=== PATIENT | male | born 1945 | race Caucasian/White ===

== ENCOUNTER 2019-08-04 17:32 | Inpatient (IN) | payer MEDICARE ==
[~2019-08-04] VITALS: Ht 177.8 cm; Wt 74.6 kg
[2019-08-04] MEDS ORDERED: IV NORMAL SALINE 1000ML BAG 1,000 ML IV ONE ×2 (18:30→20:30)
[2019-08-04] MEDS ORDERED: MORPHINE SULFATE 4 MG/ML VIAL. IV ONE (18:30)
[2019-08-04] MEDS ORDERED: ONDANSETRON PF 4 MG/2 ML VIAL. IV ONE (18:30)
--- NOTE | 2019-08-04 18:49 | PHYS DOC ---
Past Medical History Past Medical History: Hypertension Past Surgical History: Other Additional Past Surgical Histo: CARPEL TUNNEL, dave in LLE Alcohol Use: None Drug Use: None Adult General Chief Complaint Chief Complaint: WEAKNESS/GENERALIZED HPI HPI Patient is a 73 year old male who presents to the ER via EMS with complaints of generalized weakness x2 weeks. Today he fell and landed on his right side. He complains of R thigh pain, pt denies R hip pain, loss of consciousness, head or neck pain. He reports that he has been intermittently dizzy during position changes and ambulation for several weeks and that is why he fell today. Pt denies any chest pain, palpitations, shortness of breath, nausea, vomiting, diarrhea, or abdominal pain. He currently rates his pain a 10/10 on the pain sca le and denies any alleviating factors. Review of Systems Review of Systems Constitutional: Denies fever or chills [] Eyes: Denies change in visual acuity, redness, or eye pain [] HENT: Denies nasal congestion or sore throat [] Respiratory: Denies cough or shortness of breath [] Cardiovascular: No additional information not addressed in HPI [] GI: Denies abdominal pain, nausea, vomiting, bloody stools or diarrhea [] : Denies dysuria or hematuria [] Musculoskeletal: Denies back pain or joint pain [] Integument: see HPI Neurologic: Denies headache, focal weakness or sensory changes; see HPI [] Endocrine: Denies polyuria or polydipsia [] Complete systems were reviewed and found to be within normal limits, except as documented in this note. Current Medications Current Medications Current Medications Medications (Trade) Dose Ordered Sig/Eliza Start Time Stop Time Status Last Admin Dose Admin Fentanyl Citrate (Fentanyl 2ml Vial) 50 mcg 1X ONCE 08/04/19 20:30 08/04/19 20:31 DC 08/04/19 20:39 50 MCG Morphine Sulfate (Morphine Sulfate) 4 mg 1X ONCE 08/04/19 18:30 08/04/19 18:31 DC 08/04/19 19:25 4 MG Ondansetron HCl (Zofran) 4 mg 1X ONCE 08/04/19 18:30 08/04/19 18:31 DC 08/04/19 19:25 4 MG Sodium Chloride 1,000 ml @ 1,000 mls/hr 1X ONCE 08/04/19 20:30 08/04/19 21:29 DC 08/04/19 20:49 1,000 MLS/HR Allergies Allergies Allergies Coded Allergies Type Severity Reaction Last Updated Verified No Known Drug Allergies 08/04/19 No Physical Exam Physical Exam Constitutional: Well developed, well nourished, no acute distress, non-toxic appearance. [] HENT: Normocephalic, atraumatic, bilateral external ears normal, nose normal. [] Eyes: PERRLA, conjunctiva normal, no discharge. [] Neck: Normal range of motion, no stridor. [] Cardiovascular:Heart rate regular rhythm, no murmur [] Lungs & Thorax: Bilateral breath sounds clear to auscultation, regular rate, speaking full sentences [] Abdomen: soft, no tenderness, no masses, no pulsatile masses. [] Skin: Warm, dry, no erythema, no rash; LLE bluish discoloration with scabbed wound noted lateral [] Back: No tenderness, no CVA tenderness. [] Extremities: No tenderness, no clubbing, ROM intact, no edema; LLE pulses not palpable, R pedal and posterior tibial pulses 2+; R mid thigh TTP, no crepitus, no deformity Neurologic: Alert and oriented X 3, no focal deficits noted. [] Psychologic: Affect normal, judgement normal, mood normal. [] Current Patient Data Vital Signs Vital Signs Date Time Temp Pulse Resp B/P (MAP) Pulse Ox O2 Delivery O2 Flow Rate FiO2 08/04/19 20:30 87 18 98 08/04/19 17:59 98.1 105/52 (69) Room Air 98.1 Lab Values Laboratory Tests Test 08/04/19 19:04 White Blood Count 6.9 x10^3/uL (4.0-11.0) Red Blood Count 3.21 x10^6/uL (4.30-5.70) L Hemoglobin 11.3 g/dL (13.0-17.5) L Hematocrit 33.7 % (39.0-53.0) L Mean Corpuscular Volume 105 fL (79-100) H Mean Corpuscular Hemoglobin 35 pg (25-35) Mean Corpuscular Hemoglobin Concent 34 g/dL (31-37) Red Cell Distribution Width 14.6 % (11.5-14.5) H Platelet Count 416 x10^3/uL (140-400) H Neutrophils (%) (Auto) 66 % (31-73) Lymphocytes (%) (Auto) 24 % (24-48) Monocytes (%) (Auto) 9 % (0-9) Eosinophils (%) (Auto) 1 % (0-3) Basophils (%) (Auto) 1 % (0-3) Neutrophils # (Auto) 4.6 x10^3/uL (1.8-7.7) Lymphocytes # (Auto) 1.7 x10^3/uL (1.0-4.8) Monocytes # (Auto) 0.6 x10^3/uL (0.0-1.1) Eosinophils # (Auto) 0.0 x10^3/uL (0.0-0.7) Basophils # (Auto) 0.1 x10^3/uL (0.0-0.2) Prothrombin Time 13.3 SEC (11.7-14.0) Prothrombin Time INR 1.0 (0.8-1.1) Activated Partial Thromboplast Time 33 SEC (24-38) Sodium Level 129 mmol/L (136-145) L Potassium Level 3.8 mmol/L (3.5-5.1) Chloride Level 91 mmol/L (98-107) L Carbon Dioxide Level 18 mmol/L (21-32) L Anion Gap 20 (6-14) H Blood Urea Nitrogen 74 mg/dL (8-26) H Creatinine 2.2 mg/dL (0.7-1.3) H Estimated GFR (Cockcroft-Gault) 29.7 BUN/Creatinine Ratio 34 (6-20) H Glucose Level 94 mg/dL (70-99) Lactic Acid Level 2.3 mmol/L (0.4-2.0) H Calcium Level 8.0 mg/dL (8.5-10.1) L Magnesium Level 2.4 mg/dL (1.8-2.4) Total Bilirubin 0.5 mg/dL (0.2-1.0) Aspartate Amino Transferase (AST) 46 U/L (15-37) H Alanine Aminotransferase (ALT) 23 U/L (16-63) Alkaline Phosphatase 122 U/L (46-116) H Troponin I Quantitative 0.017 ng/mL (0.000-0.055) Total Protein 6.0 g/dL (6.4-8.2) L Albumin 2.1 g/dL (3.4-5.0) L Albumin/Globulin Ratio 0.5 (1.0-1.7) L Laboratory Tests 08/04/19 19:04 Laboratory Tests 08/04/19 19:04 EKG EKG 1752- SR with PACs rate 87, no STEMI read by Dr. Benitez [] Radiology/Procedures Radiology/Procedures PROCEDURE: CT HEAD WO CONTRAST EXAM: CT HEAD WITHOUT CONTRAST. HISTORY: Syncope, weakness. TECHNIQUE: Computed tomography of the head was performed without intravenous contrast. One or more of the following individualized dose reduction techniques were utilized for this examination: 1. Automated exposure control. 2. Adjustment of the mA and/or kV according to patient size. 3. Use of iterative reconstruction technique. COMPARISON: None. FINDINGS: There is no intracranial hemorrhage. Hypoattenuation within the periventricular white matter indicates mild chronic microangiopathic change. Prominence of the lateral ventricles and hemispheric sulci indicates moderate atrophy. The visualized paranasal sinuses appear clear. There are changes of bilateral cataract surgery. The temporal bones are unremarkable. The calvarium reveals no suspicious lesions. IMPRESSION: 1. No acute intracranial findings. 2. Moderate atrophy and mild chronic microangiopathic white matter change. PROCEDURE: ARTERIAL STUDY LOWER EXT RIGHT EXAM: Right lower extremity arterial Doppler. HISTORY: Decreased pulses. Right lower extremity pain. COMPARISON: None. FINDINGS: Grayscale and Doppler analysis of the right lower cavity arterial system was performed. There are triphasic waveforms from the common femoral artery through the popliteal artery. There are biphasic waveforms within the trifurcation vessels. The dorsalis pedis artery is patent with biphasic flow. IMPRESSION: 1. Findings consistent with mildly flow-limiting stenosis within the distal popliteal artery or proximal trifurcation vessels. PROCEDURE: RIGHT FEMUR XRAY EXAM: 1. HIP RIGHT 2V WITH PELVIS, 2. RIGHT FEMUR 2 VIEWS. HISTORY: Fall with right hip and femoral pain. COMPARISON: None. FINDINGS: No fractures are appreciated within the pelvis. There is mildly decreased femoral head/neck offset superolaterally bilaterally. The joint spaces of both hips are maintained. The there is no fracture within the right femur. There is mild medial compartmental osteoarthritis at the right knee. IMPRESSION: 1. No fracture. 2. Correlate for mild femoroacetabular impingement bilaterally. 3. Mild medial compartmental osteoarthritis of the right knee. [] Course & Med Decision Making Course & Med Decision Making Pertinent Labs and Imaging studies reviewed. (See chart for details) dx: FREEDOM, generalized weakness, R thigh pain 2049- Notified Dr. Olsen of patient and need for admit. Patient's vital signs stable. Patient remains afebrile, appears nontoxic, respirations even and unlabored. Patient will be admitted to the med/tele floor. Patient's case and plan of care also discussed with Dr. Link [] Dragon Disclaimer Dragon Disclaimer This electronic medical record was generated, in whole or in part, using a voice recognition dictation system. Departure Departure Impression: Primary Impression: FREEDOM (acute kidney injury) Additional Impressions: Generalized weakness Right thigh pain Disposition: ADMITTED INPATIENT Admitting Physician: ALVINA (Pretty) Condition: STABLE Referrals: SILVINA STEPHEN MD (PCP) Problem Qualifiers MORRIS RADFORD INKER AND OPAQUER Aug 04, 2019 18:49
[2019-08-04 19:08] LABS: BASO # 0.1 x10^3/uL (0.0-0.2); BASO % 1 % (0-3); EOS % 1 % (0-3); HEMATOCRIT 33.7 % (39.0-53.0); HEMOGLOBIN 11.3 g/dL (13.0-17.5); LYMPH # 1.7 x10^3/uL (1.0-4.8); LYMPH % 24 % (24-48); MEAN CORPUSCULAR HEMOGLOBIN 35 pg (25-35); MEAN CORPUSCULAR HGB CONC 34 g/dL (31-37); MEAN CORPUSCULAR VOLUME 105 fL (79-100); MONO # 0.6 x10^3/uL (0.0-1.1); MONO % 9 % (0-9); NEUT # 4.6 x10^3/uL (1.8-7.7); NEUT % 66 % (31-73); PLATELET COUNT 416 x10^3/uL (140-400); RED BLOOD COUNT 3.21 x10^6/uL (4.30-5.70); RED CELL DISTRIBUTION WIDTH 14.6 % (11.5-14.5); WHITE BLOOD COUNT 6.9 x10^3/uL (4.0-11.0)
[2019-08-04 19:17] LABS: PROTHROMBIN TIME PATIENT 13.3 SEC (11.7-14.0)
[2019-08-04 19:30] LABS: CREATININE 2.2 mg/dL (0.7-1.3); GFR 29.7; POTASSIUM 3.8 mmol/L (3.5-5.1)
[2019-08-04 19:34] LABS: ALBUMIN 2.1 g/dL (3.4-5.0); ALBUMIN/GLOBULIN RATIO 0.5 (1.0-1.7); MAGNESIUM 2.4 mg/dL (1.8-2.4); TOTAL BILIRUBIN 0.5 mg/dL (0.2-1.0)
--- NOTE | 2019-08-04 20:00 | RAD ---
EXAM: CT HEAD WITHOUT CONTRAST. HISTORY: Syncope, weakness. TECHNIQUE: Computed tomography of the head was performed without intravenous contrast. One or more of the following individualized dose reduction techniques were utilized for this examination: 1. Automated exposure control. 2. Adjustment of the mA and/or kV according to patient size. 3. Use of iterative reconstruction technique. COMPARISON: None. FINDINGS: There is no intracranial hemorrhage. Hypoattenuation within the periventricular white matter indicates mild chronic microangiopathic change. Prominence of the lateral ventricles and hemispheric sulci indicates moderate atrophy. The visualized paranasal sinuses appear clear. There are changes of bilateral cataract surgery. The temporal bones are unremarkable. The calvarium reveals no suspicious lesions. IMPRESSION: 1. No acute intracranial findings. 2. Moderate atrophy and mild chronic microangiopathic white matter change. Electronically signed by: Stefanie Hernandez MD (08/04/2019 7:57 PM) [facility]
--- NOTE | 2019-08-04 20:09 | RAD ---
EXAM: Right lower extremity arterial Doppler. HISTORY: Decreased pulses. Right lower extremity pain. COMPARISON: None. FINDINGS: Grayscale and Doppler analysis of the right lower cavity arterial system was performed. There are triphasic waveforms from the common femoral artery through the popliteal artery. There are biphasic waveforms within the trifurcation vessels. The dorsalis pedis artery is patent with biphasic flow. IMPRESSION: 1. Findings consistent with mildly flow-limiting stenosis within the distal popliteal artery or proximal trifurcation vessels. Electronically signed by: Stefanie Hernandez MD (08/04/2019 8:06 PM) [facility]
[2019-08-04] MEDS ORDERED: fentaNYL PF VIAL 100 MCG/2 ML VIAL IV ONE (20:30)
--- NOTE | 2019-08-04 20:41 | RAD ---
EXAM: 1. HIP RIGHT 2V WITH PELVIS, 2. RIGHT FEMUR 2 VIEWS. HISTORY: Fall with right hip and femoral pain. COMPARISON: None. FINDINGS: No fractures are appreciated within the pelvis. There is mildly decreased femoral head/neck offset superolaterally bilaterally. The joint spaces of both hips are maintained. The there is no fracture within the right femur. There is mild medial compartmental osteoarthritis at the right knee. IMPRESSION: 1. No fracture. 2. Correlate for mild femoroacetabular impingement bilaterally. 3. Mild medial compartmental osteoarthritis of the right knee. Electronically signed by: Stefanie Hernandez MD (08/04/2019 8:38 PM) [facility]
--- NOTE | 2019-08-04 20:41 | RAD ---
EXAM: 1. HIP RIGHT 2V WITH PELVIS, 2. RIGHT FEMUR 2 VIEWS. HISTORY: Fall with right hip and femoral pain. COMPARISON: None. FINDINGS: No fractures are appreciated within the pelvis. There is mildly decreased femoral head/neck offset superolaterally bilaterally. The joint spaces of both hips are maintained. The there is no fracture within the right femur. There is mild medial compartmental osteoarthritis at the right knee. IMPRESSION: 1. No fracture. 2. Correlate for mild femoroacetabular impingement bilaterally. 3. Mild medial compartmental osteoarthritis of the right knee. Electronically signed by: Stefanie Hernandez MD (08/04/2019 8:38 PM) [facility]
[2019-08-04] MEDS ORDERED: ONDANSETRON PF 4 MG/2 ML VIAL. IV PRN (21:00)
[2019-08-04] MEDS: fentaNYL PF VIAL 100 MCG/2 ML VIAL IV PRN ×2 (21:15→22:09)
[2019-08-04 21:41] LABS: BILIRUBIN,URINE SMALL (NEG); CLARITY,URINE CLEAR; COLOR,URINE YELLOW; NITRITE,URINE NEGATIVE (NEG); PROTEIN,URINE NEGATIVE (NEG-TRACE); UROBILINOGEN,URINE 0.2 mg/dL (0.2 mg/dL)
[2019-08-04] MEDS: IV NORMAL SALINE 1000ML BAG 1,000 ML IV SCH (21:46)
[2019-08-04 21:48] LABS: HYALINE CASTS, URINE MANY /HPF
[2019-08-04 21:51] LABS: BACTERIA,URINE 0 /HPF (0-FEW); RBC,URINE 0 /HPF (0-2); SQUAMOUS EPITHELIAL CELL,UR OCC /LPF
[2019-08-04 23:43] VITALS: BP 112/46
[2019-08-05] VITALS (8 sets, daily range): BP systolic 98–154; BP diastolic 47–85
--- NOTE | 2019-08-05 01:00 | NUR ---
ADMIT NOTE The patient, KIRSTEN FUNK, 73 y/o, M admitted by ELLIS JETT MD, was given written information regarding hospital policies, unit procedures and contact persons. Report rcvd. from Honey, RN and pt arrived to unit via gurney. Patient afebrile, A&O, and VSS. Patient's belongings verified and left in room with patient at admission, patient reports, "security has my valuables". Patient orientated to unit, admission assessment complete, admit packet reviewed and plan of care discussed. Medications and allergies verified with patient at this time. Patient remains in bed, with no s/o pain and call light within reach, will continue to monitor.
[2019-08-05] MEDS ORDERED: FLU VAX QS 2019-20 (36MOS+)/PF 0.5 ML SYRINGE. VAX IM ONE (08:00)
--- NOTE | 2019-08-05 08:00 | EKG ---
[facility] [address] [place] [address] Test Date: 2019-08-04 Test Time: 17:52:46 Pat Name: KIRSTEN FUNK Department: Room: Gender: M Technical Training Specialist: : [id number] Requested By: MORRIS RADFORD Order Number: [id number] Reading MD: Measurements Intervals [place] Rate: 87 P: 90 WA: 152 QRS: 20 QRSD: 76 T: 42 QT: 358 QTc: 431 Interpretive Statements SINUS RHYTHM ATRIAL PREMATURE COMPLEX(ES), TRIGEMINY ABNORMAL ECG RI6.01 No previous ECG available for comparison
[2019-08-05] MEDS ORDERED: HYDR-2759 PO (08:04)
[2019-08-05] MEDS ORDERED: HYDR-2869 PO (08:04)
[2019-08-05] MEDS ORDERED: AMLO5TAB10 PO (08:04)
[2019-08-05] MEDS ORDERED: LISI1TAB19 PO (08:04)
[2019-08-05] MEDS: IV NORMAL SALINE 1000ML BAG 1,000 ML IV SCH ×2 (09:05→18:42)
--- NOTE | 2019-08-05 12:46 | PDOC2 ---
ZACHARY STARK BOLTING MACHINE OPERATOR 08/05/19 1246: CARDIAC CONSULT DATE OF CONSULT Date of Consult DATE: 08/05/19 TIME: 12:13 REASON FOR CONSULT Reason for Consult: Syncope REFERRING PHYSICIAN Referring Physician: Zac SOURCE Source: Chart review, Patient HISTORY OF PRESENT ILLNESS HISTORY OF PRESENT ILLNESS This is a pleasant 73 yo male admitted for complains of dizziness and fall. Reports that yesterday he got up in the morning and upon getting up he got lightheaded then almost passing out and fell. No lost of consciousness. No chest pain, palpitations, SOA. Denies any previous n/v/d. Reports that he only drinks about 1 L daily and has been taking losartan and HCTZ for BP. Denies NSAID use as he was told in the past not to take this. Denies any past CAD, arrhythmias, CVA, VTE or any recent falls, injury or MVA. Denies any leg pains and no open wounds. Denies any exertional CP, SHARMA nor claudication symptoms but his activity is limited as well. PAST MEDICAL HISTORY Cardiovascular: HTN Pulmonary: No pertinent hx CENTRAL NERVOUS SYSTEM: Carpal Tunnel Syndrome GI: No pertinent hx Heme/Onc: No pertinent hx Hepatobiliary: No pertinent hx Psych: No pertinent hx Musculoskeletal: Osteoarthritis, Other (traumatic LLE injury with 9 total surgeries with dave placement) Rheumatologic: No pertinent hx Infectious disease: No pertinent hx ENT: No pertinent hx (wears dentures) Renal/: No pertinent hx Endocrine: No pertinent hx Dermatology: No pertinent hx PAST SURGICAL HISTORY Past Surgical History: Cataract Removal, Other (LLE repair) FAMILY HISTORY Family History noncontributory to CV SOCIAL HISTORY Smoke: Quit ALCOHOL: none Drugs: None Lives: Alone CURRENT MEDICATIONS CURRENT MEDICATIONS Current Medications Medications (Trade) Dose Ordered Sig/Eliza Route PRN Reason Start Time Stop Time Status Last Admin Dose Admin Sodium Chloride 1,000 ml @ 1,000 mls/hr 1X ONCE IV 08/04/19 18:30 08/04/19 19:29 DC 08/04/19 19:25 Morphine Sulfate (Morphine Sulfate) 4 mg 1X ONCE IV 08/04/19 18:30 08/04/19 18:31 DC 08/04/19 19:25 Ondansetron HCl (Zofran) 4 mg 1X ONCE IV 08/04/19 18:30 08/04/19 18:31 DC 08/04/19 19:25 Fentanyl Citrate (Fentanyl 2ml Vial) 50 mcg 1X ONCE IV 08/04/19 20:30 08/04/19 20:31 DC 08/04/19 20:39 Sodium Chloride 1,000 ml @ 1,000 mls/hr 1X ONCE IV 08/04/19 20:30 08/04/19 21:29 DC 08/04/19 20:49 Fentanyl Citrate (Fentanyl 2ml Vial) 50 mcg PRN Q1HR PRN IV PAIN 08/04/19 21:00 08/05/19 20:59 08/04/19 22:09 Sodium Chloride 1,000 ml @ 100 mls/hr Q10H IV 08/04/19 20:58 08/05/19 20:57 08/05/19 09:05 Influenza Virus Vaccine Quadrival (Afluria Quad 2019-20 (3yr Up) Syringe) 0.5 ml ONCE ONCE VAX IM 08/05/19 08:00 08/05/19 08:07 DC 08/05/19 09:12 ALLERGIES ALLERGIES: Coded Allergies: No Known Drug Allergies (Unverified , 08/04/19) ROS Review of System 14 point ROS evaluated with pertinent positives noted per HPI PHYSICAL EXAM General: Alert, Oriented X3, Cooperative, No acute distress HEENT: Atraumatic, Mucous membr. moist/pink Lungs: Clear to auscultation, Normal air movement Heart: Regular rate (SR), Normal S1, Normal S2, No murmurs Abdomen: Soft, No tenderness Extremities: No cyanosis, No edema Skin: No breakdown, No significant lesion, Other (atrophic LE skin) Neuro: Normal speech, Sensation intact Psych/Mental Status: Mental status NL, Mood NL MUSCULOSKELETAL: Osteoarthritic changes both hands VITALS/I&O VITALS/I&O: Vital Signs Date Time Temp Pulse Resp B/P (MAP) Pulse Ox O2 Delivery O2 Flow Rate FiO2 08/05/19 11:46 97.4 106 18 117/58 (77) 95 Room Air 97.4 I & O 08/04/19 08/04/19 08/05/19 15:00 23:00 07:00 Intake Total 2050 ml 0 ml Output Total 300 ml Balance 1750 ml 0 ml LABS Lab: Laboratory Tests Test 08/04/19 19:04 08/04/19 21:30 08/04/19 22:40 White Blood Count 6.9 x10^3/uL (4.0-11.0) Red Blood Count 3.21 x10^6/uL (4.30-5.70) L Hemoglobin 11.3 g/dL (13.0-17.5) L Hematocrit 33.7 % (39.0-53.0) L Mean Corpuscular Volume 105 fL (79-100) H Mean Corpuscular Hemoglobin 35 pg (25-35) Mean Corpuscular Hemoglobin Concent 34 g/dL (31-37) Red Cell Distribution Width 14.6 % (11.5-14.5) H Platelet Count 416 x10^3/uL (140-400) H Neutrophils (%) (Auto) 66 % (31-73) Lymphocytes (%) (Auto) 24 % (24-48) Monocytes (%) (Auto) 9 % (0-9) Eosinophils (%) (Auto) 1 % (0-3) Basophils (%) (Auto) 1 % (0-3) Neutrophils # (Auto) 4.6 x10^3/uL (1.8-7.7) Lymphocytes # (Auto) 1.7 x10^3/uL (1.0-4.8) Monocytes # (Auto) 0.6 x10^3/uL (0.0-1.1) Eosinophils # (Auto) 0.0 x10^3/uL (0.0-0.7) Basophils # (Auto) 0.1 x10^3/uL (0.0-0.2) Prothrombin Time 13.3 SEC (11.7-14.0) Prothrombin Time INR 1.0 (0.8-1.1) Activated Partial Thromboplast Time 33 SEC (24-38) Sodium Level 129 mmol/L (136-145) L Potassium Level 3.8 mmol/L (3.5-5.1) Chloride Level 91 mmol/L (98-107) L Carbon Dioxide Level 18 mmol/L (21-32) L Anion Gap 20 (6-14) H Blood Urea Nitrogen 74 mg/dL (8-26) H Creatinine 2.2 mg/dL (0.7-1.3) H Estimated GFR (Cockcroft-Gault) 29.7 BUN/Creatinine Ratio 34 (6-20) H Glucose Level 94 mg/dL (70-99) Lactic Acid Level 2.3 mmol/L (0.4-2.0) H 1.3 mmol/L (0.4-2.0) Calcium Level 8.0 mg/dL (8.5-10.1) L Magnesium Level 2.4 mg/dL (1.8-2.4) Total Bilirubin 0.5 mg/dL (0.2-1.0) Aspartate Amino Transferase (AST) 46 U/L (15-37) H Alanine Aminotransferase (ALT) 23 U/L (16-63) Alkaline Phosphatase 122 U/L (46-116) H Troponin I Quantitative 0.017 ng/mL (0.000-0.055) Total Protein 6.0 g/dL (6.4-8.2) L Albumin 2.1 g/dL (3.4-5.0) L Albumin/Globulin Ratio 0.5 (1.0-1.7) L Urine Collection Type U cath Urine Color Yellow Urine Clarity Clear Urine pH 5.0 Urine Specific [place] 1.020 Urine Protein Negative mg/dL (NEG-TRACE) Urine Glucose (UA) Negative mg/dL (NEG) Urine Ketones (Stick) 15 mg/dL (NEG) Urine Blood Negative (NEG) Urine Nitrite Negative (NEG) Urine Bilirubin Small (NEG) Urine Urobilinogen Dipstick 0.2 mg/dL (0.2 mg/dL) Urine Leukocyte Esterase Negative (NEG) Urine RBC 0 /HPF (0-2) Urine WBC 1-4 /HPF (0-4) Urine Squamous Epithelial Cells Occ /LPF Urine Transitional Epithelial Cells Mod /LPF Urine Bacteria 0 /HPF (0-FEW) Urine Hyaline Casts Many /HPF Urine Mucus Mod /LPF Laboratory Tests 08/04/19 19:04 Laboratory Tests 08/04/19 19:04 ASSESSMENT/PLAN ASSESSMENT/PLAN 1. Presyncope with nontraumatic fall: possibly orthostasis with underlying uremia. No arrhythmias so far and this is positional; 2. Debility: mainly WC bound 3. Macrocytosis: denies ETOH use. per PCP 4. Severe FREEDOM with hyponatremia: nephrology following 5. Suspect Dementia 6. Suspect COPD 7. LE PAD: no claudications, no open wounds Recommendations 1. Check orthostatic readings. 2. EKG reviewed NSR with PACs. ASA, will check lipids and start on statin 3. Discussed hydration adequacy. Stop ARB/HCTZ. Could restart norvasc pending BP trend. 4. Monitor rhythm VIKTOR CRUZ MD 08/06/19 2204: CARDIAC CONSULT ASSESSMENT/PLAN ASSESSMENT/PLAN Patient seen and examined 08/05/19. Agree with BINDERY CHIEF's assessment and plan. Patient with near syncope and fall Tele did not show any arrhythmias Check orthostatics PAD stable Thank you for your consultation ZACHARY STARK APRN Aug 05, 2019 12:46 VIKTOR CRUZ MD Aug 06, 2019 22:04
--- NOTE | 2019-08-05 13:46 | HP ---
ADMIT DATE: 08/05/2019 CHIEF COMPLAINT: Weakness. HISTORY OF PRESENT ILLNESS: The patient is a pleasant 73-year-old male who presents to the ER with weakness. He came in by ambulance. This has been worsening over the past 2 weeks. He actually fell and states he had syncope as well. He actually did lose consciousness. He had some associated right thigh pain rated at 7/10 and right hip pain as well. He has been having intermittent dizziness with positional changes for several weeks. While in the ER, we noticed that he has acute renal failure with a creatinine of 2.2. He also is azotemic with a BUN of 74. He is also hyponatremic with a sodium of 129. He is malnourished with an albumin of 2.1. He is anemic with a hemoglobin of 11.3. I discussed the case with ER physician. We are going to admit the patient and consult Nephrology and Cardiology and Neurology. PAST MEDICAL HISTORY: 1. Hypertension. 2. Carpal tunnel surgery. 3. He has got a dave in the left lower extremity. ALLERGIES: None. FAMILY HISTORY: Diabetes. SOCIAL HISTORY: He does not drink, smoke or take drugs. He is retired. MEDICATIONS: Reviewed, please refer to the MRAD. REVIEW OF SYSTEMS: GENERAL: No history of weight change, weakness or fevers. SKIN: No bruising, hair changes or rashes. EYES: No blurred, double or loss of vision. NOSE AND THROAT: No history of nosebleeds, hoarseness or sore throat. HEART: No history of palpitations, chest pain or shortness of breath on exertion. LUNGS: Denies cough, hemoptysis, wheezing or shortness of breath. GASTROINTESTINAL: Denies changes in appetite, nausea, vomiting, diarrhea or constipation. GENITOURINARY: No history of frequency, urgency, hesitancy or nocturia. NEUROLOGIC: Denies history of numbness, tingling, tremor. Complains of weakness and syncope. PSYCHIATRIC: No history of panic, anxiety or depression. ENDOCRINE: No history of heat or cold intolerance, polyuria or polydipsia. EXTREMITIES: Denies muscle weakness, joint pain, pain on walking or stiffness. PHYSICAL EXAMINATION: VITALS: Within normal limits and are stable. GENERAL: No apparent distress. Alert and oriented. He is weak. HEENT: Head is normocephalic, atraumatic, pupils were equally round and reactive to light and accommodation. NECK: Supple, no JVD, no thyromegaly was noted. LUNGS: Clear to auscultation in all lung glover without rhonchi or wheezing. HEART: RRR, S1, S2 present. Peripheral pulses intact, no obvious murmurs were noted. ABDOMEN: Soft, nontender. Positive bowel sounds no organomegaly, normal bowel sounds. EXTREMITIES: Without any cyanosis, clubbing, or edema. Pedal pulses intact, Homans sign is negative. NEUROLOGIC: Normal speech, normal tone. A & O x3, moves all extremities, no obvious focal deficits. He is weak. PSYCHIATRIC: Normal affect, normal mood. Stable. SKIN: No ulcerations or rashes, good skin turgor, no jaundice. He is pale. VASCULAR: Good capillary refill, neurovascular bundle appears to be intact. LABORATORY DATA: Hemoglobin is 11.3. Sodium 129, potassium 3.8, chloride 91, bicarbonate 18, BUN 74, creatinine 2.2, glucose 94, albumin 2.1. ASSESSMENT AND PLAN: Syncope and multiple electrolyte disturbances with hyponatremia, azotemia, acute renal failure, anemia. The patient has been admitted. We will consult Nephrology, Cardiology and Neurology. IV fluids. Replace his electrolytes. PT, OT. Frequent labs. DVT prophylaxis. Cardiac monitoring. PROGNOSIS: Guarded. SANDI PURI DO DR: JULIA/rashi JOB#: [id number] / [id number]
--- NOTE | 2019-08-05 14:23 | PDOC2 ---
NEUROLOGY CONSULT Date of Admission Date of Admission DATE: 08/05/19 TIME: 14:17 Reason for Consult Reason for Consult: Syncope Referring Physician Referring Physician: Dr. Frank Source Source: Chart review, Patient History of Present Illness History of Present Illness The patient is a 73-year-old right-handed male who fell yesterday. He says that he gets lightheaded when he gets up quickly and has been having neck problem for up to several years. He has gotten weaker in the last 2 weeks. He denies any vertigo, diplopia, dysphagia, dysarthria, focal numbness or weakness, history of stroke or seizure. He may have had some head injuries in the past. He denies headache. He does have some right-sided body pain after the fall yesterday. He does not believe he loss consciousness or if he did, it was for a short amount of time. Past Medical History Cardiovascular: HTN Musculoskeletal: Osteoarthritis Past Surgical History Past Surgical History: Cataract Removal, Other (carpal tunnel, dave in leg) Family History Family History: CAD Social History Social History Single, no alcohol or tobacco quit smoking a few weeks ago Current Medications Current Medications Current Medications Sodium Chloride 1,000 ml @ 1,000 mls/hr 1X ONCE IV Last administered on 08/04/19at 19:25; Start 08/04/19 at 18:30; Stop 08/04/19 at 19:29; Status DC Morphine Sulfate (Morphine Sulfate) 4 mg 1X ONCE IV Last administered on 08/04/19at 19:25; Start 08/04/19 at 18:30; Stop 08/04/19 at 18:31; Status DC Ondansetron HCl (Zofran) 4 mg 1X ONCE IV Last administered on 08/04/19at 19:25; Start 08/04/19 at 18:30; Stop 08/04/19 at 18:31; Status DC Fentanyl Citrate (Fentanyl 2ml Vial) 50 mcg 1X ONCE IV Last administered on 08/04/19at 20:39; Start 08/04/19 at 20:30; Stop 08/04/19 at 20:31; Status DC Sodium Chloride 1,000 ml @ 1,000 mls/hr 1X ONCE IV Last administered on 08/04/19at 20:49; Start 08/04/19 at 20:30; Stop 08/04/19 at 21:29; Status DC Ondansetron HCl (Zofran) 4 mg PRN Q8HRS PRN IV NAUSEA/VOMITING; Start 08/04/19 at 21:00; Stop 08/05/19 at 20:59 Fentanyl Citrate (Fentanyl 2ml Vial) 50 mcg PRN Q1HR PRN IV PAIN Last administered on 08/04/19at 22:09; Start 08/04/19 at 21:00; Stop 08/05/19 at 20:59 Sodium Chloride 1,000 ml @ 100 mls/hr Q10H IV Last administered on 08/05/19at 09:05; Start 08/04/19 at 20:58; Stop 08/05/19 at 20:57 Influenza Virus Vaccine Quadrival (Afluria Quad 2019-20 (3yr Up) Syringe) 0.5 ml ONCE ONCE VAX IM Last administered on 08/05/19at 09:12; Start 08/05/19 at 08:00; Stop 08/05/19 at 08:07; Status DC Active Scripts Active Reported Hydralazine Hcl 50 Mg Tablet 1.5 Tab PO TID Lisinopril-Hctz 20-12.5 Mg Tab (Lisinopril/Hydrochlorothiazide) 1 Each Tablet 1 Tab PO DAILY Amlodipine Besylate 5 Mg Tablet 1 Tab PO BID Hydrocodone-Acetamin 5-325 mg (Hydrocodone/Acetaminophen) 1 Each Tablet 1 Tab PO PRN BID PRN Allergies Allergies: Coded Allergies: No Known Drug Allergies (Unverified , 08/04/19) ROS Review of System Negative for fever, chills, weight loss, shortness of breath, chest pain, indigestion, hematochezia, melena, and dysuria. Full 14-point review of systems is negative. Physical Exam Physical Examination General: Well-developed, well-nourished white male in no acute distress HEENT: Normocephalic andatraumatic. Temporal arteriespulsatile and nontender. Neck: Supple without bruit, no meningismus Musculoskeletal: Stability:see neurologic. Gait exam:see neurologic. Tone:see neurologic.Strength:see neurologic. Neurological: Mental Status:intact, orientation, memory, attention span/concentration, language, fund of knowledge normal. Cranial Nerves:Pupils equal and reactive to light, extraocular movements areintact, visual glover are full to confrontation. There is no nystagmus. Facial sensation is normal. There is no facial asymmetry. Vestibulo-ocular reflex is intact. Palate elevates and tongue protrudes in midline. All other cranial related problems are negative except as mentioned before.Reflexes:1+ and symmetric with flexor plantar responses. Motor:5/5 strength with normal tone and bulk. Coordination:Finger-nose finger and jwxa-ls-[id number] testing are normal. Rapid alternating movements and fine finger movements are intact. Gait:Complains of lightheadedness upon standing, no nystagmus elicited. Sensory:Normal pinprick, vibration, light touch, proprioception. Vitals VITALS Vital Signs Date Time Temp Pulse Resp B/P (MAP) Pulse Ox O2 Delivery O2 Flow Rate FiO2 08/05/19 13:32 118 106/62 (77) 08/05/19 11:46 97.4 18 95 Room Air 97.4 Labs Labs Laboratory Tests Test 08/04/19 19:04 08/04/19 21:30 08/04/19 22:40 White Blood Count 6.9 x10^3/uL (4.0-11.0) Red Blood Count 3.21 x10^6/uL (4.30-5.70) Hemoglobin 11.3 g/dL (13.0-17.5) Hematocrit 33.7 % (39.0-53.0) Mean Corpuscular Volume 105 fL (79-100) Mean Corpuscular Hemoglobin 35 pg (25-35) Mean Corpuscular Hemoglobin Concent 34 g/dL (31-37) Red Cell Distribution Width 14.6 % (11.5-14.5) Platelet Count 416 x10^3/uL (140-400) Neutrophils (%) (Auto) 66 % (31-73) Lymphocytes (%) (Auto) 24 % (24-48) Monocytes (%) (Auto) 9 % (0-9) Eosinophils (%) (Auto) 1 % (0-3) Basophils (%) (Auto) 1 % (0-3) Neutrophils # (Auto) 4.6 x10^3/uL (1.8-7.7) Lymphocytes # (Auto) 1.7 x10^3/uL (1.0-4.8) Monocytes # (Auto) 0.6 x10^3/uL (0.0-1.1) Eosinophils # (Auto) 0.0 x10^3/uL (0.0-0.7) Basophils # (Auto) 0.1 x10^3/uL (0.0-0.2) Prothrombin Time 13.3 SEC (11.7-14.0) Prothromb Time International Ratio 1.0 (0.8-1.1) Activated Partial Thromboplast Time 33 SEC (24-38) Sodium Level 129 mmol/L (136-145) Potassium Level 3.8 mmol/L (3.5-5.1) Chloride Level 91 mmol/L (98-107) Carbon Dioxide Level 18 mmol/L (21-32) Anion Gap 20 (6-14) Blood Urea Nitrogen 74 mg/dL (8-26) Creatinine 2.2 mg/dL (0.7-1.3) Estimated GFR (Cockcroft-Gault) 29.7 BUN/Creatinine Ratio 34 (6-20) Glucose Level 94 mg/dL (70-99) Lactic Acid Level 2.3 mmol/L (0.4-2.0) 1.3 mmol/L (0.4-2.0) Calcium Level 8.0 mg/dL (8.5-10.1) Magnesium Level 2.4 mg/dL (1.8-2.4) Total Bilirubin 0.5 mg/dL (0.2-1.0) Aspartate Amino Transf (AST/SGOT) 46 U/L (15-37) Alanine Aminotransferase (ALT/SGPT) 23 U/L (16-63) Alkaline Phosphatase 122 U/L (46-116) Troponin I Quantitative 0.017 ng/mL (0.000-0.055) Total Protein 6.0 g/dL (6.4-8.2) Albumin 2.1 g/dL (3.4-5.0) Albumin/Globulin Ratio 0.5 (1.0-1.7) Urine Collection Type U cath Urine Color Yellow Urine Clarity Clear Urine pH 5.0 Urine Specific [place] 1.020 Urine Protein Negative mg/dL (NEG-TRACE) Urine Glucose (UA) Negative mg/dL (NEG) Urine Ketones (Stick) 15 mg/dL (NEG) Urine Blood Negative (NEG) Urine Nitrite Negative (NEG) Urine Bilirubin Small (NEG) Urine Urobilinogen Dipstick 0.2 mg/dL (0.2 mg/dL) Urine Leukocyte Esterase Negative (NEG) Urine RBC 0 /HPF (0-2) Urine WBC 1-4 /HPF (0-4) Urine Squamous Epithelial Cells Occ /LPF Urine Transitional Epithelial Cells Mod /LPF Urine Bacteria 0 /HPF (0-FEW) Urine Hyaline Casts Many /HPF Urine Mucus Mod /LPF Laboratory Tests Test 08/04/19 19:04 08/04/19 21:30 08/04/19 22:40 White Blood Count 6.9 x10^3/uL (4.0-11.0) Red Blood Count 3.21 x10^6/uL (4.30-5.70) Hemoglobin 11.3 g/dL (13.0-17.5) Hematocrit 33.7 % (39.0-53.0) Mean Corpuscular Volume 105 fL (79-100) Mean Corpuscular Hemoglobin 35 pg (25-35) Mean Corpuscular Hemoglobin Concent 34 g/dL (31-37) Red Cell Distribution Width 14.6 % (11.5-14.5) Platelet Count 416 x10^3/uL (140-400) Neutrophils (%) (Auto) 66 % (31-73) Lymphocytes (%) (Auto) 24 % (24-48) Monocytes (%) (Auto) 9 % (0-9) Eosinophils (%) (Auto) 1 % (0-3) Basophils (%) (Auto) 1 % (0-3) Neutrophils # (Auto) 4.6 x10^3/uL (1.8-7.7) Lymphocytes # (Auto) 1.7 x10^3/uL (1.0-4.8) Monocytes # (Auto) 0.6 x10^3/uL (0.0-1.1) Eosinophils # (Auto) 0.0 x10^3/uL (0.0-0.7) Basophils # (Auto) 0.1 x10^3/uL (0.0-0.2) Prothrombin Time 13.3 SEC (11.7-14.0) Prothromb Time International Ratio 1.0 (0.8-1.1) Activated Partial Thromboplast Time 33 SEC (24-38) Sodium Level 129 mmol/L (136-145) Potassium Level 3.8 mmol/L (3.5-5.1) Chloride Level 91 mmol/L (98-107) Carbon Dioxide Level 18 mmol/L (21-32) Anion Gap 20 (6-14) Blood Urea Nitrogen 74 mg/dL (8-26) Creatinine 2.2 mg/dL (0.7-1.3) Estimated GFR (Cockcroft-Gault) 29.7 BUN/Creatinine Ratio 34 (6-20) Glucose Level 94 mg/dL (70-99) Lactic Acid Level 2.3 mmol/L (0.4-2.0) 1.3 mmol/L (0.4-2.0) Calcium Level 8.0 mg/dL (8.5-10.1) Magnesium Level 2.4 mg/dL (1.8-2.4) Total Bilirubin 0.5 mg/dL (0.2-1.0) Aspartate Amino Transf (AST/SGOT) 46 U/L (15-37) Alanine Aminotransferase (ALT/SGPT) 23 U/L (16-63) Alkaline Phosphatase 122 U/L (46-116) Troponin I Quantitative 0.017 ng/mL (0.000-0.055) Total Protein 6.0 g/dL (6.4-8.2) Albumin 2.1 g/dL (3.4-5.0) Albumin/Globulin Ratio 0.5 (1.0-1.7) Urine Collection Type U cath Urine Color Yellow Urine Clarity Clear Urine pH 5.0 Urine Specific [place] 1.020 Urine Protein Negative mg/dL (NEG-TRACE) Urine Glucose (UA) Negative mg/dL (NEG) Urine Ketones (Stick) 15 mg/dL (NEG) Urine Blood Negative (NEG) Urine Nitrite Negative (NEG) Urine Bilirubin Small (NEG) Urine Urobilinogen Dipstick 0.2 mg/dL (0.2 mg/dL) Urine Leukocyte Esterase Negative (NEG) Urine RBC 0 /HPF (0-2) Urine WBC 1-4 /HPF (0-4) Urine Squamous Epithelial Cells Occ /LPF Urine Transitional Epithelial Cells Mod /LPF Urine Bacteria 0 /HPF (0-FEW) Urine Hyaline Casts Many /HPF Urine Mucus Mod /LPF Images Images CT HEAD WITHOUT CONTRAST. There is no intracranial hemorrhage. Hypoattenuation within the periventricular white matter indicates mild chronic microangiopathic change. Prominence of the lateral ventricles and hemispheric sulci indicates moderate atrophy. The visualized paranasal sinuses appear clear. There are changes of bilateral cataract surgery. The temporal bones are unremarkable. The calvarium reveals no suspicious lesions. IMPRESSION: 1. No acute intracranial findings. 2. Moderate atrophy and mild chronic microangiopathic white matter change. Assessment/Plan Assessment/Plan Impression: Orthostatic lightheadedness, however, he is not orthostatic on blood pressure checks. On other hand, I find no evidence of vestibular or cerebellar dysfunction. There is no evidence of neuropathy, radiculopathy, or myelopathy. There is no sign of any acute central nervous system disease. Multiple medical problems including hyponatremia, acute renal insufficiency, anemia. Recommendations: Back off on hypertension control Rehabilitation modalities I will consider additional studies including brain MRI, vestibular testing, and additional laboratory studies depending on how he does. Thank you for letting me help with the patient's care. JACKLYN SINCLAIR MD Aug 05, 2019 14:23
--- NOTE | 2019-08-05 15:10 | NUR ---
SW following pt for dc planning. Chart reviewed and discussed with RN. Pt lives at home alone. Cardiology and neurology following. PT/OT ordered. Wound Care consulted. SW will continue to follow pt.
[2019-08-05] MEDS: fentaNYL PF VIAL 100 MCG/2 ML VIAL IV PRN ×2 (15:47→17:06)
--- NOTE | 2019-08-05 16:08 | NUR ---
Wound care Wound care consult for scab to LLE. Pt has scab that is dry and flaky to LLE that he states has been there for 16 years. Pt states it is from the dave and screws he has in his leg. Scab does not bother him or cause him pain, cleansed with Betadine and left [employer]. No other wounds noted. WC will continue to follow for possible changes.
--- NOTE | 2019-08-05 18:00 | NUR ---
The patient complained of urgency in urination, assisted in the bathroom, voided spontaneously but with sensation of incomplete emptying. The patient had hernandez inserted last night at the ER but the patient requested catheter to be taken out. Per Dr. Frank's order, hernandez F16 was inserted via aseptic technique at 1600. Drained about 400ml of yellow, clear urine. The patient complained of pain in the penile site, pain med given. Upon inspection, catheter site is clean, dry, no swelling or redness, no wounds noted. Patient educated about indication of indwelling catheter and complications. Nurse to continue to monitor.
--- NOTE | 2019-08-05 19:19 | NUR ---
Conner catheter removed at 1900 per patient request.
[2019-08-06 03:35] VITALS: BP 121/64
[2019-08-06 05:42] LABS: BASO % 0 % (0-3); EOS % 1 % (0-3); HEMATOCRIT 27.4 % (39.0-53.0); HEMOGLOBIN 9.2 g/dL (13.0-17.5); LYMPH % 22 % (24-48); MEAN CORPUSCULAR HEMOGLOBIN 35 pg (25-35); MEAN CORPUSCULAR HGB CONC 34 g/dL (31-37); MEAN CORPUSCULAR VOLUME 105 fL (79-100); MONO # 0.4 x10^3/uL (0.0-1.1); MONO % 9 % (0-9); NEUT # 2.9 x10^3/uL (1.8-7.7); NEUT % 67 % (31-73); PLATELET COUNT 276 x10^3/uL (140-400); RED BLOOD COUNT 2.61 x10^6/uL (4.30-5.70); RED CELL DISTRIBUTION WIDTH 14.5 % (11.5-14.5); WHITE BLOOD COUNT 4.4 x10^3/uL (4.0-11.0)
[2019-08-06 06:14] LABS: ALBUMIN 1.6 g/dL (3.4-5.0); ALBUMIN/GLOBULIN RATIO 0.4 (1.0-1.7); CALCIUM 7.4 mg/dL (8.5-10.1); CREATININE 1.1 mg/dL (0.7-1.3); POTASSIUM 3.7 mmol/L (3.5-5.1); TOTAL BILIRUBIN 0.4 mg/dL (0.2-1.0); TOTAL PROTEIN 5.4 g/dL (6.4-8.2)
[2019-08-06 07:00] VITALS: BP 116/54
--- NOTE | 2019-08-06 10:14 | PDOC2 ---
CONSULT Date of Consult Date of Consult DATE: 08/06/19 TIME: 10:13 Reason for Consult Reason for Consult: FREEDOM History of Present Illness Reason for Visit: This is a pleasant 73 yo C male admitted for complains of dizziness and fall. Reports that yesterday he got up in the morning and upon getting up he got lightheaded then almost passing out and fell. No lost of consciousness. No chest pain, palpitations, SOA. Denies any previous n/v/d. Reports that he only drinks about 1 L daily and has been taking losartan and HCTZ for BP. Denies NSAID use as he was told in the past not to take this. Denies any past CAD, arrhythmias, CVA, VTE or any recent falls, injury or MVA. Denies any leg pains and no open wounds. Denies any exertional CP, SHARMA nor claudication symptoms but his activity is limited as well. Denies Hx of CKD, No NSAID's. Had hernandez removed , states c/o mild burning Past Medical History Cardiovascular: HTN Pulmonary: No pertinent hx CENTRAL NERVOUS SYSTEM: Carpal Tunnel Syndrome GI: No pertinent hx Heme/Onc: No pertinent hx Hepatobiliary: No pertinent hx Psych: No pertinent hx Musculoskeletal: Osteoarthritis Rheumatologic: No pertinent hx Infectious disease: No pertinent hx ENT: No pertinent hx (wears dentures) Renal/: No pertinent hx Endocrine: No pertinent hx Dermatology: No pertinent hx Past Surgical History Past Surgical History: Cataract Removal, Other (carpal tunnel, dave in leg) Social History Quit ALCOHOL: none Drugs: None Lives: Alone Current Problem List Problem List Problems Medical Problems: (1) Right thigh pain Status: Acute Current Medications Current Medications Current Medications Sodium Chloride 1,000 ml @ 1,000 mls/hr 1X ONCE IV Last administered on 08/04/19at 19:25; Start 08/04/19 at 18:30; Stop 08/04/19 at 19:29; Status DC Morphine Sulfate (Morphine Sulfate) 4 mg 1X ONCE IV Last administered on 08/04/19at 19:25; Start 08/04/19 at 18:30; Stop 08/04/19 at 18:31; Status DC Ondansetron HCl (Zofran) 4 mg 1X ONCE IV Last administered on 08/04/19at 19:25; Start 08/04/19 at 18:30; Stop 08/04/19 at 18:31; Status DC Fentanyl Citrate (Fentanyl 2ml Vial) 50 mcg 1X ONCE IV Last administered on 08/04/19at 20:39; Start 08/04/19 at 20:30; Stop 08/04/19 at 20:31; Status DC Sodium Chloride 1,000 ml @ 1,000 mls/hr 1X ONCE IV Last administered on 08/04/19at 20:49; Start 08/04/19 at 20:30; Stop 08/04/19 at 21:29; Status DC Ondansetron HCl (Zofran) 4 mg PRN Q8HRS PRN IV NAUSEA/VOMITING; Start 08/04/19 at 21:00; Stop 08/05/19 at 20:59; Status DC Fentanyl Citrate (Fentanyl 2ml Vial) 50 mcg PRN Q1HR PRN IV PAIN Last administered on 08/05/19at 17:06; Start 08/04/19 at 21:00; Stop 08/05/19 at 20:59; Status DC Sodium Chloride 1,000 ml @ 100 mls/hr Q10H IV Last administered on 08/05/19at 18:42; Start 08/04/19 at 20:58; Stop 08/05/19 at 20:57; Status DC Influenza Virus Vaccine Quadrival (Afluria Quad 2019-20 (3yr Up) Syringe) 0.5 ml ONCE ONCE VAX IM Last administered on 08/05/19at 09:12; Start 08/05/19 at 08:00; Stop 08/05/19 at 08:07; Status DC Active Scripts Active Reported Hydralazine Hcl 50 Mg Tablet 1.5 Tab PO TID Lisinopril-Hctz 20-12.5 Mg Tab (Lisinopril/Hydrochlorothiazide) 1 Each Tablet 1 Tab PO DAILY Amlodipine Besylate 5 Mg Tablet 1 Tab PO BID Hydrocodone-Acetamin 5-325 mg (Hydrocodone/Acetaminophen) 1 Each Tablet 1 Tab PO PRN BID PRN Allergies Allergies: Coded Allergies: No Known Drug Allergies (Unverified , 08/04/19) ROS Review of System Per HPI Physical Exam Physical Exam General: Alert, Oriented X3, Cooperative, No acute distress HEENT: Atraumatic, Mucous membr. moist/pink Lungs: Clear to auscultation, Normal air movement Heart: Regular rate (SR), Normal S1, Normal S2, No murmurs Abdomen: Soft, No tenderness Extremities: No cyanosis, No edema Skin: No breakdown, No significant lesion, Other (atrophic LE skin) Neuro: Normal speech, Sensation intact Psych/Mental Status: Mental status NL, Mood NL MUSCULOSKELETAL: Osteoarthritic changes both hands Vital Signs Vital Signs Date Time Temp Pulse Resp B/P (MAP) Pulse Ox O2 Delivery O2 Flow Rate FiO2 08/06/19 07:00 97.9 99 18 116/54 (74) 99 Room Air 97.9 Assessment & Plan FREEDOM - vasomotor, Resolved Renal function improving, baseline unknown Supportive care, Monitor Hyponatremia- Improved with IVF Presyncope with nontraumatic fall Labs Labs Laboratory Tests Test 08/04/19 19:04 08/04/19 21:30 08/04/19 22:40 08/06/19 04:40 White Blood Count 6.9 x10^3/uL (4.0-11.0) 4.4 x10^3/uL (4.0-11.0) Red Blood Count 3.21 x10^6/uL (4.30-5.70) 2.61 x10^6/uL (4.30-5.70) Hemoglobin 11.3 g/dL (13.0-17.5) 9.2 g/dL (13.0-17.5) Hematocrit 33.7 % (39.0-53.0) 27.4 % (39.0-53.0) Mean Corpuscular Volume 105 fL (79-100) 105 fL (79-100) Mean Corpuscular Hemoglobin 35 pg (25-35) 35 pg (25-35) Mean Corpuscular Hemoglobin Concent 34 g/dL (31-37) 34 g/dL (31-37) Red Cell Distribution Width 14.6 % (11.5-14.5) 14.5 % (11.5-14.5) Platelet Count 416 x10^3/uL (140-400) 276 x10^3/uL (140-400) Neutrophils (%) (Auto) 66 % (31-73) 67 % (31-73) Lymphocytes (%) (Auto) 24 % (24-48) 22 % (24-48) Monocytes (%) (Auto) 9 % (0-9) 9 % (0-9) Eosinophils (%) (Auto) 1 % (0-3) 1 % (0-3) Basophils (%) (Auto) 1 % (0-3) 0 % (0-3) Neutrophils # (Auto) 4.6 x10^3/uL (1.8-7.7) 2.9 x10^3/uL (1.8-7.7) Lymphocytes # (Auto) 1.7 x10^3/uL (1.0-4.8) 1.0 x10^3/uL (1.0-4.8) Monocytes # (Auto) 0.6 x10^3/uL (0.0-1.1) 0.4 x10^3/uL (0.0-1.1) Eosinophils # (Auto) 0.0 x10^3/uL (0.0-0.7) 0.0 x10^3/uL (0.0-0.7) Basophils # (Auto) 0.1 x10^3/uL (0.0-0.2) 0.0 x10^3/uL (0.0-0.2) Prothrombin Time 13.3 SEC (11.7-14.0) Prothromb Time International Ratio 1.0 (0.8-1.1) Activated Partial Thromboplast Time 33 SEC (24-38) Sodium Level 129 mmol/L (136-145) 134 mmol/L (136-145) Potassium Level 3.8 mmol/L (3.5-5.1) 3.7 mmol/L (3.5-5.1) Chloride Level 91 mmol/L (98-107) 101 mmol/L (98-107) Carbon Dioxide Level 18 mmol/L (21-32) 23 mmol/L (21-32) Anion Gap 20 (6-14) 10 (6-14) Blood Urea Nitrogen 74 mg/dL (8-26) 39 mg/dL (8-26) Creatinine 2.2 mg/dL (0.7-1.3) 1.1 mg/dL (0.7-1.3) Estimated GFR (Cockcroft-Gault) 29.7 66.0 BUN/Creatinine Ratio 34 (6-20) 35 (6-20) Glucose Level 94 mg/dL (70-99) 119 mg/dL (70-99) Lactic Acid Level 2.3 mmol/L (0.4-2.0) 1.3 mmol/L (0.4-2.0) Calcium Level 8.0 mg/dL (8.5-10.1) 7.4 mg/dL (8.5-10.1) Magnesium Level 2.4 mg/dL (1.8-2.4) Total Bilirubin 0.5 mg/dL (0.2-1.0) 0.4 mg/dL (0.2-1.0) Aspartate Amino Transf (AST/SGOT) 46 U/L (15-37) 37 U/L (15-37) Alanine Aminotransferase (ALT/SGPT) 23 U/L (16-63) 20 U/L (16-63) Alkaline Phosphatase 122 U/L (46-116) 97 U/L (46-116) Troponin I Quantitative 0.017 ng/mL (0.000-0.055) Total Protein 6.0 g/dL (6.4-8.2) 5.4 g/dL (6.4-8.2) Albumin 2.1 g/dL (3.4-5.0) 1.6 g/dL (3.4-5.0) Albumin/Globulin Ratio 0.5 (1.0-1.7) 0.4 (1.0-1.7) Urine Collection Type U cath Urine Color Yellow Urine Clarity Clear Urine pH 5.0 Urine Specific [place] 1.020 Urine Protein Negative mg/dL (NEG-TRACE) Urine Glucose (UA) Negative mg/dL (NEG) Urine Ketones (Stick) 15 mg/dL (NEG) Urine Blood Negative (NEG) Urine Nitrite Negative (NEG) Urine Bilirubin Small (NEG) Urine Urobilinogen Dipstick 0.2 mg/dL (0.2 mg/dL) Urine Leukocyte Esterase Negative (NEG) Urine RBC 0 /HPF (0-2) Urine WBC 1-4 /HPF (0-4) Urine Squamous Epithelial Cells Occ /LPF Urine Transitional Epithelial Cells Mod /LPF Urine Bacteria 0 /HPF (0-FEW) Urine Hyaline Casts Many /HPF Urine Mucus Mod /LPF Laboratory Tests Test 08/06/19 04:40 White Blood Count 4.4 x10^3/uL (4.0-11.0) Red Blood Count 2.61 x10^6/uL (4.30-5.70) Hemoglobin 9.2 g/dL (13.0-17.5) Hematocrit 27.4 % (39.0-53.0) Mean Corpuscular Volume 105 fL (79-100) Mean Corpuscular Hemoglobin 35 pg (25-35) Mean Corpuscular Hemoglobin Concent 34 g/dL (31-37) Red Cell Distribution Width 14.5 % (11.5-14.5) Platelet Count 276 x10^3/uL (140-400) Neutrophils (%) (Auto) 67 % (31-73) Lymphocytes (%) (Auto) 22 % (24-48) Monocytes (%) (Auto) 9 % (0-9) Eosinophils (%) (Auto) 1 % (0-3) Basophils (%) (Auto) 0 % (0-3) Neutrophils # (Auto) 2.9 x10^3/uL (1.8-7.7) Lymphocytes # (Auto) 1.0 x10^3/uL (1.0-4.8) Monocytes # (Auto) 0.4 x10^3/uL (0.0-1.1) Eosinophils # (Auto) 0.0 x10^3/uL (0.0-0.7) Basophils # (Auto) 0.0 x10^3/uL (0.0-0.2) Sodium Level 134 mmol/L (136-145) Potassium Level 3.7 mmol/L (3.5-5.1) Chloride Level 101 mmol/L (98-107) Carbon Dioxide Level 23 mmol/L (21-32) Anion Gap 10 (6-14) Blood Urea Nitrogen 39 mg/dL (8-26) Creatinine 1.1 mg/dL (0.7-1.3) Estimated GFR (Cockcroft-Gault) 66.0 BUN/Creatinine Ratio 35 (6-20) Glucose Level 119 mg/dL (70-99) Calcium Level 7.4 mg/dL (8.5-10.1) Total Bilirubin 0.4 mg/dL (0.2-1.0) Aspartate Amino Transf (AST/SGOT) 37 U/L (15-37) Alanine Aminotransferase (ALT/SGPT) 20 U/L (16-63) Alkaline Phosphatase 97 U/L (46-116) Total Protein 5.4 g/dL (6.4-8.2) Albumin 1.6 g/dL (3.4-5.0) Albumin/Globulin Ratio 0.4 (1.0-1.7) Review All relevant outside records, renal labs, imaging studies, telemetry/EKG's were reviewed. KRZYSZTOF PAZ MD Aug 06, 2019 10:14
--- NOTE | 2019-08-06 10:48 | NUR ---
SW following pt. SW spoke with pt regarding SNU, options, insurance coverage and medicare star ratings. Pt chose [facility]. Pt states he lives in a two story house alone that has 5 bed rooms. Pt does not have children and he pays someone to take care of the mowing and gardening as he is not able to do so at this time. Pt states he has had episodes of syncope multiple times at home but has never passed out until now. Pt tells me he keeps up with his PCP appointment and has one appointment coming up soon. Pt aware he will need some rehabilitation prior to returning home and agreeable with [facility] evaluation. Plan 1. SW phoned and faxed referral to [facility]. Pt acceptance pending. 2. SW left Out side DNR form for Physician to sign on pt's chart. 3. Discussed with RN. Will continue to follow.
[2019-08-06 11:00] VITALS: BP 127/75
--- NOTE | 2019-08-06 11:30 | PDOC ---
ZACHARY STARK GRAIN WEIGHER 08/06/19 1130: CARDIO Progress Notes Date and Time Date of Service 08/06/2019 Time of Evaluation 1110 Subjective Subjective: No Chest Pain, No shortness of breath, No Palpitations Vitals Vitals Vital Signs Date Time Temp Pulse Resp B/P (MAP) Pulse Ox O2 Delivery O2 Flow Rate FiO2 08/06/19 07:00 97.9 99 18 116/54 (74) 99 Room Air 97.9 Weight Weight [ ] Input and Output Intake and Output Intake and Output 08/06/19 06:59 Intake Total 1360 ml Output Total 800 ml Balance 560 ml Intake Oral 760 ml IV Total 600 ml Output Urine Total 800 ml # Voids 3 Laboratory Labs Laboratory Tests Test 08/06/19 04:40 White Blood Count 4.4 x10^3/uL (4.0-11.0) Red Blood Count 2.61 x10^6/uL (4.30-5.70) Hemoglobin 9.2 g/dL (13.0-17.5) Hematocrit 27.4 % (39.0-53.0) Mean Corpuscular Volume 105 fL (79-100) Mean Corpuscular Hemoglobin 35 pg (25-35) Mean Corpuscular Hemoglobin Concent 34 g/dL (31-37) Red Cell Distribution Width 14.5 % (11.5-14.5) Platelet Count 276 x10^3/uL (140-400) Neutrophils (%) (Auto) 67 % (31-73) Lymphocytes (%) (Auto) 22 % (24-48) Monocytes (%) (Auto) 9 % (0-9) Eosinophils (%) (Auto) 1 % (0-3) Basophils (%) (Auto) 0 % (0-3) Neutrophils # (Auto) 2.9 x10^3/uL (1.8-7.7) Lymphocytes # (Auto) 1.0 x10^3/uL (1.0-4.8) Monocytes # (Auto) 0.4 x10^3/uL (0.0-1.1) Eosinophils # (Auto) 0.0 x10^3/uL (0.0-0.7) Basophils # (Auto) 0.0 x10^3/uL (0.0-0.2) Sodium Level 134 mmol/L (136-145) Potassium Level 3.7 mmol/L (3.5-5.1) Chloride Level 101 mmol/L (98-107) Carbon Dioxide Level 23 mmol/L (21-32) Anion Gap 10 (6-14) Blood Urea Nitrogen 39 mg/dL (8-26) Creatinine 1.1 mg/dL (0.7-1.3) Estimated GFR (Cockcroft-Gault) 66.0 BUN/Creatinine Ratio 35 (6-20) Glucose Level 119 mg/dL (70-99) Calcium Level 7.4 mg/dL (8.5-10.1) Total Bilirubin 0.4 mg/dL (0.2-1.0) Aspartate Amino Transf (AST/SGOT) 37 U/L (15-37) Alanine Aminotransferase (ALT/SGPT) 20 U/L (16-63) Alkaline Phosphatase 97 U/L (46-116) Total Protein 5.4 g/dL (6.4-8.2) Albumin 1.6 g/dL (3.4-5.0) Albumin/Globulin Ratio 0.4 (1.0-1.7) Physical Exam HEENT: Neck Supple W Full Motion Chest: Symmetric LUNGS: Clear to Auscultation Heart: S1S2, RRR (SR no ectopies) Abdomen: Soft N/T Extremities: No Edema, No Calf Tenderness Neurology: alert, oriented, follow commands Assessment Assessment 1. Presyncope: suspect vasovagal predisposed by uremia and dehydration. No arrhythmias so far and no orthostasis 2. Debility: mainly WC bound 3. Macrocytosis: denies ETOH use. per PCP 4. Severe FREEDOM with hyponatremia: poor hydration. nephrology following. Much better after IVF 5. Suspect Dementia 6. Suspect COPD 7. LE PAD: no claudications, no open wounds Recommendations 1. ASA, will check lipids and start on statin 2. Discussed hydration adequacy. Stop ARB/HCTZ. Could restart norvasc pending BP trend. 3. Follow up in office in 4 weeks 4. OK to DC to [facility] VIKTOR CRUZ MD 08/06/19 6975: CARDIO Progress Notes Assessment Assessment Patient seen and examined. 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 Near syncope prob from dehydration Tele did not show any arrhythmias PAD stable OK for transfer to [facility] Aug 06, 2019 11:30 VIKTOR CRUZ MD Aug 06, 2019 22:06
--- NOTE | 2019-08-06 11:42 | PDOC ---
[facility] PROGRESS NOTE Chief Complaint Chief Complaint Syncope and multiple electrolyte disturbances with hyponatremia azotemia, acute renal failure anemia History of Present Illness History of Present Illness 08/06/2019 Pt has not acute complaints today. Reports he needs blood pressure medications because stress at home keeps him hypertensive. When asked about possible discharge pt stated he was not ready for D/C at this time and would prefer to go to rehab. Vitals/I&O Vitals/I&O: Vital Signs Date Time Temp Pulse Resp B/P (MAP) Pulse Ox O2 Delivery O2 Flow Rate FiO2 08/06/19 07:00 97.9 99 18 116/54 (74) 99 Room Air 97.9 I & O 08/05/19 08/05/19 08/06/19 15:00 23:00 07:00 Intake Total 100 ml 200 ml 1060 ml Output Total 600 ml 200 ml Balance 100 ml -400 ml 860 ml Physical Exam General: Alert, Oriented X3, Cooperative, No acute distress Heart: Regular rate (SR), Normal S1, Normal S2, No murmurs Lungs: Clear Abdomen: Soft, No tenderness Extremities: No cyanosis, No edema Skin: No breakdown, No significant lesion, Other (atrophic LE skin) Labs Labs: Laboratory Tests Test 08/06/19 04:40 White Blood Count 4.4 x10^3/uL (4.0-11.0) Red Blood Count 2.61 x10^6/uL (4.30-5.70) Hemoglobin 9.2 g/dL (13.0-17.5) Hematocrit 27.4 % (39.0-53.0) Mean Corpuscular Volume 105 fL (79-100) Mean Corpuscular Hemoglobin 35 pg (25-35) Mean Corpuscular Hemoglobin Concent 34 g/dL (31-37) Red Cell Distribution Width 14.5 % (11.5-14.5) Platelet Count 276 x10^3/uL (140-400) Neutrophils (%) (Auto) 67 % (31-73) Lymphocytes (%) (Auto) 22 % (24-48) Monocytes (%) (Auto) 9 % (0-9) Eosinophils (%) (Auto) 1 % (0-3) Basophils (%) (Auto) 0 % (0-3) Neutrophils # (Auto) 2.9 x10^3/uL (1.8-7.7) Lymphocytes # (Auto) 1.0 x10^3/uL (1.0-4.8) Monocytes # (Auto) 0.4 x10^3/uL (0.0-1.1) Eosinophils # (Auto) 0.0 x10^3/uL (0.0-0.7) Basophils # (Auto) 0.0 x10^3/uL (0.0-0.2) Sodium Level 134 mmol/L (136-145) Potassium Level 3.7 mmol/L (3.5-5.1) Chloride Level 101 mmol/L (98-107) Carbon Dioxide Level 23 mmol/L (21-32) Anion Gap 10 (6-14) Blood Urea Nitrogen 39 mg/dL (8-26) Creatinine 1.1 mg/dL (0.7-1.3) Estimated GFR (Cockcroft-Gault) 66.0 BUN/Creatinine Ratio 35 (6-20) Glucose Level 119 mg/dL (70-99) Calcium Level 7.4 mg/dL (8.5-10.1) Total Bilirubin 0.4 mg/dL (0.2-1.0) Aspartate Amino Transf (AST/SGOT) 37 U/L (15-37) Alanine Aminotransferase (ALT/SGPT) 20 U/L (16-63) Alkaline Phosphatase 97 U/L (46-116) Total Protein 5.4 g/dL (6.4-8.2) Albumin 1.6 g/dL (3.4-5.0) Albumin/Globulin Ratio 0.4 (1.0-1.7) Review of Systems Review of Systems: Denies CP Denies SOB Denies N/V/D Assessment and Plan Assessmemt and Plan Problems Medical Problems: (1) Right thigh pain Status: Acute Syncope and multiple electrolyte disturbances with hyponatremia azotemia, acute renal failure anemia Plan: 1) Appreciate neuro, nephrology, and cardiology input. 2) Trend BP and reinitiate HTN management as directed by cardiology 3) Daily labs to monitor electrolytes and replace as directed by nephrology. 4) SNU evaluation 5) PT/OT 6) DVT prophylaxis Comment Review of Relevant I have reviewed the following items helen (where applicable) has been applied. SANDI PURI III DO Aug 06, 2019 11:42
[2019-08-06 12:04] LABS: CHOLESTEROL/HDL RATIO 2.9
--- NOTE | 2019-08-06 12:13 | PDOC ---
PROGRESS NOTES Assessment Problems Medical Problems: (1) Right thigh pain Status: Acute Orthostatic lightheadedness, however, he is not orthostatic on blood pressure checks. On other hand, I find no evidence of vestibular or cerebellar dysfunction. There is no evidence of neuropathy, radiculopathy, or myelopathy. There is no sign of any acute central nervous system disease. Note, though, that he usually just gets around in a wheelchair Multiple medical problems including hyponatremia, acute renal insufficiency, anemia. Plan Back off on hypertension control Rehabilitation modalities He is better, hold on additional studies including brain MRI, vestibular test ing, and additional laboratory studies SNU Subjective feels better Objective Vital Signs Date Time Temp Pulse Resp B/P (MAP) Pulse Ox O2 Delivery O2 Flow Rate FiO2 08/06/19 11:00 98.0 91 20 127/75 (92) 99 98.0 08/06/19 07:00 Room Air Intake and Output 08/06/19 07:00 Intake Total 1360 ml Output Total 800 ml Balance 560 ml Intake Oral 760 ml IV Total 600 ml Output Urine Total 800 ml # Voids 3 PHYSICAL EXAM Alert. Oriented to time, place and person. PERRL. EOMI. CN: no focal findings. Muscle tone: normal. Muscle strength: 5/5 DTR: 1+ Plantar reflex: flexor Gait: able to stand some Sensory exam: no abnormal findings. Review of Relevant I have reviewed the following items helen (where applicable) has been applied. Labs Laboratory Tests Test 08/04/19 19:04 08/04/19 21:30 08/04/19 22:40 08/06/19 04:40 White Blood Count 6.9 x10^3/uL (4.0-11.0) 4.4 x10^3/uL (4.0-11.0) Red Blood Count 3.21 x10^6/uL (4.30-5.70) 2.61 x10^6/uL (4.30-5.70) Hemoglobin 11.3 g/dL (13.0-17.5) 9.2 g/dL (13.0-17.5) Hematocrit 33.7 % (39.0-53.0) 27.4 % (39.0-53.0) Mean Corpuscular Volume 105 fL (79-100) 105 fL (79-100) Mean Corpuscular Hemoglobin 35 pg (25-35) 35 pg (25-35) Mean Corpuscular Hemoglobin Concent 34 g/dL (31-37) 34 g/dL (31-37) Red Cell Distribution Width 14.6 % (11.5-14.5) 14.5 % (11.5-14.5) Platelet Count 416 x10^3/uL (140-400) 276 x10^3/uL (140-400) Neutrophils (%) (Auto) 66 % (31-73) 67 % (31-73) Lymphocytes (%) (Auto) 24 % (24-48) 22 % (24-48) Monocytes (%) (Auto) 9 % (0-9) 9 % (0-9) Eosinophils (%) (Auto) 1 % (0-3) 1 % (0-3) Basophils (%) (Auto) 1 % (0-3) 0 % (0-3) Neutrophils # (Auto) 4.6 x10^3/uL (1.8-7.7) 2.9 x10^3/uL (1.8-7.7) Lymphocytes # (Auto) 1.7 x10^3/uL (1.0-4.8) 1.0 x10^3/uL (1.0-4.8) Monocytes # (Auto) 0.6 x10^3/uL (0.0-1.1) 0.4 x10^3/uL (0.0-1.1) Eosinophils # (Auto) 0.0 x10^3/uL (0.0-0.7) 0.0 x10^3/uL (0.0-0.7) Basophils # (Auto) 0.1 x10^3/uL (0.0-0.2) 0.0 x10^3/uL (0.0-0.2) Prothrombin Time 13.3 SEC (11.7-14.0) Prothromb Time International Ratio 1.0 (0.8-1.1) Activated Partial Thromboplast Time 33 SEC (24-38) Sodium Level 129 mmol/L (136-145) 134 mmol/L (136-145) Potassium Level 3.8 mmol/L (3.5-5.1) 3.7 mmol/L (3.5-5.1) Chloride Level 91 mmol/L (98-107) 101 mmol/L (98-107) Carbon Dioxide Level 18 mmol/L (21-32) 23 mmol/L (21-32) Anion Gap 20 (6-14) 10 (6-14) Blood Urea Nitrogen 74 mg/dL (8-26) 39 mg/dL (8-26) Creatinine 2.2 mg/dL (0.7-1.3) 1.1 mg/dL (0.7-1.3) Estimated GFR (Cockcroft-Gault) 29.7 66.0 BUN/Creatinine Ratio 34 (6-20) 35 (6-20) Glucose Level 94 mg/dL (70-99) 119 mg/dL (70-99) Lactic Acid Level 2.3 mmol/L (0.4-2.0) 1.3 mmol/L (0.4-2.0) Calcium Level 8.0 mg/dL (8.5-10.1) 7.4 mg/dL (8.5-10.1) Magnesium Level 2.4 mg/dL (1.8-2.4) Total Bilirubin 0.5 mg/dL (0.2-1.0) 0.4 mg/dL (0.2-1.0) Aspartate Amino Transf (AST/SGOT) 46 U/L (15-37) 37 U/L (15-37) Alanine Aminotransferase (ALT/SGPT) 23 U/L (16-63) 20 U/L (16-63) Alkaline Phosphatase 122 U/L (46-116) 97 U/L (46-116) Troponin I Quantitative 0.017 ng/mL (0.000-0.055) Total Protein 6.0 g/dL (6.4-8.2) 5.4 g/dL (6.4-8.2) Albumin 2.1 g/dL (3.4-5.0) 1.6 g/dL (3.4-5.0) Albumin/Globulin Ratio 0.5 (1.0-1.7) 0.4 (1.0-1.7) Urine Collection Type U cath Urine Color Yellow Urine Clarity Clear Urine pH 5.0 Urine Specific Henry 1.020 Urine Protein Negative mg/dL (NEG-TRACE) Urine Glucose (UA) Negative mg/dL (NEG) Urine Ketones (Stick) 15 mg/dL (NEG) Urine Blood Negative (NEG) Urine Nitrite Negative (NEG) Urine Bilirubin Small (NEG) Urine Urobilinogen Dipstick 0.2 mg/dL (0.2 mg/dL) Urine Leukocyte Esterase Negative (NEG) Urine RBC 0 /HPF (0-2) Urine WBC 1-4 /HPF (0-4) Urine Squamous Epithelial Cells Occ /LPF Urine Transitional Epithelial Cells Mod /LPF Urine Bacteria 0 /HPF (0-FEW) Urine Hyaline Casts Many /HPF Urine Mucus Mod /LPF Triglycerides Level 65 mg/dL (0-150) Cholesterol Level 93 mg/dL (0-200) LDL Cholesterol, Calculated 48 mg/dL (0-100) VLDL Cholesterol, Calculated 13 mg/dL (0-40) Non-HDL Cholesterol Calculated 61 mg/dL (0-129) HDL Cholesterol 32 mg/dL (40-60) Cholesterol/HDL Ratio 2.9 Laboratory Tests Test 08/06/19 04:40 White Blood Count 4.4 x10^3/uL (4.0-11.0) Red Blood Count 2.61 x10^6/uL (4.30-5.70) Hemoglobin 9.2 g/dL (13.0-17.5) Hematocrit 27.4 % (39.0-53.0) Mean Corpuscular Volume 105 fL (79-100) Mean Corpuscular Hemoglobin 35 pg (25-35) Mean Corpuscular Hemoglobin Concent 34 g/dL (31-37) Red Cell Distribution Width 14.5 % (11.5-14.5) Platelet Count 276 x10^3/uL (140-400) Neutrophils (%) (Auto) 67 % (31-73) Lymphocytes (%) (Auto) 22 % (24-48) Monocytes (%) (Auto) 9 % (0-9) Eosinophils (%) (Auto) 1 % (0-3) Basophils (%) (Auto) 0 % (0-3) Neutrophils # (Auto) 2.9 x10^3/uL (1.8-7.7) Lymphocytes # (Auto) 1.0 x10^3/uL (1.0-4.8) Monocytes # (Auto) 0.4 x10^3/uL (0.0-1.1) Eosinophils # (Auto) 0.0 x10^3/uL (0.0-0.7) Basophils # (Auto) 0.0 x10^3/uL (0.0-0.2) Sodium Level 134 mmol/L (136-145) Potassium Level 3.7 mmol/L (3.5-5.1) Chloride Level 101 mmol/L (98-107) Carbon Dioxide Level 23 mmol/L (21-32) Anion Gap 10 (6-14) Blood Urea Nitrogen 39 mg/dL (8-26) Creatinine 1.1 mg/dL (0.7-1.3) Estimated GFR (Cockcroft-Gault) 66.0 BUN/Creatinine Ratio 35 (6-20) Glucose Level 119 mg/dL (70-99) Calcium Level 7.4 mg/dL (8.5-10.1) Total Bilirubin 0.4 mg/dL (0.2-1.0) Aspartate Amino Transf (AST/SGOT) 37 U/L (15-37) Alanine Aminotransferase (ALT/SGPT) 20 U/L (16-63) Alkaline Phosphatase 97 U/L (46-116) Total Protein 5.4 g/dL (6.4-8.2) Albumin 1.6 g/dL (3.4-5.0) Albumin/Globulin Ratio 0.4 (1.0-1.7) Triglycerides Level 65 mg/dL (0-150) Cholesterol Level 93 mg/dL (0-200) LDL Cholesterol, Calculated 48 mg/dL (0-100) VLDL Cholesterol, Calculated 13 mg/dL (0-40) Non-HDL Cholesterol Calculated 61 mg/dL (0-129) HDL Cholesterol 32 mg/dL (40-60) Cholesterol/HDL Ratio 2.9 Medications Current Medications Sodium Chloride 1,000 ml @ 1,000 mls/hr 1X ONCE IV Last administered on 08/04/19at 19:25; Start 08/04/19 at 18:30; Stop 08/04/19 at 19:29; Status DC Morphine Sulfate (Morphine Sulfate) 4 mg 1X ONCE IV Last administered on 08/04/19at 19:25; Start 08/04/19 at 18:30; Stop 08/04/19 at 18:31; Status DC Ondansetron HCl (Zofran) 4 mg 1X ONCE IV Last administered on 08/04/19at 19:25; Start 08/04/19 at 18:30; Stop 08/04/19 at 18:31; Status DC Fentanyl Citrate (Fentanyl 2ml Vial) 50 mcg 1X ONCE IV Last administered on 08/04/19at 20:39; Start 08/04/19 at 20:30; Stop 08/04/19 at 20:31; Status DC Sodium Chloride 1,000 ml @ 1,000 mls/hr 1X ONCE IV Last administered on 08/04/19at 20:49; Start 08/04/19 at 20:30; Stop 08/04/19 at 21:29; Status DC Ondansetron HCl (Zofran) 4 mg PRN Q8HRS PRN IV NAUSEA/VOMITING; Start 08/04/19 at 21:00; Stop 08/05/19 at 20:59; Status DC Fentanyl Citrate (Fentanyl 2ml Vial) 50 mcg PRN Q1HR PRN IV PAIN Last administered on 08/05/19at 17:06; Start 08/04/19 at 21:00; Stop 08/05/19 at 20:59; Status DC Sodium Chloride 1,000 ml @ 100 mls/hr Q10H IV Last administered on 08/05/19at 18:42; Start 08/04/19 at 20:58; Stop 08/05/19 at 20:57; Status DC Influenza Virus Vaccine Quadrival (Afluria Quad 2019-20 (3yr Up) Syringe) 0.5 ml ONCE ONCE VAX IM Last administered on 08/05/19at 09:12; Start 08/05/19 at 08:00; Stop 08/05/19 at 08:07; Status DC Aspirin (Ecotrin) 81 mg DAILYWBKFT PO ; Start 08/06/19 at 12:00 Active Scripts Active Reported Hydralazine Hcl 50 Mg Tablet 1.5 Tab PO TID Lisinopril-Hctz 20-12.5 Mg Tab (Lisinopril/Hydrochlorothiazide) 1 Each Tablet 1 Tab PO DAILY Amlodipine Besylate 5 Mg Tablet 1 Tab PO BID Hydrocodone-Acetamin 5-325 mg (Hydrocodone/Acetaminophen) 1 Each Tablet 1 Tab PO PRN BID PRN Vitals/I & O Vital Sign - Last 24 Hours 08/05/19 08/05/19 08/05/19 10/31/19 13:31 13:31 13:32 15:00 Temp 97.4 97.4 Pulse 96 87 118 98 Resp 20 B/P (MAP) 106/55 (72) 107/49 (68) 106/62 (77) 154/85 (108) Pulse Ox 99 O2 Delivery Room Air 08/05/19 08/05/19 08/05/19 08/05/19 15:47 16:17 17:06 17:40 Resp Pulse Ox 95 95 95 95 O2 Delivery Room Air Room Air Room Air Room Air 08/05/19 08/05/19 08/06/19 08/06/19 19:57 23:53 03:35 07:00 Temp 98.0 98.1 97.8 97.9 98.0 98.1 97.8 97.9 Pulse 81 82 89 99 Resp 20 20 20 18 B/P (MAP) 115/70 (85) 98/52 (67) 121/64 (83) 116/54 (74) Pulse Ox 99 98 98 99 O2 Delivery Room Air Room Air Room Air Room Air 08/06/19 11:00 Temp 98.0 98.0 Pulse 91 Resp 20 B/P (MAP) 127/75 (92) Pulse Ox 99 Intake and Output 08/05/19 08/05/19 08/06/19 15:00 23:00 07:00 Intake Total 100 ml 200 ml 1060 ml Output Total 600 ml 200 ml Balance 100 ml -400 ml 860 ml JACKLYN SINCLAIR MD Aug 06, 2019 12:13
--- NOTE | 2019-08-06 14:19 | NUR ---
Pt has been accepted at and they will have bed available upon dc. RN notified and pt is on weekend dc list.
[2019-08-06 15:00] VITALS: BP 132/74
[2019-08-06] MEDS ORDERED: MAGNESIUM CITRATE 296 ML SOLUTION. PO ONE (15:45)
[2019-08-06] MEDS: ASPIRIN ENTERIC COATED 81 MG TABLET.DR. PO SCH (16:19)
[2019-08-06 19:52] VITALS: BP 89/47
[2019-08-06 23:15] VITALS: BP 140/82
[2019-08-07 03:05] VITALS: BP 121/69
[2019-08-07 04:59] LABS: BASO % 1 % (0-3); EOS % 1 % (0-3); HEMATOCRIT 25.9 % (39.0-53.0); HEMOGLOBIN 8.8 g/dL (13.0-17.5); LYMPH % 31 % (24-48); MEAN CORPUSCULAR HEMOGLOBIN 36 pg (25-35); MEAN CORPUSCULAR HGB CONC 34 g/dL (31-37); MEAN CORPUSCULAR VOLUME 104 fL (79-100); MONO # 0.4 x10^3/uL (0.0-1.1); MONO % 12 % (0-9); NEUT # 1.9 x10^3/uL (1.8-7.7); NEUT % 56 % (31-73); PLATELET COUNT 252 x10^3/uL (140-400); RED BLOOD COUNT 2.49 x10^6/uL (4.30-5.70); RED CELL DISTRIBUTION WIDTH 14.5 % (11.5-14.5); WHITE BLOOD COUNT 3.3 x10^3/uL (4.0-11.0)
[2019-08-07 05:50] LABS: ALBUMIN 1.6 g/dL (3.4-5.0); ALBUMIN/GLOBULIN RATIO 0.4 (1.0-1.7); CALCIUM 7.8 mg/dL (8.5-10.1); CREATININE 1.1 mg/dL (0.7-1.3); POTASSIUM 3.7 mmol/L (3.5-5.1); TOTAL BILIRUBIN 0.3 mg/dL (0.2-1.0); TOTAL PROTEIN 5.3 g/dL (6.4-8.2)
[2019-08-07 07:10] VITALS: BP 139/70
[2019-08-07] MEDS ORDERED: HYDROcodone/APAP 5/325MG 1 TAB TABLET PO PRN (08:15)
[2019-08-07] MEDS: ASPIRIN ENTERIC COATED 81 MG TABLET.DR. PO SCH (08:39)
[2019-08-07 10:55] VITALS: BP 109/71
[2019-08-07] MEDS ORDERED: HYDR-2759 PO (11:23)
[2019-08-07] MEDS ORDERED: ASPI-612 PO (11:23)
[2019-08-07] MEDS ORDERED: MIDO2.5T PO (11:23)
--- NOTE | 2019-08-07 11:25 | SNU/HH DC ---
DISCHARGE ORDERS DISCHARGE INFORMATION: DISCHARGE DATE: Aug 07, 2019 FINAL DIAGNOSIS Problems Medical Problems: (1) Right thigh pain Status: Acute CODE STATUS: Code Status: DNR/DNI FPC: SNF STAY <30 DAYS: Yes POST DISCHARGE ORDERS: ACTIVITY ORDERS: Activity as tolerated WEIGHT BEARING STATUS: No restrictions, As tolerated, Partial weight bearing DIET AFTER DISCHARGE: Regular OTHER ORDERS: take extra time to transition, has drops in BP FOLLOW-UP: PHYSICIAN FOLLOW-UP: primary care 2 weeks ADDITIONAL FOLLOW-UP: [facility] will follow at [facility] Additional Instructions: check orthostatic blood pressure 3x/week TREATMENT/EQUIPMENT ORDERS: Physical Therapy For: Evalulation/Treatment Occupational Therapy For: Evaluation/Treatment DISCHARGE MEDICATIONS: Home Meds Active Scripts Multivitamin (MULTI-VITAMIN DAILY) 1 Each Tablet, 1 TAB PO DAILY for anemia for 30 Days, #30 TAB 0 Refills Prov:BECKA MENDES MD 08/07/19 Cholecalciferol (Vitamin D3) (VITAMIN D) 2,000 Unit Capsule, 1 CAP PO DAILY for vitamin def. , #30 CAP 3 Refills Prov:BECKA MENDES MD 08/07/19 Vitamin B Complex (B COMPLEX) 1 Each Tablet, 1 TAB PO DAILY for macrocytic anemia for 30 Days, #30 TAB 0 Refills Prov:BECKA MENDES MD 08/07/19 Midodrine Hcl (MIDODRINE HCL) 2.5 Mg Tablet, 2.5 MG PO DAILY for hypotension, #30 TAB Prov:BECKA MENDES MD 08/07/19 Aspirin (ASPIRIN EC) 81 Mg Tablet.dr, 81 MG PO DAILYWBKFT for cardiac, #100 TAB.SR Prov:BECKA MENDES MD 08/07/19 Hydrocodone/Acetaminophen (Hydrocodone-Acetamin 5-325 mg) 1 Each Tablet, 1 TAB PO PRN BID PRN for PAIN, #20 TAB Prov:BECKA MENDES MD 08/07/19 Discontinued Reported Medications Hydralazine Hcl (HYDRALAZINE HCL) 50 Mg Tablet, 1.5 TAB PO TID for htn 08/05/19 Lisinopril/Hydrochlorothiazide (LISINOPRIL-HCTZ 20-12.5 MG TAB) 1 Each Tablet, 1 TAB PO DAILY for htn 08/05/19 Amlodipine Besylate (AMLODIPINE BESYLATE) 5 Mg Tablet, 1 TAB PO BID for htn 08/05/19 BECKA MENDES MD Aug 07, 2019 11:25
[2019-08-07] MEDS ORDERED: VITA1TAB19 PO (11:29)
[2019-08-07] MEDS ORDERED: MULT-246 PO (11:29)
[2019-08-07] MEDS ORDERED: CHOL2000 PO (11:29)
--- NOTE | 2019-08-07 11:29 | PDOC3 ---
Discharge Summary Visit Information Date of Admission: Aug 04, 2019 Date of Discharge: Aug 07, 2019 Final Diagnosis Syncope and multiple electrolyte disturbances with hyponatremia and uremic acidosis azotemia, acute renal failure, with vasomotor nephropathy severe malnutrition, POA, weakness and debility anemia, macrocytic, assume vitamin def. has role Hx of hypertension, overmedicated, now hypotensive DNR Problems Medical Problems: (1) Right thigh pain Status: Acute Brief Hospital Course Allergies Allergies Coded Allergies Type Severity Reaction Last Updated Verified No Known Drug Allergies 08/04/19 No Vital Signs Vital Signs Date Time Temp Pulse Resp B/P (MAP) Pulse Ox O2 Delivery O2 Flow Rate FiO2 08/07/19 10:55 98.4 81 18 109/71 (84) 98 Room Air 98.4 Lab Results Laboratory Tests Test 08/06/19 04:40 08/07/19 03:45 White Blood Count 4.4 x10^3/uL (4.0-11.0) 3.3 x10^3/uL (4.0-11.0) Red Blood Count 2.61 x10^6/uL (4.30-5.70) 2.49 x10^6/uL (4.30-5.70) Hemoglobin 9.2 g/dL (13.0-17.5) 8.8 g/dL (13.0-17.5) Hematocrit 27.4 % (39.0-53.0) 25.9 % (39.0-53.0) Mean Corpuscular Volume 105 fL (79-100) 104 fL (79-100) Mean Corpuscular Hemoglobin 35 pg (25-35) 36 pg (25-35) Mean Corpuscular Hemoglobin Concent 34 g/dL (31-37) 34 g/dL (31-37) Red Cell Distribution Width 14.5 % (11.5-14.5) 14.5 % (11.5-14.5) Platelet Count 276 x10^3/uL (140-400) 252 x10^3/uL (140-400) Neutrophils (%) (Auto) 67 % (31-73) 56 % (31-73) Lymphocytes (%) (Auto) 22 % (24-48) 31 % (24-48) Monocytes (%) (Auto) 9 % (0-9) 12 % (0-9) Eosinophils (%) (Auto) 1 % (0-3) 1 % (0-3) Basophils (%) (Auto) 0 % (0-3) 1 % (0-3) Neutrophils # (Auto) 2.9 x10^3/uL (1.8-7.7) 1.9 x10^3/uL (1.8-7.7) Lymphocytes # (Auto) 1.0 x10^3/uL (1.0-4.8) 1.0 x10^3/uL (1.0-4.8) Monocytes # (Auto) 0.4 x10^3/uL (0.0-1.1) 0.4 x10^3/uL (0.0-1.1) Eosinophils # (Auto) 0.0 x10^3/uL (0.0-0.7) 0.0 x10^3/uL (0.0-0.7) Basophils # (Auto) 0.0 x10^3/uL (0.0-0.2) 0.0 x10^3/uL (0.0-0.2) Sodium Level 134 mmol/L (136-145) 134 mmol/L (136-145) Potassium Level 3.7 mmol/L (3.5-5.1) 3.7 mmol/L (3.5-5.1) Chloride Level 101 mmol/L (98-107) 102 mmol/L (98-107) Carbon Dioxide Level 23 mmol/L (21-32) 24 mmol/L (21-32) Anion Gap 10 (6-14) 8 (6-14) Blood Urea Nitrogen 39 mg/dL (8-26) 29 mg/dL (8-26) Creatinine 1.1 mg/dL (0.7-1.3) 1.1 mg/dL (0.7-1.3) Estimated GFR (Cockcroft-Gault) 66.0 66.0 BUN/Creatinine Ratio 35 (6-20) 26 (6-20) Glucose Level 119 mg/dL (70-99) 129 mg/dL (70-99) Calcium Level 7.4 mg/dL (8.5-10.1) 7.8 mg/dL (8.5-10.1) Total Bilirubin 0.4 mg/dL (0.2-1.0) 0.3 mg/dL (0.2-1.0) Aspartate Amino Transf (AST/SGOT) 37 U/L (15-37) 58 U/L (15-37) Alanine Aminotransferase (ALT/SGPT) 20 U/L (16-63) 30 U/L (16-63) Alkaline Phosphatase 97 U/L (46-116) 96 U/L (46-116) Total Protein 5.4 g/dL (6.4-8.2) 5.3 g/dL (6.4-8.2) Albumin 1.6 g/dL (3.4-5.0) 1.6 g/dL (3.4-5.0) Albumin/Globulin Ratio 0.4 (1.0-1.7) 0.4 (1.0-1.7) Triglycerides Level 65 mg/dL (0-150) Cholesterol Level 93 mg/dL (0-200) LDL Cholesterol, Calculated 48 mg/dL (0-100) VLDL Cholesterol, Calculated 13 mg/dL (0-40) Non-HDL Cholesterol Calculated 61 mg/dL (0-129) HDL Cholesterol 32 mg/dL (40-60) Cholesterol/HDL Ratio 2.9 Laboratory Tests Test 08/07/19 03:45 White Blood Count 3.3 x10^3/uL (4.0-11.0) Red Blood Count 2.49 x10^6/uL (4.30-5.70) Hemoglobin 8.8 g/dL (13.0-17.5) Hematocrit 25.9 % (39.0-53.0) Mean Corpuscular Volume 104 fL (79-100) Mean Corpuscular Hemoglobin 36 pg (25-35) Mean Corpuscular Hemoglobin Concent 34 g/dL (31-37) Red Cell Distribution Width 14.5 % (11.5-14.5) Platelet Count 252 x10^3/uL (140-400) Neutrophils (%) (Auto) 56 % (31-73) Lymphocytes (%) (Auto) 31 % (24-48) Monocytes (%) (Auto) 12 % (0-9) Eosinophils (%) (Auto) 1 % (0-3) Basophils (%) (Auto) 1 % (0-3) Neutrophils # (Auto) 1.9 x10^3/uL (1.8-7.7) Lymphocytes # (Auto) 1.0 x10^3/uL (1.0-4.8) Monocytes # (Auto) 0.4 x10^3/uL (0.0-1.1) Eosinophils # (Auto) 0.0 x10^3/uL (0.0-0.7) Basophils # (Auto) 0.0 x10^3/uL (0.0-0.2) Sodium Level 134 mmol/L (136-145) Potassium Level 3.7 mmol/L (3.5-5.1) Chloride Level 102 mmol/L (98-107) Carbon Dioxide Level 24 mmol/L (21-32) Anion Gap 8 (6-14) Blood Urea Nitrogen 29 mg/dL (8-26) Creatinine 1.1 mg/dL (0.7-1.3) Estimated GFR (Cockcroft-Gault) 66.0 BUN/Creatinine Ratio 26 (6-20) Glucose Level 129 mg/dL (70-99) Calcium Level 7.8 mg/dL (8.5-10.1) Total Bilirubin 0.3 mg/dL (0.2-1.0) Aspartate Amino Transf (AST/SGOT) 58 U/L (15-37) Alanine Aminotransferase (ALT/SGPT) 30 U/L (16-63) Alkaline Phosphatase 96 U/L (46-116) Total Protein 5.3 g/dL (6.4-8.2) Albumin 1.6 g/dL (3.4-5.0) Albumin/Globulin Ratio 0.4 (1.0-1.7) Brief Hospital Course Mr. Davila is a 73 old admit with weakness, dizzy, debility and falls, was on 4 BP meds athome, marked hypotension here. BP meds stopped, and still BP low, and presyncopal with standing. will start midodrine, cont to check BP at [facility] Discharge Information Condition at Discharge: Improved Follow Up: Weeks Disposition/Orders: D/C to Another Facility (skilled) Scheduled Aspirin (Aspirin Ec) 81 Mg Tablet., 81 MG PO [id number] for cardiac, #100 Prescribed by: BECKA MENDES on 08/07/19 1123 Cholecalciferol (Vitamin D3) (Vitamin D) 2,000 Unit Capsule, 1 CAP PO DAILY for vitamin def. , #30 Ref 3 Prescribed by: BECKA MENDES on 08/07/19 1129 Midodrine Hcl (Midodrine Hcl) 2.5 Mg Tablet, 2.5 MG PO DAILY for hypotension, #30 Prescribed by: BECKA MENDES on 08/07/19 1123 Multivitamin (Multi-Vitamin Daily) 1 Each Tablet, 1 TAB PO DAILY for anemia for 30 Days, #30 Ref 0 Prescribed by: BECKA MENDES on 08/07/19 1129 Vitamin B Complex (B Complex) 1 Each Tablet, 1 TAB PO DAILY for macrocytic anemia for 30 Days, #30 Ref 0 Prescribed by: BECKA MENDES on 08/07/19 1129 Scheduled PRN Hydrocodone/Acetaminophen (Hydrocodone-Acetamin 5-325 mg) 1 Each Tablet, 1 TAB PO PRN BID PRN for PAIN, #20 Prescribed by: BECKA MENDES on 08/07/19 1123 Discontinued Medications Amlodipine Besylate (Amlodipine Besylate) 5 Mg Tablet, 1 TAB PO BID for htn, (Reported) Entered as Reported by: TALITA SHETH on 08/05/19803 Last Action: New Order on 08/05/19803 by TALITA SHETH Hydralazine Hcl (Hydralazine Hcl) 50 Mg Tablet, 1.5 TAB PO TID for htn, (Reported) Entered as Reported by: TALITA SHETH on 08/05/19803 Last Action: New Order on 08/05/19803 by TALITA SHETH Lisinopril/Hydrochlorothiazide (Lisinopril-Hctz 20-12.5 Mg Tab) 1 Each Tablet, 1 TAB PO DAILY for htn, (Reported) Entered as Reported by: TALITA SHETH on 08/05/19803 Last Action: New Order on 08/05/19803 by TALITA SHETH Patient Instructions Patient Instructions > 30 min face to face, coordination of care, he was very worried about logistics of transfer. BECKA MENDES MD Aug 07, 2019 11:29
[2019-08-07 15:19] VITALS: BP 100/65
--- NOTE | 2019-08-07 19:05 | NUR ---
Discharge Note: KIRSTEN FUNK [address] Discharge instructions and discharge home medications reviewed with Tanvir PALENCIA of [facility] at 1700 and a copy given to transport personnel. All questions have been answered and understanding verbalized. The following instructions and handouts were given: The patient is a fall risk and positive for orthostatic hypotension. Wound care on left leg wound. Held antihypertensive meds due to hypotension. FF up with PCP as needed. Appointment with Dr. Perez on Oct 07 10am. Discontinued lines and drains: peripheral IV intact, patient tolerated removal, no complications noted. Patient discharged to [facility] via wheelchair accompanied by transport personnel at 1650.
== END 2019-08-07 16:50 | DRG 682 ==
LOC: ER 17:32 → 6 SOUTH 20:51
PROVIDERS: ADMIT Family Medicine; ATTEND Family Medicine
DX: N17.0 Acute kidney failure with tubular necrosis (principal); E43 Unspecified severe protein-calorie malnutrition; E87.1 Hypo-osmolality and hyponatremia; E87.2 Acidosis; D53.9 Nutritional anemia, unspecified; D75.89 Other specified diseases of blood and blood-forming organs; E86.0 Dehydration; I10 Essential (primary) hypertension; M17.11 Unilateral primary osteoarthritis, right knee; Z66 Do not resuscitate; Z82.49 Family history of ischemic heart disease and other diseases of the circulatory system; Z99.3 Dependence on wheelchair; Z83.3 Family history of diabetes mellitus; M19.90 Unspecified osteoarthritis, unspecified site; Z68.23 Body mass index [BMI] 23.0-23.9, adult; Z79.899 Other long term (current) drug therapy; W18.39XA Other fall on same level, initial encounter; Y93.89 Activity, other specified; Y92.89 Other specified places as the place of occurrence of the external cause; Y99.8 Other external cause status; G90.8 Other disorders of autonomic nervous system
CPT/HCPCS: 36415; 70450; 73502; 73552; 80053; 80061; 81001; 83605; 83735; 84484; 85025; 85610; 85730; 90471; 90686; 93005; 93923; 96374; J2270; J2405; J3010; J7030; 97110; 97116; 99285-25; G0378

== ENCOUNTER 2019-09-21 15:28 | Inpatient (IN) | payer MEDICARE ==
[~2019-09-21] VITALS: Ht 177.8 cm; Wt 85.7 kg
[~2019-09-21 15:28] MED LIST: AMLO5TAB10 PO; ASPI-612 PO; CHOL2000 PO; HYDR-2759 PO; HYDR-2869 PO; LISI1TAB19 PO; MIDO2.5T PO; MULT-246 PO; VITA1TAB19 PO
[2019-09-21] MEDS ORDERED: IV NORMAL SALINE 1000ML BAG 1,000 ML IV SCH (15:43)
[2019-09-21] MEDS ORDERED: PANTOPRAZOLE IV PUSH 40 MG VIAL. IVP ONE (15:45)
[2019-09-21 16:02] LABS: FECAL OB PT POSITIVE (NEG)
[2019-09-21 16:31] LABS: PROTHROMBIN TIME PATIENT 15.6 SEC (11.7-14.0)
[2019-09-21 16:33] LABS: CALCIUM 7.8 mg/dL (8.5-10.1); GFR 73.7; POTASSIUM 5.2 mmol/L (3.5-5.1)
[2019-09-21 16:34] LABS: BASO % 1 % (0-3); EOS % 0 % (0-3); HEMATOCRIT 21.6 % (39.0-53.0); LYMPH # 1.8 x10^3/uL (1.0-4.8); LYMPH % 26 % (24-48); MEAN CORPUSCULAR HEMOGLOBIN 34 pg (25-35); MEAN CORPUSCULAR HGB CONC 32 g/dL (31-37); MEAN CORPUSCULAR VOLUME 106 fL (79-100); MONO # 0.5 x10^3/uL (0.0-1.1); MONO % 7 % (0-9); NEUT # 4.6 x10^3/uL (1.8-7.7); NEUT % 66 % (31-73); PLATELET COUNT 537 x10^3/uL (140-400); RED BLOOD COUNT 2.04 x10^6/uL (4.30-5.70); WHITE BLOOD COUNT 6.9 x10^3/uL (4.0-11.0)
[2019-09-21 16:37] LABS: HEMOGLOBIN 6.9 g/dL (13.0-17.5)
--- NOTE | 2019-09-21 16:43 | RAD ---
Exam: CT abdomen and pelvis without contrast INDICATION: Rectal bleeding TECHNIQUE: Sequential axial images through the abdomen and pelvis obtained without IV contrast. Sagittal and coronal reformatted images were reconstructed from the axial data and reviewed. Comparisons: None FINDINGS: Heart size is normal. Small pericardial effusion is noted. There are is small bilateral pleural effusions. Visualized lung bases are clear. Liver has a shrunken appearance. Gallbladder, spleen, pancreas and adrenals are unremarkable. No perinephric inflammation or hydronephrosis. No renal or ureteral calculi are identified. Bladder is partially distended and not well evaluated. Prostate is not enlarged. Mild wall thickening of the ascending colon. Large and small bowel are unremarkable. There is a moderate to large amount of free intra-abdominal fluid. No free intra-abdominal air. No obstruction. Abdominal aorta has a normal course and caliber. No enlarged intra-abdominal lymph nodes are identified. No suspicious osseous lesions or acute fractures. IMPRESSION: 1. Mild wall thickening involving the ascending colon, may be secondary to systemic state versus focal colitis. 2. Shrunken morphology of the liver, may relate to cirrhosis. 3. Moderate amount of intra-abdominal ascites and moderate bilateral pleural effusions. Exposure: One or more of the following in the visualized dose reduction techniques were utilized for this examination: 1. Automated exposure control 2. Adjustment of the MA and/or KV according to patient size 3. Use of iterative of reconstructive technique Electronically signed by: Denise Murray MD (09/21/2019 4:40 PM) [facility]
[2019-09-21 16:45] LABS: ALBUMIN 1.5 g/dL (3.4-5.0); ALBUMIN/GLOBULIN RATIO 0.4 (1.0-1.7); TOTAL BILIRUBIN 0.4 mg/dL (0.2-1.0); TOTAL PROTEIN 5.4 g/dL (6.4-8.2)
--- NOTE | 2019-09-21 17:06 | PHYS DOC ---
Past Medical History Past Medical History: Hypertension Past Surgical History: Other Additional Past Surgical Histo: CARPEL TUNNEL, dave in [place] Additional Information: quit smoking 8 months ago Alcohol Use: None Drug Use: None Adult General Chief Complaint Chief Complaint: WEAKNESS/GENERALIZED HPI HPI Patient is a 73 year old male patient with history of hypertension resident of assisted who presents by EMS with complaint of weakness and diarrhea. Patient complaining of one episode of melena per day for the last 4 days without dizziness and generalized weakness without abdominal pain, nausea and vomiting, fever and chills, urinary symptom. Patient states he had history of bleeding long time ago and denies taking anticoagulation medication. Review of Systems Review of Systems Constitutional: Denies fever or chills [] Eyes: Denies change in visual acuity, redness, or eye pain [] HENT: Denies nasal congestion or sore throat [] Respiratory: Denies cough or shortness of breath [] Cardiovascular: No additional information not addressed in HPI [] GI: Denies abdominal pain, nausea, vomiting, reports bloody stools and diarrhea [] : Denies dysuria or hematuria [] Musculoskeletal: Denies back pain or joint pain [] Integument: Denies rash or skin lesions [] Neurologic: Denies headache, focal weakness or sensory changes [] Endocrine: Denies polyuria or polydipsia [] All other systems were reviewed and found to be within normal limits, except as documented in this note. Current Medications Current Medications Current Medications Medications (Trade) Dose Ordered Sig/Eliza Start Time Stop Time Status Last Admin Dose Admin Pantoprazole Sodium (PROTONIX VIAL for IV PUSH) 40 mg 1X ONCE 09/21/19 15:45 09/21/19 15:50 DC 09/21/19 16:29 40 MG Pantoprazole Sodium 80 mg/ Sodium Chloride 100 ml @ 10 mls/hr Q10H 09/21/19 17:15 Sodium Chloride 1,000 ml @ 125 mls/hr Q8H 09/21/19 17:14 09/22/19 17:13 Allergies Allergies Allergies Coded Allergies Type Severity Reaction Last Updated Verified No Known Drug Allergies 08/04/19 No Physical Exam Physical Exam Constitutional: Well developed, well nourished, mild distress, non-toxic appearance, pallor. [] HENT: Normocephalic, atraumatic, oropharynx dry. Eyes: PERRLA, EOMI, conjunctiva normal, no discharge. [] Neck: Normal range of motion, no tenderness, supple, no stridor. [] Cardiovascular:Heart rate regular rhythm, no murmur [] Lungs & Thorax: Bilateral breath sounds clear to auscultation [] Abdomen: Bowel sounds hyperactive, mildly distended abdomen with fluid and gas, soft, no tenderness, no masses, no pulsatile masses. Patient had large amount of black stool in his diaper. Skin: Warm, dry, no erythema, no rash. [] Back: No tenderness, no CVA tenderness. [] Extremities: No tenderness, no cyanosis, no clubbing, ROM intact, no edema. [] Neurologic: Alert and oriented X 3, normal motor function, normal sensory function, no focal deficits noted. [] Psychologic: Affect normal, judgement normal, mood normal. [] Current Patient Data Vital Signs Vital Signs Date Time Temp Pulse Resp B/P (MAP) Pulse Ox O2 Delivery O2 Flow Rate FiO2 09/21/19 15:30 98.3 106 24 142/99 (113) 98 Room Air 98.3 Lab Values Laboratory Tests Test 09/21/19 15:40 09/21/19 16:05 Stool Occult Blood Positive (NEG) White Blood Count 6.9 x10^3/uL (4.0-11.0) Red Blood Count 2.04 x10^6/uL (4.30-5.70) L Hemoglobin 6.9 g/dL (13.0-17.5) *L Hematocrit 21.6 % (39.0-53.0) L Mean Corpuscular Volume 106 fL (79-100) H Mean Corpuscular Hemoglobin 34 pg (25-35) Mean Corpuscular Hemoglobin Concent 32 g/dL (31-37) Red Cell Distribution Width 20.0 % (11.5-14.5) H Platelet Count 537 x10^3/uL (140-400) H Neutrophils (%) (Auto) 66 % (31-73) Lymphocytes (%) (Auto) 26 % (24-48) Monocytes (%) (Auto) 7 % (0-9) Eosinophils (%) (Auto) 0 % (0-3) Basophils (%) (Auto) 1 % (0-3) Neutrophils # (Auto) 4.6 x10^3/uL (1.8-7.7) Lymphocytes # (Auto) 1.8 x10^3/uL (1.0-4.8) Monocytes # (Auto) 0.5 x10^3/uL (0.0-1.1) Eosinophils # (Auto) 0.0 x10^3/uL (0.0-0.7) Basophils # (Auto) 0.0 x10^3/uL (0.0-0.2) Prothrombin Time 15.6 SEC (11.7-14.0) H Prothrombin Time INR 1.3 (0.8-1.1) H Activated Partial Thromboplast Time 27 SEC (24-38) Sodium Level 142 mmol/L (136-145) Potassium Level 5.2 mmol/L (3.5-5.1) H Chloride Level 109 mmol/L (98-107) H Carbon Dioxide Level 24 mmol/L (21-32) Anion Gap 9 (6-14) Blood Urea Nitrogen 29 mg/dL (8-26) H Creatinine 1.0 mg/dL (0.7-1.3) Estimated GFR (Cockcroft-Gault) 73.7 BUN/Creatinine Ratio 29 (6-20) H Glucose Level 98 mg/dL (70-99) Lactic Acid Level 2.1 mmol/L (0.4-2.0) H Calcium Level 7.8 mg/dL (8.5-10.1) L Total Bilirubin 0.4 mg/dL (0.2-1.0) Aspartate Amino Transferase (AST) 24 U/L (15-37) Alanine Aminotransferase (ALT) 9 U/L (16-63) L Alkaline Phosphatase 102 U/L (46-116) Creatine Kinase 108 U/L (39-308) Troponin I Quantitative 0.058 ng/mL (0.000-0.055) Total Protein 5.4 g/dL (6.4-8.2) L Albumin 1.5 g/dL (3.4-5.0) L Albumin/Globulin Ratio 0.4 (1.0-1.7) L Lipase 23 U/L (73-393) L Laboratory Tests 09/21/19 16:05 Laboratory Tests 09/21/19 16:05 EKG EKG EKG interpreted by me. EKG at 1634 showed sinus tachycardia at rate of 102, PACs, low voltage QRS, no acute ST and T-wave elevation.[] Radiology/Procedures Radiology/Procedures [][facility] [address] [place] [address] IMAGING REPORT Signed PATIENT: KIRSTEN FUNK ACCOUNT: [id number] : 1945 LOCATION: ER AGE: 73 SEX: M EXAM STATUS: PRE ER ORD. PHYSICIAN: LEILA TORRES MD REASON: rectal bleeding PROCEDURE: CT ABDOMEN PELVIS WO CONTRAST Exam: CT abdomen and pelvis without contrast INDICATION: Rectal bleeding TECHNIQUE: Sequential axial images through the abdomen and pelvis obtained without IV contrast. Sagittal and coronal reformatted images were reconstructed from the axial data and reviewed. Comparisons: None FINDINGS: Heart size is normal. Small pericardial effusion is noted. There are is small bilateral pleural effusions. Visualized lung bases are clear. Liver has a shrunken appearance. Gallbladder, spleen, pancreas and adrenals are unremarkable. No perinephric inflammation or hydronephrosis. No renal or ureteral calculi are identified. Bladder is partially distended and not well evaluated. Prostate is not enlarged. Mild wall thickening of the ascending colon. Large and small bowel are unremarkable. There is a moderate to large amount of free intra-abdominal fluid. No free intra-abdominal air. No obstruction. Abdominal aorta has a normal course and caliber. No enlarged intra-abdominal lymph nodes are identified. No suspicious osseous lesions or acute fractures. IMPRESSION: 1. Mild wall thickening involving the ascending colon, may be secondary to systemic state versus focal colitis. 2. Shrunken morphology of the liver, may relate to cirrhosis. 3. Moderate amount of intra-abdominal ascites and moderate bilateral pleural effusions. Exposure: One or more of the following in the visualized dose reduction techniques were utilized for this examination: 1. Automated exposure control 2. Adjustment of the MA and/or KV according to patient size 3. Use of iterative of reconstructive technique Electronically signed by: Denise Martin MD (09/21/2019 4:40 PM) [facility] [place] [facility] DICTATED and SIGNED BY: DENISE MARTIN MD DATE: 09/21/19 1640 Course & Med Decision Making Course & Med Decision Making Pertinent Labs and Imaging studies reviewed. (See chart for details) Evaluation of patient in ER showed 73-year-old male patient brought in from assisted because of diarrhea and weakness. Patient had melena and hemoglobin of 6.9 with history of chronic anemia. Blood transfusion was requested. CT abdomen and pelvis did not show acute finding in the abdomen. Patient had lactic acid of 2.1 without source of infection and no antibiotic was started. C. Diff is pending.Patient requiring admission for further evaluation and treatment. Discussed with Dr. Olsen who is in agreement with admission. Discussed findings and plan with patient and family, who acknowledge understanding and agreement. Dragon Disclaimer Dragon Disclaimer This electronic medical record was generated, in whole or in part, using a voice recognition dictation system. Departure Departure Impression: Primary Impression: GI bleeding Additional Impressions: Anemia Hyperkalemia Elevated troponin Renal insufficiency Elevated lactic acid level Disposition: ADMITTED INPATIENT (at 1708) Admitting Physician: ALVINA (Dr. Olsen accepted admission at 1707) Condition: GUARDED Referrals: SILVINA STEPHEN MD (PCP) Critical Care Time Critical care time was 60 minutes exclusive of procedures. Problem Qualifiers Primary Impression: GI bleeding GI bleed type/associated pathology: unspecified gastrointestinal hemorrhage type Qualified Codes: K92.2 - Gastrointestinal hemorrhage, unspecified Additional Impressions: Anemia Anemia type: unspecified type Qualified Codes: D64.9 - Anemia, unspecified LEILA TORRES MD Sep 21, 2019 17:06
[2019-09-21] MEDS: IV NORMAL SALINE 1000ML BAG 1,000 ML IV SCH ×2 (17:14→18:53)
[2019-09-21] MEDS ORDERED: PANTOPRAZOLE SODIUM IV DRIP 80 MG in IV NORMAL SALINE 100ML 100 ML IV SCH (17:15)
--- NOTE | 2019-09-21 18:37 | PDOC1 ---
History and Physical Date of Admission Date of Admission DATE: 09/21/19 TIME: 18:36 Identification/Chief Complaint Chief Complaint SEEN IN ER WITH DARK STOOL NOTED AT [facility] TODAY 73 year old male patient with history of hypertension resident of senior living who presents by EMS with complaint of weakness and diarrhea. Patient complaining of one episode of melena per day for the last 4 days without dizziness and generalized weakness without abdominal pain, nausea and vomiting, fever and chills, urinary symptom states he had history of bleeding long time ago and denies taking anticoagulation medication. HGB NOW 6.9 /// REPORTS SOBRIETY X 20 YRS Past Medical History Past Medical History Past Medical History Past Medical History: Hypertension Past Surgical History: Other Additional Past Surgical Histo: CARPEL TUNNEL, dave in [place] Additional Information: quit smoking 8 months ago Alcohol Use: remote hx alcohol abuse, none x 20 yrs Drug Use: None Cardiovascular: HTN Pulmonary: No pertinent hx CENTRAL NERVOUS SYSTEM: Carpal Tunnel Syndrome GI: No pertinent hx Heme/Onc: No pertinent hx Hepatobiliary: No pertinent hx, Cirrhosis Psych: No pertinent hx Musculoskeletal: Osteoarthritis Rheumatologic: No pertinent hx Infectious disease: No pertinent hx Renal/: No pertinent hx Endocrine: No pertinent hx Past Surgical History Past Surgical History: Cataract Removal, Other Family History Family History: Hypertension Social History Smoke: Quit ALCOHOL: other (QUIT, REMOTE HX ABUSE) Drugs: None Current Problem List Problem List Problems Medical Problems: (1) Anemia Status: Acute (2) Elevated lactic acid level Status: Acute (3) Elevated troponin Status: Acute (4) GI bleeding Status: Acute (5) Hyperkalemia Status: Acute (6) Renal insufficiency Status: Acute Current Medications Current Medications Current Medications Sodium Chloride 1,000 ml @ 1,000 mls/hr Q1H IV Last administered on 09/21/19at 16:28; Start 09/21/19 at 15:43; Stop 09/21/19 at 16:42; Status DC Pantoprazole Sodium (PROTONIX VIAL for IV PUSH) 40 mg 1X ONCE IVP Last administered on 09/21/19at 16:29; Start 09/21/19 at 15:45; Stop 09/21/19 at 15:50; Status DC Sodium Chloride 1,000 ml @ 125 mls/hr Q8H IV ; Start 09/21/19 at 17:14; Stop 09/22/19 at 17:13 Pantoprazole Sodium 80 mg/ Sodium Chloride 100 ml @ 10 mls/hr Q10H IV Last administered on 09/21/19at 17:42; Start 09/21/19 at 17:15 Active Scripts Active Multi-Vitamin Daily (Multivitamin) 1 Each Tablet 1 Tab PO DAILY 30 Days Vitamin D (Cholecalciferol (Vitamin D3)) 2,000 Unit Capsule 1 Cap PO DAILY B Complex (Vitamin B Complex) 1 Each Tablet 1 Tab PO DAILY 30 Days Midodrine Hcl 2.5 Mg Tablet 2.5 Mg PO DAILY Aspirin Ec (Aspirin) 81 Mg Tablet.dr 81 Mg PO DAILYWBKFT Hydrocodone-Acetamin 5-325 mg (Hydrocodone/Acetaminophen) 1 Each Tablet 1 Tab PO PRN BID PRN Allergies Allergies: Coded Allergies: No Known Drug Allergies (Unverified , 08/04/19) ROS Review of System Review of Systems Review of Systems Constitutional: Denies fever or chills [] Eyes: Denies change in visual acuity, redness, or eye pain [] HENT: Denies nasal congestion or sore throat [] Respiratory: Denies cough or shortness of breath [] Cardiovascular: No additional information not addressed in HPI [] GI: Denies abdominal pain, nausea, vomiting,// reports bloody stools and diarrhea [] : Denies dysuria or hematuria [] Musculoskeletal: Denies back pain or joint pain [] Integument: Denies rash or skin lesions [] Neurologic: Denies headache, focal weakness or sensory changes [] Endocrine: Denies polyuria or polydipsia [] 14 PT systems were reviewed and found to be within normal limits, except as documented General: YES: Fatigue PSYCHOLOGICAL ROS: YES: Anxiety HEENT: No: Heacaches, Visual Changes, Hearing change, Nasal congestion, Nasal discharge, Oral lesions, Sinus pain, Sore Throat, Epistaxis, Sneezing, Snoring, Tinnitus, Vertigo, Vocal changes, Other Hematological and Lymphatic: YES: Bleeding Problems ENDOCRINE: YES: Malaise/lethargy; No: Breast Changes, Galactorrhea, Hair Pattern Changes, Hot Flashes, Mood Swings, Palpitations, Polydipsia/polyuria, Skin Changes, Temperature Intolerance, Unexpected Weight Changes, Other Gastrointestinal: Yes Nausea, Yes Melena Genitourinary: No Dysuria, No Frequency, No Incontinence, No Hematuria, No Retention, No Discharge, No Urgency, No Pain, No Flank Pain, No Other, No , No , No , No , No , No , No Musculoskeletal: Yes Joint Stiffness, Yes Muscular Weakness Neurological: Yes Gait Disturbance Skin: Yes Dry Skin, Yes Skin Lesion Changes Physical Exam Physical Exam Physical Exam Physical Exam Constitutional: Well developed, well nourished, mild distress, non-toxic appearance, pallor. [] HENT: Normocephalic, atraumatic, oropharynx dry. Eyes: PERRLA, EOMI, conjunctiva normal, no discharge. [] Neck: Normal range of motion, no tenderness, supple, no stridor. [] Cardiovascular:Heart rate regular rhythm, no murmur [] Lungs & Thorax: Bilateral breath sounds clear to auscultation [] Abdomen: Bowel sounds hyperactive, mildly distended abdomen with fluid and gas, soft, no tenderness, no masses, no pulsatile masses. Patient had large amount of black stool in his diaper. Skin: Warm, dry, no erythema, no rash. [] Back: No tenderness, no CVA tenderness. [] Extremities: No tenderness, no cyanosis, no clubbing, ROM intact, no edema. [] Neurologic: Alert and oriented X 3, normal motor function, normal sensory function, no focal deficits noted. [] Psychologic: Affect normal, judgment normal, mood normal. [] General: Alert, Oriented X3, Cooperative, mild distress HEENT: Atraumatic, EOMI Lungs: Clear to auscultation Heart: RRR Breasts: Not examined Abdomen: Soft Rectal Exam: not examined, deferred PELVIC: Examination not indicated Extremities: No cyanosis Neuro: Normal speech, Cranial nerves 3-12 NL Psych/Mental Status: Mental status NL, Mood NL Vitals Vitals Vital Signs Date Time Temp Pulse Resp B/P (MAP) Pulse Ox O2 Delivery O2 Flow Rate FiO2 09/21/19 15:30 98.3 106 24 142/99 (113) 98 Room Air 98.3 Labs Labs Laboratory Tests Test 09/21/19 15:40 09/21/19 16:05 09/21/19 17:28 Stool Occult Blood Positive (NEG) White Blood Count 6.9 x10^3/uL (4.0-11.0) Red Blood Count 2.04 x10^6/uL (4.30-5.70) Hemoglobin 6.9 g/dL (13.0-17.5) Hematocrit 21.6 % (39.0-53.0) Mean Corpuscular Volume 106 fL (79-100) Mean Corpuscular Hemoglobin 34 pg (25-35) Mean Corpuscular Hemoglobin Concent 32 g/dL (31-37) Red Cell Distribution Width 20.0 % (11.5-14.5) Platelet Count 537 x10^3/uL (140-400) Neutrophils (%) (Auto) 66 % (31-73) Lymphocytes (%) (Auto) 26 % (24-48) Monocytes (%) (Auto) 7 % (0-9) Eosinophils (%) (Auto) 0 % (0-3) Basophils (%) (Auto) 1 % (0-3) Neutrophils # (Auto) 4.6 x10^3/uL (1.8-7.7) Lymphocytes # (Auto) 1.8 x10^3/uL (1.0-4.8) Monocytes # (Auto) 0.5 x10^3/uL (0.0-1.1) Eosinophils # (Auto) 0.0 x10^3/uL (0.0-0.7) Basophils # (Auto) 0.0 x10^3/uL (0.0-0.2) Prothrombin Time 15.6 SEC (11.7-14.0) Prothromb Time International Ratio 1.3 (0.8-1.1) Activated Partial Thromboplast Time 27 SEC (24-38) Sodium Level 142 mmol/L (136-145) Potassium Level 5.2 mmol/L (3.5-5.1) Chloride Level 109 mmol/L (98-107) Carbon Dioxide Level 24 mmol/L (21-32) Anion Gap 9 (6-14) Blood Urea Nitrogen 29 mg/dL (8-26) Creatinine 1.0 mg/dL (0.7-1.3) Estimated GFR (Cockcroft-Gault) 73.7 BUN/Creatinine Ratio 29 (6-20) Glucose Level 98 mg/dL (70-99) Lactic Acid Level 2.1 mmol/L (0.4-2.0) Calcium Level 7.8 mg/dL (8.5-10.1) Total Bilirubin 0.4 mg/dL (0.2-1.0) Aspartate Amino Transf (AST/SGOT) 24 U/L (15-37) Alanine Aminotransferase (ALT/SGPT) 9 U/L (16-63) Alkaline Phosphatase 102 U/L (46-116) Creatine Kinase 108 U/L (39-308) Troponin I Quantitative 0.058 ng/mL (0.000-0.055) 0.048 ng/mL (0.000-0.055) BR-Avk-O-Type Natriuretic Peptide 4995 pg/mL (0-124) Total Protein 5.4 g/dL (6.4-8.2) Albumin 1.5 g/dL (3.4-5.0) Albumin/Globulin Ratio 0.4 (1.0-1.7) Lipase 23 U/L (73-393) Laboratory Tests Test 09/21/19 15:40 09/21/19 16:05 09/21/19 17:28 Stool Occult Blood Positive (NEG) White Blood Count 6.9 x10^3/uL (4.0-11.0) Red Blood Count 2.04 x10^6/uL (4.30-5.70) Hemoglobin 6.9 g/dL (13.0-17.5) Hematocrit 21.6 % (39.0-53.0) Mean Corpuscular Volume 106 fL (79-100) Mean Corpuscular Hemoglobin 34 pg (25-35) Mean Corpuscular Hemoglobin Concent 32 g/dL (31-37) Red Cell Distribution Width 20.0 % (11.5-14.5) Platelet Count 537 x10^3/uL (140-400) Neutrophils (%) (Auto) 66 % (31-73) Lymphocytes (%) (Auto) 26 % (24-48) Monocytes (%) (Auto) 7 % (0-9) Eosinophils (%) (Auto) 0 % (0-3) Basophils (%) (Auto) 1 % (0-3) Neutrophils # (Auto) 4.6 x10^3/uL (1.8-7.7) Lymphocytes # (Auto) 1.8 x10^3/uL (1.0-4.8) Monocytes # (Auto) 0.5 x10^3/uL (0.0-1.1) Eosinophils # (Auto) 0.0 x10^3/uL (0.0-0.7) Basophils # (Auto) 0.0 x10^3/uL (0.0-0.2) Prothrombin Time 15.6 SEC (11.7-14.0) Prothromb Time International Ratio 1.3 (0.8-1.1) Activated Partial Thromboplast Time 27 SEC (24-38) Sodium Level 142 mmol/L (136-145) Potassium Level 5.2 mmol/L (3.5-5.1) Chloride Level 109 mmol/L (98-107) Carbon Dioxide Level 24 mmol/L (21-32) Anion Gap 9 (6-14) Blood Urea Nitrogen 29 mg/dL (8-26) Creatinine 1.0 mg/dL (0.7-1.3) Estimated GFR (Cockcroft-Gault) 73.7 BUN/Creatinine Ratio 29 (6-20) Glucose Level 98 mg/dL (70-99) Lactic Acid Level 2.1 mmol/L (0.4-2.0) Calcium Level 7.8 mg/dL (8.5-10.1) Total Bilirubin 0.4 mg/dL (0.2-1.0) Aspartate Amino Transf (AST/SGOT) 24 U/L (15-37) Alanine Aminotransferase (ALT/SGPT) 9 U/L (16-63) Alkaline Phosphatase 102 U/L (46-116) Creatine Kinase 108 U/L (39-308) Troponin I Quantitative 0.058 ng/mL (0.000-0.055) 0.048 ng/mL (0.000-0.055) NC-Whc-Z-Type Natriuretic Peptide 4995 pg/mL (0-124) Total Protein 5.4 g/dL (6.4-8.2) Albumin 1.5 g/dL (3.4-5.0) Albumin/Globulin Ratio 0.4 (1.0-1.7) Lipase 23 U/L (73-393) Images Images Exam: CT abdomen and pelvis without contrast INDICATION: Rectal bleeding TECHNIQUE: Sequential axial images through the abdomen and pelvis obtained without IV contrast. Sagittal and coronal reformatted images were reconstructed from the axial data and reviewed. Comparisons: None FINDINGS: Heart size is normal. Small pericardial effusion is noted. There are is small bilateral pleural effusions. Visualized lung bases are clear. Liver has a shrunken appearance. Gallbladder, spleen, pancreas and adrenals are unremarkable. No perinephric inflammation or hydronephrosis. No renal or ureteral calculi are identified. Bladder is partially distended and not well evaluated. Prostate is not enlarged. Mild wall thickening of the ascending colon. Large and small bowel are unremarkable. There is a moderate to large amount of free intra-abdominal fluid. No free intra-abdominal air. No obstruction. Abdominal aorta has a normal course and caliber. No enlarged intra-abdominal lymph nodes are identified. No suspicious osseous lesions or acute fractures. IMPRESSION: 1. Mild wall thickening involving the ascending colon, may be secondary to systemic state versus focal colitis. 2. Shrunken morphology of the liver, may relate to cirrhosis. 3. Moderate amount of intra-abdominal ascites and moderate bilateral pleural effusions. Exposure: One or more of the following in the visualized dose reduction techniques were utilized for this examination: 1. Automated exposure control 2. Adjustment of the MA and/or KV according to patient size 3. Use of iterative of reconstructive technique Electronically signed by: Denise Murray MD (09/21/2019 4:40 PM) [facility] VTE Prophylaxis Ordered VTE Prophylaxis Devices: No VTE Pharmacological Prophylaxi: Contraindicated Assessment/Plan Assessment/Plan IMPRESSION: 1. Mild wall thickening involving the ascending colon, may be secondary to systemic state versus focal colitis. 2. Shrunken morphology of the liver, ALCOHOL [employer]OCI[employer] cirrhosis. ON CT 09/21 3. Moderate amount of intra-abdominal ascites and moderate bilateral pleural effusions. 4. severe protein -malnutrition, POA, 5. weakness and debility 6. anemia, macrocytic, acute blood loss anemia sec TO ACUTE GI BLEEDING 7. assume vitamin def. has role 8. Hx of hypertension, 9. DNR 10. ELEVATED TROPONIN I 11. LACTIC ACIDOSIS 12. REMOTE ETOH ABUSE PLAN ADMIT ICU BED TRANSFUSE GI CONSULT PROTONIX DRIP SERIAL H/H NPO CARDIOLOGY CONSULT SERIAL TROPONIN I BLOOD CULT PROCALCITONIN EMPERIC IV ZOSYN ID CONSULT 34 MIN CC TIME ELLIS JETT MD Sep 21, 2019 18:37
[2019-09-21] MEDS ORDERED: ONDANSETRON PF 4 MG/2 ML VIAL. IV PRN ×2 (19:00→19:15)
[2019-09-21] MEDS ORDERED: 0.9 % SODIUM CHLORIDE 10 ML DISP.SYRIN. IV PRN ×2 (19:00→19:15)
[2019-09-21] MEDS ORDERED: PROCHLORPERAZINE 10 MG/2 ML VIAL. IV PRN (19:00)
[2019-09-21] MEDS ORDERED: LORazepam 0.5 MG TABLET PO PRN (19:15)
[2019-09-21] MEDS ORDERED: DOCUSATE SODIUM 100 MG CAPSULE. PO PRN (19:15)
[2019-09-21] MEDS ORDERED: ACETAMINOPHEN 325 MG TABLET. PO PRN (19:15)
[2019-09-21] MEDS ORDERED: ALBUTEROL SULFATE 2.5 MG/3 ML NEBU. NEB PRN (19:15)
[2019-09-21 19:45] VITALS: BP 156/70
[2019-09-21 20:26] LABS: RED BLOOD COUNT 1.88 x10^6/uL (4.30-5.70); RED CELL DISTRIBUTION WIDTH 19.7 % (11.5-14.5); WHITE BLOOD COUNT 7.9 x10^3/uL (4.0-11.0)
[2019-09-21 20:30] LABS: HEMATOCRIT 19.7 % (39.0-53.0); HEMOGLOBIN 6.3 g/dL (13.0-17.5)
[2019-09-21 20:58] VITALS: BP_SYST 130; BP_SYST 160; BP_DIAS 69; BP_DIAS 78
[2019-09-21] MEDS ORDERED: FAMOTIDINE 20 MG/2 ML VIAL IVP SCH (21:00)
[2019-09-21] MEDS: DOCUSATE SODIUM 100 MG CAPSULE. PO SCH (21:00)
[2019-09-21] MEDS ORDERED: FAMOTIDINE 20 MG TABLET. PO SCH (21:00)
[2019-09-21 21:58] VITALS: BP 130/78
[2019-09-21 23:00] VITALS: BP 140/76
[2019-09-21 23:59] VITALS: BP 140/76
[2019-09-22] VITALS (10 sets, daily range): BP systolic 125–157; BP diastolic 60–78
[2019-09-22] MEDS ORDERED: PIPERACILLIN/TAZOBACTAM 3.375 GM in IV NORMAL SALINE 50ML 50 ML IV SCH ×2
[2019-09-22] MEDS: PANTOPRAZOLE SODIUM IV DRIP 80 MG in IV NORMAL SALINE 100ML 100 ML IV SCH ×3 (02:30→16:59)
[2019-09-22] MEDS: PIPERACILLIN/TAZOBACTAM 3.375 GM in IV NORMAL SALINE 50ML 50 ML IV SCH ×6 (02:51→23:21)
[2019-09-22] MEDS: IV NORMAL SALINE 1000ML BAG 1,000 ML IV SCH ×4 (02:52→22:01)
--- NOTE | 2019-09-22 04:21 | EKG ---
[facility] [address] [place] [address] Test Date: 2019-09-21 Test Time: 16:34:35 Pat Name: KIRSTEN FUNK Department: Room: Gender: M Rehabilitation Medicine Physician: : [id number] Requested By: LEILA TORRES Order Number: [id number] Reading MD: Measurements Intervals [place] Rate: 102 P: 0 WV: 112 QRS: 46 QRSD: 62 T: 58 QT: 332 QTc: 436 Interpretive Statements SINUS TACHYCARDIA ATRIAL PREMATURE COMPLEX(ES) LOW LIMB LEAD VOLTAGE NON SPECIFIC T ABNORMALITY BORDERLINE ECG No previous ECG available for comparison
[2019-09-22 05:46] LABS: BASO # 0.1 x10^3/uL (0.0-0.2); BASO % 1 % (0-3); EOS # 0.1 x10^3/uL (0.0-0.7); EOS % 2 % (0-3); HEMATOCRIT 27.7 % (39.0-53.0); LYMPH # 2.8 x10^3/uL (1.0-4.8); LYMPH % 34 % (24-48); MEAN CORPUSCULAR HEMOGLOBIN 31 pg (25-35); MEAN CORPUSCULAR HGB CONC 33 g/dL (31-37); MEAN CORPUSCULAR VOLUME 94 fL (79-100); MONO # 0.7 x10^3/uL (0.0-1.1); MONO % 8 % (0-9); NEUT # 4.5 x10^3/uL (1.8-7.7); NEUT % 55 % (31-73); PLATELET COUNT 412 x10^3/uL (140-400); RED BLOOD COUNT 2.94 x10^6/uL (4.30-5.70); RED CELL DISTRIBUTION WIDTH 25.1 % (11.5-14.5); WHITE BLOOD COUNT 8.2 x10^3/uL (4.0-11.0)
[2019-09-22 05:53] LABS: PROTHROMBIN TIME PATIENT 15.2 SEC (11.7-14.0)
[2019-09-22 06:12] LABS: ALBUMIN 1.5 g/dL (3.4-5.0); ALBUMIN/GLOBULIN RATIO 0.4 (1.0-1.7); CALCIUM 7.6 mg/dL (8.5-10.1); GFR 73.7; POTASSIUM 4.3 mmol/L (3.5-5.1); TOTAL BILIRUBIN 0.5 mg/dL (0.2-1.0); TOTAL PROTEIN 5.3 g/dL (6.4-8.2)
--- NOTE | 2019-09-22 08:07 | RAD ---
CHEST AP ONLY Clinical indications: Lactic acidosis COMPARISON: None available. Findings: No acute lung infiltrate or pleural effusion or pulmonary edema or lung mass or pneumothorax is seen. The heart size, pulmonary vasculature, mediastinum and both amanda are unremarkable. Impression: No acute radiographic abnormality is seen. Electronically signed by: Vahe Franco MD (09/22/2019 8:05 AM) [facility]
[2019-09-22] MEDS: ELECTROLYTE (ICU) PROTOCOL. MC SCH (09:00)
[2019-09-22] MEDS: DOCUSATE SODIUM 100 MG CAPSULE. PO SCH ×2 (09:00→22:00)
--- NOTE | 2019-09-22 09:18 | PDOC2 ---
GI CONSULT Reason For Consult: melena, Hgb 6.9 HPI: HPI: 73 y/o male from [facility]. Has been feeling "just exhausted" lately. Feels short of breath. Says bed is 10 feet from the bathroom and he has to stop and rest in a chair on the way. Has had a lot of right shoulder and neck pain recently - takes baby aspirin, then added some regular strength aspirin, and also "takes a little bit of everything" - names ibuprofen, Advil, Aleve, hyd rocodone. Pain has improved, but for the last 3 days or so he has noted dark brown diarrhea - doesn't think it was ever really black. This morning, had a soft stool - "not diarrhea" - doesn't know color. Labs notable for Hgb 6.9, now 9 after 2 units pRBCs. For comparison, Hgb averaged in 8-9 range in 08/2019. MCV is 106, INR 1.3, BUN 29 (then 35) w/ normal Cr. Hemoccult is positive. On CT: mild wall thickening in ascending colon, questionable cirrhosis, and moderate ascites and pleural effusions. On and off heartburn, takes Tums. No dysphagia, n/v, change in appetite, weight loss, abd pain, constipation, or hematochezia. Thinks had an EGD long ago @ [facility]. Also reports more than one colonoscopy @ [facility] - recalls no significant findings but thinks he's about due for screening. No GB, liver, pancreas, or PUD history. Used to be a heavy drinker, went to rehab, now sober x 20 years. PMH: PMH: HTN (currently off meds), OA, COPD, PAD, ?dementia, [place] cataract removal, left leg surgery, bilateral CTR FH: Family History: CAD Social History: Smoke: Quit ALCOHOL: other (sober 20 years) Drugs: None ROS: GEN: +fatigue HEENT: Denies blurred vision, sore throat CV: Denies chest pain RESP: +SOA GI: Per HPI : Denies hematuria, dysuria ENDO: Denies weight changes NEURO: Denies confusion, dizziness MSK: +right shoulder/neck pain SKIN: Denies jaundice, pruritus Vitals: Vitals: Vital Signs Date Time Temp Pulse Resp B/P (MAP) Pulse Ox O2 Delivery O2 Flow Rate FiO2 09/22/19 07:00 98.2 96 20 156/66 (96) 100 Room Air 98.2 Labs: Labs: Laboratory Tests Test 09/21/19 15:40 09/21/19 16:05 09/21/19 17:28 09/21/19 20:15 Stool Occult Blood Positive (NEG) White Blood Count 6.9 x10^3/uL (4.0-11.0) 7.9 x10^3/uL (4.0-11.0) Red Blood Count 2.04 x10^6/uL (4.30-5.70) 1.88 x10^6/uL (4.30-5.70) Hemoglobin 6.9 g/dL (13.0-17.5) 6.3 g/dL (13.0-17.5) Hematocrit 21.6 % (39.0-53.0) 19.7 % (39.0-53.0) Mean Corpuscular Volume 106 fL (79-100) 105 fL (79-100) Mean Corpuscular Hemoglobin 34 pg (25-35) 34 pg (25-35) Mean Corpuscular Hemoglobin Concent 32 g/dL (31-37) 32 g/dL (31-37) Red Cell Distribution Width 20.0 % (11.5-14.5) 19.7 % (11.5-14.5) Platelet Count 537 x10^3/uL (140-400) 460 x10^3/uL (140-400) Neutrophils (%) (Auto) 66 % (31-73) Lymphocytes (%) (Auto) 26 % (24-48) Monocytes (%) (Auto) 7 % (0-9) Eosinophils (%) (Auto) 0 % (0-3) Basophils (%) (Auto) 1 % (0-3) Neutrophils # (Auto) 4.6 x10^3/uL (1.8-7.7) Lymphocytes # (Auto) 1.8 x10^3/uL (1.0-4.8) Monocytes # (Auto) 0.5 x10^3/uL (0.0-1.1) Eosinophils # (Auto) 0.0 x10^3/uL (0.0-0.7) Basophils # (Auto) 0.0 x10^3/uL (0.0-0.2) Prothrombin Time 15.6 SEC (11.7-14.0) Prothromb Time International Ratio 1.3 (0.8-1.1) Activated Partial Thromboplast Time 27 SEC (24-38) Sodium Level 142 mmol/L (136-145) Potassium Level 5.2 mmol/L (3.5-5.1) Chloride Level 109 mmol/L (98-107) Carbon Dioxide Level 24 mmol/L (21-32) Anion Gap 9 (6-14) Blood Urea Nitrogen 29 mg/dL (8-26) Creatinine 1.0 mg/dL (0.7-1.3) Estimated GFR (Cockcroft-Gault) 73.7 BUN/Creatinine Ratio 29 (6-20) Glucose Level 98 mg/dL (70-99) Lactic Acid Level 2.1 mmol/L (0.4-2.0) 1.4 mmol/L (0.4-2.0) Calcium Level 7.8 mg/dL (8.5-10.1) Total Bilirubin 0.4 mg/dL (0.2-1.0) Aspartate Amino Transf (AST/SGOT) 24 U/L (15-37) Alanine Aminotransferase (ALT/SGPT) 9 U/L (16-63) Alkaline Phosphatase 102 U/L (46-116) Creatine Kinase 108 U/L (39-308) Troponin I Quantitative 0.058 ng/mL (0.000-0.055) 0.048 ng/mL (0.000-0.055) CK-Pyk-O-Type Natriuretic Peptide 4995 pg/mL (0-124) Total Protein 5.4 g/dL (6.4-8.2) Albumin 1.5 g/dL (3.4-5.0) Albumin/Globulin Ratio 0.4 (1.0-1.7) Lipase 23 U/L (73-393) Ammonia < 10 mcmol/L (11-34) Test 09/22/19 00:15 09/22/19 04:10 Troponin I Quantitative 0.043 ng/mL (0.000-0.055) White Blood Count 8.2 x10^3/uL (4.0-11.0) Red Blood Count 2.94 x10^6/uL (4.30-5.70) Hemoglobin 9.0 g/dL (13.0-17.5) Hematocrit 27.7 % (39.0-53.0) Mean Corpuscular Volume 94 fL (79-100) Mean Corpuscular Hemoglobin 31 pg (25-35) Mean Corpuscular Hemoglobin Concent 33 g/dL (31-37) Red Cell Distribution Width 25.1 % (11.5-14.5) Platelet Count 412 x10^3/uL (140-400) Neutrophils (%) (Auto) 55 % (31-73) Lymphocytes (%) (Auto) 34 % (24-48) Monocytes (%) (Auto) 8 % (0-9) Eosinophils (%) (Auto) 2 % (0-3) Basophils (%) (Auto) 1 % (0-3) Neutrophils # (Auto) 4.5 x10^3/uL (1.8-7.7) Lymphocytes # (Auto) 2.8 x10^3/uL (1.0-4.8) Monocytes # (Auto) 0.7 x10^3/uL (0.0-1.1) Eosinophils # (Auto) 0.1 x10^3/uL (0.0-0.7) Basophils # (Auto) 0.1 x10^3/uL (0.0-0.2) Prothrombin Time 15.2 SEC (11.7-14.0) Prothromb Time International Ratio 1.2 (0.8-1.1) Activated Partial Thromboplast Time 33 SEC (24-38) Sodium Level 143 mmol/L (136-145) Potassium Level 4.3 mmol/L (3.5-5.1) Chloride Level 110 mmol/L (98-107) Carbon Dioxide Level 22 mmol/L (21-32) Anion Gap 11 (6-14) Blood Urea Nitrogen 35 mg/dL (8-26) Creatinine 1.0 mg/dL (0.7-1.3) Estimated GFR (Cockcroft-Gault) 73.7 BUN/Creatinine Ratio 35 (6-20) Glucose Level 75 mg/dL (70-99) Calcium Level 7.6 mg/dL (8.5-10.1) Total Bilirubin 0.5 mg/dL (0.2-1.0) Aspartate Amino Transf (AST/SGOT) 24 U/L (15-37) Alanine Aminotransferase (ALT/SGPT) 9 U/L (16-63) Alkaline Phosphatase 97 U/L (46-116) Total Protein 5.3 g/dL (6.4-8.2) Albumin 1.5 g/dL (3.4-5.0) Albumin/Globulin Ratio 0.4 (1.0-1.7) Allergies: Coded Allergies: No Known Drug Allergies (Unverified , 08/04/19) Medications: Current Medications Medications (Trade) Dose Ordered Sig/Eliza Route PRN Reason Start Time Stop Time Status Last Admin Dose Admin Sodium Chloride 1,000 ml @ 1,000 mls/hr Q1H IV 09/21/19 15:43 09/21/19 16:42 DC 09/21/19 16:28 Pantoprazole Sodium (PROTONIX VIAL for IV PUSH) 40 mg 1X ONCE IVP 09/21/19 15:45 09/21/19 15:50 DC 09/21/19 16:29 Sodium Chloride 1,000 ml @ 125 mls/hr Q8H IV 09/21/19 17:14 09/22/19 17:13 09/22/19 02:52 Pantoprazole Sodium 80 mg/ Sodium Chloride 100 ml @ 10 mls/hr Q10H IV 09/21/19 17:15 09/21/19 19:00 DC 09/21/19 17:42 Pantoprazole Sodium 80 mg/ Sodium Chloride 100 ml @ 10 mls/hr Q10H IV 09/21/19 19:00 09/22/19 08:19 Piperacillin Sod/ Tazobactam Sod 3.375 gm/Sodium Chloride 50 ml @ 100 mls/hr Q6HRS IV 09/21/19 19:30 09/22/19 06:48 Imaging: Imaging: CXR Impression: No acute radiographic abnormality is seen. PE: GEN: NAD HEENT: Atraumatic, PERRL LUNGS: CTAB anteriorly HEART: borderline tachycardic ABD: some distention, soft, non-tender, NABS EXTREMITY: No edema SKIN: dry NEURO/PSYCH: A & O 3 A/P: A/P: Fatigue, dyspnea Macrocytic anemia, +Hemoccult Mildly elevated troponin (resolved), elevated BNP, lactic acidosis (resolved), elevated BUN Abnormal CT - mild wall thickening in ascending colon, questionable cirrhosis, moderate ascites and pleural effusions CRC screen - more than one colonoscopy in the past, thinks due for screening H/o alcohol abuse -- ?EGD - he'd be agreeable but wants ice chips now - will review w/ Dr. Carrillo. Agree w/ PPI - IV for now. Hgb improved w/ transfusions - monitor. Consider abd US re: ?cirrhosis w/ ascites on CT. Will review previous 'scopes w/ our office. VEI PERERA Sep 22, 2019 09:18
[2019-09-22 09:20] LABS: PLT ESTIMATE ADEQUATE (ADEQUATE)
[2019-09-22 09:21] LABS: ANISOCYTOSIS PRESENT; MICROCYTOSIS PRESENT
--- NOTE | 2019-09-22 09:54 | PDOC2 ---
JOVANNA KANG HISTORIOGRAPHER 09/22/19 0954: CARDIAC CONSULT DATE OF CONSULT Date of Consult DATE: 09/22/19 TIME: 09:39 REASON FOR CONSULT Reason for Consult: Elevated troponin REFERRING PHYSICIAN Referring Physician: Dr. Olsen SOURCE Source: Chart review, Patient HISTORY OF PRESENT ILLNESS HISTORY OF PRESENT ILLNESS This is a 73 yo male who presented from nursing facility secondary to fatigue and weakness for the last week. Has had some SOA and dizziness with exertion., Noted with significant anemia upon arrival. Troponin checked and noted to be mildly elevated, which prompted this consult. No chest pain, palpitation, or nausea/vomiting. H/o alcoholism, but quit over 20 years ago. Has been taking both Aleve and Ibuprofen regularly over the last 2 and a half weeks due to right shoulder pain. PAST MEDICAL HISTORY Past Medical History Cardiovascular: HTN Pulmonary: No pertinent hx CENTRAL NERVOUS SYSTEM: Carpal Tunnel Syndrome GI: No pertinent hx Heme/Onc: No pertinent hx Hepatobiliary: No pertinent hx Psych: No pertinent hx Musculoskeletal: Osteoarthritis, Other (traumatic LLE injury with 9 total surgeries with dave placement) Rheumatologic: No pertinent hx Infectious disease: No pertinent hx ENT: No pertinent hx (wears dentures) Renal/: No pertinent hx Endocrine: No pertinent hx Dermatology: No pertinent hx PAST SURGICAL HISTORY Past Surgical History Cataract Removal, Other (LLE repair) FAMILY HISTORY Family History noncontributory to CV SOCIAL HISTORY Social History Smoke: Quit ALCOHOL: none Drugs: None Lives: Alone CURRENT MEDICATIONS CURRENT MEDICATIONS Current Medications Medications (Trade) Dose Ordered Sig/Eliza Route PRN Reason Start Time Stop Time Status Last Admin Dose Admin Sodium Chloride 1,000 ml @ 1,000 mls/hr Q1H IV 09/21/19 15:43 09/21/19 16:42 DC 09/21/19 16:28 Pantoprazole Sodium (PROTONIX VIAL for IV PUSH) 40 mg 1X ONCE IVP 09/21/19 15:45 09/21/19 15:50 DC 09/21/19 16:29 Sodium Chloride 1,000 ml @ 125 mls/hr Q8H IV 09/21/19 17:14 09/22/19 17:13 09/22/19 02:52 Pantoprazole Sodium 80 mg/ Sodium Chloride 100 ml @ 10 mls/hr Q10H IV 09/21/19 17:15 09/21/19 19:00 DC 09/21/19 17:42 Pantoprazole Sodium 80 mg/ Sodium Chloride 100 ml @ 10 mls/hr Q10H IV 09/21/19 19:00 09/22/19 08:19 Piperacillin Sod/ Tazobactam Sod 3.375 gm/Sodium Chloride 50 ml @ 100 mls/hr Q6HRS IV 09/21/19 19:30 09/22/19 06:48 ALLERGIES ALLERGIES: Coded Allergies: No Known Drug Allergies (Unverified , 08/04/19) ROS Review of System 14 point ROS conducted with pertinent positives noted above in hPI PHYSICAL EXAM PHYSICAL EXAM General: Alert, Oriented X3, Cooperative, No acute distress HEENT: Atraumatic, Mucous membr. moist/pink Lungs: Clear to auscultation, Normal air movement Heart: Regular rate (SR), Normal S1, Normal S2, No murmurs Abdomen: Soft, No tenderness Extremities: No cyanosis, No edema Skin: No breakdown, No significant lesion, Other (atrophic LLE skin) Neuro: Normal speech, Sensation intact Psych/Mental Status: Mental status NL, Mood NL MUSCULOSKELETAL: Osteoarthritic changes both hands VITALS/I&O VITALS/I&O: Vital Signs Date Time Temp Pulse Resp B/P (MAP) Pulse Ox O2 Delivery O2 Flow Rate FiO2 09/22/19 08:10 Room Air 09/22/19 07:00 98.2 96 20 156/66 (96) 100 98.2 I & O 09/21/19 09/21/19 09/22/19 15:00 23:00 07:00 Intake Total 350 ml 350 ml Balance 350 ml 350 ml LABS Lab: Laboratory Tests Test 09/21/19 15:40 09/21/19 16:05 09/21/19 17:28 09/21/19 20:15 Stool Occult Blood Positive (NEG) White Blood Count 6.9 x10^3/uL (4.0-11.0) 7.9 x10^3/uL (4.0-11.0) Red Blood Count 2.04 x10^6/uL (4.30-5.70) L 1.88 x10^6/uL (4.30-5.70) L Hemoglobin 6.9 g/dL (13.0-17.5) *L 6.3 g/dL (13.0-17.5) *L Hematocrit 21.6 % (39.0-53.0) L 19.7 % (39.0-53.0) *L Mean Corpuscular Volume 106 fL (79-100) H 105 fL (79-100) H Mean Corpuscular Hemoglobin 34 pg (25-35) 34 pg (25-35) Mean Corpuscular Hemoglobin Concent 32 g/dL (31-37) 32 g/dL (31-37) Red Cell Distribution Width 20.0 % (11.5-14.5) H 19.7 % (11.5-14.5) H Platelet Count 537 x10^3/uL (140-400) H 460 x10^3/uL (140-400) H Neutrophils (%) (Auto) 66 % (31-73) Lymphocytes (%) (Auto) 26 % (24-48) Monocytes (%) (Auto) 7 % (0-9) Eosinophils (%) (Auto) 0 % (0-3) Basophils (%) (Auto) 1 % (0-3) Neutrophils # (Auto) 4.6 x10^3/uL (1.8-7.7) Lymphocytes # (Auto) 1.8 x10^3/uL (1.0-4.8) Monocytes # (Auto) 0.5 x10^3/uL (0.0-1.1) Eosinophils # (Auto) 0.0 x10^3/uL (0.0-0.7) Basophils # (Auto) 0.0 x10^3/uL (0.0-0.2) Prothrombin Time 15.6 SEC (11.7-14.0) H Prothrombin Time INR 1.3 (0.8-1.1) H Activated Partial Thromboplast Time 27 SEC (24-38) Sodium Level 142 mmol/L (136-145) Potassium Level 5.2 mmol/L (3.5-5.1) H Chloride Level 109 mmol/L (98-107) H Carbon Dioxide Level 24 mmol/L (21-32) Anion Gap 9 (6-14) Blood Urea Nitrogen 29 mg/dL (8-26) H Creatinine 1.0 mg/dL (0.7-1.3) Estimated GFR (Cockcroft-Gault) 73.7 BUN/Creatinine Ratio 29 (6-20) H Glucose Level 98 mg/dL (70-99) Lactic Acid Level 2.1 mmol/L (0.4-2.0) H 1.4 mmol/L (0.4-2.0) Calcium Level 7.8 mg/dL (8.5-10.1) L Total Bilirubin 0.4 mg/dL (0.2-1.0) Aspartate Amino Transferase (AST) 24 U/L (15-37) Alanine Aminotransferase (ALT) 9 U/L (16-63) L Alkaline Phosphatase 102 U/L (46-116) Creatine Kinase 108 U/L (39-308) Troponin I Quantitative 0.058 ng/mL (0.000-0.055) 0.048 ng/mL (0.000-0.055) XQ-Pac-C-Type Natriuretic Peptide 4995 pg/mL (0-124) H Total Protein 5.4 g/dL (6.4-8.2) L Albumin 1.5 g/dL (3.4-5.0) L Albumin/Globulin Ratio 0.4 (1.0-1.7) L Lipase 23 U/L (73-393) L Ammonia < 10 mcmol/L (11-34) L Test 09/22/19 00:15 09/22/19 04:10 Troponin I Quantitative 0.043 ng/mL (0.000-0.055) White Blood Count 8.2 x10^3/uL (4.0-11.0) Red Blood Count 2.94 x10^6/uL (4.30-5.70) L Hemoglobin 9.0 g/dL (13.0-17.5) #L Hematocrit 27.7 % (39.0-53.0) L Mean Corpuscular Volume 94 fL (79-100) # Mean Corpuscular Hemoglobin 31 pg (25-35) Mean Corpuscular Hemoglobin Concent 33 g/dL (31-37) Red Cell Distribution Width 25.1 % (11.5-14.5) H Platelet Count 412 x10^3/uL (140-400) H Neutrophils (%) (Auto) 55 % (31-73) Lymphocytes (%) (Auto) 34 % (24-48) Monocytes (%) (Auto) 8 % (0-9) Eosinophils (%) (Auto) 2 % (0-3) Basophils (%) (Auto) 1 % (0-3) Neutrophils # (Auto) 4.5 x10^3/uL (1.8-7.7) Lymphocytes # (Auto) 2.8 x10^3/uL (1.0-4.8) Monocytes # (Auto) 0.7 x10^3/uL (0.0-1.1) Eosinophils # (Auto) 0.1 x10^3/uL (0.0-0.7) Basophils # (Auto) 0.1 x10^3/uL (0.0-0.2) Platelet Estimate Adequate (ADEQUATE) Anisocytosis Present Microcytosis Present Macrocytosis Present Prothrombin Time 15.2 SEC (11.7-14.0) H Prothrombin Time INR 1.2 (0.8-1.1) H Activated Partial Thromboplast Time 33 SEC (24-38) Sodium Level 143 mmol/L (136-145) Potassium Level 4.3 mmol/L (3.5-5.1) Chloride Level 110 mmol/L (98-107) H Carbon Dioxide Level 22 mmol/L (21-32) Anion Gap 11 (6-14) Blood Urea Nitrogen 35 mg/dL (8-26) H Creatinine 1.0 mg/dL (0.7-1.3) Estimated GFR (Cockcroft-Gault) 73.7 BUN/Creatinine Ratio 35 (6-20) H Glucose Level 75 mg/dL (70-99) Calcium Level 7.6 mg/dL (8.5-10.1) L Total Bilirubin 0.5 mg/dL (0.2-1.0) Aspartate Amino Transferase (AST) 24 U/L (15-37) Alanine Aminotransferase (ALT) 9 U/L (16-63) L Alkaline Phosphatase 97 U/L (46-116) Total Protein 5.3 g/dL (6.4-8.2) L Albumin 1.5 g/dL (3.4-5.0) L Albumin/Globulin Ratio 0.4 (1.0-1.7) L Laboratory Tests 09/21/19 16:05 09/21/19 20:15 09/22/19 04:10 Laboratory Tests 09/21/19 16:05 09/22/19 04:10 ASSESSMENT/PLAN ASSESSMENT/PLAN 1. Weakness, diarrhea 2. Anemia, ? GI bleed. + Hemoccult. S/p 2 units PRBCs. Has been routinely taking Aleve and Ibuprofen over the last 2.5 wks. 3. Mild troponin elevation; peak 0.058. Type II, demand ischemia in the setting of significant anemia 4. Abnormal CT; ascites, ? cirrhosis. Remote h/o alcoholism- quite over 20 years ago. 5. Hyperkalemia 6. LE PAD: no claudications, no open wounds. clinically stable Recommendations PPI Transfuse as warranted Baseline echo to assess LV systolic function No ASA with anemia, possible GI bleed Supportive care Further workup as per GI. Could consider outpatient ischemic evaluation VIKTOR CRUZ MD 09/22/19 1627: CARDIAC CONSULT ASSESSMENT/PLAN ASSESSMENT/PLAN Patient seen and examined. Agree with MEDICAL RADIATION THERAPIST's assessment and plan. Slight troponin elevation probably demand ischemia 2-D echo showed normal LV function without any wall motion abnormalities We will consider ischemic evaluation as an outpatient Continue current workup for possible GI bleed per gastroenterology team Thank you for your consultation JOVANNA KANG APRN Sep 22, 2019 09:54 VIKTOR CRUZ MD Sep 22, 2019 16:27
[2019-09-22 10:34] LABS: CHOLESTEROL/HDL RATIO 3.8
--- NOTE | 2019-09-22 10:50 | PDOC2 ---
CONSULT Date of Consult Date of Consult DATE: 09/22/19 TIME: 10:38 Reason for Consult Reason for Consult: FREEDOM per Dr. Olsen Identification/Chief Complaint Chief Complaint Diarrhea History of Present Illness Reason for Visit: Patient is a 73 year old CM patient with history of hypertension resident of alf who presents by EMS with complaint of weakness and diarrhea. Patient complaining of one episode of melena per day for the last 4 days without dizziness and generalized weakness without abdominal pain, nausea and vomiting, fever and chills, urinary symptom. Patient states he had history of bleeding lo ng time ago and denies taking anticoagulation medication. Has been feeling "just exhausted" lately. Feels short of breath. Has had a lot of right shoulder and neck pain recently - takes regular strength aspirin, ibuprofen (in the after noon) , ALEVE (every day for past 3 weeks) hydrocodone prn. Pain has improved, but for the last 3 days or so he has noted dark brown diarrhea Hgb 6.9, at presentation s/p 2 units pRBCs Currently denies any complaints CT: mild wall thickening in ascending colon, questionable cirrhosis, and moderate ascites and pleural effusions. Past Medical History Cardiovascular: HTN Pulmonary: No pertinent hx CENTRAL NERVOUS SYSTEM: Carpal Tunnel Syndrome GI: No pertinent hx Heme/Onc: No pertinent hx Hepatobiliary: No pertinent hx, Cirrhosis Psych: No pertinent hx Musculoskeletal: Osteoarthritis Rheumatologic: No pertinent hx Infectious disease: No pertinent hx Renal/: No pertinent hx Endocrine: No pertinent hx Past Surgical History Past Surgical History: Cataract Removal, Other Family History Family History: Hypertension Social History Social History Smoke: Quit ALCOHOL: none Drugs: None Lives: Alone Quit ALCOHOL: other (sober 20 years) Drugs: None Lives: Alone Current Problem List Problem List Problems Medical Problems: (1) Anemia Status: Acute (2) Elevated lactic acid level Status: Acute (3) Elevated troponin Status: Acute (4) GI bleeding Status: Acute (5) Hyperkalemia Status: Acute (6) Renal insufficiency Status: Acute Current Medications Current Medications Current Medications Sodium Chloride 1,000 ml @ 1,000 mls/hr Q1H IV Last administered on 09/21/19at 16:28; Start 09/21/19 at 15:43; Stop 09/21/19 at 16:42; Status DC Pantoprazole Sodium (PROTONIX VIAL for IV PUSH) 40 mg 1X ONCE IVP Last administered on 09/21/19at 16:29; Start 09/21/19 at 15:45; Stop 09/21/19 at 15:50; Status DC Sodium Chloride 1,000 ml @ 125 mls/hr Q8H IV Last administered on 09/22/19at 02:52; Start 09/21/19 at 17:14; Stop 09/22/19 at 17:13 Pantoprazole Sodium 80 mg/ Sodium Chloride 100 ml @ 10 mls/hr Q10H IV Last administered on 09/21/19at 17:42; Start 09/21/19 at 17:15; Stop 09/21/19 at 19:00; Status DC Acetaminophen (Tylenol) 650 mg PRN Q6HRS PRN PO Headaches, Temp > 101.5'; Start 09/21/19 at 19:00 Lorazepam (Ativan Inj) 0.5 mg PRN Q6HRS PRN IV ANXIETY / AGITATION; Start 09/21/19 at 19:00 Ondansetron HCl (Zofran) 4 mg PRN Q6HRS PRN IV NAUSEA/VOMITING; Start 09/21/19 at 19:00; Status Cancel Prochlorperazine Edisylate (Compazine) 5 mg PRN Q6HRS PRN IV NAUSEA/VOMITING; Start 09/21/19 at 19:00 Famotidine (Pepcid) 20 mg BID PO ; Start 09/21/19 at 21:00; Stop 09/21/19 at 18:59; Status DC Famotidine (Pepcid Vial) 20 mg BID IVP ; Start 09/21/19 at 21:00; Status Cancel Info (Icu Electrolyte Protocol) 1 ea DAILY MC Last administered on 09/22/19at 09:00; Start 09/22/19 at 09:00 Sodium Chloride (Normal Saline Flush) 3 ml QSHIFT PRN IV AFTER MEDS AND BLOOD DRAWS; Start 09/21/19 at 19:00 Sodium Chloride 1,000 ml @ 75 mls/hr [id number] IV ; Start 09/21/19 at 18:53 Hydromorphone HCl (Dilaudid) 0.2 mg PRN Q1HR PRN IV PAIN; Start 09/21/19 at 19:00 Docusate Sodium (Colace) 100 mg BID PO ; Start 09/21/19 at 21:00 Pantoprazole Sodium 80 mg/ Sodium Chloride 100 ml @ 10 mls/hr Q10H IV Last administered on 09/22/19at 08:19; Start 09/21/19 at 19:00 Piperacillin Sod/ Tazobactam Sod 3.375 gm/Sodium Chloride 50 ml @ 100 mls/hr Q6HRS IV Last administered on 09/22/19at 06:48; Start 09/21/19 at 19:30 Sodium Chloride (Normal Saline Flush) 3 ml QSHIFT PRN IV AFTER MEDS AND BLOOD DRAWS; Start 09/21/19 at 19:15; Status UNV Ondansetron HCl (Zofran) 4 mg PRN Q4HRS PRN IV NAUSEA/VOMITING; Start 09/21/19 at 19:15 Acetaminophen (Tylenol) 650 mg PRN Q4HRS PRN PO TEMP OVER 100.4F OR MILD PAIN; Start 09/21/19 at 19:15; Status UNV Docusate Sodium (Colace) 100 mg PRN BID PRN PO CONSTIPATION; Start 09/21/19 at 19:15 Albuterol Sulfate (Ventolin Neb Soln) 2.5 mg PRN Q4HRS PRN NEB SHORTNESS OF BREATH; Start 09/21/19 at 19:15 Lorazepam (Ativan) 0.5 mg PRN Q4HRS PRN PO ANXIETY / AGITATION; Start 09/21/19 at 19:15 Piperacillin Sod/ Tazobactam Sod 3.375 gm/Sodium Chloride 50 ml @ 100 mls/hr Q6HRS IV ; Start 09/22/19 at 00:00; Status UNV Active Scripts Active Multi-Vitamin Daily (Multivitamin) 1 Each Tablet 1 Tab PO DAILY 30 Days Vitamin D (Cholecalciferol (Vitamin D3)) 2,000 Unit Capsule 1 Cap PO DAILY B Complex (Vitamin B Complex) 1 Each Tablet 1 Tab PO DAILY 30 Days Midodrine Hcl 2.5 Mg Tablet 2.5 Mg PO DAILY Aspirin Ec (Aspirin) 81 Mg Tablet.dr 81 Mg PO [id number] Hydrocodone-Acetamin 5-325 mg (Hydrocodone/Acetaminophen) 1 Each Tablet 1 Tab PO PRN BID PRN Allergies Allergies: Coded Allergies: No Known Drug Allergies (Unverified , 08/04/19) ROS Review of System Per HPI Physical Exam Physical Exam GEN: NAD HEENT: Atraumatic, PERRL NECK siupple LUNGS: CTAB anteriorly HEART: S1S2 ABD: some distention, soft, non-tender, EXTREMITY: No edema SKIN: no rash NEURO/PSYCH: A & O 3 No hernandez Vital Signs Vital Signs Date Time Temp Pulse Resp B/P (MAP) Pulse Ox O2 Delivery O2 Flow Rate FiO2 09/22/19 08:10 Room Air 09/22/19 07:00 98.2 96 20 156/66 (96) 100 98.2 Assessment & Plan ? FREEDOM - per admitting provider Labs available in [facility] Cr of 1.0 with Cr Cl in 70's No other labs available ,If concerns check UA Supportive care, I/O, daily, Hydration, Labs per primary Fatigue, dyspnea- anemia at presentation Defer to primary Anemia- s/p PRBC +Hemoccult- GI following more than one colonoscopy in the past H/o alcohol abuse-? Cirrhosis per CT Labs Labs Laboratory Tests Test 09/21/19 15:40 09/21/19 16:05 09/21/19 17:28 09/21/19 20:15 Stool Occult Blood Positive (NEG) White Blood Count 6.9 x10^3/uL (4.0-11.0) 7.9 x10^3/uL (4.0-11.0) Red Blood Count 2.04 x10^6/uL (4.30-5.70) 1.88 x10^6/uL (4.30-5.70) Hemoglobin 6.9 g/dL (13.0-17.5) 6.3 g/dL (13.0-17.5) Hematocrit 21.6 % (39.0-53.0) 19.7 % (39.0-53.0) Mean Corpuscular Volume 106 fL (79-100) 105 fL (79-100) Mean Corpuscular Hemoglobin 34 pg (25-35) 34 pg (25-35) Mean Corpuscular Hemoglobin Concent 32 g/dL (31-37) 32 g/dL (31-37) Red Cell Distribution Width 20.0 % (11.5-14.5) 19.7 % (11.5-14.5) Platelet Count 537 x10^3/uL (140-400) 460 x10^3/uL (140-400) Neutrophils (%) (Auto) 66 % (31-73) Lymphocytes (%) (Auto) 26 % (24-48) Monocytes (%) (Auto) 7 % (0-9) Eosinophils (%) (Auto) 0 % (0-3) Basophils (%) (Auto) 1 % (0-3) Neutrophils # (Auto) 4.6 x10^3/uL (1.8-7.7) Lymphocytes # (Auto) 1.8 x10^3/uL (1.0-4.8) Monocytes # (Auto) 0.5 x10^3/uL (0.0-1.1) Eosinophils # (Auto) 0.0 x10^3/uL (0.0-0.7) Basophils # (Auto) 0.0 x10^3/uL (0.0-0.2) Prothrombin Time 15.6 SEC (11.7-14.0) Prothromb Time International Ratio 1.3 (0.8-1.1) Activated Partial Thromboplast Time 27 SEC (24-38) Sodium Level 142 mmol/L (136-145) Potassium Level 5.2 mmol/L (3.5-5.1) Chloride Level 109 mmol/L (98-107) Carbon Dioxide Level 24 mmol/L (21-32) Anion Gap 9 (6-14) Blood Urea Nitrogen 29 mg/dL (8-26) Creatinine 1.0 mg/dL (0.7-1.3) Estimated GFR (Cockcroft-Gault) 73.7 BUN/Creatinine Ratio 29 (6-20) Glucose Level 98 mg/dL (70-99) Lactic Acid Level 2.1 mmol/L (0.4-2.0) 1.4 mmol/L (0.4-2.0) Calcium Level 7.8 mg/dL (8.5-10.1) Total Bilirubin 0.4 mg/dL (0.2-1.0) Aspartate Amino Transf (AST/SGOT) 24 U/L (15-37) Alanine Aminotransferase (ALT/SGPT) 9 U/L (16-63) Alkaline Phosphatase 102 U/L (46-116) Creatine Kinase 108 U/L (39-308) Troponin I Quantitative 0.058 ng/mL (0.000-0.055) 0.048 ng/mL (0.000-0.055) DU-Lro-M-Type Natriuretic Peptide 4995 pg/mL (0-124) Total Protein 5.4 g/dL (6.4-8.2) Albumin 1.5 g/dL (3.4-5.0) Albumin/Globulin Ratio 0.4 (1.0-1.7) Lipase 23 U/L (73-393) Ammonia < 10 mcmol/L (11-34) Test 09/22/19 00:15 09/22/19 04:10 Troponin I Quantitative 0.043 ng/mL (0.000-0.055) White Blood Count 8.2 x10^3/uL (4.0-11.0) Red Blood Count 2.94 x10^6/uL (4.30-5.70) Hemoglobin 9.0 g/dL (13.0-17.5) Hematocrit 27.7 % (39.0-53.0) Mean Corpuscular Volume 94 fL (79-100) Mean Corpuscular Hemoglobin 31 pg (25-35) Mean Corpuscular Hemoglobin Concent 33 g/dL (31-37) Red Cell Distribution Width 25.1 % (11.5-14.5) Platelet Count 412 x10^3/uL (140-400) Neutrophils (%) (Auto) 55 % (31-73) Lymphocytes (%) (Auto) 34 % (24-48) Monocytes (%) (Auto) 8 % (0-9) Eosinophils (%) (Auto) 2 % (0-3) Basophils (%) (Auto) 1 % (0-3) Neutrophils # (Auto) 4.5 x10^3/uL (1.8-7.7) Lymphocytes # (Auto) 2.8 x10^3/uL (1.0-4.8) Monocytes # (Auto) 0.7 x10^3/uL (0.0-1.1) Eosinophils # (Auto) 0.1 x10^3/uL (0.0-0.7) Basophils # (Auto) 0.1 x10^3/uL (0.0-0.2) Platelet Estimate Adequate (ADEQUATE) Anisocytosis Present Microcytosis Present Macrocytosis Present Prothrombin Time 15.2 SEC (11.7-14.0) Prothromb Time International Ratio 1.2 (0.8-1.1) Activated Partial Thromboplast Time 33 SEC (24-38) Sodium Level 143 mmol/L (136-145) Potassium Level 4.3 mmol/L (3.5-5.1) Chloride Level 110 mmol/L (98-107) Carbon Dioxide Level 22 mmol/L (21-32) Anion Gap 11 (6-14) Blood Urea Nitrogen 35 mg/dL (8-26) Creatinine 1.0 mg/dL (0.7-1.3) Estimated GFR (Cockcroft-Gault) 73.7 BUN/Creatinine Ratio 35 (6-20) Glucose Level 75 mg/dL (70-99) Calcium Level 7.6 mg/dL (8.5-10.1) Total Bilirubin 0.5 mg/dL (0.2-1.0) Aspartate Amino Transf (AST/SGOT) 24 U/L (15-37) Alanine Aminotransferase (ALT/SGPT) 9 U/L (16-63) Alkaline Phosphatase 97 U/L (46-116) Total Protein 5.3 g/dL (6.4-8.2) Albumin 1.5 g/dL (3.4-5.0) Albumin/Globulin Ratio 0.4 (1.0-1.7) Triglycerides Level 113 mg/dL (0-150) Cholesterol Level 76 mg/dL (0-200) LDL Cholesterol, Calculated 33 mg/dL (0-100) VLDL Cholesterol, Calculated 23 mg/dL (0-40) Non-HDL Cholesterol Calculated 56 mg/dL (0-129) HDL Cholesterol 20 mg/dL (40-60) Cholesterol/HDL Ratio 3.8 Laboratory Tests Test 09/21/19 15:40 09/21/19 16:05 09/21/19 17:28 09/21/19 20:15 Stool Occult Blood Positive (NEG) White Blood Count 6.9 x10^3/uL (4.0-11.0) 7.9 x10^3/uL (4.0-11.0) Red Blood Count 2.04 x10^6/uL (4.30-5.70) 1.88 x10^6/uL (4.30-5.70) Hemoglobin 6.9 g/dL (13.0-17.5) 6.3 g/dL (13.0-17.5) Hematocrit 21.6 % (39.0-53.0) 19.7 % (39.0-53.0) Mean Corpuscular Volume 106 fL (79-100) 105 fL (79-100) Mean Corpuscular Hemoglobin 34 pg (25-35) 34 pg (25-35) Mean Corpuscular Hemoglobin Concent 32 g/dL (31-37) 32 g/dL (31-37) Red Cell Distribution Width 20.0 % (11.5-14.5) 19.7 % (11.5-14.5) Platelet Count 537 x10^3/uL (140-400) 460 x10^3/uL (140-400) Neutrophils (%) (Auto) 66 % (31-73) Lymphocytes (%) (Auto) 26 % (24-48) Monocytes (%) (Auto) 7 % (0-9) Eosinophils (%) (Auto) 0 % (0-3) Basophils (%) (Auto) 1 % (0-3) Neutrophils # (Auto) 4.6 x10^3/uL (1.8-7.7) Lymphocytes # (Auto) 1.8 x10^3/uL (1.0-4.8) Monocytes # (Auto) 0.5 x10^3/uL (0.0-1.1) Eosinophils # (Auto) 0.0 x10^3/uL (0.0-0.7) Basophils # (Auto) 0.0 x10^3/uL (0.0-0.2) Prothrombin Time 15.6 SEC (11.7-14.0) Prothromb Time International Ratio 1.3 (0.8-1.1) Activated Partial Thromboplast Time 27 SEC (24-38) Sodium Level 142 mmol/L (136-145) Potassium Level 5.2 mmol/L (3.5-5.1) Chloride Level 109 mmol/L (98-107) Carbon Dioxide Level 24 mmol/L (21-32) Anion Gap 9 (6-14) Blood Urea Nitrogen 29 mg/dL (8-26) Creatinine 1.0 mg/dL (0.7-1.3) Estimated GFR (Cockcroft-Gault) 73.7 BUN/Creatinine Ratio 29 (6-20) Glucose Level 98 mg/dL (70-99) Lactic Acid Level 2.1 mmol/L (0.4-2.0) 1.4 mmol/L (0.4-2.0) Calcium Level 7.8 mg/dL (8.5-10.1) Total Bilirubin 0.4 mg/dL (0.2-1.0) Aspartate Amino Transf (AST/SGOT) 24 U/L (15-37) Alanine Aminotransferase (ALT/SGPT) 9 U/L (16-63) Alkaline Phosphatase 102 U/L (46-116) Creatine Kinase 108 U/L (39-308) Troponin I Quantitative 0.058 ng/mL (0.000-0.055) 0.048 ng/mL (0.000-0.055) PD-Lqm-E-Type Natriuretic Peptide 4995 pg/mL (0-124) Total Protein 5.4 g/dL (6.4-8.2) Albumin 1.5 g/dL (3.4-5.0) Albumin/Globulin Ratio 0.4 (1.0-1.7) Lipase 23 U/L (73-393) Ammonia < 10 mcmol/L (11-34) Test 09/22/19 00:15 09/22/19 04:10 Troponin I Quantitative 0.043 ng/mL (0.000-0.055) White Blood Count 8.2 x10^3/uL (4.0-11.0) Red Blood Count 2.94 x10^6/uL (4.30-5.70) Hemoglobin 9.0 g/dL (13.0-17.5) Hematocrit 27.7 % (39.0-53.0) Mean Corpuscular Volume 94 fL (79-100) Mean Corpuscular Hemoglobin 31 pg (25-35) Mean Corpuscular Hemoglobin Concent 33 g/dL (31-37) Red Cell Distribution Width 25.1 % (11.5-14.5) Platelet Count 412 x10^3/uL (140-400) Neutrophils (%) (Auto) 55 % (31-73) Lymphocytes (%) (Auto) 34 % (24-48) Monocytes (%) (Auto) 8 % (0-9) Eosinophils (%) (Auto) 2 % (0-3) Basophils (%) (Auto) 1 % (0-3) Neutrophils # (Auto) 4.5 x10^3/uL (1.8-7.7) Lymphocytes # (Auto) 2.8 x10^3/uL (1.0-4.8) Monocytes # (Auto) 0.7 x10^3/uL (0.0-1.1) Eosinophils # (Auto) 0.1 x10^3/uL (0.0-0.7) Basophils # (Auto) 0.1 x10^3/uL (0.0-0.2) Platelet Estimate Adequate (ADEQUATE) Anisocytosis Present Microcytosis Present Macrocytosis Present Prothrombin Time 15.2 SEC (11.7-14.0) Prothromb Time International Ratio 1.2 (0.8-1.1) Activated Partial Thromboplast Time 33 SEC (24-38) Sodium Level 143 mmol/L (136-145) Potassium Level 4.3 mmol/L (3.5-5.1) Chloride Level 110 mmol/L (98-107) Carbon Dioxide Level 22 mmol/L (21-32) Anion Gap 11 (6-14) Blood Urea Nitrogen 35 mg/dL (8-26) Creatinine 1.0 mg/dL (0.7-1.3) Estimated GFR (Cockcroft-Gault) 73.7 BUN/Creatinine Ratio 35 (6-20) Glucose Level 75 mg/dL (70-99) Calcium Level 7.6 mg/dL (8.5-10.1) Total Bilirubin 0.5 mg/dL (0.2-1.0) Aspartate Amino Transf (AST/SGOT) 24 U/L (15-37) Alanine Aminotransferase (ALT/SGPT) 9 U/L (16-63) Alkaline Phosphatase 97 U/L (46-116) Total Protein 5.3 g/dL (6.4-8.2) Albumin 1.5 g/dL (3.4-5.0) Albumin/Globulin Ratio 0.4 (1.0-1.7) Triglycerides Level 113 mg/dL (0-150) Cholesterol Level 76 mg/dL (0-200) LDL Cholesterol, Calculated 33 mg/dL (0-100) VLDL Cholesterol, Calculated 23 mg/dL (0-40) Non-HDL Cholesterol Calculated 56 mg/dL (0-129) HDL Cholesterol 20 mg/dL (40-60) Cholesterol/HDL Ratio 3.8 Review All relevant outside records, renal labs, imaging studies, telemetry/EKG's were reviewed. [email or web address] PAZ MD Sep 22, 2019 10:50
--- NOTE | 2019-09-22 12:37 | PDOC ---
PROGRESS NOTES Chief Complaint Chief Complaint Fatigue, dyspnea Macrocytic anemia, +Hemoccult Mildly elevated troponin (resolved), elevated BNP, lactic acidosis (resolved), elevated BUN Abnormal CT Recent c scope hemorrhoidal polyps, sessile Acute precip drop hgb History of Present Illness History of Present Illness HGb 6 Got transfusion and rpt HH still pending SOme melena he claims today VS ok DNR RN asks about diet GI has just rounded PLAn: Diet per GI Await rpt HH' monitor melena PPi IV vs PO depending on diet IVF depending on diet Dw RN suzanne\ keep on tele for now Vitals Vitals Vital Signs Date Time Temp Pulse Resp B/P (MAP) Pulse Ox O2 Delivery O2 Flow Rate FiO2 09/22/19 11:17 98.0 98 20 125/74 (91) 98 Room Air 98.0 Physical Exam General: Alert, Oriented X3, Cooperative, No acute distress, mild distress Heart: Regular rate, Normal S1, Normal S2, No murmurs Lungs: Clear Abdomen: Normal bowel sounds, Soft, No tenderness Extremities: No clubbing, No cyanosis, No edema Skin: No rashes, No breakdown, No significant lesion Labs LABS Laboratory Tests Test 09/21/19 15:40 09/21/19 16:05 09/21/19 17:28 09/21/19 20:15 Stool Occult Blood Positive (NEG) White Blood Count 6.9 x10^3/uL (4.0-11.0) 7.9 x10^3/uL (4.0-11.0) Red Blood Count 2.04 x10^6/uL (4.30-5.70) 1.88 x10^6/uL (4.30-5.70) Hemoglobin 6.9 g/dL (13.0-17.5) 6.3 g/dL (13.0-17.5) Hematocrit 21.6 % (39.0-53.0) 19.7 % (39.0-53.0) Mean Corpuscular Volume 106 fL (79-100) 105 fL (79-100) Mean Corpuscular Hemoglobin 34 pg (25-35) 34 pg (25-35) Mean Corpuscular Hemoglobin Concent 32 g/dL (31-37) 32 g/dL (31-37) Red Cell Distribution Width 20.0 % (11.5-14.5) 19.7 % (11.5-14.5) Platelet Count 537 x10^3/uL (140-400) 460 x10^3/uL (140-400) Neutrophils (%) (Auto) 66 % (31-73) Lymphocytes (%) (Auto) 26 % (24-48) Monocytes (%) (Auto) 7 % (0-9) Eosinophils (%) (Auto) 0 % (0-3) Basophils (%) (Auto) 1 % (0-3) Neutrophils # (Auto) 4.6 x10^3/uL (1.8-7.7) Lymphocytes # (Auto) 1.8 x10^3/uL (1.0-4.8) Monocytes # (Auto) 0.5 x10^3/uL (0.0-1.1) Eosinophils # (Auto) 0.0 x10^3/uL (0.0-0.7) Basophils # (Auto) 0.0 x10^3/uL (0.0-0.2) Prothrombin Time 15.6 SEC (11.7-14.0) Prothromb Time International Ratio 1.3 (0.8-1.1) Activated Partial Thromboplast Time 27 SEC (24-38) Sodium Level 142 mmol/L (136-145) Potassium Level 5.2 mmol/L (3.5-5.1) Chloride Level 109 mmol/L (98-107) Carbon Dioxide Level 24 mmol/L (21-32) Anion Gap 9 (6-14) Blood Urea Nitrogen 29 mg/dL (8-26) Creatinine 1.0 mg/dL (0.7-1.3) Estimated GFR (Cockcroft-Gault) 73.7 BUN/Creatinine Ratio 29 (6-20) Glucose Level 98 mg/dL (70-99) Lactic Acid Level 2.1 mmol/L (0.4-2.0) 1.4 mmol/L (0.4-2.0) Calcium Level 7.8 mg/dL (8.5-10.1) Total Bilirubin 0.4 mg/dL (0.2-1.0) Aspartate Amino Transf (AST/SGOT) 24 U/L (15-37) Alanine Aminotransferase (ALT/SGPT) 9 U/L (16-63) Alkaline Phosphatase 102 U/L (46-116) Creatine Kinase 108 U/L (39-308) Troponin I Quantitative 0.058 ng/mL (0.000-0.055) 0.048 ng/mL (0.000-0.055) TQ-Xms-T-Type Natriuretic Peptide 4995 pg/mL (0-124) Total Protein 5.4 g/dL (6.4-8.2) Albumin 1.5 g/dL (3.4-5.0) Albumin/Globulin Ratio 0.4 (1.0-1.7) Lipase 23 U/L (73-393) Ammonia < 10 mcmol/L (11-34) Test 09/22/19 00:15 09/22/19 04:10 Troponin I Quantitative 0.043 ng/mL (0.000-0.055) White Blood Count 8.2 x10^3/uL (4.0-11.0) Red Blood Count 2.94 x10^6/uL (4.30-5.70) Hemoglobin 9.0 g/dL (13.0-17.5) Hematocrit 27.7 % (39.0-53.0) Mean Corpuscular Volume 94 fL (79-100) Mean Corpuscular Hemoglobin 31 pg (25-35) Mean Corpuscular Hemoglobin Concent 33 g/dL (31-37) Red Cell Distribution Width 25.1 % (11.5-14.5) Platelet Count 412 x10^3/uL (140-400) Neutrophils (%) (Auto) 55 % (31-73) Lymphocytes (%) (Auto) 34 % (24-48) Monocytes (%) (Auto) 8 % (0-9) Eosinophils (%) (Auto) 2 % (0-3) Basophils (%) (Auto) 1 % (0-3) Neutrophils # (Auto) 4.5 x10^3/uL (1.8-7.7) Lymphocytes # (Auto) 2.8 x10^3/uL (1.0-4.8) Monocytes # (Auto) 0.7 x10^3/uL (0.0-1.1) Eosinophils # (Auto) 0.1 x10^3/uL (0.0-0.7) Basophils # (Auto) 0.1 x10^3/uL (0.0-0.2) Platelet Estimate Adequate (ADEQUATE) Anisocytosis Present Microcytosis Present Macrocytosis Present Prothrombin Time 15.2 SEC (11.7-14.0) Prothromb Time International Ratio 1.2 (0.8-1.1) Activated Partial Thromboplast Time 33 SEC (24-38) Sodium Level 143 mmol/L (136-145) Potassium Level 4.3 mmol/L (3.5-5.1) Chloride Level 110 mmol/L (98-107) Carbon Dioxide Level 22 mmol/L (21-32) Anion Gap 11 (6-14) Blood Urea Nitrogen 35 mg/dL (8-26) Creatinine 1.0 mg/dL (0.7-1.3) Estimated GFR (Cockcroft-Gault) 73.7 BUN/Creatinine Ratio 35 (6-20) Glucose Level 75 mg/dL (70-99) Calcium Level 7.6 mg/dL (8.5-10.1) Total Bilirubin 0.5 mg/dL (0.2-1.0) Aspartate Amino Transf (AST/SGOT) 24 U/L (15-37) Alanine Aminotransferase (ALT/SGPT) 9 U/L (16-63) Alkaline Phosphatase 97 U/L (46-116) Total Protein 5.3 g/dL (6.4-8.2) Albumin 1.5 g/dL (3.4-5.0) Albumin/Globulin Ratio 0.4 (1.0-1.7) Triglycerides Level 113 mg/dL (0-150) Cholesterol Level 76 mg/dL (0-200) LDL Cholesterol, Calculated 33 mg/dL (0-100) VLDL Cholesterol, Calculated 23 mg/dL (0-40) Non-HDL Cholesterol Calculated 56 mg/dL (0-129) HDL Cholesterol 20 mg/dL (40-60) Cholesterol/HDL Ratio 3.8 Thyroid Stimulating Hormone (TSH) 5.618 uIU/mL (0.358-3.74) Review of Systems Review of Systems melena, all else is neg Assessment and Plan Assessmemt and Plan Problems Medical Problems: (1) Anemia Status: Acute (2) Elevated lactic acid level Status: Acute (3) Elevated troponin Status: Acute (4) GI bleeding Status: Acute (5) Hyperkalemia Status: Acute (6) Renal insufficiency Status: Acute Comment Review of Relevant I have reviewed the following items helen (where applicable) has been applied. Labs Laboratory Tests Test 09/21/19 15:40 09/21/19 16:05 09/21/19 17:28 09/21/19 20:15 Stool Occult Blood Positive (NEG) White Blood Count 6.9 x10^3/uL (4.0-11.0) 7.9 x10^3/uL (4.0-11.0) Red Blood Count 2.04 x10^6/uL (4.30-5.70) 1.88 x10^6/uL (4.30-5.70) Hemoglobin 6.9 g/dL (13.0-17.5) 6.3 g/dL (13.0-17.5) Hematocrit 21.6 % (39.0-53.0) 19.7 % (39.0-53.0) Mean Corpuscular Volume 106 fL (79-100) 105 fL (79-100) Mean Corpuscular Hemoglobin 34 pg (25-35) 34 pg (25-35) Mean Corpuscular Hemoglobin Concent 32 g/dL (31-37) 32 g/dL (31-37) Red Cell Distribution Width 20.0 % (11.5-14.5) 19.7 % (11.5-14.5) Platelet Count 537 x10^3/uL (140-400) 460 x10^3/uL (140-400) Neutrophils (%) (Auto) 66 % (31-73) Lymphocytes (%) (Auto) 26 % (24-48) Monocytes (%) (Auto) 7 % (0-9) Eosinophils (%) (Auto) 0 % (0-3) Basophils (%) (Auto) 1 % (0-3) Neutrophils # (Auto) 4.6 x10^3/uL (1.8-7.7) Lymphocytes # (Auto) 1.8 x10^3/uL (1.0-4.8) Monocytes # (Auto) 0.5 x10^3/uL (0.0-1.1) Eosinophils # (Auto) 0.0 x10^3/uL (0.0-0.7) Basophils # (Auto) 0.0 x10^3/uL (0.0-0.2) Prothrombin Time 15.6 SEC (11.7-14.0) Prothromb Time International Ratio 1.3 (0.8-1.1) Activated Partial Thromboplast Time 27 SEC (24-38) Sodium Level 142 mmol/L (136-145) Potassium Level 5.2 mmol/L (3.5-5.1) Chloride Level 109 mmol/L (98-107) Carbon Dioxide Level 24 mmol/L (21-32) Anion Gap 9 (6-14) Blood Urea Nitrogen 29 mg/dL (8-26) Creatinine 1.0 mg/dL (0.7-1.3) Estimated GFR (Cockcroft-Gault) 73.7 BUN/Creatinine Ratio 29 (6-20) Glucose Level 98 mg/dL (70-99) Lactic Acid Level 2.1 mmol/L (0.4-2.0) 1.4 mmol/L (0.4-2.0) Calcium Level 7.8 mg/dL (8.5-10.1) Total Bilirubin 0.4 mg/dL (0.2-1.0) Aspartate Amino Transf (AST/SGOT) 24 U/L (15-37) Alanine Aminotransferase (ALT/SGPT) 9 U/L (16-63) Alkaline Phosphatase 102 U/L (46-116) Creatine Kinase 108 U/L (39-308) Troponin I Quantitative 0.058 ng/mL (0.000-0.055) 0.048 ng/mL (0.000-0.055) DW-Cvg-B-Type Natriuretic Peptide 4995 pg/mL (0-124) Total Protein 5.4 g/dL (6.4-8.2) Albumin 1.5 g/dL (3.4-5.0) Albumin/Globulin Ratio 0.4 (1.0-1.7) Lipase 23 U/L (73-393) Ammonia < 10 mcmol/L (11-34) Test 09/22/19 00:15 09/22/19 04:10 Troponin I Quantitative 0.043 ng/mL (0.000-0.055) White Blood Count 8.2 x10^3/uL (4.0-11.0) Red Blood Count 2.94 x10^6/uL (4.30-5.70) Hemoglobin 9.0 g/dL (13.0-17.5) Hematocrit 27.7 % (39.0-53.0) Mean Corpuscular Volume 94 fL (79-100) Mean Corpuscular Hemoglobin 31 pg (25-35) Mean Corpuscular Hemoglobin Concent 33 g/dL (31-37) Red Cell Distribution Width 25.1 % (11.5-14.5) Platelet Count 412 x10^3/uL (140-400) Neutrophils (%) (Auto) 55 % (31-73) Lymphocytes (%) (Auto) 34 % (24-48) Monocytes (%) (Auto) 8 % (0-9) Eosinophils (%) (Auto) 2 % (0-3) Basophils (%) (Auto) 1 % (0-3) Neutrophils # (Auto) 4.5 x10^3/uL (1.8-7.7) Lymphocytes # (Auto) 2.8 x10^3/uL (1.0-4.8) Monocytes # (Auto) 0.7 x10^3/uL (0.0-1.1) Eosinophils # (Auto) 0.1 x10^3/uL (0.0-0.7) Basophils # (Auto) 0.1 x10^3/uL (0.0-0.2) Platelet Estimate Adequate (ADEQUATE) Anisocytosis Present Microcytosis Present Macrocytosis Present Prothrombin Time 15.2 SEC (11.7-14.0) Prothromb Time International Ratio 1.2 (0.8-1.1) Activated Partial Thromboplast Time 33 SEC (24-38) Sodium Level 143 mmol/L (136-145) Potassium Level 4.3 mmol/L (3.5-5.1) Chloride Level 110 mmol/L (98-107) Carbon Dioxide Level 22 mmol/L (21-32) Anion Gap 11 (6-14) Blood Urea Nitrogen 35 mg/dL (8-26) Creatinine 1.0 mg/dL (0.7-1.3) Estimated GFR (Cockcroft-Gault) 73.7 BUN/Creatinine Ratio 35 (6-20) Glucose Level 75 mg/dL (70-99) Calcium Level 7.6 mg/dL (8.5-10.1) Total Bilirubin 0.5 mg/dL (0.2-1.0) Aspartate Amino Transf (AST/SGOT) 24 U/L (15-37) Alanine Aminotransferase (ALT/SGPT) 9 U/L (16-63) Alkaline Phosphatase 97 U/L (46-116) Total Protein 5.3 g/dL (6.4-8.2) Albumin 1.5 g/dL (3.4-5.0) Albumin/Globulin Ratio 0.4 (1.0-1.7) Triglycerides Level 113 mg/dL (0-150) Cholesterol Level 76 mg/dL (0-200) LDL Cholesterol, Calculated 33 mg/dL (0-100) VLDL Cholesterol, Calculated 23 mg/dL (0-40) Non-HDL Cholesterol Calculated 56 mg/dL (0-129) HDL Cholesterol 20 mg/dL (40-60) Cholesterol/HDL Ratio 3.8 Thyroid Stimulating Hormone (TSH) 5.618 uIU/mL (0.358-3.74) Laboratory Tests Test 09/21/19 15:40 09/21/19 16:05 09/21/19 17:28 09/21/19 20:15 Stool Occult Blood Positive (NEG) White Blood Count 6.9 x10^3/uL (4.0-11.0) 7.9 x10^3/uL (4.0-11.0) Red Blood Count 2.04 x10^6/uL (4.30-5.70) 1.88 x10^6/uL (4.30-5.70) Hemoglobin 6.9 g/dL (13.0-17.5) 6.3 g/dL (13.0-17.5) Hematocrit 21.6 % (39.0-53.0) 19.7 % (39.0-53.0) Mean Corpuscular Volume 106 fL (79-100) 105 fL (79-100) Mean Corpuscular Hemoglobin 34 pg (25-35) 34 pg (25-35) Mean Corpuscular Hemoglobin Concent 32 g/dL (31-37) 32 g/dL (31-37) Red Cell Distribution Width 20.0 % (11.5-14.5) 19.7 % (11.5-14.5) Platelet Count 537 x10^3/uL (140-400) 460 x10^3/uL (140-400) Neutrophils (%) (Auto) 66 % (31-73) Lymphocytes (%) (Auto) 26 % (24-48) Monocytes (%) (Auto) 7 % (0-9) Eosinophils (%) (Auto) 0 % (0-3) Basophils (%) (Auto) 1 % (0-3) Neutrophils # (Auto) 4.6 x10^3/uL (1.8-7.7) Lymphocytes # (Auto) 1.8 x10^3/uL (1.0-4.8) Monocytes # (Auto) 0.5 x10^3/uL (0.0-1.1) Eosinophils # (Auto) 0.0 x10^3/uL (0.0-0.7) Basophils # (Auto) 0.0 x10^3/uL (0.0-0.2) Prothrombin Time 15.6 SEC (11.7-14.0) Prothromb Time International Ratio 1.3 (0.8-1.1) Activated Partial Thromboplast Time 27 SEC (24-38) Sodium Level 142 mmol/L (136-145) Potassium Level 5.2 mmol/L (3.5-5.1) Chloride Level 109 mmol/L (98-107) Carbon Dioxide Level 24 mmol/L (21-32) Anion Gap 9 (6-14) Blood Urea Nitrogen 29 mg/dL (8-26) Creatinine 1.0 mg/dL (0.7-1.3) Estimated GFR (Cockcroft-Gault) 73.7 BUN/Creatinine Ratio 29 (6-20) Glucose Level 98 mg/dL (70-99) Lactic Acid Level 2.1 mmol/L (0.4-2.0) 1.4 mmol/L (0.4-2.0) Calcium Level 7.8 mg/dL (8.5-10.1) Total Bilirubin 0.4 mg/dL (0.2-1.0) Aspartate Amino Transf (AST/SGOT) 24 U/L (15-37) Alanine Aminotransferase (ALT/SGPT) 9 U/L (16-63) Alkaline Phosphatase 102 U/L (46-116) Creatine Kinase 108 U/L (39-308) Troponin I Quantitative 0.058 ng/mL (0.000-0.055) 0.048 ng/mL (0.000-0.055) EH-Znk-F-Type Natriuretic Peptide 4995 pg/mL (0-124) Total Protein 5.4 g/dL (6.4-8.2) Albumin 1.5 g/dL (3.4-5.0) Albumin/Globulin Ratio 0.4 (1.0-1.7) Lipase 23 U/L (73-393) Ammonia < 10 mcmol/L (11-34) Test 09/22/19 00:15 09/22/19 04:10 Troponin I Quantitative 0.043 ng/mL (0.000-0.055) White Blood Count 8.2 x10^3/uL (4.0-11.0) Red Blood Count 2.94 x10^6/uL (4.30-5.70) Hemoglobin 9.0 g/dL (13.0-17.5) Hematocrit 27.7 % (39.0-53.0) Mean Corpuscular Volume 94 fL (79-100) Mean Corpuscular Hemoglobin 31 pg (25-35) Mean Corpuscular Hemoglobin Concent 33 g/dL (31-37) Red Cell Distribution Width 25.1 % (11.5-14.5) Platelet Count 412 x10^3/uL (140-400) Neutrophils (%) (Auto) 55 % (31-73) Lymphocytes (%) (Auto) 34 % (24-48) Monocytes (%) (Auto) 8 % (0-9) Eosinophils (%) (Auto) 2 % (0-3) Basophils (%) (Auto) 1 % (0-3) Neutrophils # (Auto) 4.5 x10^3/uL (1.8-7.7) Lymphocytes # (Auto) 2.8 x10^3/uL (1.0-4.8) Monocytes # (Auto) 0.7 x10^3/uL (0.0-1.1) Eosinophils # (Auto) 0.1 x10^3/uL (0.0-0.7) Basophils # (Auto) 0.1 x10^3/uL (0.0-0.2) Platelet Estimate Adequate (ADEQUATE) Anisocytosis Present Microcytosis Present Macrocytosis Present Prothrombin Time 15.2 SEC (11.7-14.0) Prothromb Time International Ratio 1.2 (0.8-1.1) Activated Partial Thromboplast Time 33 SEC (24-38) Sodium Level 143 mmol/L (136-145) Potassium Level 4.3 mmol/L (3.5-5.1) Chloride Level 110 mmol/L (98-107) Carbon Dioxide Level 22 mmol/L (21-32) Anion Gap 11 (6-14) Blood Urea Nitrogen 35 mg/dL (8-26) Creatinine 1.0 mg/dL (0.7-1.3) Estimated GFR (Cockcroft-Gault) 73.7 BUN/Creatinine Ratio 35 (6-20) Glucose Level 75 mg/dL (70-99) Calcium Level 7.6 mg/dL (8.5-10.1) Total Bilirubin 0.5 mg/dL (0.2-1.0) Aspartate Amino Transf (AST/SGOT) 24 U/L (15-37) Alanine Aminotransferase (ALT/SGPT) 9 U/L (16-63) Alkaline Phosphatase 97 U/L (46-116) Total Protein 5.3 g/dL (6.4-8.2) Albumin 1.5 g/dL (3.4-5.0) Albumin/Globulin Ratio 0.4 (1.0-1.7) Triglycerides Level 113 mg/dL (0-150) Cholesterol Level 76 mg/dL (0-200) LDL Cholesterol, Calculated 33 mg/dL (0-100) VLDL Cholesterol, Calculated 23 mg/dL (0-40) Non-HDL Cholesterol Calculated 56 mg/dL (0-129) HDL Cholesterol 20 mg/dL (40-60) Cholesterol/HDL Ratio 3.8 Thyroid Stimulating Hormone (TSH) 5.618 uIU/mL (0.358-3.74) Medications Current Medications Sodium Chloride 1,000 ml @ 1,000 mls/hr Q1H IV Last administered on 09/21/19at 16:28; Start 09/21/19 at 15:43; Stop 09/21/19 at 16:42; Status DC Pantoprazole Sodium (PROTONIX VIAL for IV PUSH) 40 mg 1X ONCE IVP Last administered on 09/21/19at 16:29; Start 09/21/19 at 15:45; Stop 09/21/19 at 15:50; Status DC Sodium Chloride 1,000 ml @ 125 mls/hr Q8H IV Last administered on 09/22/19at 02:52; Start 09/21/19 at 17:14; Stop 09/22/19 at 17:13 Pantoprazole Sodium 80 mg/ Sodium Chloride 100 ml @ 10 mls/hr Q10H IV Last administered on 09/21/19at 17:42; Start 09/21/19 at 17:15; Stop 09/21/19 at 19:00; Status DC Acetaminophen (Tylenol) 650 mg PRN Q6HRS PRN PO Headaches, Temp > 101.5'; Start 09/21/19 at 19:00 Lorazepam (Ativan Inj) 0.5 mg PRN Q6HRS PRN IV ANXIETY / AGITATION; Start 09/21/19 at 19:00 Ondansetron HCl (Zofran) 4 mg PRN Q6HRS PRN IV NAUSEA/VOMITING; Start 09/21/19 at 19:00; Status Cancel Prochlorperazine Edisylate (Compazine) 5 mg PRN Q6HRS PRN IV NAUSEA/VOMITING; Start 09/21/19 at 19:00 Famotidine (Pepcid) 20 mg BID PO ; Start 09/21/19 at 21:00; Stop 09/21/19 at 18:59; Status DC Famotidine (Pepcid Vial) 20 mg BID IVP ; Start 09/21/19 at 21:00; Status Cancel Info (Icu Electrolyte Protocol) 1 ea DAILY MC Last administered on 09/22/19at 09:00; Start 09/22/19 at 09:00 Sodium Chloride (Normal Saline Flush) 3 ml QSHIFT PRN IV AFTER MEDS AND BLOOD DRAWS; Start 09/21/19 at 19:00 Sodium Chloride 1,000 ml @ 75 mls/hr [id number] IV ; Start 09/21/19 at 18:53 Hydromorphone HCl (Dilaudid) 0.2 mg PRN Q1HR PRN IV PAIN; Start 09/21/19 at 19:00 Docusate Sodium (Colace) 100 mg BID PO ; Start 09/21/19 at 21:00 Pantoprazole Sodium 80 mg/ Sodium Chloride 100 ml @ 10 mls/hr Q10H IV Last administered on 09/22/19at 08:19; Start 09/21/19 at 19:00 Piperacillin Sod/ Tazobactam Sod 3.375 gm/Sodium Chloride 50 ml @ 100 mls/hr Q6HRS IV Last administered on 09/22/19at 11:52; Start 09/21/19 at 19:30 Sodium Chloride (Normal Saline Flush) 3 ml QSHIFT PRN IV AFTER MEDS AND BLOOD DRAWS; Start 09/21/19 at 19:15; Status UNV Ondansetron HCl (Zofran) 4 mg PRN Q4HRS PRN IV NAUSEA/VOMITING; Start 09/21/19 at 19:15 Acetaminophen (Tylenol) 650 mg PRN Q4HRS PRN PO TEMP OVER 100.4F OR MILD PAIN; Start 09/21/19 at 19:15; Status UNV Docusate Sodium (Colace) 100 mg PRN BID PRN PO CONSTIPATION; Start 09/21/19 at 19:15 Albuterol Sulfate (Ventolin Neb Soln) 2.5 mg PRN Q4HRS PRN NEB SHORTNESS OF BREATH; Start 09/21/19 at 19:15 Lorazepam (Ativan) 0.5 mg PRN Q4HRS PRN PO ANXIETY / AGITATION; Start 09/21/19 at 19:15 Piperacillin Sod/ Tazobactam Sod 3.375 gm/Sodium Chloride 50 ml @ 100 mls/hr Q6HRS IV ; Start 09/22/19 at 00:00; Status UNV Active Scripts Active Multi-Vitamin Daily (Multivitamin) 1 Each Tablet 1 Tab PO DAILY 30 Days Vitamin D (Cholecalciferol (Vitamin D3)) 2,000 Unit Capsule 1 Cap PO DAILY B Complex (Vitamin B Complex) 1 Each Tablet 1 Tab PO DAILY 30 Days Midodrine Hcl 2.5 Mg Tablet 2.5 Mg PO DAILY Aspirin Ec (Aspirin) 81 Mg Tablet.dr 81 Mg PO DAILYWBKFT Hydrocodone-Acetamin 5-325 mg (Hydrocodone/Acetaminophen) 1 Each Tablet 1 Tab PO PRN BID PRN Vitals/I & O Vital Sign - Last 24 Hours 09/21/19 09/21/19 09/21/19 09/21/19 15:30 16:32 17:02 18:00 Temp 98.3 98.3 Pulse 106 106 102 100 Resp 24 20 20 B/P (MAP) 142/99 (113) Pulse Ox 98 99 97 99 O2 Delivery Room Air 09/21/19 09/21/19 09/21/19 09/21/19 19:02 19:45 20:00 20:58 Temp 98.0 98.5 98.0 98.5 Pulse 104 102 104 Resp 20 20 B/P (MAP) 156/70 (98) 160/69 Pulse Ox 98 98 O2 Delivery Room Air Room Air 09/21/19 09/21/19 09/21/19 09/21/19 20:58 21:37 21:58 23:00 Temp 98.0 98.0 98.6 98.0 98.0 98.6 Pulse 94 94 100 Resp 20 20 20 B/P (MAP) 130/78 130/78 140/76 Pulse Ox 98 O2 Delivery Room Air 09/21/19 09/21/19 09/22/19 09/22/19 23:00 23:59 00:25 01:35 Temp 98.5 98.6 98.6 98.6 98.5 98.6 98.6 98.6 Pulse 99 99 100 98 Resp 20 20 20 20 B/P (MAP) 140/76 (97) 140/76 141/60 142/68 Pulse Ox 100 O2 Delivery Room Air 09/22/19 09/22/19 09/22/19 09/22/19 02:45 03:36 07:00 08:10 Temp 98.3 98.3 98.2 98.3 98.3 98.2 Pulse 99 99 96 Resp 20 20 20 B/P (MAP) 157/69 157/69 (98) 156/66 (96) Pulse Ox 98 100 O2 Delivery Room Air Room Air Room Air 09/22/19 11:17 Temp 98.0 98.0 Pulse 98 Resp 20 B/P (MAP) 125/74 (91) Pulse Ox 98 O2 Delivery Room Air Intake and Output 09/21/19 09/21/19 09/22/19 15:00 23:00 07:00 Intake Total 350 ml 350 ml Balance 350 ml 350 ml MADHU MARTÍNEZ MD Sep 22, 2019 12:36
--- NOTE | 2019-09-22 13:11 | CARD ---
MR#: [id number] Date of Study: 09/22/2019 Ordering Physician: JOVANNA KANG, Referring Physician: JOVANNA KANG, Tech: Malgorzata Meraz APPROVED REPORT EXAM: Two-dimensional and M-mode echocardiogram with Doppler and color Doppler. Other Information Quality : AverageHR: 92bpm INDICATION Elevated Troponin 2D DIMENSIONS RVDd2.9 (2.9-3.5cm)Left Atrium(2D)3.6 (1.6-4.0cm) IVSd0.9 (0.7-1.1cm)Aortic Root(2D)2.9 (2.0-3.7cm) LVDd4.7 (3.9-5.9cm)LVOT Diameter2.3 (1.8-2.4cm) PWd1.2 (0.7-1.1cm)LVDs3.2 (2.5-4.0cm) FS (%) 32.1 %SV61.1 ml LVEF(%)60.3 (>50%) Aortic Valve AoV Peak Lance.140.9cm/sAoV VTI27.8cm AO Peak GR.7.9mmHgLVOT Peak Lance.110.7cm/s LVOT VTI 25.77cmAO Mean GR.4mmHg MERVIN (VMAX)2.69yo8BQN (VTI)3.85cm2 Mitral Valve MV E Nckvkwqn99.2cm/sMV DECEL [id number] MV A Iibegmtf55.9cm/sMV E Mean Gr.1mmHg MV TUE18lxV/A Ratio0.9 MVA (PHT)3.19cm2 TDI E/Lateral E'6.3E/Medial E'9.1 Tricuspid Valve TR P. Qouecpdg713hv/sRAP MMVGAUSE7wrLp TR Peak Gr.27syOjZHLW97kvHy Pulmonary Vein S1 Adqfbpub74.9cm/sD2 Frrqxryq63.1cm/s PVa [id number] LEFT VENTRICLE The left ventricle is normal size. There is borderline to mild concentric left ventricular hypertroph y. The left ventricular systolic function is normal. The Ejection Fraction is 55%. There is normal LV segmental wall motion. Transmitral Doppler flow pattern is Grade I-abnormal relaxation pattern. RIGHT VENTRICLE The right ventricle is normal size. There is normal right ventricular wall thickness. The right ventr icular systolic function is normal. ATRIA The left atrium is mildly dilated. The right atrium size is normal. The interatrial septum is intact with no evidence for an atrial septal defect or patent foramen ovale as noted on 2-D or Doppler imagi ng. AORTIC VALVE The aortic valve is thickened but opens well. Doppler and Color Flow revealed trace aortic regurgitat ion. There is no significant aortic valvular stenosis. MITRAL VALVE The mitral valve is thickened but opens well. There is no evidence of mitral valve prolapse. There is no mitral valve stenosis. Doppler and Color-flow revealed trace to mild mitral regurgitation. TRICUSPID VALVE The tricuspid valve is normal in structure and function. Doppler and Color Flow revealed trace tricus pid regurgitation with an estimated PAP of 39 mmHg. There is no tricuspid valve stenosis. PULMONIC VALVE The pulmonic valve is not well visualized. Doppler and Color Flow revealed trace pulmonic valvular re gurgitation. GREAT VESSELS The aortic root is normal in size. The IVC was not visualized. PERICARDIAL EFFUSION There is a trace circumferential pericardial effusion. Critical Notification Critical Value: No <Conclusion> The left ventricular systolic function is normal. The Ejection Fraction is 55%. There is normal LV segmental wall motion. Transmitral Doppler flow pattern is Grade I-abnormal relaxation pattern. Trace to mild mitral regurgitation. Trace tricuspid regurgitation with an estimated PAP of 39 mmHg. There is a trace circumferential pericardial effusion. Signed by : Braulio Perez, Electronically Approved : 09/22/2019 13:10:51
--- NOTE | 2019-09-22 15:49 | NUR ---
SS following for discharge planning. Pt is from [facility], . SS contacted [facility] and verified that pt is an Independent Living resident from there facility. PT/OT ordered. SS will await PT/OT evaluations and recommendations and will proceed accordingly with discharge planning.
[2019-09-22 18:57] LABS: BF CLARITY HAZY; BF COLOR STRAW; BF SOURCE ASCITES
[2019-09-22 18:58] LABS: BF MON % 31 %; BF PMN % 46 %; BF RBC COUNT 3132 /cmm (Not Established); BF WBC COUNT 552 /cmm (Not Established)
[2019-09-22 18:59] LABS: BF OTHER % 23 %
[2019-09-22] MEDS: LACTOBACILLUS RHAMNOSUS GG 1 CAPSULE. PO SCH (21:00)
[2019-09-23 03:00] VITALS: BP 154/81
[2019-09-23] MEDS: PANTOPRAZOLE SODIUM IV DRIP 80 MG in IV NORMAL SALINE 100ML 100 ML IV SCH (05:11)
[2019-09-23] MEDS: PIPERACILLIN/TAZOBACTAM 3.375 GM in IV NORMAL SALINE 50ML 50 ML IV SCH ×3 (05:12→18:08)
[2019-09-23] MEDS ORDERED: IV RINGERS,LACTATED 1000ML 1,000 ML IV SCH (07:00)
[2019-09-23] MEDS ORDERED: IV RINGERS,LACTATED 1000ML 1,000 ML IV ONE (07:30)
[2019-09-23 07:54] VITALS: BP 139/66
[2019-09-23] MEDS: LACTOBACILLUS RHAMNOSUS GG 1 CAPSULE. PO SCH ×3 (09:00→21:00)
[2019-09-23] MEDS: ELECTROLYTE (ICU) PROTOCOL. MC SCH (09:00)
[2019-09-23] MEDS: DOCUSATE SODIUM 100 MG CAPSULE. PO SCH ×2 (09:00→21:00)
[2019-09-23 09:13] LABS: CALCIUM 7.2 mg/dL (8.5-10.1); CREATININE 0.9 mg/dL (0.7-1.3); GFR 83.2; POTASSIUM 3.8 mmol/L (3.5-5.1)
[2019-09-23 09:18] LABS: HEMATOCRIT 25.1 % (39.0-53.0); HEMOGLOBIN 8.3 g/dL (13.0-17.5); RED BLOOD COUNT 2.67 x10^6/uL (4.30-5.70); RED CELL DISTRIBUTION WIDTH 25.1 % (11.5-14.5); WHITE BLOOD COUNT 6.2 x10^3/uL (4.0-11.0)
--- NOTE | 2019-09-23 09:33 | RAD ---
Ultrasound-guided paracentesis 09/23/2019 7:28 AM Procedure: The risks and benefits of the procedure were discussed the patient. Informed consent was obtained. A timeout procedure was performed. Sonographic evaluation of the abdomen was performed demonstrating minimal ascites . The right lower quadrant was prepped and draped using maximum sterile barrier technique. 1% lidocaine without epinephrine was administered for local anesthesia. Real-time ultrasonographic guidance was used in passing a 5 [place] Yueh catheter into the fluid collection. Only a few cc of serous ascites was removed., Aspirated material sent for culture.. The catheter was removed and pressure held to achieve hemostasis. A sterile dressing was applied. Impression: Only a small amount of ascites is identified by ultrasound. Only a few cc of fluid could be safely aspirated. Samples were sent for culture.
--- NOTE | 2019-09-23 10:25 | PDOC ---
SUBJECTIVE ROS stable OBJECTIVE Vital Signs Vital Signs Date Time Temp Pulse Resp B/P (MAP) Pulse Ox O2 Delivery O2 Flow Rate FiO2 09/23/19 07:54 97.9 92 18 139/66 (90) 96 Room Air 97.9 I & 0 Intake and Output 09/23/19 06:59 Intake Total 280 ml Output Total 5 ml Balance 275 ml Intake Oral 230 ml IV Total 50 ml Output Drainage Total 5 ml # Voids 1 # Bowel Movements 1 PHYSICAL EXAM Physical Exam GEN: NAD HEENT: Atraumatic, PERRL NECK siupple LUNGS: CTAB anteriorly HEART: S1S2 ABD: some distention, soft, non-tender, EXTREMITY: No edema SKIN: no rash NEURO/PSYCH: A & O 3 No hernandez DIAGNOSIS/ASSESSMENT Assessment & Plan FREEDOM - pre-renal , Labs available in [facility] Cr of 1.0 with Cr Cl in 70's No other labs available ,stable renal function Supportive care, avoid nephrotoxins, monitor Fatigue, dyspnea- anemia at presentation Defer to primary Anemia- s/p PRBC +Hemoccult- GI following more than one colonoscopy in the past H/o alcohol abuse-? Cirrhosis per CT Will sign off COMMENT/RELEVANT DATA Meds Current Medications Medications (Trade) Dose Ordered Sig/Eliza Start Time Stop Time Status Last Admin Dose Admin Acetaminophen (Tylenol) 650 mg PRN Q4HRS PRN 09/21/19 19:15 UNV Albuterol Sulfate (Ventolin Neb Soln) 2.5 mg PRN Q4HRS PRN 09/21/19 19:15 Docusate Sodium (Colace) 100 mg PRN BID PRN 09/21/19 19:15 Famotidine (Pepcid Vial) 20 mg BID 09/21/19 21:00 Cancel Famotidine (Pepcid) 20 mg BID 09/21/19 21:00 09/21/19 18:59 DC Hydromorphone HCl (Dilaudid) 0.2 mg PRN Q1HR PRN 09/21/19 19:00 Info (Icu Electrolyte Protocol) 1 ea DAILY 09/22/19 09:00 09/22/19 09:00 1 EA Lactobacillus Rhamnosus (Culturelle) 1 cap BID 09/22/19 21:00 Lorazepam (Ativan Inj) 0.5 mg PRN Q6HRS PRN 09/21/19 19:00 Lorazepam (Ativan) 0.5 mg PRN Q4HRS PRN 09/21/19 19:15 Ondansetron HCl (Zofran) 4 mg PRN Q4HRS PRN 09/21/19 19:15 Pantoprazole Sodium (PROTONIX VIAL for IV PUSH) 40 mg 1X ONCE 09/21/19 15:45 09/21/19 15:50 DC 09/21/19 16:29 40 MG Pantoprazole Sodium 80 mg/ Sodium Chloride 100 ml @ 10 mls/hr Q10H 09/21/19 19:00 09/23/19 05:11 10 MLS/HR Piperacillin Sod/ Tazobactam Sod 3.375 gm/Sodium Chloride 50 ml @ 100 mls/hr Q6HRS 09/22/19 00:00 UNV Prochlorperazine Edisylate (Compazine) 5 mg PRN Q6HRS PRN 09/21/19 19:00 Ringer's Solution 1,000 ml @ 75 mls/hr 1X ONCE 09/23/19 07:30 09/23/19 20:49 Sodium Chloride (Normal Saline Flush) 3 ml QSHIFT PRN 09/21/19 19:15 UNV Lab Laboratory Tests Test 09/22/19 13:40 09/23/19 08:48 Body Fluid Source Ascites Body Fluid Color Straw Body Fluid Clarity Hazy Body Fluid Nucleated Cells 552 /cmm (Not Established) Body Fluid Mononuclear WBCs (%) 31 % Body Fluid Polymorphonuclear Cells 46 % Body Fluid Total RBCs Counted 3132 /cmm (Not Established) Body Fluid Other Cells (%) 23 % White Blood Count 6.2 x10^3/uL (4.0-11.0) Red Blood Count 2.67 x10^6/uL (4.30-5.70) Hemoglobin 8.3 g/dL (13.0-17.5) Hematocrit 25.1 % (39.0-53.0) Mean Corpuscular Volume 94 fL (79-100) Mean Corpuscular Hemoglobin 31 pg (25-35) Mean Corpuscular Hemoglobin Concent 33 g/dL (31-37) Red Cell Distribution Width 25.1 % (11.5-14.5) Platelet Count 324 x10^3/uL (140-400) Sodium Level 143 mmol/L (136-145) Potassium Level 3.8 mmol/L (3.5-5.1) Chloride Level 112 mmol/L (98-107) Carbon Dioxide Level 23 mmol/L (21-32) Anion Gap 8 (6-14) Blood Urea Nitrogen 25 mg/dL (8-26) Creatinine 0.9 mg/dL (0.7-1.3) Estimated GFR (Cockcroft-Gault) 83.2 Glucose Level 109 mg/dL (70-99) Calcium Level 7.2 mg/dL (8.5-10.1) Results All relevant outside records, renal labs, imaging studies, telemetry/EKG's were reviewed. KRZYSZTOF PAZ MD Sep 23, 2019 10:24
--- NOTE | 2019-09-23 10:37 | PDOC ---
PROGRESS NOTES Chief Complaint Chief Complaint IMPRESSION Fatigue, dyspnea Macrocytic anemia, +Hemoccult Mildly elevated troponin (resolved), elevated BNP, lactic acidosis (resolved), elevated BUN Abnormal CT Recent c scope hemorrhoidal polyps, sessile Acute precip drop hgb SEVERE PROTEIN-CALORIC MALNUTRITION Only a small amount of ascites is identified by ultrasound. Only a few cc of fluid could be safely aspirated. Samples were sent for culture. Improved Hg S/p transfusions. EGD 09/23 38 MIN PT EXAM, CHART REVIEW, > 50% OF TIME SPENT WITH EXAM, CHART REVIEW, PT CARE COORDINATION History of Present Illness History of Present Illness HGb 8.3 Got transfusion and rpt HH still pending SOme melena NOTED VS ok DNR PLAn: monitor melena PPi IV vs PO depending on diet IVF depending on diet Brandon RN suzanne\ keep on tele Vitals Vitals Vital Signs Date Time Temp Pulse Resp B/P (MAP) Pulse Ox O2 Delivery O2 Flow Rate FiO2 09/23/19 07:54 97.9 92 18 139/66 (90) 96 Room Air 97.9 Physical Exam General: Alert, Oriented X3, Cooperative, No acute distress, mild distress Heart: Regular rate, Normal S1, Normal S2, No murmurs Lungs: Clear Abdomen: Normal bowel sounds, Soft, No tenderness Extremities: No clubbing, No cyanosis, No edema Skin: No rashes, No breakdown, No significant lesion Labs LABS INDICATION: Rectal bleeding TECHNIQUE: Sequential axial images through the abdomen and pelvis obtained without IV contrast. Sagittal and coronal reformatted images were reconstructed from the axial data and reviewed. Comparisons: None FINDINGS: Heart size is normal. Small pericardial effusion is noted. There are is small bilateral pleural effusions. Visualized lung bases are clear. Liver has a shrunken appearance. Gallbladder, spleen, pancreas and adrenals are unremarkable. No perinephric inflammation or hydronephrosis. No renal or ureteral calculi are identified. Bladder is partially distended and not well evaluated. Prostate is not enlarged. Mild wall thickening of the ascending colon. Large and small bowel are unremarkable. There is a moderate to large amount of free intra-abdominal fluid. No free intra-abdominal air. No obstruction. Abdominal aorta has a normal course and caliber. No enlarged intra-abdominal lymph nodes are identified. No suspicious osseous lesions or acute fractures. IMPRESSION: 1. Mild wall thickening involving the ascending colon, may be secondary to systemic state versus focal colitis. 2. Shrunken morphology of the liver, may relate to cirrhosis. 3. Moderate amount of intra-abdominal ascites and moderate bilateral pleural effusions. Exposure: One or more of the following in the visualized dose reduction techniques were utilized for this examination: 1. Automated exposure control 2. Adjustment of the MA and/or KV according to patient size 3. Use of iterative of reconstructive technique Electronically signed by: Denise Martin MD (09/21/2019 4:40 PM) [facility] DICTATED and SIGNED BY: DENISE MARTIN MD DATE: 09/21/19 1640 PATIENT: KIRSTEN FUNK ACCOUNT: [id number] : 1945 LOCATION: [address] [place] [address] AGE: 73 SEX: M EXAM STATUS: ADM IN ORD. PHYSICIAN: EVI PERERA REASON: ascites PROCEDURE: [id number] PARACENTESIS W/IMAGING Ultrasound-guided paracentesis 09/23/2019 7:28 AM Procedure: The risks and benefits of the procedure were discussed the patient. Informed consent was obtained. A timeout procedure was performed. Sonographic evaluation of the abdomen was performed demonstrating minimal ascites . The right lower quadrant was prepped and draped using maximum sterile barrier technique. 1% lidocaine without epinephrine was administered for local anesthesia. Real-time ultrasonographic guidance was used in passing a 5 Camb[place] Yueh catheter into the fluid collection. Only a few cc of serous ascites was removed., Aspirated material sent for culture.. The catheter was removed and pressure held to achieve hemostasis. A sterile dressing was applied. Impression: Only a small amount of ascites is identified by ultrasound. Only a few cc of fluid could be safely aspirated. Samples were sent for culture. DICTATED and SIGNED BY: LUIS FELIX MD DATE: 09/23/19 0929 Laboratory Tests Test 09/22/19 13:40 09/23/19 08:48 Body Fluid Source Ascites Body Fluid Color Straw Body Fluid Clarity Hazy Body Fluid Nucleated Cells 552 /cmm (Not Established) Body Fluid Mononuclear WBCs (%) 31 % Body Fluid Polymorphonuclear Cells 46 % Body Fluid Total RBCs Counted 3132 /cmm (Not Established) Body Fluid Other Cells (%) 23 % White Blood Count 6.2 x10^3/uL (4.0-11.0) Red Blood Count 2.67 x10^6/uL (4.30-5.70) Hemoglobin 8.3 g/dL (13.0-17.5) Hematocrit 25.1 % (39.0-53.0) Mean Corpuscular Volume 94 fL (79-100) Mean Corpuscular Hemoglobin 31 pg (25-35) Mean Corpuscular Hemoglobin Concent 33 g/dL (31-37) Red Cell Distribution Width 25.1 % (11.5-14.5) Platelet Count 324 x10^3/uL (140-400) Sodium Level 143 mmol/L (136-145) Potassium Level 3.8 mmol/L (3.5-5.1) Chloride Level 112 mmol/L (98-107) Carbon Dioxide Level 23 mmol/L (21-32) Anion Gap 8 (6-14) Blood Urea Nitrogen 25 mg/dL (8-26) Creatinine 0.9 mg/dL (0.7-1.3) Estimated GFR (Cockcroft-Gault) 83.2 Glucose Level 109 mg/dL (70-99) Calcium Level 7.2 mg/dL (8.5-10.1) Assessment and Plan Assessmemt and Plan Problems Medical Problems: (1) Anemia Status: Acute (2) Elevated lactic acid level Status: Acute (3) Elevated troponin Status: Acute (4) GI bleeding Status: Acute (5) Hyperkalemia Status: Acute (6) Renal insufficiency Status: Acute Comment Review of Relevant I have reviewed the following items helen (where applicable) has been applied. Labs Laboratory Tests Test 09/21/19 15:40 09/21/19 16:05 09/21/19 17:28 09/21/19 20:15 Stool Occult Blood Positive (NEG) White Blood Count 6.9 x10^3/uL (4.0-11.0) 7.9 x10^3/uL (4.0-11.0) Red Blood Count 2.04 x10^6/uL (4.30-5.70) 1.88 x10^6/uL (4.30-5.70) Hemoglobin 6.9 g/dL (13.0-17.5) 6.3 g/dL (13.0-17.5) Hematocrit 21.6 % (39.0-53.0) 19.7 % (39.0-53.0) Mean Corpuscular Volume 106 fL (79-100) 105 fL (79-100) Mean Corpuscular Hemoglobin 34 pg (25-35) 34 pg (25-35) Mean Corpuscular Hemoglobin Concent 32 g/dL (31-37) 32 g/dL (31-37) Red Cell Distribution Width 20.0 % (11.5-14.5) 19.7 % (11.5-14.5) Platelet Count 537 x10^3/uL (140-400) 460 x10^3/uL (140-400) Neutrophils (%) (Auto) 66 % (31-73) Lymphocytes (%) (Auto) 26 % (24-48) Monocytes (%) (Auto) 7 % (0-9) Eosinophils (%) (Auto) 0 % (0-3) Basophils (%) (Auto) 1 % (0-3) Neutrophils # (Auto) 4.6 x10^3/uL (1.8-7.7) Lymphocytes # (Auto) 1.8 x10^3/uL (1.0-4.8) Monocytes # (Auto) 0.5 x10^3/uL (0.0-1.1) Eosinophils # (Auto) 0.0 x10^3/uL (0.0-0.7) Basophils # (Auto) 0.0 x10^3/uL (0.0-0.2) Prothrombin Time 15.6 SEC (11.7-14.0) Prothromb Time International Ratio 1.3 (0.8-1.1) Activated Partial Thromboplast Time 27 SEC (24-38) Sodium Level 142 mmol/L (136-145) Potassium Level 5.2 mmol/L (3.5-5.1) Chloride Level 109 mmol/L (98-107) Carbon Dioxide Level 24 mmol/L (21-32) Anion Gap 9 (6-14) Blood Urea Nitrogen 29 mg/dL (8-26) Creatinine 1.0 mg/dL (0.7-1.3) Estimated GFR (Cockcroft-Gault) 73.7 BUN/Creatinine Ratio 29 (6-20) Glucose Level 98 mg/dL (70-99) Lactic Acid Level 2.1 mmol/L (0.4-2.0) 1.4 mmol/L (0.4-2.0) Calcium Level 7.8 mg/dL (8.5-10.1) Total Bilirubin 0.4 mg/dL (0.2-1.0) Aspartate Amino Transf (AST/SGOT) 24 U/L (15-37) Alanine Aminotransferase (ALT/SGPT) 9 U/L (16-63) Alkaline Phosphatase 102 U/L (46-116) Creatine Kinase 108 U/L (39-308) Troponin I Quantitative 0.058 ng/mL (0.000-0.055) 0.048 ng/mL (0.000-0.055) PU-Tvv-[id number]-Type Natriuretic Peptide 4995 pg/mL (0-124) Total Protein 5.4 g/dL (6.4-8.2) Albumin 1.5 g/dL (3.4-5.0) Albumin/Globulin Ratio 0.4 (1.0-1.7) Lipase 23 U/L (73-393) Ammonia < 10 mcmol/L (11-34) Test 09/22/19 00:15 09/22/19 04:10 09/22/19 13:40 09/23/19 08:48 Troponin I Quantitative 0.043 ng/mL (0.000-0.055) White Blood Count 8.2 x10^3/uL (4.0-11.0) 6.2 x10^3/uL (4.0-11.0) Red Blood Count 2.94 x10^6/uL (4.30-5.70) 2.67 x10^6/uL (4.30-5.70) Hemoglobin 9.0 g/dL (13.0-17.5) 8.3 g/dL (13.0-17.5) Hematocrit 27.7 % (39.0-53.0) 25.1 % (39.0-53.0) Mean Corpuscular Volume 94 fL (79-100) 94 fL (79-100) Mean Corpuscular Hemoglobin 31 pg (25-35) 31 pg (25-35) Mean Corpuscular Hemoglobin Concent 33 g/dL (31-37) 33 g/dL (31-37) Red Cell Distribution Width 25.1 % (11.5-14.5) 25.1 % (11.5-14.5) Platelet Count 412 x10^3/uL (140-400) 324 x10^3/uL (140-400) Neutrophils (%) (Auto) 55 % (31-73) Lymphocytes (%) (Auto) 34 % (24-48) Monocytes (%) (Auto) 8 % (0-9) Eosinophils (%) (Auto) 2 % (0-3) Basophils (%) (Auto) 1 % (0-3) Neutrophils # (Auto) 4.5 x10^3/uL (1.8-7.7) Lymphocytes # (Auto) 2.8 x10^3/uL (1.0-4.8) Monocytes # (Auto) 0.7 x10^3/uL (0.0-1.1) Eosinophils # (Auto) 0.1 x10^3/uL (0.0-0.7) Basophils # (Auto) 0.1 x10^3/uL (0.0-0.2) Platelet Estimate Adequate (ADEQUATE) Anisocytosis Present Microcytosis Present Macrocytosis Present Prothrombin Time 15.2 SEC (11.7-14.0) Prothromb Time International Ratio 1.2 (0.8-1.1) Activated Partial Thromboplast Time 33 SEC (24-38) Sodium Level 143 mmol/L (136-145) 143 mmol/L (136-145) Potassium Level 4.3 mmol/L (3.5-5.1) 3.8 mmol/L (3.5-5.1) Chloride Level 110 mmol/L (98-107) 112 mmol/L (98-107) Carbon Dioxide Level 22 mmol/L (21-32) 23 mmol/L (21-32) Anion Gap 11 (6-14) 8 (6-14) Blood Urea Nitrogen 35 mg/dL (8-26) 25 mg/dL (8-26) Creatinine 1.0 mg/dL (0.7-1.3) 0.9 mg/dL (0.7-1.3) Estimated GFR (Cockcroft-Gault) 73.7 83.2 BUN/Creatinine Ratio 35 (6-20) Glucose Level 75 mg/dL (70-99) 109 mg/dL (70-99) Calcium Level 7.6 mg/dL (8.5-10.1) 7.2 mg/dL (8.5-10.1) Total Bilirubin 0.5 mg/dL (0.2-1.0) Aspartate Amino Transf (AST/SGOT) 24 U/L (15-37) Alanine Aminotransferase (ALT/SGPT) 9 U/L (16-63) Alkaline Phosphatase 97 U/L (46-116) Total Protein 5.3 g/dL (6.4-8.2) Albumin 1.5 g/dL (3.4-5.0) Albumin/Globulin Ratio 0.4 (1.0-1.7) Triglycerides Level 113 mg/dL (0-150) Cholesterol Level 76 mg/dL (0-200) LDL Cholesterol, Calculated 33 mg/dL (0-100) VLDL Cholesterol, Calculated 23 mg/dL (0-40) Non-HDL Cholesterol Calculated 56 mg/dL (0-129) HDL Cholesterol 20 mg/dL (40-60) Cholesterol/HDL Ratio 3.8 Thyroid Stimulating Hormone (TSH) 5.618 uIU/mL (0.358-3.74) Body Fluid Source Ascites Body Fluid Color Straw Body Fluid Clarity Hazy Body Fluid Nucleated Cells 552 /cmm (Not Established) Body Fluid Mononuclear WBCs (%) 31 % Body Fluid Polymorphonuclear Cells 46 % Body Fluid Total RBCs Counted 3132 /cmm (Not Established) Body Fluid Other Cells (%) 23 % Laboratory Tests Test 09/22/19 13:40 09/23/19 08:48 Body Fluid Source Ascites Body Fluid Color Straw Body Fluid Clarity Hazy Body Fluid Nucleated Cells 552 /cmm (Not Established) Body Fluid Mononuclear WBCs (%) 31 % Body Fluid Polymorphonuclear Cells 46 % Body Fluid Total RBCs Counted 3132 /cmm (Not Established) Body Fluid Other Cells (%) 23 % White Blood Count 6.2 x10^3/uL (4.0-11.0) Red Blood Count 2.67 x10^6/uL (4.30-5.70) Hemoglobin 8.3 g/dL (13.0-17.5) Hematocrit 25.1 % (39.0-53.0) Mean Corpuscular Volume 94 fL (79-100) Mean Corpuscular Hemoglobin 31 pg (25-35) Mean Corpuscular Hemoglobin Concent 33 g/dL (31-37) Red Cell Distribution Width 25.1 % (11.5-14.5) Platelet Count 324 x10^3/uL (140-400) Sodium Level 143 mmol/L (136-145) Potassium Level 3.8 mmol/L (3.5-5.1) Chloride Level 112 mmol/L (98-107) Carbon Dioxide Level 23 mmol/L (21-32) Anion Gap 8 (6-14) Blood Urea Nitrogen 25 mg/dL (8-26) Creatinine 0.9 mg/dL (0.7-1.3) Estimated GFR (Cockcroft-Gault) 83.2 Glucose Level 109 mg/dL (70-99) Calcium Level 7.2 mg/dL (8.5-10.1) Microbiology 09/21/19 Blood Culture - Preliminary, Resulted NO GROWTH AFTER 1 DAY Medications Current Medications Sodium Chloride 1,000 ml @ 1,000 mls/hr Q1H IV Last administered on 09/21/19at 16:28; Start 09/21/19 at 15:43; Stop 09/21/19 at 16:42; Status DC Pantoprazole Sodium (PROTONIX VIAL for IV PUSH) 40 mg 1X ONCE IVP Last administered on 09/21/19at 16:29; Start 09/21/19 at 15:45; Stop 09/21/19 at 15:50; Status DC Sodium Chloride 1,000 ml @ 125 mls/hr Q8H IV Last administered on 09/22/19at 02:52; Start 09/21/19 at 17:14; Stop 09/22/19 at 17:13; Status DC Pantoprazole Sodium 80 mg/ Sodium Chloride 100 ml @ 10 mls/hr Q10H IV Last administered on 09/21/19at 17:42; Start 09/21/19 at 17:15; Stop 09/21/19 at 19:00; Status DC Acetaminophen (Tylenol) 650 mg PRN Q6HRS PRN PO Headaches, Temp > 101.5'; Start 09/21/19 at 19:00 Lorazepam (Ativan Inj) 0.5 mg PRN Q6HRS PRN IV ANXIETY / AGITATION; Start 09/21/19 at 19:00 Ondansetron HCl (Zofran) 4 mg PRN Q6HRS PRN IV NAUSEA/VOMITING; Start 09/21/19 at 19:00; Status Cancel Prochlorperazine Edisylate (Compazine) 5 mg PRN Q6HRS PRN IV NAUSEA/VOMITING; Start 09/21/19 at 19:00 Famotidine (Pepcid) 20 mg BID PO ; Start 09/21/19 at 21:00; Stop 09/21/19 at 18:59; Status DC Famotidine (Pepcid Vial) 20 mg BID IVP ; Start 09/21/19 at 21:00; Status Canc el Info (Icu Electrolyte Protocol) 1 ea DAILY MC Last administered on 09/22/19at 09:00; Start 09/22/19 at 09:00 Sodium Chloride (Normal Saline Flush) 3 ml QSHIFT PRN IV AFTER MEDS AND BLOOD DRAWS; Start 09/21/19 at 19:00 Sodium Chloride 1,000 ml @ 75 mls/hr [id number] IV Last administered on 09/22/19at 22:01; Start 09/21/19 at 18:53 Hydromorphone HCl (Dilaudid) 0.2 mg PRN Q1HR PRN IV PAIN; Start 09/21/19 at 19:00 Docusate Sodium (Colace) 100 mg BID PO ; Start 09/21/19 at 21:00 Pantoprazole Sodium 80 mg/ Sodium Chloride 100 ml @ 10 mls/hr Q10H IV Last administered on 09/23/19at 05:11; Start 09/21/19 at 19:00 Piperacillin Sod/ Tazobactam Sod 3.375 gm/Sodium Chloride 50 ml @ 100 mls/hr Q6HRS IV Last administered on 09/23/19at 05:12; Start 09/21/19 at 19:30 Sodium Chloride (Normal Saline Flush) 3 ml QSHIFT PRN IV AFTER MEDS AND BLOOD DRAWS; Start 09/21/19 at 19:15; Status UNV Ondansetron HCl (Zofran) 4 mg PRN Q4HRS PRN IV NAUSEA/VOMITING; Start 09/21/19 at 19:15 Acetaminophen (Tylenol) 650 mg PRN Q4HRS PRN PO TEMP OVER 100.4F OR MILD PAIN; Start 09/21/19 at 19:15; Status UNV Docusate Sodium (Colace) 100 mg PRN BID PRN PO CONSTIPATION; Start 09/21/19 at 19:15 Albuterol Sulfate (Ventolin Neb Soln) 2.5 mg PRN Q4HRS PRN NEB SHORTNESS OF BREATH; Start 09/21/19 at 19:15 Lorazepam (Ativan) 0.5 mg PRN Q4HRS PRN PO ANXIETY / AGITATION; Start 09/21/19 at 19:15 Piperacillin Sod/ Tazobactam Sod 3.375 gm/Sodium Chloride 50 ml @ 100 mls/hr Q6HRS IV ; Start 09/22/19 at 00:00; Status UNV Ringer's Solution 1,000 ml @ 50 mls/hr Q20H IV ; Start 09/23/19 at 07:00; Stop 09/23/19 at 18:59 Lactobacillus Rhamnosus (Culturelle) 1 cap BID PO ; Start 09/22/19 at 21:00 Ringer's Solution 1,000 ml @ 75 mls/hr 1X ONCE IV ; Start 09/23/19 at 07:30; Stop 09/23/19 at 20:49 Active Scripts Active Multi-Vitamin Daily (Multivitamin) 1 Each Tablet 1 Tab PO DAILY 30 Days Vitamin D (Cholecalciferol (Vitamin D3)) 2,000 Unit Capsule 1 Cap PO DAILY B Complex (Vitamin B Complex) 1 Each Tablet 1 Tab PO DAILY 30 Days Midodrine Hcl 2.5 Mg Tablet 2.5 Mg PO DAILY Aspirin Ec (Aspirin) 81 Mg Tablet.dr 81 Mg PO DAILYWBKFT Hydrocodone-Acetamin 5-325 mg (Hydrocodone/Acetaminophen) 1 Each Tablet 1 Tab PO PRN BID PRN Vitals/I & O Vital Sign - Last 24 Hours 09/22/19 09/22/19 09/22/19 09/22/19 11:17 13:37 15:25 19:00 Temp 98.0 97.5 98.2 98.0 97.5 98.2 Pulse 98 95 98 103 Resp 20 20 18 B/P (MAP) 125/74 (91) 150/64 (92) 128/70 (89) 155/78 (103) Pulse Ox 98 93 100 98 O2 Delivery Room Air Room Air Room Air 09/22/19 09/22/19 09/23/19/19/19 20:11 23:00 03:00 07:54 Temp 98.3 97.8 97.9 98.3 97.8 97.9 Pulse 99 103 92 Resp 20 18 B/P (MAP) 154/65 (94) 154/81 (105) 139/66 (90) Pulse Ox 96 99 96 O2 Delivery Room Air Room Air Room Air Room Air Intake and Output 09/22/19 09/22/19 09/23/19 15:00 23:00 07:00 Intake Total 50 ml 150 ml 80 ml Output Total 5 ml Balance 45 ml 150 ml 80 ml ELLIS JETT MD Sep 23, 2019 10:37
[2019-09-23] MEDS: IV NORMAL SALINE 1000ML BAG 1,000 ML IV SCH (10:53)
[2019-09-23 11:40] VITALS: BP 156/70
--- NOTE | 2019-09-23 12:53 | NUR ---
HEATH following pt. PT/OT recommends SNU. Pt chose [facility] and reported he was there less than 60 days ago for a bout 10 days. Pt is notified about medicare coverage for SNU. Pt is not able to pay co-pays but is agreeable to go for the remainder 11 days. HEATH Phoned and faxed referral to [facility]. Pt reported he will notify his sister, Rosemary phone: [phone] about this conversation. Pt acceptance pending. OHDNR on chart to be signed by pt and Physician. Discussed with RN.
[2019-09-23] MEDS ORDERED: DIPHENHYDRAMINE/ZINC ACETATE 2%/0.1% TOPICAL CREAM 28GM TUBE. TP PRN (13:00)
[2019-09-23] MEDS ORDERED: PROPOFOL 20 ML IV ONE (14:11)
[2019-09-23] MEDS ORDERED: LIDOCAINE 2% PF 5 ML VIAL. ONE (14:13)
--- NOTE | 2019-09-23 14:33 | PDOC4 ---
Operative Note Operative Note EGD with biopsy Meds propofol per anesthesia Pre-op dx Acute blood loss anemia/melena post-op dx gastric ulcers s/p bx duodenal ulcer with clean base Plan PPI therapy with repeat egd in 2 months to confirm ulcer healing CHELLE BERNARD MD Sep 23, 2019 14:33
[2019-09-23] MEDS: PANTOPRAZOLE 40 MG TABLET.DR. PO SCH ×2 (14:45→15:29)
[2019-09-23 15:56] VITALS: BP 127/73
[2019-09-23 19:34] VITALS: BP 164/73
[2019-09-23 23:38] VITALS: BP 125/59
[2019-09-24] MEDS: IV NORMAL SALINE 1000ML BAG 1,000 ML IV SCH ×2 (02:02→12:54)
[2019-09-24] MEDS: PIPERACILLIN/TAZOBACTAM 3.375 GM in IV NORMAL SALINE 50ML 50 ML IV SCH ×3 (02:02→12:49)
[2019-09-24 03:00] VITALS: BP 159/75
[2019-09-24 04:53] LABS: BASO % 1 % (0-3); EOS # 0.3 x10^3/uL (0.0-0.7); EOS % 5 % (0-3); HEMATOCRIT 24.3 % (39.0-53.0); LYMPH # 1.8 x10^3/uL (1.0-4.8); LYMPH % 30 % (24-48); MEAN CORPUSCULAR HEMOGLOBIN 31 pg (25-35); MEAN CORPUSCULAR HGB CONC 33 g/dL (31-37); MEAN CORPUSCULAR VOLUME 95 fL (79-100); MONO # 0.6 x10^3/uL (0.0-1.1); MONO % 11 % (0-9); NEUT # 3.2 x10^3/uL (1.8-7.7); NEUT % 54 % (31-73); PLATELET COUNT 298 x10^3/uL (140-400); RED BLOOD COUNT 2.57 x10^6/uL (4.30-5.70); RED CELL DISTRIBUTION WIDTH 25.1 % (11.5-14.5); WHITE BLOOD COUNT 5.9 x10^3/uL (4.0-11.0)
[2019-09-24 07:52] VITALS: BP 167/86
--- NOTE | 2019-09-24 08:35 | NUR ---
Late entry: Pt only has one SNU day left with out copay. Discussed with pt and pt is not able to afford co payments. Pt feels okay going back to [place] with home health. Pt reports he was set up with HH agency but they have not seen him yet. [facility] had set pt up with [facility]: [phone], fax: [phone]. SW faxed clinicals and awaiting on a phone call from intake. RN notified.
[2019-09-24] MEDS: LACTOBACILLUS RHAMNOSUS GG 1 CAPSULE. PO SCH ×2 (08:40→21:12)
[2019-09-24] MEDS: DOCUSATE SODIUM 100 MG CAPSULE. PO SCH ×2 (08:40→21:12)
[2019-09-24] MEDS: PANTOPRAZOLE 40 MG TABLET.DR. PO SCH (08:40)
[2019-09-24] MEDS: ELECTROLYTE (ICU) PROTOCOL. MC SCH (09:00)
--- NOTE | 2019-09-24 09:16 | PDOC ---
Subjective: Subjective: Sore throat - "been swollen since I got here." Stool might have looked dark. No abd pain. Tolerating PO. Neck aches. Objective: Vital Signs: Vital Signs Date Time Temp Pulse Resp B/P (MAP) Pulse Ox O2 Delivery O2 Flow Rate FiO2 09/24/19 08:00 Room Air 2.0 09/24/19 07:52 98.1 94 22 167/86 (113) 97 98.1 Labs: Laboratory Tests Test 09/24/19 03:20 White Blood Count 5.9 x10^3/uL Red Blood Count 2.57 x10^6/uL Hemoglobin 8.0 g/dL Hematocrit 24.3 % Mean Corpuscular Volume 95 fL Mean Corpuscular Hemoglobin 31 pg Mean Corpuscular Hemoglobin Concent 33 g/dL Red Cell Distribution Width 25.1 % Platelet Count 298 x10^3/uL Neutrophils (%) (Auto) 54 % Lymphocytes (%) (Auto) 30 % Monocytes (%) (Auto) 11 % Eosinophils (%) (Auto) 5 % Basophils (%) (Auto) 1 % Neutrophils # (Auto) 3.2 x10^3/uL Lymphocytes # (Auto) 1.8 x10^3/uL Monocytes # (Auto) 0.6 x10^3/uL Eosinophils # (Auto) 0.3 x10^3/uL Basophils # (Auto) 0.0 x10^3/uL BLOOD CULTURE Preliminary NO GROWTH AFTER 2 DAYS Imaging: Paracentesis 09/22 Impression: Only a small amount of ascites is identified by ultrasound. Only a few cc of fluid could be safely aspirated. Samples were sent for culture. EGD 09/23 gastric ulcers s/p bx duodenal ulcer with clean base Plan PPI therapy with repeat egd in 2 months to confirm ulcer healing PE: GEN: NAD LUNGS: NC HEART: RRR ABD: S/ND/NT NEURO/PSYCH: A & O 3 A/P: , DU Macrocytic anemia - stable post transfusions ?cirrhosis - on minimally ascites for paracentesis -- ADAT - orders already in for this. Continue PPI. Follow-up for EGD in 2-3 months, also follow-up re: biopsy results. Also due for colonoscopy in 2019. Avoid NSAIDs - defer pain control to primary. EVI PERERA Sep 24, 2019 09:16
--- NOTE | 2019-09-24 10:21 | PDOC ---
PROGRESS NOTES Chief Complaint Chief Complaint IMPRESSION Fatigue, dyspnea Macrocytic anemia, +Hemoccult Mildly elevated troponin (resolved), elevated BNP, lactic acidosis (resolved), elevated BUN Abnormal CT Recent c scope hemorrhoidal polyps, sessile Acute precip drop hgb SEVERE PROTEIN-CALORIC MALNUTRITION Only a small amount of ascites is identified by ultrasound. Only a few cc of fluid could be safely aspirated. Samples were sent for culture. consider ischemic evaluation as an outpatient Improved Hg S/p transfusions. EGD 09/23 Acid suppressive therapy for 2 months with interval EGD to confirm healing. 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 Operative Note Operative Note Operative Note EGD with biopsy Meds propofol per anesthesia Pre-op dx Acute blood loss anemia/melena post-op dx gastric ulcers s/p bx duodenal ulcer with clean base Plan PPI therapy with repeat egd in 2 months to confirm ulcer healing CHELLE BERNARD MD * 2 weeks Discharge Recommendations * [facility] Dis[facility] Recommendation - DME * Rolling Walker needed * in order to complete ADLs * and ambulation safely Vitals Vitals Vital Signs Date Time Temp Pulse Resp B/P (MAP) Pulse Ox O2 Delivery O2 Flow Rate FiO2 09/24/19 08:00 Room Air 2.0 09/24/19 07:52 98.1 94 22 167/86 (113) 97 98.1 Physical Exam General: Alert, Oriented X3, Cooperative, No acute distress, mild distress Heart: Regular rate, Normal S1, Normal S2, No murmurs Lungs: Clear Abdomen: Normal bowel sounds, Soft, No tenderness Extremities: No clubbing, No cyanosis, No edema Skin: No rashes, No breakdown, No significant lesion Labs LABS Laboratory Tests Test 09/24/19 03:20 White Blood Count 5.9 x10^3/uL (4.0-11.0) Red Blood Count 2.57 x10^6/uL (4.30-5.70) Hemoglobin 8.0 g/dL (13.0-17.5) Hematocrit 24.3 % (39.0-53.0) Mean Corpuscular Volume 95 fL (79-100) Mean Corpuscular Hemoglobin 31 pg (25-35) Mean Corpuscular Hemoglobin Concent 33 g/dL (31-37) Red Cell Distribution Width 25.1 % (11.5-14.5) Platelet Count 298 x10^3/uL (140-400) Neutrophils (%) (Auto) 54 % (31-73) Lymphocytes (%) (Auto) 30 % (24-48) Monocytes (%) (Auto) 11 % (0-9) Eosinophils (%) (Auto) 5 % (0-3) Basophils (%) (Auto) 1 % (0-3) Neutrophils # (Auto) 3.2 x10^3/uL (1.8-7.7) Lymphocytes # (Auto) 1.8 x10^3/uL (1.0-4.8) Monocytes # (Auto) 0.6 x10^3/uL (0.0-1.1) Eosinophils # (Auto) 0.3 x10^3/uL (0.0-0.7) Basophils # (Auto) 0.0 x10^3/uL (0.0-0.2) Iron Level 41 ug/dL (65-175) Total Iron Binding Capacity 95 ug/dL (250-450) Iron Saturation 43 % (15-34) Vitamin B12 Level 712 pg/mL (247-911) Assessment and Plan Assessmemt and Plan Problems Medical Problems: (1) Anemia Status: Acute (2) Elevated lactic acid level Status: Acute (3) Elevated troponin Status: Acute (4) GI bleeding Status: Acute (5) Hyperkalemia Status: Acute (6) Renal insufficiency Status: Acute Operative Note Operative Note Operative Note EGD with biopsy Meds propofol per anesthesia Pre-op dx Acute blood loss anemia/melena post-op dx gastric ulcers s/p bx duodenal ulcer with clean base Plan PPI therapy with repeat egd in 2 months to confirm ulcer healing Problem List (body system elements) * Impaired fnctnl mobility * Balance * Respiration/perfusion * Age * Knowledge-safe techniques * Skin Integrity * Pain Clinical Presentation * Evolving Evaluation Complexity Level * Moderate Complexity Pt/caregiver agrees with plan of care/goals * Yes Patient condition at conclusion of therapy * Pt in chair * Call light in reach * Phone in reach * PtIn no apparent distress * Pt denies further needs Communicated Patient Care With (Name, Title) * TALHA Carmona Goal 1 - Bed Mobility Assistance Required * Independent Goal 1 Assessment * Appropriate - Continue Goal 2 - Transfers Assistance Required * Independent Goal 2 - Transfer Type * Sit to Stand Goal 2 Assessment * Appropriate - Continue Goal 3 - Ambulation Assistance Required * Independent Goal 3 - Ambulation Distance * 250' Goal 3 - Ambulation Device * Roller Walker Goal 3 Assessment * Appropriate - Continue Treatment Plan * Therapeutic Exercise * Bed Mobility Training * Transfer training * Gait Training Frequency of Treatment Expected * 7 visits/week Duration of Treatment Expected * 2 weeks Discharge Recommendations * [facility] Discharge Recommendation - DME * Rolling Walker needed * in order to complete ADLs * and ambulation safely Comment Review of Relevant I have reviewed the following items helen (where applicable) has been applied. Labs Laboratory Tests Test 09/22/19 13:40 09/23/19 08:48 09/24/19 03:20 Body Fluid Source Ascites Body Fluid Color Straw Body Fluid Clarity Hazy Body Fluid Nucleated Cells 552 /cmm (Not Established) Body Fluid Mononuclear WBCs (%) 31 % Body Fluid Polymorphonuclear Cells 46 % Body Fluid Total RBCs Counted 3132 /cmm (Not Established) Body Fluid Other Cells (%) 23 % Body Fluid Glucose 104 mg/dL (.) Body Fluid Total Protein 0.7 g/dL (.) Body Fluid Lactate Dehydrogenase 97 IU/L (.) Body Fluid Amylase 4 U/L (.) White Blood Count 6.2 x10^3/uL (4.0-11.0) 5.9 x10^3/uL (4.0-11.0) Red Blood Count 2.67 x10^6/uL (4.30-5.70) 2.57 x10^6/uL (4.30-5.70) Hemoglobin 8.3 g/dL (13.0-17.5) 8.0 g/dL (13.0-17.5) Hematocrit 25.1 % (39.0-53.0) 24.3 % (39.0-53.0) Mean Corpuscular Volume 94 fL (79-100) 95 fL (79-100) Mean Corpuscular Hemoglobin 31 pg (25-35) 31 pg (25-35) Mean Corpuscular Hemoglobin Concent 33 g/dL (31-37) 33 g/dL (31-37) Red Cell Distribution Width 25.1 % (11.5-14.5) 25.1 % (11.5-14.5) Platelet Count 324 x10^3/uL (140-400) 298 x10^3/uL (140-400) Sodium Level 143 mmol/L (136-145) Potassium Level 3.8 mmol/L (3.5-5.1) Chloride Level 112 mmol/L (98-107) Carbon Dioxide Level 23 mmol/L (21-32) Anion Gap 8 (6-14) Blood Urea Nitrogen 25 mg/dL (8-26) Creatinine 0.9 mg/dL (0.7-1.3) Estimated GFR (Cockcroft-Gault) 83.2 Glucose Level 109 mg/dL (70-99) Calcium Level 7.2 mg/dL (8.5-10.1) Neutrophils (%) (Auto) 54 % (31-73) Lymphocytes (%) (Auto) 30 % (24-48) Monocytes (%) (Auto) 11 % (0-9) Eosinophils (%) (Auto) 5 % (0-3) Basophils (%) (Auto) 1 % (0-3) Neutrophils # (Auto) 3.2 x10^3/uL (1.8-7.7) Lymphocytes # (Auto) 1.8 x10^3/uL (1.0-4.8) Monocytes # (Auto) 0.6 x10^3/uL (0.0-1.1) Eosinophils # (Auto) 0.3 x10^3/uL (0.0-0.7) Basophils # (Auto) 0.0 x10^3/uL (0.0-0.2) Iron Level 41 ug/dL (65-175) Total Iron Binding Capacity 95 ug/dL (250-450) Iron Saturation 43 % (15-34) Vitamin B12 Level 712 pg/mL (247-911) Laboratory Tests Test 09/24/19 03:20 White Blood Count 5.9 x10^3/uL (4.0-11.0) Red Blood Count 2.57 x10^6/uL (4.30-5.70) Hemoglobin 8.0 g/dL (13.0-17.5) Hematocrit 24.3 % (39.0-53.0) Mean Corpuscular Volume 95 fL (79-100) Mean Corpuscular Hemoglobin 31 pg (25-35) Mean Corpuscular Hemoglobin Concent 33 g/dL (31-37) Red Cell Distribution Width 25.1 % (11.5-14.5) Platelet Count 298 x10^3/uL (140-400) Neutrophils (%) (Auto) 54 % (31-73) Lymphocytes (%) (Auto) 30 % (24-48) Monocytes (%) (Auto) 11 % (0-9) Eosinophils (%) (Auto) 5 % (0-3) Basophils (%) (Auto) 1 % (0-3) Neutrophils # (Auto) 3.2 x10^3/uL (1.8-7.7) Lymphocytes # (Auto) 1.8 x10^3/uL (1.0-4.8) Monocytes # (Auto) 0.6 x10^3/uL (0.0-1.1) Eosinophils # (Auto) 0.3 x10^3/uL (0.0-0.7) Basophils # (Auto) 0.0 x10^3/uL (0.0-0.2) Iron Level 41 ug/dL (65-175) Total Iron Binding Capacity 95 ug/dL (250-450) Iron Saturation 43 % (15-34) Vitamin B12 Level 712 pg/mL (247-911) Microbiology 09/21/19 Blood Culture - Preliminary, Resulted NO GROWTH AFTER 2 DAYS Medications Current Medications Sodium Chloride 1,000 ml @ 1,000 mls/hr Q1H IV Last administered on 09/21/19at 16:28; Start 09/21/19 at 15:43; Stop 09/21/19 at 16:42; Status DC Pantoprazole Sodium (PROTONIX VIAL for IV PUSH) 40 mg 1X ONCE IVP Last administered on 09/21/19at 16:29; Start 09/21/19 at 15:45; Stop 09/21/19 at 15:50; Status DC Sodium Chloride 1,000 ml @ 125 mls/hr Q8H IV Last administered on 09/22/19at 02:52; Start 09/21/19 at 17:14; Stop 09/22/19 at 17:13; Status DC Pantoprazole Sodium 80 mg/ Sodium Chloride 100 ml @ 10 mls/hr Q10H IV Last administered on 09/21/19at 17:42; Start 09/21/19 at 17:15; Stop 09/21/19 at 19:00; Status DC Acetaminophen (Tylenol) 650 mg PRN Q6HRS PRN PO Headaches, Temp > 101.5'; Start 09/21/19 at 19:00 Lorazepam (Ativan Inj) 0.5 mg PRN Q6HRS PRN IV ANXIETY / AGITATION; Start 09/21/19 at 19:00 Ondansetron HCl (Zofran) 4 mg PRN Q6HRS PRN IV NAUSEA/VOMITING; Start 09/21/19 at 19:00; Status Cancel Prochlorperazine Edisylate (Compazine) 5 mg PRN Q6HRS PRN IV NAUSEA/VOMITING; Start 09/21/19 at 19:00 Famotidine (Pepcid) 20 mg BID PO ; Start 09/21/19 at 21:00; Stop 09/21/19 at 18:59; Status DC Famotidine (Pepcid Vial) 20 mg BID IVP ; Start 09/21/19 at 21:00; Status Cancel Info (Icu Electrolyte Protocol) 1 ea DAILY MC Last administered on 09/22/19at 09:00; Start 09/22/19 at 09:00 Sodium Chloride (Normal Saline Flush) 3 ml QSHIFT PRN IV AFTER MEDS AND BLOOD DRAWS; Start 09/21/19 at 19:00 Sodium Chloride 1,000 ml @ 75 mls/hr [id number] IV Last administered on 09/24/19at 02:02; Start 09/21/19 at 18:53 Hydromorphone HCl (Dilaudid) 0.2 mg PRN Q1HR PRN IV PAIN; Start 09/21/19 at 19:00 Docusate Sodium (Colace) 100 mg BID PO ; Start 09/21/19 at 21:00 Pantoprazole Sodium 80 mg/ Sodium Chloride 100 ml @ 10 mls/hr Q10H IV Last administered on 09/23/19at 05:11; Start 09/21/19 at 19:00; Stop 09/23/19 at 14:34; Status DC Piperacillin Sod/ Tazobactam Sod 3.375 gm/Sodium Chloride 50 ml @ 100 mls/hr Q6HRS IV Last administered on 09/24/19at 07:24; Start 09/21/19 at 19:30 Sodium Chloride (Normal Saline Flush) 3 ml QSHIFT PRN IV AFTER MEDS AND BLOOD DRAWS; Start 09/21/19 at 19:15; Status UNV Ondansetron HCl (Zofran) 4 mg PRN Q4HRS PRN IV NAUSEA/VOMITING; Start 09/21/19 at 19:15 Acetaminophen (Tylenol) 650 mg PRN Q4HRS PRN PO TEMP OVER 100.4F OR MILD PAIN; Start 09/21/19 at 19:15; Status UNV Docusate Sodium (Colace) 100 mg PRN BID PRN PO CONSTIPATION; Start 09/21/19 at 19:15 Albuterol Sulfate (Ventolin Neb Soln) 2.5 mg PRN Q4HRS PRN NEB SHORTNESS OF BREATH; Start 09/21/19 at 19:15 Lorazepam (Ativan) 0.5 mg PRN Q4HRS PRN PO ANXIETY / AGITATION; Start 09/21/19 at 19:15 Piperacillin Sod/ Tazobactam Sod 3.375 gm/Sodium Chloride 50 ml @ 100 mls/hr Q6HRS IV ; Start 09/22/19 at 00:00; Status UNV Ringer's Solution 1,000 ml @ 50 mls/hr Q20H IV Last administered on 09/23/19at 14:00; Start 09/23/19 at 07:00; Stop 09/23/19 at 18:59; Status DC Lactobacillus Rhamnosus (Culturelle) 1 cap BID PO Last administered on 09/24/19at 08:40; Start 09/22/19 at 21:00 Ringer's Solution 1,000 ml @ 75 mls/hr 1X ONCE IV ; Start 09/23/19 at 07:30; Stop 09/23/19 at 20:49; Status DC Zinc Acetate/ Diphenhydramine (Benadryl Topical) 1 ancelmo PRN Q6HRS PRN TP ITCHING; Start 09/23/19 at 13:00 Propofol 20 ml @ As Directed STK-MED ONCE IV ; Start 09/23/19 at 14:11; Stop 09/23/19 at 14:12; Status DC Lidocaine HCl (Lidocaine Pf 2% Vial) 5 ml STK-MED ONCE .ROUTE ; Start 09/23/19 at 14:13; Stop 09/23/19 at 14:14; Status DC Pantoprazole Sodium (Protonix) 40 mg DAILYAC PO Last administered on 09/24/19at 08:40; Start 09/23/19 at 14:45 Active Scripts Active Multi-Vitamin Daily (Multivitamin) 1 Each Tablet 1 Tab PO DAILY 30 Days Vitamin D (Cholecalciferol (Vitamin D3)) 2,000 Unit Capsule 1 Cap PO DAILY B Complex (Vitamin B Complex) 1 Each Tablet 1 Tab PO DAILY 30 Days Midodrine Hcl 2.5 Mg Tablet 2.5 Mg PO DAILY Aspirin Ec (Aspirin) 81 Mg Tablet.dr 81 Mg PO DAILYWBKFT Hydrocodone-Acetamin 5-325 mg (Hydrocodone/Acetaminophen) 1 Each Tablet 1 Tab PO PRN BID PRN Vitals/I & O Vital Sign - Last 24 Hours 09/23/19 09/23/19 09/23/19 09/23/19 11:40 13:54 13:56 14:27 Temp 97.5 97.4 97.9 97.5 97.4 97.9 Pulse 91 90 95 Resp 16 B/P (MAP) 156/70 (98) 148/67 Pulse Ox 97 96 97 O2 Delivery Room Air Room Air Nasal Cannula O2 Flow Rate 2 09/23/19 09/23/19 09/23/19 09/23/19 14:42 14:54 15:56 19:34 Temp 97.7 98.2 97.7 98.2 Pulse 88 86 82 92 Resp B/P (MAP) 146/68 153/67 127/73 (91) 164/73 (103) Pulse Ox 98 98 98 97 O2 Delivery Room Air Room Air Room Air Room Air 09/23/19 09/23/19 09/24/19 09/24/19 20:05 23:38 03:00 07:52 Temp 98.3 98.3 98.1 98.3 98.3 98.1 Pulse 86 69 94 Resp B/P (MAP) 125/59 (81) 159/75 (103) 167/86 (113) Pulse Ox 96 98 97 O2 Delivery Room Air Room Air Room Air Room Air 09/24/19 08:00 O2 Delivery Room Air O2 Flow Rate 2.0 Intake and Output 09/23/19 09/23/19 09/24/19 15:00 23:00 07:00 Intake Total 200 ml 500 ml 100 ml Output Total 3 ml Balance 200 ml 500 ml 97 ml Nutrition Consultation Dietary Evaluation: Recommendations by RD: Dietary education by RD, Increase Calorie Intake, Protein supplementation Comments: rec cardiac diet with ensure tid Expected Outcomes/Goals: to meet >75% est nutr needs Malnutrition Findings: Food and Nutrition Intake (Sev: <50% est energy req 5days Weight Status: Overweight ELLIS JETT MD Sep 24, 2019 10:21
[2019-09-24 11:22] VITALS: BP 167/92
--- NOTE | 2019-09-24 12:17 | NUR ---
SW following pt. Specialized home health is able to schedule pt once orders are received. Physician notified.
--- NOTE | 2019-09-24 14:51 | NUR ---
HEATH consulted for SNF bed. HEATH spoke with pt again who reports he [place] too weak to go [place]. Pt states he is having hard time getting out of bed and doesn't feel safe returning to [place]. Pt usually does not get assistance at [place] with ADLs. HEATH discussed with pt that he might need to explore moving to [place] side of [facility]. After discussion pt is agreeable to make co-pays and go to [facility]. HEATH spoke with [facility] and they won't have a bed until Friday. Discussed with pt about other options but pt only wants to go to as he is familiar with them. SW encouraged pt to continue participating with therapy. Discussed with RN.
[2019-09-24 15:16] LABS: FREE T4 1.16 ng/dL (0.76-1.46)
[2019-09-24 15:18] VITALS: BP 152/77
[2019-09-24 19:20] VITALS: BP 155/80
[2019-09-24] MEDS: HYDROmorphone 2 MG/ML VIAL IV PRN (21:11)
[2019-09-24 23:10] VITALS: BP 174/81
[2019-09-25 02:20] VITALS: BP 165/73
[2019-09-25] MEDS: IV NORMAL SALINE 1000ML BAG 1,000 ML IV SCH ×2 (03:44→16:30)
[2019-09-25 07:44] VITALS: BP 184/81
[2019-09-25] MEDS: ELECTROLYTE (ICU) PROTOCOL. MC SCH (09:00)
[2019-09-25] MEDS: LACTOBACILLUS RHAMNOSUS GG 1 CAPSULE. PO SCH ×2 (09:35→20:00)
[2019-09-25] MEDS: PANTOPRAZOLE 40 MG TABLET.DR. PO SCH (09:35)
[2019-09-25] MEDS: DOCUSATE SODIUM 100 MG CAPSULE. PO SCH ×2 (09:35→20:01)
[2019-09-25] MEDS: HYDROmorphone 2 MG/ML VIAL IV PRN (09:36)
[2019-09-25 11:01] VITALS: BP 171/65
--- NOTE | 2019-09-25 11:08 | PDOC ---
PROGRESS NOTES Chief Complaint Chief Complaint IMPRESSION Fatigue, dyspnea severe debility, weakness of trunk Macrocytic anemia, +Hemoccult Mildly elevated troponin (resolved), elevated BNP, lactic acidosis (resolved), e levated BUN Abnormal CT Recent c scope hemorrhoidal polyps, sessile Acute precip drop hgb SEVERE PROTEIN-CALORIC MALNUTRITION Only a small amount of ascites is identified by ultrasound. Only a few cc of fluid could be safely aspirated. Samples were sent for culture. consider ischemic evaluation as an outpatient Improved Hg S/p transfusions. EGD 09/23 Acid suppressive therapy for 2 months with interval EGD to confirm healing. 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 Operative Note Operative Note Operative Note EGD with biopsy Meds propofol per anesthesia Pre-op dx Acute blood loss anemia/melena post-op dx gastric ulcers s/p bx duodenal ulcer with clean base Plan PPI therapy with repeat egd in 2 months to confirm ulcer healing CHELLE BERNARD MD * 2 weeks Discharge Recommendations * [facility] Discharge Recommendation - DME * Rolling Walker needed * in order to complete ADLs * and ambulation safely Vitals Vitals Vital Signs Date Time Temp Pulse Resp B/P (MAP) Pulse Ox O2 Delivery O2 Flow Rate FiO2 09/25/19 11:01 98.8 100 18 171/65 (100) Room Air 98.8 09/25/19 09:00 2.0 09/24/19 23:10 96 Physical Exam General: Alert, Oriented X3, Cooperative, No acute distress, mild distress Heart: Regular rate, Normal S1, Normal S2, No murmurs Lungs: Clear Abdomen: Normal bowel sounds, Soft, No tenderness Extremities: No clubbing, No cyanosis, No edema Skin: No rashes, No breakdown, No significant lesion Labs LABS * Pain Clinical Presentation * Evolving Evaluation Complexity Level * Moderate Complexity Pt/caregiver agrees with plan of care/goals * Yes Patient condition at conclusion of therapy * Pt in chair * Call light in reach * Phone in reach * PtIn no apparent distress * Pt denies further needs Communicated Patient Care With (Name, Title) * TALHA Carmona Goal 1 - Bed Mobility Assistance Required * Independent Goal 1 Assessment * Appropriate - Continue Goal 2 - Transfers Assistance Required * Independent Goal 2 - Transfer Type * Sit to Stand Goal 2 Assessment * Appropriate - Continue Goal 3 - Ambulation Assistance Required * Independent Goal 3 - Ambulation Distance * 250' Goal 3 - Ambulation Device * Roller Walker Goal 3 Assessment * Appropriate - Continue Treatment Plan * Therapeutic Exercise * Bed Mobility Training * Transfer training * Gait Training Frequency of Treatment Expected * 7 visits/week Duration of Treatment Expected * 2 weeks Discharge Recommendations * [facility] Discharge Recommendation - DME * Rolling Walker needed * in order to complete ADLs * and ambulation safely Assessment and Plan Assessmemt and Plan Problems Medical Problems: (1) Anemia Status: Acute (2) Elevated lactic acid level Status: Acute (3) Elevated troponin Status: Acute (4) GI bleeding Status: Acute (5) Hyperkalemia Status: Acute (6) Renal insufficiency Status: Acute Comment Review of Relevant I have reviewed the following items helen (where applicable) has been applied. Labs Laboratory Tests Test 09/24/19 03:20 White Blood Count 5.9 x10^3/uL (4.0-11.0) Red Blood Count 2.57 x10^6/uL (4.30-5.70) Hemoglobin 8.0 g/dL (13.0-17.5) Hematocrit 24.3 % (39.0-53.0) Mean Corpuscular Volume 95 fL (79-100) Mean Corpuscular Hemoglobin 31 pg (25-35) Mean Corpuscular Hemoglobin Concent 33 g/dL (31-37) Red Cell Distribution Width 25.1 % (11.5-14.5) Platelet Count 298 x10^3/uL (140-400) Neutrophils (%) (Auto) 54 % (31-73) Lymphocytes (%) (Auto) 30 % (24-48) Monocytes (%) (Auto) 11 % (0-9) Eosinophils (%) (Auto) 5 % (0-3) Basophils (%) (Auto) 1 % (0-3) Neutrophils # (Auto) 3.2 x10^3/uL (1.8-7.7) Lymphocytes # (Auto) 1.8 x10^3/uL (1.0-4.8) Monocytes # (Auto) 0.6 x10^3/uL (0.0-1.1) Eosinophils # (Auto) 0.3 x10^3/uL (0.0-0.7) Basophils # (Auto) 0.0 x10^3/uL (0.0-0.2) Iron Level 41 ug/dL (65-175) Total Iron Binding Capacity 95 ug/dL (250-450) Iron Saturation 43 % (15-34) Vitamin B12 Level 712 pg/mL (247-911) Free Thyroxine 1.16 ng/dL (0.76-1.46) Free Triiodothyronine (T3) pg/mL 1.51 pg/mL (2.18-3.98) Microbiology 09/21/19 Blood Culture - Preliminary, Resulted NO GROWTH AFTER 3 DAYS Medications Current Medications Sodium Chloride 1,000 ml @ 1,000 mls/hr Q1H IV Last administered on 09/21/19at 16:28; Start 09/21/19 at 15:43; Stop 09/21/19 at 16:42; Status DC Pantoprazole Sodium (PROTONIX VIAL for IV PUSH) 40 mg 1X ONCE IVP Last administered on 09/21/19at 16:29; Start 09/21/19 at 15:45; Stop 09/21/19 at 15:50; Status DC Sodium Chloride 1,000 ml @ 125 mls/hr Q8H IV Last administered on 09/22/19at 02:52; Start 09/21/19 at 17:14; Stop 09/22/19 at 17:13; Status DC Pantoprazole Sodium 80 mg/ Sodium Chloride 100 ml @ 10 mls/hr Q10H IV Last administered on 09/21/19at 17:42; Start 09/21/19 at 17:15; Stop 09/21/19 at 19:00; Status DC Acetaminophen (Tylenol) 650 mg PRN Q6HRS PRN PO Headaches, Temp > 101.5'; Start 09/21/19 at 19:00 Lorazepam (Ativan Inj) 0.5 mg PRN Q6HRS PRN IV ANXIETY / AGITATION; Start 09/21/19 at 19:00 Ondansetron HCl (Zofran) 4 mg PRN Q6HRS PRN IV NAUSEA/VOMITING; Start 09/21/19 at 19:00; Status Cancel Prochlorperazine Edisylate (Compazine) 5 mg PRN Q6HRS PRN IV NAUSEA/VOMITING, 2ND CHOICE; Start 09/21/19 at 19:00 Famotidine (Pepcid) 20 mg BID PO ; Start 09/21/19 at 21:00; Stop 09/21/19 at 18:59; Status DC Famotidine (Pepcid Vial) 20 mg BID IVP ; Start 09/21/19 at 21:00; Status Cancel Info (Icu Electrolyte Protocol) 1 ea DAILY MC Last administered on 09/22/19at 09:00; Start 09/22/19 at 09:00 Sodium Chloride (Normal Saline Flush) 3 ml QSHIFT PRN IV AFTER MEDS AND BLOOD DRAWS; Start 09/21/19 at 19:00 Sodium Chloride 1,000 ml @ 75 mls/hr [id number] IV Last administered on 09/25/19at 03:44; Start 09/21/19 at 18:53 Hydromorphone HCl (Dilaudid) 0.2 mg PRN Q1HR PRN IV PAIN Last administered on 09/25/19at 09:36; Start 09/21/19 at 19:00 Docusate Sodium (Colace) 100 mg BID PO Last administered on 09/25/19at 09:35; Start 09/21/19 at 21:00 Pantoprazole Sodium 80 mg/ Sodium Chloride 100 ml @ 10 mls/hr Q10H IV Last administered on 09/23/19at 05:11; Start 09/21/19 at 19:00; Stop 09/23/19 at 14:34; Status DC Piperacillin Sod/ Tazobactam Sod 3.375 gm/Sodium Chloride 50 ml @ 100 mls/hr Q6HRS IV Last administered on 09/24/19at 12:49; Start 09/21/19 at 19:30; Stop 09/24/19 at 14:21; Status DC Sodium Chloride (Normal Saline Flush) 3 ml QSHIFT PRN IV AFTER MEDS AND BLOOD DRAWS; Start 09/21/19 at 19:15; Status UNV Ondansetron HCl (Zofran) 4 mg PRN Q4HRS PRN IV NAUSEA/VOMITING, 1ST CHOICE; Start 09/21/19 at 19:15 Acetaminophen (Tylenol) 650 mg PRN Q4HRS PRN PO TEMP OVER 100.4F OR MILD PAIN; Start 09/21/19 at 19:15; Status UNV Docusate Sodium (Colace) 100 mg PRN BID PRN PO CONSTIPATION; Start 09/21/19 at 19:15 Albuterol Sulfate (Ventolin Neb Soln) 2.5 mg PRN Q4HRS PRN NEB SHORTNESS OF BREATH; Start 09/21/19 at 19:15 Lorazepam (Ativan) 0.5 mg PRN Q4HRS PRN PO ANXIETY / AGITATION; Start 09/21/19 at 19:15 Piperacillin Sod/ Tazobactam Sod 3.375 gm/Sodium Chloride 50 ml @ 100 mls/hr Q6HRS IV ; Start 09/22/19 at 00:00; Status UNV Ringer's Solution 1,000 ml @ 50 mls/hr Q20H IV Last administered on 09/23/19at 14:00; Start 09/23/19 at 07:00; Stop 09/23/19 at 18:59; Status DC Lactobacillus Rhamnosus (Culturelle) 1 cap BID PO Last administered on 09/25/19at 09:35; Start 09/22/19 at 21:00 Ringer's Solution 1,000 ml @ 75 mls/hr 1X ONCE IV ; Start 09/23/19 at 07:30; Stop 09/23/19 at 20:49; Status DC Zinc Acetate/ Diphenhydramine (Benadryl Topical) 1 ancelmo PRN Q6HRS PRN TP ITCHING; Start 09/23/19 at 13:00 Propofol 20 ml @ As Directed STK-MED ONCE IV ; Start 09/23/19 at 14:11; Stop 09/23/19 at 14:12; Status DC Lidocaine HCl (Lidocaine Pf 2% Vial) 5 ml STK-MED ONCE .ROUTE ; Start 09/23/19 at 14:13; Stop 09/23/19 at 14:14; Status DC Pantoprazole Sodium (Protonix) 40 mg DAILYAC PO Last administered on 09/25/19at 09:35; Start 09/23/19 at 14:45 Active Scripts Active Multi-Vitamin Daily (Multivitamin) 1 Each Tablet 1 Tab PO DAILY 30 Days Vitamin D (Cholecalciferol (Vitamin D3)) 2,000 Unit Capsule 1 Cap PO DAILY B Complex (Vitamin B Complex) 1 Each Tablet 1 Tab PO DAILY 30 Days Midodrine Hcl 2.5 Mg Tablet 2.5 Mg PO DAILY Aspirin Ec (Aspirin) 81 Mg Tablet.dr 81 Mg PO DAILYWBKFT Hydrocodone-Acetamin 5-325 mg (Hydrocodone/Acetaminophen) 1 Each Tablet 1 Tab PO PRN BID PRN Vitals/I & O Vital Sign - Last 24 Hours 09/24/19 09/24/19 09/24/19 09/24/19 11:22 12:04 15:18 19:20 Temp 97.7 98.4 98.2 97.7 98.4 98.2 Pulse 94 91 94 Resp 20 20 20 B/P (MAP) 167/92 (117) 152/77 (102) 155/80 (105) Pulse Ox 98 97 99 97 O2 Delivery Room Air Room Air Room Air Room Air 09/24/19 09/24/19 09/24/19 09/24/19 20:00 21:11 21:41 23:10 Temp 98.4 98.4 Pulse 94 Resp 20 B/P (MAP) 174/81 (112) Pulse Ox 96 O2 Delivery Room Air Room Air Room Air Room Air O2 Flow Rate 2.0 09/25/19 09/25/19 09/25/19 09/25/19 02:20 07:44 09:00 09:36 Temp 98.2 98.4 98.2 98.4 Pulse 94 115 Resp 18 B/P (MAP) 165/73 (103) 184/81 (115) O2 Delivery Room Air Room Air Room Air Room Air O2 Flow Rate 2.0 09/25/19 09/25/19 10:06 11:01 Temp 98.8 98.8 Pulse 100 Resp 18 18 B/P (MAP) 171/65 (100) O2 Delivery Room Air Room Air Intake and Output 09/24/19 09/24/19 09/25/19 15:00 23:00 07:00 Intake Total 500 ml 200 ml 250 ml Output Total 1 ml Balance 499 ml 200 ml 250 ml Nutrition Consultation Dietary Evaluation: Recommendations by RD: Dietary education by RD, Increase Calorie Intake, Prot ein supplementation Comments: rec cardiac diet with ensure tid Expected Outcomes/Goals: to meet >75% est nutr needs Malnutrition Findings: Food and Nutrition Intake (Sev: <50% est energy req 5days Weight Status: Overweight ELLIS JETT MD Sep 25, 2019 11:08
[2019-09-25 15:20] VITALS: BP 193/88
--- NOTE | 2019-09-25 16:09 | NUR ---
Pt having episodes of sinus tach with PACS. Heart rate sometimes in the 140s when up to bedside commode. Dr Morrison was on unit. He is familar with this patient and looked at the history on the monitor. No changes made at this time.
--- NOTE | 2019-09-25 16:16 | NUR ---
Pt has scrotal swelling noted. States it just started today. Mild redness noted. Dr Olsen aware. Ultrasound ordered on scrotum.
[2019-09-25] MEDS: ACETAMINOPHEN 325 MG TABLET. PO PRN ×2 (16:31→22:07)
--- NOTE | 2019-09-25 16:43 | RAD ---
Examination: Ultrasound testis HISTORY: History of testicular swelling COMPARISON: None available. FINDINGS: The right testis measures 3.5 x 2.5 x 1.9 cm. The left testis measures 3.2 x 2.1 x 1.8 cm. Blood flow identified in the right and left testis. 2 small subcentimeter cystic identified in the right testis likely cysts. Bilateral extratesticular calcification identified with largest measuring 7 mm inferior to the left testis. Diffuse swelling of the scrotum. Enlarged heterogeneous appearing bilateral epididymis. IMPRESSION: 1. Diffuse large swelling of the scrotum, nonspecific. Could be edema or infection. Correlate clinically. 2. Enlarged appearing bilateral epididymis, epididymitis is not completely excluded however increased vascular flow is not evident in the epididymis. 3. Subcentimeter right testicular cysts. Electronically signed by: Murphy Moran MD (09/25/2019 4:39 PM) [facility]
[2019-09-25 19:30] VITALS: BP 185/93
[2019-09-25 23:49] VITALS: BP 160/76
[2019-09-26 03:37] VITALS: BP 148/70
[2019-09-26] MEDS: IV NORMAL SALINE 1000ML BAG 1,000 ML IV SCH ×2 (05:33→17:14)
[2019-09-26 07:37] VITALS: BP 183/89
[2019-09-26] MEDS: ELECTROLYTE (ICU) PROTOCOL. MC SCH (08:54)
[2019-09-26] MEDS: DOCUSATE SODIUM 100 MG CAPSULE. PO SCH ×2 (08:54→20:43)
[2019-09-26] MEDS: ACETAMINOPHEN 325 MG TABLET. PO PRN ×2 (08:54→20:42)
[2019-09-26] MEDS: PANTOPRAZOLE 40 MG TABLET.DR. PO SCH (08:54)
[2019-09-26] MEDS: LACTOBACILLUS RHAMNOSUS GG 1 CAPSULE. PO SCH ×2 (08:59→20:42)
--- NOTE | 2019-09-26 09:41 | PDOC ---
PROGRESS NOTES Chief Complaint Chief Complaint IMPRESSION Fatigue, dyspnea severe debility, weakness of trunk Macrocytic anemia, +Hemoccult Mildly elevated troponin (resolved), elevated BNP, lactic acidosis (resolved), e levated BUN Abnormal CT Recent c scope hemorrhoidal polyps, sessile Acute precip drop hgb SEVERE PROTEIN-CALORIC MALNUTRITION Only a small amount of ascites is identified by ultrasound. Only a few cc of fluid could be safely aspirated. Samples were sent for culture. consider ischemic evaluation as an outpatient scrotal edema likely sec to severe hypo-albuminemia Improved Hg S/p transfusions. EGD 09/23 Acid suppressive therapy for 2 months with interval EGD to confirm healing. 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 Operative Note Operative Note Operative Note EGD with biopsy Meds propofol per anesthesia Pre-op dx Acute blood loss anemia/melena post-op dx gastric ulcers s/p bx duodenal ulcer with clean base Plan PPI therapy with repeat egd in 2 months to confirm ulcer healing CHELLE BERNARD MD * 2 weeks Discharge Recommendations * Long-Term Unit Discharge Recommendation - DME * Rolling Walker needed * in order to complete ADLs * and ambulation safely Vitals Vitals Vital Signs Date Time Temp Pulse Resp B/P (MAP) Pulse Ox O2 Delivery O2 Flow Rate FiO2 09/26/19 07:37 99.5 99 18 183/89 (120) 97 Room Air 99.5 09/25/19 09:00 2.0 Physical Exam General: Alert, Oriented X3, Cooperative, No acute distress, mild distress Heart: Regular rate, Normal S1, Normal S2, No murmurs Lungs: Clear Abdomen: Normal bowel sounds, Soft, No tenderness Extremities: No clubbing, No cyanosis, No edema Skin: No rashes, No breakdown, No significant lesion Labs LABS Examination: Ultrasound testis HISTORY: History of testicular swelling COMPARISON: None available. FINDINGS: The right testis measures 3.5 x 2.5 x 1.9 cm. The left testis measures 3.2 x 2.1 x 1.8 cm. Blood flow identified in the right and left testis. 2 small subcentimeter cystic identified in the right testis likely cysts. Bilateral extratesticular calcification identified with largest measuring 7 mm inferior to the left testis. Diffuse swelling of the scrotum. Enlarged heterogeneous appearing bilateral epididymis. IMPRESSION: 1. Diffuse large swelling of the scrotum, nonspecific. Could be edema or infection. Correlate clinically. 2. Enlarged appearing bilateral epididymis, epididymitis is not completely excluded however increased vascular flow is not evident in the epididymis. 3. Subcentimeter right testicular cysts. Electronically signed by: Murphy Moran MD (09/25/2019 4:39 PM) [facility] DICTATED and SIGNED BY: MURPHY MORAN MD Assessment and Plan Assessmemt and Plan Problems Medical Problems: (1) Anemia Status: Acute (2) Elevated lactic acid level Status: Acute (3) Elevated troponin Status: Acute (4) GI bleeding Status: Acute (5) Hyperkalemia Status: Acute (6) Renal insufficiency Status: Acute Communicated Patient Care With (Name, Title) * TALHA Hager Goal 1 - Bed Mobility Assistance Required * Independent Goal 1 Assessment * Appropriate - Continue Goal 2 - Transfers Assistance Required * Independent Goal 2 - Transfer Type * Sit to Stand Goal 2 Assessment * Appropriate - Continue Goal 3 - Ambulation Assistance Required * Independent Goal 3 - Ambulation Distance * 250' Goal 3 - Ambulation Device * Roller Walker Goal 3 Assessment * Appropriate - Continue Treatment Plan * Therapeutic Exercise * Bed Mobility Training * Transfer training * Gait Training Frequency of Treatment Expected * 7 visits/week Duration of Treatment Expected * 2 weeks Discharge Recommendations * Long-Term Unit Discharge Recommendation - DME * Rolling Walker needed * and ambulation safely Discharge Recommendation Comments * SNU; RW use; Comment Review of Relevant I have reviewed the following items helen (where applicable) has been applied. Labs Microbiology 09/21/19 Blood Culture - Preliminary, Resulted NO GROWTH AFTER 4 DAYS Medications Current Medications Sodium Chloride 1,000 ml @ 1,000 mls/hr Q1H IV Last administered on 09/21/19at 16:28; Start 09/21/19 at 15:43; Stop 09/21/19 at 16:42; Status DC Pantoprazole Sodium (PROTONIX VIAL for IV PUSH) 40 mg 1X ONCE IVP Last administered on 09/21/19at 16:29; Start 09/21/19 at 15:45; Stop 09/21/19 at 15:50; Status DC Sodium Chloride 1,000 ml @ 125 mls/hr Q8H IV Last administered on 09/22/19at 02:52; Start 09/21/19 at 17:14; Stop 09/22/19 at 17:13; Status DC Pantoprazole Sodium 80 mg/ Sodium Chloride 100 ml @ 10 mls/hr Q10H IV Last administered on 09/21/19at 17:42; Start 09/21/19 at 17:15; Stop 09/21/19 at 19:00; Status DC Acetaminophen (Tylenol) 650 mg PRN Q6HRS PRN PO Headaches, Temp > 101.5' Last administered on 09/26/19 08:54; Start 09/21/19 at 19:00 Lorazepam (Ativan Inj) 0.5 mg PRN Q6HRS PRN IV ANXIETY / AGITATION Last administered on 09/25/19at 20:00; Start 09/21/19 at 19:00 Ondansetron HCl (Zofran) 4 mg PRN Q6HRS PRN IV NAUSEA/VOMITING; Start 09/21/19 at 19:00; Status Cancel Prochlorperazine Edisylate (Compazine) 5 mg PRN Q6HRS PRN IV NAUSEA/VOMITING, 2ND CHOICE; Start 09/21/19 at 19:00 Famotidine (Pepcid) 20 mg BID PO ; Start 09/21/19 at 21:00; Stop 09/21/19 at 18:59; Status DC Famotidine (Pepcid Vial) 20 mg BID IVP ; Start 09/21/19 at 21:00; Status Cancel Info (Icu Electrolyte Protocol) 1 ea DAILY MC Last administered on 09/22/19at 09:00; Start 09/22/19 at 09:00 Sodium Chloride (Normal Saline Flush) 3 ml QSHIFT PRN IV AFTER MEDS AND BLOOD DRAWS; Start 09/21/19 at 19:00 Sodium Chloride 1,000 ml @ 75 mls/hr [id number] IV Last administered on 09/25/19at 16:30; Start 09/21/19 at 18:53 Hydromorphone HCl (Dilaudid) 0.2 mg PRN Q1HR PRN IV PAIN Last administered on 1 11/26/18at 09:36; Start 09/21/19 at 19:00; Stop 09/25/19 at 15:18; Status DC Docusate Sodium (Colace) 100 mg BID PO Last administered on 09/26/19at 08:54; Start 09/21/19 at 21:00 Pantoprazole Sodium 80 mg/ Sodium Chloride 100 ml @ 10 mls/hr Q10H IV Last administered on 09/23/19at 05:11; Start 09/21/19 at 19:00; Stop 09/23/19 at 14:34; Status DC Piperacillin Sod/ Tazobactam Sod 3.375 gm/Sodium Chloride 50 ml @ 100 mls/hr Q6HRS IV Last administered on 09/24/19at 12:49; Start 09/21/19 at 19:30; Stop 09/24/19 at 14:21; Status DC Sodium Chloride (Normal Saline Flush) 3 ml QSHIFT PRN IV AFTER MEDS AND BLOOD DRAWS; Start 09/21/19 at 19:15; Status UNV Ondansetron HCl (Zofran) 4 mg PRN Q4HRS PRN IV NAUSEA/VOMITING, 1ST CHOICE; Start 09/21/19 at 19:15 Acetaminophen (Tylenol) 650 mg PRN Q4HRS PRN PO TEMP OVER 100.4F OR MILD PAIN; Start 09/21/19 at 19:15; Status UNV Docusate Sodium (Colace) 100 mg PRN BID PRN PO CONSTIPATION; Start 09/21/19 at 19:15 Albuterol Sulfate (Ventolin Neb Soln) 2.5 mg PRN Q4HRS PRN NEB SHORTNESS OF BREATH; Start 09/21/19 at 19:15 Lorazepam (Ativan) 0.5 mg PRN Q4HRS PRN PO ANXIETY / AGITATION; Start 09/21/19 at 19:15 Piperacillin Sod/ Tazobactam Sod 3.375 gm/Sodium Chloride 50 ml @ 100 mls/hr Q6HRS IV ; Start 09/22/19 at 00:00; Status UNV Ringer's Solution 1,000 ml @ 50 mls/hr Q20H IV Last administered on 09/23/19at 14:00; Start 09/23/19 at 07:00; Stop 09/23/19 at 18:59; Status DC Lactobacillus Rhamnosus (Culturelle) 1 cap BID PO Last administered on 09/26/19at 08:59; Start 09/22/19 at 21:00 Ringer's Solution 1,000 ml @ 75 mls/hr 1X ONCE IV ; Start 09/23/19 at 07:30; Stop 09/23/19 at 20:49; Status DC Zinc Acetate/ Diphenhydramine (Benadryl Topical) 1 ancelmo PRN Q6HRS PRN TP ITCHING; Start 09/23/19 at 13:00 Propofol 20 ml @ As Directed STK-MED ONCE IV ; Start 09/23/19 at 14:11; Stop 09/23/19 at 14:12; Status DC Lidocaine HCl (Lidocaine Pf 2% Vial) 5 ml STK-MED ONCE .ROUTE ; Start 09/23/19 at 14:13; Stop 09/23/19 at 14:14; Status DC Pantoprazole Sodium (Protonix) 40 mg DAILYAC PO Last administered on 09/26/19at 08:54; Start 09/23/19 at 14:45 Active Scripts Active Multi-Vitamin Daily (Multivitamin) 1 Each Tablet 1 Tab PO DAILY 30 Days Vitamin D (Cholecalciferol (Vitamin D3)) 2,000 Unit Capsule 1 Cap PO DAILY B Complex (Vitamin B Complex) 1 Each Tablet 1 Tab PO DAILY 30 Days Midodrine Hcl 2.5 Mg Tablet 2.5 Mg PO DAILY Aspirin Ec (Aspirin) 81 Mg Tablet.dr 81 Mg PO DAILYWBKFT Hydrocodone-Acetamin 5-325 mg (Hydrocodone/Acetaminophen) 1 Each Tablet 1 Tab PO PRN BID PRN Vitals/I & O Vital Sign - Last 24 Hours 09/25/19 09/25/19 09/25/19 09/25/19 07:44 09:00 09:36 10:06 Temp 98.4 98.4 Pulse 115 Resp 18 B/P (MAP) 184/81 (115) O2 Delivery Room Air Room Air Room Air Room Air O2 Flow Rate 2.0 09/25/19 09/25/19 09/25/19 09/25/19 11:01 15:20 19:30 20:00 Temp 98.8 100.3 100.0 98.8 100.3 100.0 Pulse 100 122 105 Resp 18 20 B/P (MAP) 171/65 (100) 193/88 (123) 185/93 (123) Pulse Ox 98 O2 Delivery Room Air Room Air Room Air Room Air 09/25/19 09/26/19 09/26/19 23:49 03:37 07:37 Temp 99.8 99.1 99.5 99.8 99.1 99.5 Pulse 108 90 99 Resp 20 18 18 B/P (MAP) 160/76 (104) 148/70 (96) 183/89 (120) Pulse Ox 96 98 97 O2 Delivery Room Air Room Air Room Air Intake and Output 09/25/19 09/26/19 09/26/19 17:00 01:00 09:00 Intake Total 300 ml 980 ml 240 ml Balance 300 ml 980 ml 240 ml Nutrition Consultation Dietary Evaluation: Recommendations by RD: Dietary education by RD, Increase Calorie Intake, Protein supplementation Comments: rec cardiac diet with ensure tid Expected Outcomes/Goals: to meet >75% est nutr needs Malnutrition Findings: Food and Nutrition Intake (Sev: <50% est energy req 5days Weight Status: Overweight ELLIS JETT MD Sep 26, 2019 09:41
[2019-09-26 10:58] VITALS: BP 114/57
[2019-09-26 12:50] LABS: ALBUMIN 1.3 g/dL (3.4-5.0); ALBUMIN/GLOBULIN RATIO 0.3 (1.0-1.7); CALCIUM 7.5 mg/dL (8.5-10.1); CREATININE 0.8 mg/dL (0.7-1.3); GFR 95.3; POTASSIUM 3.1 mmol/L (3.5-5.1); TOTAL BILIRUBIN 0.4 mg/dL (0.2-1.0); TOTAL PROTEIN 5.9 g/dL (6.4-8.2)
[2019-09-26 13:05] LABS: BASO % 0 % (0-3); EOS % 1 % (0-3); HEMATOCRIT 27.2 % (39.0-53.0); HEMOGLOBIN 8.9 g/dL (13.0-17.5); LYMPH # 1.3 x10^3/uL (1.0-4.8); LYMPH % 13 % (24-48); MEAN CORPUSCULAR HEMOGLOBIN 32 pg (25-35); MEAN CORPUSCULAR HGB CONC 33 g/dL (31-37); MEAN CORPUSCULAR VOLUME 96 fL (79-100); MONO # 1.2 x10^3/uL (0.0-1.1); MONO % 12 % (0-9); NEUT # 7.4 x10^3/uL (1.8-7.7); NEUT % 74 % (31-73); PLATELET COUNT 323 x10^3/uL (140-400); RED BLOOD COUNT 2.83 x10^6/uL (4.30-5.70); RED CELL DISTRIBUTION WIDTH 24.6 % (11.5-14.5); WHITE BLOOD COUNT 9.9 x10^3/uL (4.0-11.0)
[2019-09-26 15:40] VITALS: BP 188/80
[2019-09-26] MEDS ORDERED: POTASSIUM CHLORIDE 20 MEQ TABLET.ER. PO ONE (16:45)
[2019-09-26 19:15] VITALS: BP 170/77
[2019-09-26 23:15] VITALS: BP 161/75
[2019-09-27 03:15] VITALS: BP 151/66
[2019-09-27 05:20] LABS: BASO % 0 % (0-3); EOS # 0.2 x10^3/uL (0.0-0.7); EOS % 2 % (0-3); HEMOGLOBIN 8.4 g/dL (13.0-17.5); LYMPH # 1.5 x10^3/uL (1.0-4.8); LYMPH % 17 % (24-48); MEAN CORPUSCULAR HEMOGLOBIN 32 pg (25-35); MEAN CORPUSCULAR HGB CONC 34 g/dL (31-37); MEAN CORPUSCULAR VOLUME 94 fL (79-100); MONO % 12 % (0-9); NEUT % 69 % (31-73); PLATELET COUNT 317 x10^3/uL (140-400); RED BLOOD COUNT 2.65 x10^6/uL (4.30-5.70); RED CELL DISTRIBUTION WIDTH 24.7 % (11.5-14.5); WHITE BLOOD COUNT 8.7 x10^3/uL (4.0-11.0)
[2019-09-27 05:23] LABS: CALCIUM 7.5 mg/dL (8.5-10.1); CREATININE 0.7 mg/dL (0.7-1.3); GFR 111.2; POTASSIUM 3.4 mmol/L (3.5-5.1)
[2019-09-27 07:30] LABS: ANISOCYTOSIS MOD; PLT ESTIMATE ADEQUATE (ADEQUATE); POLYCHROMASIA SLIGHT
[2019-09-27 07:31] LABS: OVALOCYTES FEW; POIKILOCYTOSIS SLIGHT; TARGET CELLS OCC
[2019-09-27 07:54] VITALS: BP 158/74
[2019-09-27] MEDS: ELECTROLYTE (ICU) PROTOCOL. MC SCH (09:00)
--- NOTE | 2019-09-27 09:01 | NUR ---
Left a VM to Margie at to see if they are able to take pt for SNU. Addendum: 09/27/19 at 1200 by DEBORAH JOE Pt is able to go to [facility] today. Physician notified.
--- NOTE | 2019-09-27 10:02 | PDOC ---
PROGRESS NOTES Chief Complaint Chief Complaint IMPRESSION Fatigue, dyspnea severe debility, weakness of trunk Macrocytic anemia, +Hemoccult Mildly elevated troponin (resolved), elevated BNP, lactic acidosis (resolved), e levated BUN Abnormal CT Recent c scope hemorrhoidal polyps, sessile Acute precip drop hgb SEVERE PROTEIN-CALORIC MALNUTRITION Only a small amount of ascites is identified by ultrasound. Only a few cc of fluid could be safely aspirated. Samples were sent for culture. consider ischemic evaluation as an outpatient scrotal edema likely sec to severe hypo-albuminemia Improved Hg S/p transfusions. EGD 09/23 Acid suppressive therapy for 2 months with interval EGD to confirm healing. 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 Operative Note Operative Note Operative Note EGD with biopsy Meds propofol per anesthesia Pre-op dx Acute blood loss anemia/melena post-op dx gastric ulcers s/p bx duodenal ulcer with clean base Plan PPI therapy with repeat egd in 2 months to confirm ulcer healing CHELLE BERNARD MD * 2 weeks Discharge Recommendations * [facility] Unit Discharge Recommendation - DME * Rolling Walker needed * in order to complete ADLs * and ambulation safely Vitals Vitals Vital Signs Date Time Temp Pulse Resp B/P (MAP) Pulse Ox O2 Delivery O2 Flow Rate FiO2 09/27/19 07:54 98.4 100 18 158/74 (102) 97 Room Air 98.4 09/26/19 08:15 2.0 Physical Exam General: Alert, Oriented X3, Cooperative, No acute distress, mild distress Heart: Regular rate, Normal S1, Normal S2, No murmurs Lungs: Clear Abdomen: Normal bowel sounds, Soft, No tenderness Extremities: No clubbing, No cyanosis, No edema Skin: No rashes, No breakdown, No significant lesion Labs LABS Laboratory Tests Test 09/26/19 12:15 09/27/19 03:00 White Blood Count 9.9 x10^3/uL (4.0-11.0) 8.7 x10^3/uL (4.0-11.0) Red Blood Count 2.83 x10^6/uL (4.30-5.70) 2.65 x10^6/uL (4.30-5.70) Hemoglobin 8.9 g/dL (13.0-17.5) 8.4 g/dL (13.0-17.5) Hematocrit 27.2 % (39.0-53.0) 25.0 % (39.0-53.0) Mean Corpuscular Volume 96 fL (79-100) 94 fL (79-100) Mean Corpuscular Hemoglobin 32 pg (25-35) 32 pg (25-35) Mean Corpuscular Hemoglobin Concent 33 g/dL (31-37) 34 g/dL (31-37) Red Cell Distribution Width 24.6 % (11.5-14.5) 24.7 % (11.5-14.5) Platelet Count 323 x10^3/uL (140-400) 317 x10^3/uL (140-400) Neutrophils (%) (Auto) 74 % (31-73) 69 % (31-73) Lymphocytes (%) (Auto) 13 % (24-48) 17 % (24-48) Monocytes (%) (Auto) 12 % (0-9) 12 % (0-9) Eosinophils (%) (Auto) 1 % (0-3) 2 % (0-3) Basophils (%) (Auto) 0 % (0-3) 0 % (0-3) Neutrophils # (Auto) 7.4 x10^3/uL (1.8-7.7) 6.0 x10^3/uL (1.8-7.7) Lymphocytes # (Auto) 1.3 x10^3/uL (1.0-4.8) 1.5 x10^3/uL (1.0-4.8) Monocytes # (Auto) 1.2 x10^3/uL (0.0-1.1) 1.0 x10^3/uL (0.0-1.1) Eosinophils # (Auto) 0.0 x10^3/uL (0.0-0.7) 0.2 x10^3/uL (0.0-0.7) Basophils # (Auto) 0.0 x10^3/uL (0.0-0.2) 0.0 x10^3/uL (0.0-0.2) Sodium Level 136 mmol/L (136-145) 139 mmol/L (136-145) Potassium Level 3.1 mmol/L (3.5-5.1) 3.4 mmol/L (3.5-5.1) Chloride Level 106 mmol/L (98-107) 108 mmol/L (98-107) Carbon Dioxide Level 25 mmol/L (21-32) 25 mmol/L (21-32) Anion Gap 5 (6-14) 6 (6-14) Blood Urea Nitrogen 8 mg/dL (8-26) 7 mg/dL (8-26) Creatinine 0.8 mg/dL (0.7-1.3) 0.7 mg/dL (0.7-1.3) Estimated GFR (Cockcroft-Gault) 95.3 111.2 BUN/Creatinine Ratio 10 (6-20) Glucose Level 119 mg/dL (70-99) 86 mg/dL (70-99) Calcium Level 7.5 mg/dL (8.5-10.1) 7.5 mg/dL (8.5-10.1) Total Bilirubin 0.4 mg/dL (0.2-1.0) Aspartate Amino Transf (AST/SGOT) 22 U/L (15-37) Alanine Aminotransferase (ALT/SGPT) 7 U/L (16-63) Alkaline Phosphatase 86 U/L (46-116) Total Protein 5.9 g/dL (6.4-8.2) Albumin 1.3 g/dL (3.4-5.0) Albumin/Globulin Ratio 0.3 (1.0-1.7) Platelet Estimate Adequate (ADEQUATE) Polychromasia Slight Poikilocytosis Slight Anisocytosis Mod Target Cells Occ Ovalocytes Few Assessment and Plan Assessmemt and Plan Problems Medical Problems: (1) Anemia Status: Acute (2) Elevated lactic acid level Status: Acute (3) Elevated troponin Status: Acute (4) GI bleeding Status: Acute (5) Hyperkalemia Status: Acute (6) Renal insufficiency Status: Acute Comment Review of Relevant I have reviewed the following items helen (where applicable) has been applied. Labs Laboratory Tests Test 09/26/19 12:15 09/27/19 03:00 White Blood Count 9.9 x10^3/uL (4.0-11.0) 8.7 x10^3/uL (4.0-11.0) Red Blood Count 2.83 x10^6/uL (4.30-5.70) 2.65 x10^6/uL (4.30-5.70) Hemoglobin 8.9 g/dL (13.0-17.5) 8.4 g/dL (13.0-17.5) Hematocrit 27.2 % (39.0-53.0) 25.0 % (39.0-53.0) Mean Corpuscular Volume 96 fL (79-100) 94 fL (79-100) Mean Corpuscular Hemoglobin 32 pg (25-35) 32 pg (25-35) Mean Corpuscular Hemoglobin Concent 33 g/dL (31-37) 34 g/dL (31-37) Red Cell Distribution Width 24.6 % (11.5-14.5) 24.7 % (11.5-14.5) Platelet Count 323 x10^3/uL (140-400) 317 x10^3/uL (140-400) Neutrophils (%) (Auto) 74 % (31-73) 69 % (31-73) Lymphocytes (%) (Auto) 13 % (24-48) 17 % (24-48) Monocytes (%) (Auto) 12 % (0-9) 12 % (0-9) Eosinophils (%) (Auto) 1 % (0-3) 2 % (0-3) Basophils (%) (Auto) 0 % (0-3) 0 % (0-3) Neutrophils # (Auto) 7.4 x10^3/uL (1.8-7.7) 6.0 x10^3/uL (1.8-7.7) Lymphocytes # (Auto) 1.3 x10^3/uL (1.0-4.8) 1.5 x10^3/uL (1.0-4.8) Monocytes # (Auto) 1.2 x10^3/uL (0.0-1.1) 1.0 x10^3/uL (0.0-1.1) Eosinophils # (Auto) 0.0 x10^3/uL (0.0-0.7) 0.2 x10^3/uL (0.0-0.7) Basophils # (Auto) 0.0 x10^3/uL (0.0-0.2) 0.0 x10^3/uL (0.0-0.2) Sodium Level 136 mmol/L (136-145) 139 mmol/L (136-145) Potassium Level 3.1 mmol/L (3.5-5.1) 3.4 mmol/L (3.5-5.1) Chloride Level 106 mmol/L (98-107) 108 mmol/L (98-107) Carbon Dioxide Level 25 mmol/L (21-32) 25 mmol/L (21-32) Anion Gap 5 (6-14) 6 (6-14) Blood Urea Nitrogen 8 mg/dL (8-26) 7 mg/dL (8-26) Creatinine 0.8 mg/dL (0.7-1.3) 0.7 mg/dL (0.7-1.3) Estimated GFR (Cockcroft-Gault) 95.3 111.2 BUN/Creatinine Ratio 10 (6-20) Glucose Level 119 mg/dL (70-99) 86 mg/dL (70-99) Calcium Level 7.5 mg/dL (8.5-10.1) 7.5 mg/dL (8.5-10.1) Total Bilirubin 0.4 mg/dL (0.2-1.0) Aspartate Amino Transf (AST/SGOT) 22 U/L (15-37) Alanine Aminotransferase (ALT/SGPT) 7 U/L (16-63) Alkaline Phosphatase 86 U/L (46-116) Total Protein 5.9 g/dL (6.4-8.2) Albumin 1.3 g/dL (3.4-5.0) Albumin/Globulin Ratio 0.3 (1.0-1.7) Platelet Estimate Adequate (ADEQUATE) Polychromasia Slight Poikilocytosis Slight Anisocytosis Mod Target Cells Occ Ovalocytes Few Laboratory Tests Test 09/26/19 12:15 09/27/19 03:00 White Blood Count 9.9 x10^3/uL (4.0-11.0) 8.7 x10^3/uL (4.0-11.0) Red Blood Count 2.83 x10^6/uL (4.30-5.70) 2.65 x10^6/uL (4.30-5.70) Hemoglobin 8.9 g/dL (13.0-17.5) 8.4 g/dL (13.0-17.5) Hematocrit 27.2 % (39.0-53.0) 25.0 % (39.0-53.0) Mean Corpuscular Volume 96 fL (79-100) 94 fL (79-100) Mean Corpuscular Hemoglobin 32 pg (25-35) 32 pg (25-35) Mean Corpuscular Hemoglobin Concent 33 g/dL (31-37) 34 g/dL (31-37) Red Cell Distribution Width 24.6 % (11.5-14.5) 24.7 % (11.5-14.5) Platelet Count 323 x10^3/uL (140-400) 317 x10^3/uL (140-400) Neutrophils (%) (Auto) 74 % (31-73) 69 % (31-73) Lymphocytes (%) (Auto) 13 % (24-48) 17 % (24-48) Monocytes (%) (Auto) 12 % (0-9) 12 % (0-9) Eosinophils (%) (Auto) 1 % (0-3) 2 % (0-3) Basophils (%) (Auto) 0 % (0-3) 0 % (0-3) Neutrophils # (Auto) 7.4 x10^3/uL (1.8-7.7) 6.0 x10^3/uL (1.8-7.7) Lymphocytes # (Auto) 1.3 x10^3/uL (1.0-4.8) 1.5 x10^3/uL (1.0-4.8) Monocytes # (Auto) 1.2 x10^3/uL (0.0-1.1) 1.0 x10^3/uL (0.0-1.1) Eosinophils # (Auto) 0.0 x10^3/uL (0.0-0.7) 0.2 x10^3/uL (0.0-0.7) Basophils # (Auto) 0.0 x10^3/uL (0.0-0.2) 0.0 x10^3/uL (0.0-0.2) Sodium Level 136 mmol/L (136-145) 139 mmol/L (136-145) Potassium Level 3.1 mmol/L (3.5-5.1) 3.4 mmol/L (3.5-5.1) Chloride Level 106 mmol/L (98-107) 108 mmol/L (98-107) Carbon Dioxide Level 25 mmol/L (21-32) 25 mmol/L (21-32) Anion Gap 5 (6-14) 6 (6-14) Blood Urea Nitrogen 8 mg/dL (8-26) 7 mg/dL (8-26) Creatinine 0.8 mg/dL (0.7-1.3) 0.7 mg/dL (0.7-1.3) Estimated GFR (Cockcroft-Gault) 95.3 111.2 BUN/Creatinine Ratio 10 (6-20) Glucose Level 119 mg/dL (70-99) 86 mg/dL (70-99) Calcium Level 7.5 mg/dL (8.5-10.1) 7.5 mg/dL (8.5-10.1) Total Bilirubin 0.4 mg/dL (0.2-1.0) Aspartate Amino Transf (AST/SGOT) 22 U/L (15-37) Alanine Aminotransferase (ALT/SGPT) 7 U/L (16-63) Alkaline Phosphatase 86 U/L (46-116) Total Protein 5.9 g/dL (6.4-8.2) Albumin 1.3 g/dL (3.4-5.0) Albumin/Globulin Ratio 0.3 (1.0-1.7) Platelet Estimate Adequate (ADEQUATE) Polychromasia Slight Poikilocytosis Slight Anisocytosis Mod Target Cells Occ Ovalocytes Few Microbiology 09/21/19 Blood Culture - Final, Complete NO GROWTH AFTER 5 DAYS Medications Current Medications Sodium Chloride 1,000 ml @ 1,000 mls/hr Q1H IV Last administered on 09/21/19at 16:28; Start 09/21/19 at 15:43; Stop 09/21/19 at 16:42; Status DC Pantoprazole Sodium (PROTONIX VIAL for IV PUSH) 40 mg 1X ONCE IVP Last adm inistered on 09/21/19at 16:29; Start 09/21/19 at 15:45; Stop 09/21/19 at 15:50; Status DC Sodium Chloride 1,000 ml @ 125 mls/hr Q8H IV Last administered on 09/22/19at 02:52; Start 09/21/19 at 17:14; Stop 09/22/19 at 17:13; Status DC Pantoprazole Sodium 80 mg/ Sodium Chloride 100 ml @ 10 mls/hr Q10H IV Last administered on 09/21/19at 17:42; Start 09/21/19 at 17:15; Stop 09/21/19 at 19:00; Status DC Acetaminophen (Tylenol) 650 mg PRN Q6HRS PRN PO Headaches, Temp > 101.5' Last administered on 09/26/19at 20:42; Start 09/21/19 at 19:00 Lorazepam (Ativan Inj) 0.5 mg PRN Q6HRS PRN IV ANXIETY / AGITATION Last administered on 09/25/19at 20:00; Start 09/21/19 at 19:00 Ondansetron HCl (Zofran) 4 mg PRN Q6HRS PRN IV NAUSEA/VOMITING; Start 09/21/19 at 19:00; Status Cancel Prochlorperazine Edisylate (Compazine) 5 mg PRN Q6HRS PRN IV NAUSEA/VOMITING, 2ND CHOICE; Start 09/21/19 at 19:00 Famotidine (Pepcid) 20 mg BID PO ; Start 09/21/19 at 21:00; Stop 09/21/19 at 18:59; Status DC Famotidine (Pepcid Vial) 20 mg BID IVP ; Start 09/21/19 at 21:00; Status Cancel Info (Icu Electrolyte Protocol) 1 ea DAILY MC Last administered on 09/22/19at 09:00; Start 09/22/19 at 09:00 Sodium Chloride (Normal Saline Flush) 3 ml QSHIFT PRN IV AFTER MEDS AND BLOOD DRAWS; Start 09/21/19 at 19:00 Sodium Chloride 1,000 ml @ 75 mls/hr [id number] IV Last administered on 09/26/19at 17:14; Start 09/21/19 at 18:53 Hydromorphone HCl (Dilaudid) 0.2 mg PRN Q1HR PRN IV PAIN Last administered on 09/25/19at 09:36; Start 09/21/19 at 19:00; Stop 09/25/19 at 15:18; Status DC Docusate Sodium (Colace) 100 mg BID PO Last administered on 09/26/19at 20:43; Start 09/21/19 at 21:00 Pantoprazole Sodium 80 mg/ Sodium Chloride 100 ml @ 10 mls/hr Q10H IV Last administered on 09/23/19at 05:11; Start 09/21/19 at 19:00; Stop 09/23/19 at 14:34; Status DC Piperacillin Sod/ Tazobactam Sod 3.375 gm/Sodium Chloride 50 ml @ 100 mls/hr Q6HRS IV Last administered on 09/24/19at 12:49; Start 09/21/19 at 19:30; Stop 09/24/19 at 14:21; Status DC Sodium Chloride (Normal Saline Flush) 3 ml QSHIFT PRN IV AFTER MEDS AND BLOOD DRAWS; Start 09/21/19 at 19:15; Status UNV Ondansetron HCl (Zofran) 4 mg PRN Q4HRS PRN IV NAUSEA/VOMITING, 1ST CHOICE; Start 09/21/19 at 19:15 Acetaminophen (Tylenol) 650 mg PRN Q4HRS PRN PO TEMP OVER 100.4F OR MILD PAIN; Start 09/21/19 at 19:15; Status UNV Docusate Sodium (Colace) 100 mg PRN BID PRN PO CONSTIPATION; Start 09/21/19 at 19:15 Albuterol Sulfate (Ventolin Neb Soln) 2.5 mg PRN Q4HRS PRN NEB SHORTNESS OF BREATH; Start 09/21/19 at 19:15 Lorazepam (Ativan) 0.5 mg PRN Q4HRS PRN PO ANXIETY / AGITATION; Start 09/21/19 at 19:15 Piperacillin Sod/ Tazobactam Sod 3.375 gm/Sodium Chloride 50 ml @ 100 mls/hr Q6HRS IV ; Start 09/22/19 at 00:00; Status UNV Ringer's Solution 1,000 ml @ 50 mls/hr Q20H IV Last administered on 09/23/19at 14:00; Start 09/23/19 at 07:00; Stop 09/23/19 at 18:59; Status DC Lactobacillus Rhamnosus (Culturelle) 1 cap BID PO Last administered on 09/26/19at 20:42; Start 09/22/19 at 21:00 Ringer's Solution 1,000 ml @ 75 mls/hr 1X ONCE IV ; Start 09/23/19 at 07:30; Stop 09/23/19 at 20:49; Status DC Zinc Acetate/ Diphenhydramine (Benadryl Topical) 1 ancelmo PRN Q6HRS PRN TP ITCHING; Start 09/23/19 at 13:00 Propofol 20 ml @ As Directed STK-MED ONCE IV ; Start 09/23/19 at 14:11; Stop 09/23/19 at 14:12; Status DC Lidocaine HCl (Lidocaine Pf 2% Vial) 5 ml STK-MED ONCE .ROUTE ; Start 09/23/19 at 14:13; Stop 09/23/19 at 14:14; Status DC Pantoprazole Sodium (Protonix) 40 mg DAILYAC PO Last administered on 09/26/19at 08:54; Start 09/23/19 at 14:45 Potassium Chloride (Klor-Con) 40 meq 1X ONCE PO Last administered on 1 11/27/18at 17:12; Start 09/26/19 at 16:45; Stop 09/26/19 at 16:46; Status DC Active Scripts Active Multi-Vitamin Daily (Multivitamin) 1 Each Tablet 1 Tab PO DAILY 30 Days Vitamin D (Cholecalciferol (Vitamin D3)) 2,000 Unit Capsule 1 Cap PO DAILY B Complex (Vitamin B Complex) 1 Each Tablet 1 Tab PO DAILY 30 Days Midodrine Hcl 2.5 Mg Tablet 2.5 Mg PO DAILY Aspirin Ec (Aspirin) 81 Mg Tablet.dr 81 Mg PO DAILYWBKFT Hydrocodone-Acetamin 5-325 mg (Hydrocodone/Acetaminophen) 1 Each Tablet 1 Tab PO PRN BID PRN Vitals/I & O Vital Sign - Last 24 Hours 09/26/19 09/26/19 09/26/19 09/26/19 10:58 15:40 19:15 20:00 Temp 99.6 100.1 99.6 99.6 100.1 99.6 Pulse 84 116 96 Resp 18 18 16 B/P (MAP) 114/57 (76) 188/80 (116) 170/77 (108) Pulse Ox 98 98 98 O2 Delivery Room Air Room Air Room Air Room Air 09/26/19 09/27/19 12 23:15 03:15 07:54 Temp 98.9 98.9 98.4 98.9 98.9 98.4 Pulse 92 92 100 Resp 18 18 18 B/P (MAP) 161/75 (103) 151/66 (94) 158/74 (102) Pulse Ox 98 95 97 O2 Delivery Room Air Room Air Room Air Intake and Output 09/26/19 09/26/19 09/27/19 14:59 22:59 06:59 Intake Total 600 ml 600 ml 540 ml Output Total 100 ml Balance 600 ml 600 ml 440 ml Nutrition Consultation Dietary Evaluation: Recommendations by RD: Dietary education by RD, Increase Calorie Intake, Protein supplementation Comments: rec cardiac diet with ensure tid Expected Outcomes/Goals: to meet >75% est nutr needs Malnutrition Findings: Food and Nutrition Intake (Sev: <50% est energy req 5days Weight Status: Overweight ELLIS JETT MD Sep 27, 2019 10:02
[2019-09-27] MEDS ORDERED: POLYETHYLENE GLYCOL 3350 17 GM PACKET. PO PRN (10:15)
[2019-09-27] MEDS ORDERED: BISACODYL 5 MG TABLET.DR. PO PRN (10:15)
--- NOTE | 2019-09-27 10:15 | PDOC ---
Subjective: Subjective: Eating okay. "I haven't pooped since I've been in this place." Objective: Objective: D/w nurse - did not DC due to scrotal swelling - will eventually go to . Stooled 09/24. Vital Signs: Vital Signs Date Time Temp Pulse Resp B/P (MAP) Pulse Ox O2 Delivery O2 Flow Rate FiO2 09/27/19 07:54 98.4 100 18 158/74 (102) 97 Room Air 98.4 09/26/19 08:15 2.0 Labs: Laboratory Tests Test 09/26/19 12:15 09/27/19 03:00 White Blood Count 9.9 x10^3/uL 8.7 x10^3/uL Red Blood Count 2.83 x10^6/uL 2.65 x10^6/uL Hemoglobin 8.9 g/dL 8.4 g/dL Hematocrit 27.2 % 25.0 % Mean Corpuscular Volume 96 fL 94 fL Mean Corpuscular Hemoglobin 32 pg 32 pg Mean Corpuscular Hemoglobin Concent 33 g/dL 34 g/dL Red Cell Distribution Width 24.6 % 24.7 % Platelet Count 323 x10^3/uL 317 x10^3/uL Neutrophils (%) (Auto) 74 % 69 % Lymphocytes (%) (Auto) 13 % 17 % Monocytes (%) (Auto) 12 % 12 % Eosinophils (%) (Auto) 1 % 2 % Basophils (%) (Auto) 0 % 0 % Neutrophils # (Auto) 7.4 x10^3/uL 6.0 x10^3/uL Lymphocytes # (Auto) 1.3 x10^3/uL 1.5 x10^3/uL Monocytes # (Auto) 1.2 x10^3/uL 1.0 x10^3/uL Eosinophils # (Auto) 0.0 x10^3/uL 0.2 x10^3/uL Basophils # (Auto) 0.0 x10^3/uL 0.0 x10^3/uL Sodium Level 136 mmol/L 139 mmol/L Potassium Level 3.1 mmol/L 3.4 mmol/L Chloride Level 106 mmol/L 108 mmol/L Carbon Dioxide Level 25 mmol/L 25 mmol/L Anion Gap 5 6 Blood Urea Nitrogen 8 mg/dL 7 mg/dL Creatinine 0.8 mg/dL 0.7 mg/dL Estimated GFR (Cockcroft-Gault) 95.3 111.2 BUN/Creatinine Ratio 10 Glucose Level 119 mg/dL 86 mg/dL Calcium Level 7.5 mg/dL 7.5 mg/dL Total Bilirubin 0.4 mg/dL Aspartate Amino Transf (AST/SGOT) 22 U/L Alanine Aminotransferase (ALT/SGPT) 7 U/L Alkaline Phosphatase 86 U/L Total Protein 5.9 g/dL Albumin 1.3 g/dL Albumin/Globulin Ratio 0.3 Platelet Estimate Adequate Polychromasia Slight Poikilocytosis Slight Anisocytosis Mod Target Cells Occ Ovalocytes Few Imaging: Scrotal US IMPRESSION: 1. Diffuse large swelling of the scrotum, nonspecific. Could be edema or infection. Correlate clinically. 2. Enlarged appearing bilateral epididymis, epididymitis is not completely excluded however increased vascular flow is not evident in the epididymis. 3. Subcentimeter right testicular cysts. PE: GEN: NAD LUNGS: CTAB HEART: borderline tachycardic ABD: NABS, S/ND/NT NEURO/PSYCH: forgetful A/P: Scrotal edema , DU - path pending Macrocytic anemia - stable post transfusions ?cirrhosis - s/p paracentesis (minimal ascites) -- Dc per primary. Continue PPI. Follow-up for EGD in 2-3 months, also due for colonoscopy in 2019. Avoid NSAIDs. Add options for constipation. EVI PERERA Sep 27, 2019 10:15
[2019-09-27 11:33] VITALS: BP 153/82
[2019-09-27] MEDS: DOCUSATE SODIUM 100 MG CAPSULE. PO SCH ×2 (11:34→20:43)
[2019-09-27] MEDS: IV NORMAL SALINE 1000ML BAG 1,000 ML IV SCH ×2 (11:34→20:43)
[2019-09-27] MEDS: PANTOPRAZOLE 40 MG TABLET.DR. PO SCH (11:34)
[2019-09-27] MEDS: LACTOBACILLUS RHAMNOSUS GG 1 CAPSULE. PO SCH ×2 (11:34→20:43)
[2019-09-27] MEDS: POLYETHYLENE GLYCOL 3350 17 GM PACKET. PO SCH (11:34)
[2019-09-27] MEDS ORDERED: BISACODYL 10 MG SUPP.RECT. PR ONE (12:45)
[2019-09-27] MEDS ORDERED: DOXYCYCLINE HYCLATE 100 MG in IV DEXTROSE 5% 100ML 100 ML IV SCH (13:00)
[2019-09-27] MEDS ORDERED: POTASSIUM CHLORIDE 20 MEQ TABLET.ER. PO ONE (13:00)
--- NOTE | 2019-09-27 13:28 | RAD ---
EXAM: Abdomen sonogram. HISTORY: Ascites check. TECHNIQUE: Sonographic imaging of the abdomen was performed. COMPARISON: CT dated 09/21/2019. FINDINGS: There is a moderate amount of abdominal ascites. This is similar compared to the recent CT, allowing for changes in imaging modality. The abdominal visceral and vascular structures are not formally assessed on this exam. IMPRESSION: Moderate ascites. Electronically signed by: Betty Fitch MD (09/27/2019 1:25 PM) [facility]
--- NOTE | 2019-09-27 14:06 | PATHOLOGY ---
[facility] Accession Number: [id number] . 01 Material submitted: . stomach - GASTRIC ANTRAL ULCER BX . 01 Clinical history: . Melena, anemia . 02 Diagnosis: Gastric biopsy "gastric antral ulcer biopsy": - Mild to moderate chronic reactive gastropathy with mild foveolar hyperplasia. - There is no evidence of acute cryptitis, granulomas, adenomatous change, acute ulcers, acute erosions or malignancy. - The immunoperoxidase stain for Helicobacter pylori is negative. (SHA/db; 09/27/2019) LBQ 09/27/2019 1001 Local . 02 Electronically signed: . Varun Olivera MD, Pathologist NPI- [id number] . 01 Gross description: . Received in formalin labeled "Christ Davila, gastric antral ulcer bx," are three segments of humphrey-brown soft tissue measuring 0.9 x 0.4 x 0.2 cm in aggregate dimensions and ranging from 0.3 to 0.4 cm in maximum dimension. The specimen is submitted entirely in cassette A1. ([facility]; 09/24/2019) XDC/XDC 09/24/2019 0728 Local . 02 Pathologist provided ICD-10: K31.9 . 02 CPT . 862073, [id number] Specimen Comment: A courtesy copy of this report has been sent to [phone] Specimen Comment: [id number], Specimen Comment: Report sent to , and Performed at: 01 [facility] [address], [place], [place] [id number] MD Derek Mondragon MD Phone: [phone] Performed at: 02 [facility] [address], [place] [id number] MD Tex Arreola MD Phone: [phone]
--- NOTE | 2019-09-27 14:35 | PDOC ---
Provider Note Provider Note Pt seen and examined ID consult dictated ALPHONSO AZUL MD Sep 27, 2019 14:35
[2019-09-27 15:00] VITALS: BP 151/74
--- NOTE | 2019-09-27 15:32 | NUR ---
ID consulted. Pt is not discharging today. Updated Priscilla at PP.
[2019-09-27] MEDS: cefTRIAXone IV Push 2 GM VIAL. IVP SCH (16:38)
--- NOTE | 2019-09-27 16:44 | RAD ---
EXAM: Right foot, 2 views. HISTORY: Pain. COMPARISON: None. FINDINGS: 2 views of the right foot are obtained. There is no acute fracture, dislocation or subluxation. There is mild first metatarsal phalangeal joint spurring. There is a small plantar spur. There are vascular calcifications. IMPRESSION: No acute osseous finding. Electronically signed by: Betty Fitch MD (09/27/2019 4:41 PM) [facility]
[2019-09-27 19:11] LABS: BILIRUBIN,URINE NEGATIVE (NEG); CLARITY,URINE CLEAR; COLOR,URINE AMBER; NITRITE,URINE NEGATIVE (NEG); PH,URINE 5.5; PROTEIN,URINE NEGATIVE (NEG-TRACE)
[2019-09-27 19:29] LABS: HYALINE CASTS, URINE MANY /HPF; SQUAMOUS EPITHELIAL CELL,UR MOD /LPF
[2019-09-27 19:30] LABS: BACTERIA,URINE 0 /HPF (0-FEW); RBC,URINE 0 /HPF (0-2)
[2019-09-27 19:50] VITALS: BP 152/81
[2019-09-27] MEDS: ACETAMINOPHEN 325 MG TABLET. PO PRN (20:43)
[2019-09-27] MEDS: DOXYCYCLINE HYCLATE 100 MG TABLET PO SCH (20:43)
[2019-09-27 23:39] VITALS: BP 144/71
[2019-09-28 03:27] VITALS: BP 161/78
--- NOTE | 2019-09-28 04:52 | CONS ---
DATE OF CONSULTATION: 09/27/2019 REFERRING PHYSICIAN: Ananth Olsen MD REASON FOR CONSULTATION: Scrotal swelling. HISTORY OF PRESENT ILLNESS: A 73-year-old male who was admitted on 09/22/2019 when he presented to the ER with weakness and diarrhea. The patient had one episode of melena prior to admission without dizziness. He did not have any abdominal pain, nausea, vomiting, fevers or chills. The patient was seen by GI. He underwent further GI evaluation for a paracentesis. He also underwent EGD with biopsy, which showed gastric ulcer, status post biopsy of duodenal ulcer with clean base. He was started on PPI for plans for repeat EGD. The patient had CT, which showed mild wall thickening in the ascending colon, questionable cirrhosis and moderate ascites and pleural effusion. He underwent ascitic fluid removal, which showed wbc at 552, rbc at 3132, normal glucose, normal LDH, amylase was normal. Stool occult blood was positive. C. diff was checked, which was negative. Lactate was elevated at 2.1, which was normalized. The patient received Zosyn from admission until the . Today, he was found to have scrotal swelling. Abdominal and scrotal ultrasound was done, which showed diffuse large swelling of the scrotum, nonspecific, could be edema or infection, correlate clinically; enlarged appearing bilateral epididymis, epididymitis is not completely excluded; subcentimeter right testicular cyst. The patient had ultrasound of the abdomen, which showed moderate ascites. The patient denies any scrotal pain. The swelling has improved somewhat since yesterday. Does have some right foot pain. Denies any history of injury. Temperature was 100.1 yesterday, afebrile this morning. The patient denies any other symptoms. ID consult has been requested for evaluation of scrotal swelling for possible infection. 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 PAST SURGICAL HISTORY: Cataract removal, EGD done. FAMILY HISTORY: As per HPI. SOCIAL HISTORY: Quit smoking, no ETOH for 20 years. No drugs. longterm resident. Not sexually active for a couple of years. REVIEW OF SYSTEMS: Negative except for above in HPI. CURRENT MEDICATIONS: IV doxycycline, was on Zosyn. Other medications reviewed in medication list. PHYSICAL EXAMINATION: VITAL SIGNS: Temperature 97.7, T-max 100.1, pulse 100, respiratory rate 20, blood pressure 153/82, oxygen saturation 97% on room air. GENERAL: Alert and oriented x 3 male in no acute distress, lying comfortably in bed, pleasant, cooperative. HEENT: Normocephalic, atraumatic, anicteric. No thrush. Oral mucosa moist. NECK: Supple, no JVD. LUNGS: Clear bilaterally. No wheezing. HEART: S1, S2. No gallops or murmurs. ABDOMEN: Distended, soft, bowel sounds present, nontender, no rebound. EXTREMITIES: No edema, dry skin. Right foot has mild swelling, no redness, no decrease in range of motion at any of the joints. GENITOURINARY: Scrotal swelling, diffuse. No overlying redness, warmth, erythema, nontender. NEUROLOGIC: Alert and oriented x 3, grossly nonfocal. PSYCHIATRIC: Cooperative. LABORATORY DATA: 1. WBC 8.7; hemoglobin 8.6, was 6.3; hematocrit 25; platelets 317. Sodium 139, potassium 3.4, chloride 108, bicarbonate 25, BUN 7, creatinine 0.7, glucose 86. Lactate was 1.4. 2. Body source fluid, wbc 552, rbc's 3132. Stool occult blood positive. Glucose 104, total protein 0.7, LDH 97, amylase 4. C. diff negative. 3. Micro: 09/21, blood cultures negative. UA, urine culture pending from today. PD fluid culture is not available. IMAGING: Ultrasound of the abdomen shows moderate ascites. CT of abdomen and scrotum shows diffuse large swelling of the scrotum, nonspecific; enlarged appearing bilateral epididymis. Chest x-ray: No acute cardiopulmonary abnormality. CT on admission showed prostate not enlarged. Bladder is partially distended, not well evaluated. IMPRESSION: 1. Scrotal swelling, appears less likely from cellulitis. 2. Low-grade fevers, etiology unclear, could be noninfectious. 3. Right foot pain, likely noninfectious. 4. Ascites, status post paracentesis with rbc 3000, wbc 500. No ascitic fluid cultures available. 5. Gastric ulcer, duodenal ulcer, status post biopsy. 6. Anemia, status post blood transfusion. 7. Questionable cirrhosis. 8. Hypertension. 9. History of remote ETOH use. RECOMMENDATIONS: 1. Continue doxycycline. We will change to p.o. 2. Start ceftriaxone. 3. Obtain x-ray of the right foot. 4. Add uric acid to labs today. 5. Elevate scrotum. 6. Check urine, gonorrhea and chlamydia. Thank you, Dr. Olsen for consulting Infectious Disease to participate in this patient's care. If you have any questions, do not hesitate to contact me. ALPHONSO AZUL MD DR: STEVIE/rashi JOB#: [id number] / [id number] MARIA ELENA
[2019-09-28 05:09] LABS: CALCIUM 7.7 mg/dL (8.5-10.1); CREATININE 0.8 mg/dL (0.7-1.3); GFR 95.3; POTASSIUM 3.8 mmol/L (3.5-5.1)
[2019-09-28 07:50] VITALS: BP 141/75
[2019-09-28] MEDS: PANTOPRAZOLE 40 MG TABLET.DR. PO SCH (08:23)
[2019-09-28] MEDS: ACETAMINOPHEN 325 MG TABLET. PO PRN (08:23)
[2019-09-28] MEDS: LACTOBACILLUS RHAMNOSUS GG 1 CAPSULE. PO SCH ×2 (08:24→21:43)
[2019-09-28] MEDS: DOXYCYCLINE HYCLATE 100 MG TABLET PO SCH ×2 (08:24→21:43)
[2019-09-28] MEDS: DOCUSATE SODIUM 100 MG CAPSULE. PO SCH ×2 (08:24→21:43)
[2019-09-28] MEDS: POLYETHYLENE GLYCOL 3350 17 GM PACKET. PO SCH (08:24)
--- NOTE | 2019-09-28 08:26 | PDOC ---
Infectious Disease Note Subjective Subjective c/o some scrotal pain after moving about this morning Says using a pillowcase for elevation helpful Feels swelling is going down No fevers last 24 hours ROS ROS per HPI Vital Sign Vital Signs Vital Signs Date Time Temp Pulse Resp B/P (MAP) Pulse Ox O2 Delivery O2 Flow Rate FiO2 09/28/19 07:50 98.3 89 18 141/75 (97) 97 Room Air 98.3 Physical Exam PHYSICAL EXAM GENERAL: Sitting on the side of the bed, alert, in NAD HEENT: Oral mucosa moist. Dentures NECK: Supple, no JVD. LUNGS: Clear bilaterally. No wheezing. HEART: S1, S2. No gallops or murmurs. ABDOMEN: Distended, soft, bowel sounds present, nontender EXTREMITIES: No edema, dry skin. Right foot has mild swelling, no redness, no decrease in range of motion at any of the joints. GENITOURINARY: Scrotal swelling, redness NEUROLOGIC: Alert and oriented x 3, grossly nonfocal. Labs Lab Laboratory Tests Test 09/27/19 18:49 09/28/19 04:10 Urine Collection Type Unknown Urine Color Vera Urine Clarity Clear Urine pH 5.5 Urine Specific [place] 1.025 Urine Protein Negative mg/dL (NEG-TRACE) Urine Glucose (UA) 100 mg/dL (NEG) Urine Ketones (Stick) Negative mg/dL (NEG) Urine Blood Negative (NEG) Urine Nitrite Negative (NEG) Urine Bilirubin Negative (NEG) Urine Urobilinogen Dipstick 1.0 mg/dL (0.2 mg/dL) Urine Leukocyte Esterase Small (NEG) Urine RBC 0 /HPF (0-2) Urine WBC 11-20 /HPF (0-4) Urine Squamous Epithelial Cells Mod /LPF Urine Transitional Epithelial Cells Few /LPF Urine Bacteria 0 /HPF (0-FEW) Urine Hyaline Casts Many /HPF Urine Mucus Marked /LPF Sodium Level 139 mmol/L (136-145) Potassium Level 3.8 mmol/L (3.5-5.1) Chloride Level 108 mmol/L (98-107) Carbon Dioxide Level 24 mmol/L (21-32) Anion Gap 7 (6-14) Blood Urea Nitrogen 8 mg/dL (8-26) Creatinine 0.8 mg/dL (0.7-1.3) Estimated GFR (Cockcroft-Gault) 95.3 Glucose Level 98 mg/dL (70-99) Calcium Level 7.7 mg/dL (8.5-10.1) Micro Microbiology 09/21/19 Blood Culture - Final, Complete NO GROWTH AFTER 5 DAYS Objective Assessment Scrotal swelling, appears less likely from cellulitis. Low-grade fevers, etiology unclear, could be noninfectious. Right foot pain, likely noninfectious. Ascites, status post paracentesis with rbc 3000, wbc 500. No ascitic fluid cultures available. Gastric ulcer, duodenal ulcer, status post biopsy. Anemia, status post blood transfusion. Questionable cirrhosis. Hypertension. History of remote ETOH use. Diarrhea, C. diff neg Plan Plan of Care Continue doxycycline and ceftriaxone. Uric acid 1.7 Elevate scrotum. urine, gonorrhea and chlamydia pending Attending Co-Sign The patient was seen and interviewed as well as examined at the bedside. The chart was reviewed. The case was discussed. Agree with the plan of care. scrotal swelling has improved no foot pain can dc on empiric keflex and doxycycline for 7 days f/u uc for final results d/w rn ok to dc from id standpoint YARI KATE APRN Sep 28, 2019 08:26 ALPHONSO AZUL MD Sep 28, 2019 12:19
[2019-09-28] MEDS: ELECTROLYTE (ICU) PROTOCOL. MC SCH (09:00)
--- NOTE | 2019-09-28 09:15 | PDOC ---
PROGRESS NOTES Chief Complaint Chief Complaint IMPRESSION Fatigue, dyspnea severe debility, weakness of trunk Macrocytic anemia, +Hemoccult Mildly elevated troponin (resolved), elevated BNP, lactic acidosis (resolved), e levated BUN Abnormal CT Recent c scope hemorrhoidal polyps, sessile Acute precip drop hgb SEVERE PROTEIN-CALORIC MALNUTRITION Only a small amount of ascites is identified by ultrasound. Only a few cc of fluid could be safely aspirated. Samples were sent for culture. consider ischemic evaluation as an outpatient scrotal edema likely sec to severe hypo-albuminemia History of remote ETOH use. Improved Hg S/p transfusions. EGD 09/23 Acid suppressive therapy for 2 months with interval EGD to confirm healing. 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 PP ON HOLD DUE TO SCROTAL INFECTION Operative Note Operative Note Operative Note EGD with biopsy Meds propofol per anesthesia Pre-op dx Acute blood loss anemia/melena post-op dx gastric ulcers s/p bx duodenal ulcer with clean base Plan PPI therapy with repeat egd in 2 months to confirm ulcer healing CHELLE BERNARD MD * 2 weeks Discharge Recommendations * [facility] Unit Discharge Recommendation - DME * Rolling Walker needed * in order to complete ADLs * and ambulation safely Vitals Vitals Vital Signs Date Time Temp Pulse Resp B/P (MAP) Pulse Ox O2 Delivery O2 Flow Rate FiO2 09/28/19 08:00 Room Air 2.0 09/28/19 07:50 98.3 89 18 141/75 (97) 97 98.3 Physical Exam Physical Exam GENERAL: Sitting on the side of the bed, alert, in NAD HEENT: Oral mucosa moist. Dentures NECK: Supple, no JVD. LUNGS: Clear bilaterally. No wheezing. HEART: S1, S2. No gallops or murmurs. ABDOMEN: Distended, soft, bowel sounds present, nontender EXTREMITIES: No edema, dry skin. Right foot has mild swelling, no redness, no decrease in range of motion at any of the joints. GENITOURINARY: Scrotal swelling, redness NEUROLOGIC: Alert and oriented x 3, grossly nonfocal. General: Alert, Oriented X3, Cooperative, No acute distress Heart: Regular rate, Normal S1, Normal S2, No murmurs Lungs: Clear Abdomen: Normal bowel sounds, Soft, No tenderness Extremities: No clubbing, No cyanosis, No edema Skin: No rashes, No breakdown, No significant lesion Labs LABS Laboratory Tests Test 09/27/19 18:49 09/28/19 04:10 Urine Collection Type Unknown Urine Color Vera Urine Clarity Clear Urine pH 5.5 Urine Specific [place] 1.025 Urine Protein Negative mg/dL (NEG-TRACE) Urine Glucose (UA) 100 mg/dL (NEG) Urine Ketones (Stick) Negative mg/dL (NEG) Urine Blood Negative (NEG) Urine Nitrite Negative (NEG) Urine Bilirubin Negative (NEG) Urine Urobilinogen Dipstick 1.0 mg/dL (0.2 mg/dL) Urine Leukocyte Esterase Small (NEG) Urine RBC 0 /HPF (0-2) Urine WBC 11-20 /HPF (0-4) Urine Squamous Epithelial Cells Mod /LPF Urine Transitional Epithelial Cells Few /LPF Urine Bacteria 0 /HPF (0-FEW) Urine Hyaline Casts Many /HPF Urine Mucus Marked /LPF Sodium Level 139 mmol/L (136-145) Potassium Level 3.8 mmol/L (3.5-5.1) Chloride Level 108 mmol/L (98-107) Carbon Dioxide Level 24 mmol/L (21-32) Anion Gap 7 (6-14) Blood Urea Nitrogen 8 mg/dL (8-26) Creatinine 0.8 mg/dL (0.7-1.3) Estimated GFR (Cockcroft-Gault) 95.3 Glucose Level 98 mg/dL (70-99) Calcium Level 7.7 mg/dL (8.5-10.1) Assessment and Plan Assessmemt and Plan Problems Medical Problems: (1) Anemia Status: Acute (2) Elevated lactic acid level Status: Acute (3) Elevated troponin Status: Acute (4) GI bleeding Status: Acute (5) Hyperkalemia Status: Acute (6) Renal insufficiency Status: Acute Comment Review of Relevant I have reviewed the following items helen (where applicable) has been applied. Labs Laboratory Tests Test 09/26/19 12:15 09/27/19 03:00 09/27/19 18:49 09/28/19 04:10 White Blood Count 9.9 x10^3/uL (4.0-11.0) 8.7 x10^3/uL (4.0-11.0) Red Blood Count 2.83 x10^6/uL (4.30-5.70) 2.65 x10^6/uL (4.30-5.70) Hemoglobin 8.9 g/dL (13.0-17.5) 8.4 g/dL (13.0-17.5) Hematocrit 27.2 % (39.0-53.0) 25.0 % (39.0-53.0) Mean Corpuscular Volume 96 fL (79-100) 94 fL (79-100) Mean Corpuscular Hemoglobin 32 pg (25-35) 32 pg (25-35) Mean Corpuscular Hemoglobin Concent 33 g/dL (31-37) 34 g/dL (31-37) Red Cell Distribution Width 24.6 % (11.5-14.5) 24.7 % (11.5-14.5) Platelet Count 323 x10^3/uL (140-400) 317 x10^3/uL (140-400) Neutrophils (%) (Auto) 74 % (31-73) 69 % (31-73) Lymphocytes (%) (Auto) 13 % (24-48) 17 % (24-48) Monocytes (%) (Auto) 12 % (0-9) 12 % (0-9) Eosinophils (%) (Auto) 1 % (0-3) 2 % (0-3) Basophils (%) (Auto) 0 % (0-3) 0 % (0-3) Neutrophils # (Auto) 7.4 x10^3/uL (1.8-7.7) 6.0 x10^3/uL (1.8-7.7) Lymphocytes # (Auto) 1.3 x10^3/uL (1.0-4.8) 1.5 x10^3/uL (1.0-4.8) Monocytes # (Auto) 1.2 x10^3/uL (0.0-1.1) 1.0 x10^3/uL (0.0-1.1) Eosinophils # (Auto) 0.0 x10^3/uL (0.0-0.7) 0.2 x10^3/uL (0.0-0.7) Basophils # (Auto) 0.0 x10^3/uL (0.0-0.2) 0.0 x10^3/uL (0.0-0.2) Sodium Level 136 mmol/L (136-145) 139 mmol/L (136-145) 139 mmol/L (136-145) Potassium Level 3.1 mmol/L (3.5-5.1) 3.4 mmol/L (3.5-5.1) 3.8 mmol/L (3.5-5.1) Chloride Level 106 mmol/L (98-107) 108 mmol/L (98-107) 108 mmol/L (98-107) Carbon Dioxide Level 25 mmol/L (21-32) 25 mmol/L (21-32) 24 mmol/L (21-32) Anion Gap 5 (6-14) 6 (6-14) 7 (6-14) Blood Urea Nitrogen 8 mg/dL (8-26) 7 mg/dL (8-26) 8 mg/dL (8-26) Creatinine 0.8 mg/dL (0.7-1.3) 0.7 mg/dL (0.7-1.3) 0.8 mg/dL (0.7-1.3) Estimated GFR (Cockcroft-Gault) 95.3 111.2 95.3 BUN/Creatinine Ratio 10 (6-20) Glucose Level 119 mg/dL (70-99) 86 mg/dL (70-99) 98 mg/dL (70-99) Calcium Level 7.5 mg/dL (8.5-10.1) 7.5 mg/dL (8.5-10.1) 7.7 mg/dL (8.5-10.1) Total Bilirubin 0.4 mg/dL (0.2-1.0) Aspartate Amino Transf (AST/SGOT) 22 U/L (15-37) Alanine Aminotransferase (ALT/SGPT) 7 U/L (16-63) Alkaline Phosphatase 86 U/L (46-116) Total Protein 5.9 g/dL (6.4-8.2) Albumin 1.3 g/dL (3.4-5.0) Albumin/Globulin Ratio 0.3 (1.0-1.7) Platelet Estimate Adequate (ADEQUATE) Polychromasia Slight Poikilocytosis Slight Anisocytosis Mod Target Cells Occ Ovalocytes Few Uric Acid 1.7 mg/dL (3.5-7.2) Procalcitonin 0.45 ng/mL (0.00-0.10) Urine Collection Type Unknown Urine Color Vera Urine Clarity Clear Urine pH 5.5 Urine Specific [place] 1.025 Urine Protein Negative mg/dL (NEG-TRACE) Urine Glucose (UA) 100 mg/dL (NEG) Urine Ketones (Stick) Negative mg/dL (NEG) Urine Blood Negative (NEG) Urine Nitrite Negative (NEG) Urine Bilirubin Negative (NEG) Urine Urobilinogen Dipstick 1.0 mg/dL (0.2 mg/dL) Urine Leukocyte Esterase Small (NEG) Urine RBC 0 /HPF (0-2) Urine WBC 11-20 /HPF (0-4) Urine Squamous Epithelial Cells Mod /LPF Urine Transitional Epithelial Cells Few /LPF Urine Bacteria 0 /HPF (0-FEW) Urine Hyaline Casts Many /HPF Urine Mucus Marked /LPF Laboratory Tests Test 09/27/19 18:49 09/28/19 04:10 Urine Collection Type Unknown Urine Color Vera Urine Clarity Clear Urine pH 5.5 Urine Specific [place] 1.025 Urine Protein Negative mg/dL (NEG-TRACE) Urine Glucose (UA) 100 mg/dL (NEG) Urine Ketones (Stick) Negative mg/dL (NEG) Urine Blood Negative (NEG) Urine Nitrite Negative (NEG) Urine Bilirubin Negative (NEG) Urine Urobilinogen Dipstick 1.0 mg/dL (0.2 mg/dL) Urine Leukocyte Esterase Small (NEG) Urine RBC 0 /HPF (0-2) Urine WBC 11-20 /HPF (0-4) Urine Squamous Epithelial Cells Mod /LPF Urine Transitional Epithelial Cells Few /LPF Urine Bacteria 0 /HPF (0-FEW) Urine Hyaline Casts Many /HPF Urine Mucus Marked /LPF Sodium Level 139 mmol/L (136-145) Potassium Level 3.8 mmol/L (3.5-5.1) Chloride Level 108 mmol/L (98-107) Carbon Dioxide Level 24 mmol/L (21-32) Anion Gap 7 (6-14) Blood Urea Nitrogen 8 mg/dL (8-26) Creatinine 0.8 mg/dL (0.7-1.3) Estimated GFR (Cockcroft-Gault) 95.3 Glucose Level 98 mg/dL (70-99) Calcium Level 7.7 mg/dL (8.5-10.1) Microbiology 09/21/19 Blood Culture - Final, Complete NO GROWTH AFTER 5 DAYS Medications Current Medications Sodium Chloride 1,000 ml @ 1,000 mls/hr Q1H IV Last administered on 09/21/19at 16:28; Start 09/21/19 at 15:43; Stop 09/21/19 at 16:42; Status DC Pantoprazole Sodium (PROTONIX VIAL for IV PUSH) 40 mg 1X ONCE IVP Last adm inistered on 09/21/19at 16:29; Start 09/21/19 at 15:45; Stop 09/21/19 at 15:50; Status DC Sodium Chloride 1,000 ml @ 125 mls/hr Q8H IV Last administered on 09/22/19at 02:52; Start 09/21/19 at 17:14; Stop 09/22/19 at 17:13; Status DC Pantoprazole Sodium 80 mg/ Sodium Chloride 100 ml @ 10 mls/hr Q10H IV Last administered on 09/21/19at 17:42; Start 09/21/19 at 17:15; Stop 09/21/19 at 19:00; Status DC Acetaminophen (Tylenol) 650 mg PRN Q6HRS PRN PO Headaches, Temp > 101.5' Last administered on 09/28/19at 08:23; Start 09/21/19 at 19:00 Lorazepam (Ativan Inj) 0.5 mg PRN Q6HRS PRN IV ANXIETY / AGITATION Last administered on 09/25/19at 20:00; Start 09/21/19 at 19:00 Ondansetron HCl (Zofran) 4 mg PRN Q6HRS PRN IV NAUSEA/VOMITING; Start 09/21/19 at 19:00; Status Cancel Prochlorperazine Edisylate (Compazine) 5 mg PRN Q6HRS PRN IV NAUSEA/VOMITING, 2ND CHOICE; Start 09/21/19 at 19:00 Famotidine (Pepcid) 20 mg BID PO ; Start 09/21/19 at 21:00; Stop 09/21/19 at 18:59; Status DC Famotidine (Pepcid Vial) 20 mg BID IVP ; Start 09/21/19 at 21:00; Status Cancel Info (Icu Electrolyte Protocol) 1 ea DAILY MC Last administered on 09/22/19at 09:00; Start 09/22/19 at 09:00 Sodium Chloride (Normal Saline Flush) 3 ml QSHIFT PRN IV AFTER MEDS AND BLOOD DRAWS; Start 09/21/19 at 19:00 Sodium Chloride 1,000 ml @ 75 mls/hr [id number] IV Last administered on 09/27/19at 20:43; Start 09/21/19 at 18:53 Hydromorphone HCl (Dilaudid) 0.2 mg PRN Q1HR PRN IV PAIN Last administered on 09/25/19at 09:36; Start 09/21/19 at 19:00; Stop 09/25/19 at 15:18; Status DC Docusate Sodium (Colace) 100 mg BID PO Last administered on 09/27/19at 20:43; Start 09/21/19 at 21:00 Pantoprazole Sodium 80 mg/ Sodium Chloride 100 ml @ 10 mls/hr Q10H IV Last administered on 09/23/19at 05:11; Start 09/21/19 at 19:00; Stop 09/23/19 at 14:34; Status DC Piperacillin Sod/ Tazobactam Sod 3.375 gm/Sodium Chloride 50 ml @ 100 mls/hr Q6HRS IV Last administered on 09/24/19at 12:49; Start 09/21/19 at 19:30; Stop 09/24/19 at 14:21; Status DC Sodium Chloride (Normal Saline Flush) 3 ml QSHIFT PRN IV AFTER MEDS AND BLOOD DRAWS; Start 09/21/19 at 19:15; Status UNV Ondansetron HCl (Zofran) 4 mg PRN Q4HRS PRN IV NAUSEA/VOMITING, 1ST CHOICE; Start 09/21/19 at 19:15 Acetaminophen (Tylenol) 650 mg PRN Q4HRS PRN PO TEMP OVER 100.4F OR MILD PAIN; Start 09/21/19 at 19:15; Status UNV Docusate Sodium (Colace) 100 mg PRN BID PRN PO CONSTIPATION; Start 09/21/19 at 19:15 Albuterol Sulfate (Ventolin Neb Soln) 2.5 mg PRN Q4HRS PRN NEB SHORTNESS OF BREATH; Start 09/21/19 at 19:15 Lorazepam (Ativan) 0.5 mg PRN Q4HRS PRN PO ANXIETY / AGITATION; Start 09/21/19 at 19:15 Piperacillin Sod/ Tazobactam Sod 3.375 gm/Sodium Chloride 50 ml @ 100 mls/hr Q6HRS IV ; Start 09/22/19 at 00:00; Status UNV Ringer's Solution 1,000 ml @ 50 mls/hr Q20H IV Last administered on 09/23/19at 14:00; Start 09/23/19 at 07:00; Stop 09/23/19 at 18:59; Status DC Lactobacillus Rhamnosus (Culturelle) 1 cap BID PO Last administered on 09/28/19at 08:24; Start 09/22/19 at 21:00 Ringer's Solution 1,000 ml @ 75 mls/hr 1X ONCE IV ; Start 09/23/19 at 07:30; Stop 09/23/19 at 20:49; Status DC Zinc Acetate/ Diphenhydramine (Benadryl Topical) 1 ancelmo PRN Q6HRS PRN TP ITCHING; Start 09/23/19 at 13:00 Propofol 20 ml @ As Directed STK-MED ONCE IV ; Start 09/23/19 at 14:11; Stop 09/23/19 at 14:12; Status DC Lidocaine HCl (Lidocaine Pf 2% Vial) 5 ml STK-MED ONCE .ROUTE ; Start 09/23/19 at 14:13; Stop 09/23/19 at 14:14; Status DC Pantoprazole Sodium (Protonix) 40 mg DAILYAC PO Last administered on 09/28/19at 08:23; Start 09/23/19 at 14:45 Potassium Chloride (Klor-Con) 40 meq 1X ONCE PO Last administered on 1 11/27/18at 17:12; Start 09/26/19 at 16:45; Stop 09/26/19 at 16:46; Status DC Polyethylene Glycol (miraLAX PACKET) 17 gm DAILY PO Last administered on 09/27/19at 11:34; Start 09/27/19 at 11:00 Polyethylene Glycol (miraLAX PACKET) 17 gm PRN DAILY PRN PO CONSTIPATION, 1st CHOICE; Start 09/27/19 at 10:15 Bisacodyl (Dulcolax Tab) 5 mg PRN DAILY PRN PO CONSTIPATION, 2nd CHOICE; Start 09/27/19 at 10:15 Bisacodyl (Dulcolax Supp) 10 mg 1X ONCE OK ; Start 09/27/19 at 12:45; Stop 09/27/19 at 12:46; Status DC Potassium Chloride (Klor-Con) 40 meq 1X ONCE PO Last administered on 09/27/19at 16:37; Start 09/27/19 at 13:00; Stop 09/27/19 at 13:01; Status DC Doxycycline Hyclate 100 mg/ Dextrose 100 ml @ 50 mls/hr Q12HR IV ; Start 09/27/19 at 13:00; Stop 09/27/19 at 14:25; Status DC Doxycycline Hyclate (Vibra-Tab) 100 mg BID PO Last administered on 09/28/19at 08:24; Start 09/27/19 at 21:00 Ceftriaxone Sodium (Rocephin) 2 gm Q24H IVP Last administered on 09/27/19at 16:38; Start 09/27/19 at 15:00 Active Scripts Active Multi-Vitamin Daily (Multivitamin) 1 Each Tablet 1 Tab PO DAILY 30 Days Vitamin D (Cholecalciferol (Vitamin D3)) 2,000 Unit Capsule 1 Cap PO DAILY B Complex (Vitamin B Complex) 1 Each Tablet 1 Tab PO DAILY 30 Days Midodrine Hcl 2.5 Mg Tablet 2.5 Mg PO DAILY Aspirin Ec (Aspirin) 81 Mg Tablet.dr 81 Mg PO DAILYWBKFT Hydrocodone-Acetamin 5-325 mg (Hydrocodone/Acetaminophen) 1 Each Tablet 1 Tab PO PRN BID PRN Vitals/I & O Vital Sign - Last 24 Hours 09/27/19 09/27/19 09/27/19 09/27/19 11:33 14:10 15:00 19:50 Temp 97.7 98.8 99.5 97.7 98.8 99.5 Pulse 100 94 94 Resp 20 12 20 B/P (MAP) 153/82 (105) 151/74 (99) 152/81 (104) Pulse Ox 97 98 97 98 O2 Delivery Room Air Room Air Room Air Room Air 09/27/19 09/27/19 09/28/19 09/28/19 20:00 23:39 03:27 07:50 Temp 98.0 98.4 98.3 98.0 98.4 98.3 Pulse 94 91 89 Resp 18 18 18 B/P (MAP) 144/71 (95) 161/78 (105) 141/75 (97) Pulse Ox 96 97 97 O2 Delivery Room Air Room Air Room Air Room Air 09/28/19 08:00 O2 Delivery Room Air O2 Flow Rate 2.0 Intake and Output 09/27/19 09/27/19 09/28/19 15:00 23:00 07:00 Intake Total 400 ml 310 ml Output Total 150 ml Balance 400 ml 160 ml Nutrition Consultation Dietary Evaluation: Recommendations by RD: Dietary education by RD, Increase Calorie Intake, Protein supplementation Comments: REC advance to soft diet/cardiac w/Ensure TID Expected Outcomes/Goals: to meet >75% est nutr needs - met at times, goal ongoing Malnutrition Findings: Food and Nutrition Intake (Sev: <50% est energy req 5days Weight Status: Overweight ELLIS JETT MD Sep 28, 2019 09:15
[2019-09-28 11:27] VITALS: BP 136/66
[2019-09-28] MEDS: IV NORMAL SALINE 1000ML BAG 1,000 ML IV SCH (12:25)
--- NOTE | 2019-09-28 14:21 | PDOC ---
G I PROGRESS NOTE Reason for Follow-up Anemia/melena Subjective Tolerating PO Physical Exam Lungs clear CV S1 S2 ABD +BS, soft, nontender Review of Relevant I have reviewed the following items helen (where applicable) has been applied. Labs Laboratory Tests Test 09/27/19 03:00 09/27/19 18:49 09/28/19 04:10 White Blood Count 8.7 x10^3/uL (4.0-11.0) Red Blood Count 2.65 x10^6/uL (4.30-5.70) Hemoglobin 8.4 g/dL (13.0-17.5) Hematocrit 25.0 % (39.0-53.0) Mean Corpuscular Volume 94 fL (79-100) Mean Corpuscular Hemoglobin 32 pg (25-35) Mean Corpuscular Hemoglobin Concent 34 g/dL (31-37) Red Cell Distribution Width 24.7 % (11.5-14.5) Platelet Count 317 x10^3/uL (140-400) Neutrophils (%) (Auto) 69 % (31-73) Lymphocytes (%) (Auto) 17 % (24-48) Monocytes (%) (Auto) 12 % (0-9) Eosinophils (%) (Auto) 2 % (0-3) Basophils (%) (Auto) 0 % (0-3) Neutrophils # (Auto) 6.0 x10^3/uL (1.8-7.7) Lymphocytes # (Auto) 1.5 x10^3/uL (1.0-4.8) Monocytes # (Auto) 1.0 x10^3/uL (0.0-1.1) Eosinophils # (Auto) 0.2 x10^3/uL (0.0-0.7) Basophils # (Auto) 0.0 x10^3/uL (0.0-0.2) Platelet Estimate Adequate (ADEQUATE) Polychromasia Slight Poikilocytosis Slight Anisocytosis Mod Target Cells Occ Ovalocytes Few Sodium Level 139 mmol/L (136-145) 139 mmol/L (136-145) Potassium Level 3.4 mmol/L (3.5-5.1) 3.8 mmol/L (3.5-5.1) Chloride Level 108 mmol/L (98-107) 108 mmol/L (98-107) Carbon Dioxide Level 25 mmol/L (21-32) 24 mmol/L (21-32) Anion Gap 6 (6-14) 7 (6-14) Blood Urea Nitrogen 7 mg/dL (8-26) 8 mg/dL (8-26) Creatinine 0.7 mg/dL (0.7-1.3) 0.8 mg/dL (0.7-1.3) Estimated GFR (Cockcroft-Gault) 111.2 95.3 Glucose Level 86 mg/dL (70-99) 98 mg/dL (70-99) Uric Acid 1.7 mg/dL (3.5-7.2) Calcium Level 7.5 mg/dL (8.5-10.1) 7.7 mg/dL (8.5-10.1) Procalcitonin 0.45 ng/mL (0.00-0.10) Urine Collection Type Unknown Urine Color Vera Urine Clarity Clear Urine pH 5.5 Urine Specific [place] 1.025 Urine Protein Negative mg/dL (NEG-TRACE) Urine Glucose (UA) 100 mg/dL (NEG) Urine Ketones (Stick) Negative mg/dL (NEG) Urine Blood Negative (NEG) Urine Nitrite Negative (NEG) Urine Bilirubin Negative (NEG) Urine Urobilinogen Dipstick 1.0 mg/dL (0.2 mg/dL) Urine Leukocyte Esterase Small (NEG) Urine RBC 0 /HPF (0-2) Urine WBC 11-20 /HPF (0-4) Urine Squamous Epithelial Cells Mod /LPF Urine Transitional Epithelial Cells Few /LPF Urine Bacteria 0 /HPF (0-FEW) Urine Hyaline Casts Many /HPF Urine Mucus Marked /LPF Laboratory Tests Test 09/27/19 18:49 09/28/19 04:10 Urine Collection Type Unknown Urine Color Vera Urine Clarity Clear Urine pH 5.5 Urine Specific [place] 1.025 Urine Protein Negative mg/dL (NEG-TRACE) Urine Glucose (UA) 100 mg/dL (NEG) Urine Ketones (Stick) Negative mg/dL (NEG) Urine Blood Negative (NEG) Urine Nitrite Negative (NEG) Urine Bilirubin Negative (NEG) Urine Urobilinogen Dipstick 1.0 mg/dL (0.2 mg/dL) Urine Leukocyte Esterase Small (NEG) Urine RBC 0 /HPF (0-2) Urine WBC 11-20 /HPF (0-4) Urine Squamous Epithelial Cells Mod /LPF Urine Transitional Epithelial Cells Few /LPF Urine Bacteria 0 /HPF (0-FEW) Urine Hyaline Casts Many /HPF Urine Mucus Marked /LPF Sodium Level 139 mmol/L (136-145) Potassium Level 3.8 mmol/L (3.5-5.1) Chloride Level 108 mmol/L (98-107) Carbon Dioxide Level 24 mmol/L (21-32) Anion Gap 7 (6-14) Blood Urea Nitrogen 8 mg/dL (8-26) Creatinine 0.8 mg/dL (0.7-1.3) Estimated GFR (Cockcroft-Gault) 95.3 Glucose Level 98 mg/dL (70-99) Calcium Level 7.7 mg/dL (8.5-10.1) Microbiology 09/21/19 Blood Culture - Final, Complete NO GROWTH AFTER 5 DAYS Medications Current Medications Sodium Chloride 1,000 ml @ 1,000 mls/hr Q1H IV Last administered on 09/21/19at 16:28; Start 09/21/19 at 15:43; Stop 09/21/19 at 16:42; Status DC Pantoprazole Sodium (PROTONIX VIAL for IV PUSH) 40 mg 1X ONCE IVP Last administered on 09/21/19at 16:29; Start 09/21/19 at 15:45; Stop 09/21/19 at 15:50; Status DC Sodium Chloride 1,000 ml @ 125 mls/hr Q8H IV Last administered on 09/22/19at 02:52; Start 09/21/19 at 17:14; Stop 09/22/19 at 17:13; Status DC Pantoprazole Sodium 80 mg/ Sodium Chloride 100 ml @ 10 mls/hr Q10H IV Last administered on 09/21/19at 17:42; Start 09/21/19 at 17:15; Stop 09/21/19 at 19:00; Status DC Acetaminophen (Tylenol) 650 mg PRN Q6HRS PRN PO Headaches, Temp > 101.5' Last administered on 09/28/19at 08:23; Start 09/21/19 at 19:00 Lorazepam (Ativan Inj) 0.5 mg PRN Q6HRS PRN IV ANXIETY / AGITATION Last administered on 09/25/19at 20:00; Start 09/21/19 at 19:00 Ondansetron HCl (Zofran) 4 mg PRN Q6HRS PRN IV NAUSEA/VOMITING; Start 09/21/19 at 19:00; Status Cancel Prochlorperazine Edisylate (Compazine) 5 mg PRN Q6HRS PRN IV NAUSEA/VOMITING, 2ND CHOICE; Start 09/21/19 at 19:00 Famotidine (Pepcid) 20 mg BID PO ; Start 09/21/19 at 21:00; Stop 09/21/19 at 18:59; Status DC Famotidine (Pepcid Vial) 20 mg BID IVP ; Start 09/21/19 at 21:00; Status Cancel Info (Icu Electrolyte Protocol) 1 ea DAILY MC Last administered on 09/22/19at 09:00; Start 09/22/19 at 09:00 Sodium Chloride (Normal Saline Flush) 3 ml QSHIFT PRN IV AFTER MEDS AND BLOOD DRAWS; Start 09/21/19 at 19:00 Sodium Chloride 1,000 ml @ 75 mls/hr [id number] IV Last administered on 09/28/19at 12:25; Start 09/21/19 at 18:53 Hydromorphone HCl (Dilaudid) 0.2 mg PRN Q1HR PRN IV PAIN Last administered on 09/25/19at 09:36; Start 09/21/19 at 19:00; Stop 09/25/19 at 15:18; Status DC Docusate Sodium (Colace) 100 mg BID PO Last administered on 09/27/19at 20:43; Start 09/21/19 at 21:00 Pantoprazole Sodium 80 mg/ Sodium Chloride 100 ml @ 10 mls/hr Q10H IV Last administered on 09/23/19at 05:11; Start 09/21/19 at 19:00; Stop 09/23/19 at 14:34; Status DC Piperacillin Sod/ Tazobactam Sod 3.375 gm/Sodium Chloride 50 ml @ 100 mls/hr Q6HRS IV Last administered on 09/24/19at 12:49; Start 09/21/19 at 19:30; Stop 09/24/19 at 14:21; Status DC Sodium Chloride (Normal Saline Flush) 3 ml QSHIFT PRN IV AFTER MEDS AND BLOOD DRAWS; Start 09/21/19 at 19:15; Status UNV Ondansetron HCl (Zofran) 4 mg PRN Q4HRS PRN IV NAUSEA/VOMITING, 1ST CHOICE; Start 09/21/19 at 19:15 Acetaminophen (Tylenol) 650 mg PRN Q4HRS PRN PO TEMP OVER 100.4F OR MILD PAIN; Start 09/21/19 at 19:15; Status UNV Docusate Sodium (Colace) 100 mg PRN BID PRN PO CONSTIPATION; Start 09/21/19 at 19:15 Albuterol Sulfate (Ventolin Neb Soln) 2.5 mg PRN Q4HRS PRN NEB SHORTNESS OF BREATH; Start 09/21/19 at 19:15 Lorazepam (Ativan) 0.5 mg PRN Q4HRS PRN PO ANXIETY / AGITATION; Start 09/21/19 at 19:15 Piperacillin Sod/ Tazobactam Sod 3.375 gm/Sodium Chloride 50 ml @ 100 mls/hr Q6HRS IV ; Start 09/22/19 at 00:00; Status UNV Ringer's Solution 1,000 ml @ 50 mls/hr Q20H IV Last administered on 09/23/19at 14:00; Start 09/23/19 at 07:00; Stop 09/23/19 at 18:59; Status DC Lactobacillus Rhamnosus (Culturelle) 1 cap BID PO Last administered on 09/28/19at 08:24; Start 09/22/19 at 21:00 Ringer's Solution 1,000 ml @ 75 mls/hr 1X ONCE IV ; Start 09/23/19 at 07:30; Stop 09/23/19 at 20:49; Status DC Zinc Acetate/ Diphenhydramine (Benadryl Topical) 1 ancelmo PRN Q6HRS PRN TP ITCHING; Start 09/23/19 at 13:00 Propofol 20 ml @ As Directed STK-MED ONCE IV ; Start 09/23/19 at 14:11; Stop 09/23/19 at 14:12; Status DC Lidocaine HCl (Lidocaine Pf 2% Vial) 5 ml STK-MED ONCE .ROUTE ; Start 09/23/19 at 14:13; Stop 09/23/19 at 14:14; Status DC Pantoprazole Sodium (Protonix) 40 mg DAILYAC PO Last administered on 09/28/19at 08:23; Start 09/23/19 at 14:45 Potassium Chloride (Klor-Con) 40 meq 1X ONCE PO Last administered on 09/26/19at 17:12; Start 09/26/19 at 16:45; Stop 09/26/19 at 16:46; Status DC Polyethylene Glycol (miraLAX PACKET) 17 gm DAILY PO Last administered on 09/27/19at 11:34; Start 09/27/19 at 11:00 Polyethylene Glycol (miraLAX PACKET) 17 gm PRN DAILY PRN PO CONSTIPATION, 1st CHOICE; Start 09/27/19 at 10:15 Bisacodyl (Dulcolax Tab) 5 mg PRN DAILY PRN PO CONSTIPATION, 2nd CHOICE; Start 09/27/19 at 10:15 Bisacodyl (Dulcolax Supp) 10 mg 1X ONCE UT ; Start 09/27/19 at 12:45; Stop 09/27/19 at 12:46; Status DC Potassium Chloride (Klor-Con) 40 meq 1X ONCE PO Last administered on 09/27/19at 16:37; Start 09/27/19 at 13:00; Stop 09/27/19 at 13:01; Status DC Doxycycline Hyclate 100 mg/ Dextrose 100 ml @ 50 mls/hr Q12HR IV ; Start 09/27/19 at 13:00; Stop 09/27/19 at 14:25; Status DC Doxycycline Hyclate (Vibra-Tab) 100 mg BID PO Last administered on 09/28/19at 0 8:24; Start 09/27/19 at 21:00 Ceftriaxone Sodium (Rocephin) 2 gm Q24H IVP Last administered on 09/27/19at 16:38; Start 09/27/19 at 15:00 Active Scripts Active Multi-Vitamin Daily (Multivitamin) 1 Each Tablet 1 Tab PO DAILY 30 Days Vitamin D (Cholecalciferol (Vitamin D3)) 2,000 Unit Capsule 1 Cap PO DAILY B Complex (Vitamin B Complex) 1 Each Tablet 1 Tab PO DAILY 30 Days Midodrine Hcl 2.5 Mg Tablet 2.5 Mg PO DAILY Aspirin Ec (Aspirin) 81 Mg Tablet.dr 81 Mg PO DAILYWBKFT Hydrocodone-Acetamin 5-325 mg (Hydrocodone/Acetaminophen) 1 Each Tablet 1 Tab PO PRN BID PRN Vitals/I & O Vital Sign - Last 24 Hours 09/27/19 09/27/19 09/27/19 09/27/19 15:00 19:50 20:00 23:39 Temp 98.8 99.5 98.0 98.8 99.5 98.0 Pulse 94 94 94 Resp 12 20 18 B/P (MAP) 151/74 (99) 152/81 (104) 144/71 (95) Pulse Ox 97 98 96 O2 Delivery Room Air Room Air Room Air Room Air 09/28/19 09/28/19 09/28/19 09/28/19 03:27 07:50 08:00 11:27 Temp 98.4 98.3 98.2 98.4 98.3 98.2 Pulse 91 89 100 Resp 18 18 20 B/P (MAP) 161/78 (105) 141/75 (97) 136/66 (89) Pulse Ox 97 97 97 O2 Delivery Room Air Room Air Room Air Room Air O2 Flow Rate 2.0 Intake and Output 09/27/19 09/27/19 09/28/19 15:00 23:00 07:00 Intake Total 400 ml 310 ml Output Total 150 ml Balance 400 ml 160 ml Problem List Problems Medical Problems: (1) Anemia Status: Acute (2) Elevated lactic acid level Status: Acute (3) Elevated troponin Status: Acute (4) GI bleeding Status: Acute (5) Hyperkalemia Status: Acute (6) Renal insufficiency Status: Acute Assessment Anemia- with , PPI therpay for two months, interval EGD to confirm, ulcer healing as o/p recommended. Colonoscopy as well at that time. stable for release from Gi standpoint CHELLE BERNARD MD Sep 28, 2019 14:21
[2019-09-28] MEDS: cefTRIAXone IV Push 2 GM VIAL. IVP SCH (15:29)
[2019-09-28 15:49] VITALS: BP 160/85
[2019-09-28 19:33] VITALS: BP 158/59
[2019-09-28 23:39] VITALS: BP 165/76
[2019-09-29] MEDS: IV NORMAL SALINE 1000ML BAG 1,000 ML IV SCH ×2 (00:13→13:46)
[2019-09-29 03:06] VITALS: BP 170/67
[2019-09-29 07:00] VITALS: BP 153/78
--- NOTE | 2019-09-29 07:24 | PDOC ---
PROGRESS NOTES Chief Complaint Chief Complaint IMPRESSION Fatigue, dyspnea severe debility, weakness of trunk Macrocytic anemia, +Hemoccult Mildly elevated troponin (resolved), elevated BNP, lactic acidosis (resolved), e levated BUN Abnormal CT Recent c scope hemorrhoidal polyps, sessile Acute precip drop hgb SEVERE PROTEIN-CALORIC MALNUTRITION Only a small amount of ascites is identified by ultrasound. Only a few cc of fluid could be safely aspirated. Samples were sent for culture. consider ischemic evaluation as an outpatient scrotal edema likely sec to severe hypo-albuminemia History of remote ETOH use. Improved Hg S/p transfusions. EGD 09/23 Acid suppressive therapy for 2 months with interval EGD to confirm healing. 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 PP ON HOLD DUE TO SCROTAL INFECTION Operative Note Operative Note Operative Note EGD with biopsy Meds propofol per anesthesia Pre-op dx Acute blood loss anemia/melena post-op dx gastric ulcers s/p bx duodenal ulcer with clean base Plan PPI therapy with repeat egd in 2 months to confirm ulcer healing CHELLE BERNARD MD * 2 weeks Discharge Recommendations * Shelter Unit Discharge Recommendation - DME * Rolling Walker needed * in order to complete ADLs * and ambulation safely Vitals Vitals Vital Signs Date Time Temp Pulse Resp B/P (MAP) Pulse Ox O2 Delivery O2 Flow Rate FiO2 09/29/19 03:06 98.5 96 20 170/67 (101) 97 Room Air 98.5 09/28/19 20:00 2.0 Physical Exam Physical Exam GENERAL: Sitting on the side of the bed, alert, in NAD HEENT: Oral mucosa moist. Dentures NECK: Supple, no JVD. LUNGS: Clear bilaterally. No wheezing. HEART: S1, S2. No gallops or murmurs. ABDOMEN: Distended, soft, bowel sounds present, nontender EXTREMITIES: No edema, dry skin. Right foot has mild swelling, no redness, no decrease in range of motion at any of the joints. GENITOURINARY: Scrotal swelling, redness NEUROLOGIC: Alert and oriented x 3, grossly nonfocal. General: Alert, Oriented X3, Cooperative, No acute distress Heart: Regular rate, Normal S1, Normal S2, No murmurs Lungs: Clear Abdomen: Normal bowel sounds, Soft, No tenderness Extremities: No clubbing, No cyanosis, No edema Skin: No rashes, No breakdown, No significant lesion Assessment and Plan Assessmemt and Plan Problems Medical Problems: (1) Anemia Status: Acute (2) Elevated lactic acid level Status: Acute (3) Elevated troponin Status: Acute (4) GI bleeding Status: Acute (5) Hyperkalemia Status: Acute (6) Renal insufficiency Status: Acute Comment Review of Relevant I have reviewed the following items helen (where applicable) has been applied. Labs Laboratory Tests Test 09/27/19 18:49 09/28/19 04:10 Urine Collection Type Unknown Urine Color Vera Urine Clarity Clear Urine pH 5.5 Urine Specific [place] 1.025 Urine Protein Negative mg/dL (NEG-TRACE) Urine Glucose (UA) 100 mg/dL (NEG) Urine Ketones (Stick) Negative mg/dL (NEG) Urine Blood Negative (NEG) Urine Nitrite Negative (NEG) Urine Bilirubin Negative (NEG) Urine Urobilinogen Dipstick 1.0 mg/dL (0.2 mg/dL) Urine Leukocyte Esterase Small (NEG) Urine RBC 0 /HPF (0-2) Urine WBC 11-20 /HPF (0-4) Urine Squamous Epithelial Cells Mod /LPF Urine Transitional Epithelial Cells Few /LPF Urine Bacteria 0 /HPF (0-FEW) Urine Hyaline Casts Many /HPF Urine Mucus Marked /LPF Sodium Level 139 mmol/L (136-145) Potassium Level 3.8 mmol/L (3.5-5.1) Chloride Level 108 mmol/L (98-107) Carbon Dioxide Level 24 mmol/L (21-32) Anion Gap 7 (6-14) Blood Urea Nitrogen 8 mg/dL (8-26) Creatinine 0.8 mg/dL (0.7-1.3) Estimated GFR (Cockcroft-Gault) 95.3 Glucose Level 98 mg/dL (70-99) Calcium Level 7.7 mg/dL (8.5-10.1) Microbiology 09/21/19 Blood Culture - Final, Complete NO GROWTH AFTER 5 DAYS Medications Current Medications Sodium Chloride 1,000 ml @ 1,000 mls/hr Q1H IV Last administered on 09/21/19at 16:28; Start 09/21/19 at 15:43; Stop 09/21/19 at 16:42; Status DC Pantoprazole Sodium (PROTONIX VIAL for IV PUSH) 40 mg 1X ONCE IVP Last administered on 09/21/19at 16:29; Start 09/21/19 at 15:45; Stop 09/21/19 at 15:50; Status DC Sodium Chloride 1,000 ml @ 125 mls/hr Q8H IV Last administered on 09/22/19at 02:52; Start 09/21/19 at 17:14; Stop 09/22/19 at 17:13; Status DC Pantoprazole Sodium 80 mg/ Sodium Chloride 100 ml @ 10 mls/hr Q10H IV Last administered on 09/21/19at 17:42; Start 09/21/19 at 17:15; Stop 09/21/19 at 19:00; Status DC Acetaminophen (Tylenol) 650 mg PRN Q6HRS PRN PO Headaches, Temp > 101.5' Last administered on 09/28/19at 08:23; Start 09/21/19 at 19:00 Lorazepam (Ativan Inj) 0.5 mg PRN Q6HRS PRN IV ANXIETY / AGITATION Last admin istered on 09/25/19at 20:00; Start 09/21/19 at 19:00 Ondansetron HCl (Zofran) 4 mg PRN Q6HRS PRN IV NAUSEA/VOMITING; Start 09/21/19 at 19:00; Status Cancel Prochlorperazine Edisylate (Compazine) 5 mg PRN Q6HRS PRN IV NAUSEA/VOMITING, 2ND CHOICE; Start 09/21/19 at 19:00 Famotidine (Pepcid) 20 mg BID PO ; Start 09/21/19 at 21:00; Stop 09/21/19 at 18:59; Status DC Famotidine (Pepcid Vial) 20 mg BID IVP ; Start 09/21/19 at 21:00; Status Cancel Info (Icu Electrolyte Protocol) 1 ea DAILY MC Last administered on 09/22/19at 09:00; Start 09/22/19 at 09:00 Sodium Chloride (Normal Saline Flush) 3 ml QSHIFT PRN IV AFTER MEDS AND BLOOD DRAWS; Start 09/21/19 at 19:00 Sodium Chloride 1,000 ml @ 75 mls/hr [id number] IV Last administered on 09/29/19at 00:13; Start 09/21/19 at 18:53 Hydromorphone HCl (Dilaudid) 0.2 mg PRN Q1HR PRN IV PAIN Last administered on 09/25/19at 09:36; Start 09/21/19 at 19:00; Stop 09/25/19 at 15:18; Status DC Docusate Sodium (Colace) 100 mg BID PO Last administered on 09/28/19at 21:43; Start 09/21/19 at 21:00 Pantoprazole Sodium 80 mg/ Sodium Chloride 100 ml @ 10 mls/hr Q10H IV Last administered on 09/23/19at 05:11; Start 09/21/19 at 19:00; Stop 09/23/19 at 14:34; Status DC Piperacillin Sod/ Tazobactam Sod 3.375 gm/Sodium Chloride 50 ml @ 100 mls/hr Q6HRS IV Last administered on 09/24/19at 12:49; Start 09/21/19 at 19:30; Stop 09/24/19 at 14:21; Status DC Sodium Chloride (Normal Saline Flush) 3 ml QSHIFT PRN IV AFTER MEDS AND BLOOD DRAWS; Start 09/21/19 at 19:15; Status UNV Ondansetron HCl (Zofran) 4 mg PRN Q4HRS PRN IV NAUSEA/VOMITING, 1ST CHOICE; Start 09/21/19 at 19:15 Acetaminophen (Tylenol) 650 mg PRN Q4HRS PRN PO TEMP OVER 100.4F OR MILD PAIN; Start 09/21/19 at 19:15; Status UNV Docusate Sodium (Colace) 100 mg PRN BID PRN PO CONSTIPATION; Start 09/21/19 at 19:15 Albuterol Sulfate (Ventolin Neb Soln) 2.5 mg PRN Q4HRS PRN NEB SHORTNESS OF BREATH; Start 09/21/19 at 19:15 Lorazepam (Ativan) 0.5 mg PRN Q4HRS PRN PO ANXIETY / AGITATION; Start 09/21/19 at 19:15 Piperacillin Sod/ Tazobactam Sod 3.375 gm/Sodium Chloride 50 ml @ 100 mls/hr Q6HRS IV ; Start 09/22/19 at 00:00; Status UNV Ringer's Solution 1,000 ml @ 50 mls/hr Q20H IV Last administered on 09/23/19at 14:00; Start 09/23/19 at 07:00; Stop 09/23/19 at 18:59; Status DC Lactobacillus Rhamnosus (Culturelle) 1 cap BID PO Last administered on 09/28/19at 21:43; Start 09/22/19 at 21:00 Ringer's Solution 1,000 ml @ 75 mls/hr 1X ONCE IV ; Start 09/23/19 at 07:30; Stop 09/23/19 at 20:49; Status DC Zinc Acetate/ Diphenhydramine (Benadryl Topical) 1 ancelmo PRN Q6HRS PRN TP ITCHING; Start 09/23/19 at 13:00 Propofol 20 ml @ As Directed STK-MED ONCE IV ; Start 09/23/19 at 14:11; Stop 09/23/19 at 14:12; Status DC Lidocaine HCl (Lidocaine Pf 2% Vial) 5 ml STK-MED ONCE .ROUTE ; Start 09/23/19 at 14:13; Stop 09/23/19 at 14:14; Status DC Pantoprazole Sodium (Protonix) 40 mg DAILYAC PO Last administered on 09/28/19at 08:23; Start 09/23/19 at 14:45 Potassium Chloride (Klor-Con) 40 meq 1X ONCE PO Last administered on 09/26/19at 17:12; Start 09/26/19 at 16:45; Stop 09/26/19 at 16:46; Status DC Polyethylene Glycol (miraLAX PACKET) 17 gm DAILY PO Last administered on 09/27/19at 11:34; Start 09/27/19 at 11:00 Polyethylene Glycol (miraLAX PACKET) 17 gm PRN DAILY PRN PO CONSTIPATION, 1st CHOICE; Start 09/27/19 at 10:15 Bisacodyl (Dulcolax Tab) 5 mg PRN DAILY PRN PO CONSTIPATION, 2nd CHOICE; Start 09/27/19 at 10:15 Bisacodyl (Dulcolax Supp) 10 mg 1X ONCE [place] ; Start 09/27/19 at 12:45; Stop 09/27/19 at 12:46; Status DC Potassium Chloride (Klor-Con) 40 meq 1X ONCE PO Last administered on 09/27/19at 16:37; Start 09/27/19 at 13:00; Stop 09/27/19 at 13:01; Status DC Doxycycline Hyclate 100 mg/ Dextrose 100 ml @ 50 mls/hr Q12HR IV ; Start 09/27/19 at 13:00; Stop 09/27/19 at 14:25; Status DC Doxycycline Hyclate (Vibra-Tab) 100 mg BID PO Last administered on 09/28/19at 21:43; Start 09/27/19 at 21:00 Ceftriaxone Sodium (Rocephin) 2 gm Q24H IVP Last administered on 09/28/19at 15:29; Start 09/27/19 at 15:00 Active Scripts Active Multi-Vitamin Daily (Multivitamin) 1 Each Tablet 1 Tab PO DAILY 30 Days Vitamin D (Cholecalciferol (Vitamin D3)) 2,000 Unit Capsule 1 Cap PO DAILY B Complex (Vitamin B Complex) 1 Each Tablet 1 Tab PO DAILY 30 Days Midodrine Hcl 2.5 Mg Tablet 2.5 Mg PO DAILY Aspirin Ec (Aspirin) 81 Mg Tablet.dr 81 Mg PO DAILYWBKFT Hydrocodone-Acetamin 5-325 mg (Hydrocodone/Acetaminophen) 1 Each Tablet 1 Tab PO PRN BID PRN Vitals/I & O Vital Sign - Last 24 Hours 09/28/19 09/28/19 09/28/19 09/28/19 07:50 08:00 11:27 15:49 Temp 98.3 98.2 98.3 98.3 98.2 98.3 Pulse 89 100 97 Resp 18 20 18 B/P (MAP) 141/75 (97) 136/66 (89) 160/85 (110) Pulse Ox 97 97 98 O2 Delivery Room Air Room Air Room Air Room Air O2 Flow Rate 2.0 09/28/19 09/28/19 09/28/19 09/29/19 19:33 20:00 23:39 03:06 Temp 98.8 98.8 98.5 98.8 98.8 98.5 Pulse 94 93 96 Resp 18 18 20 B/P (MAP) 158/59 (92) 165/76 (105) 170/67 (101) Pulse Ox 98 96 97 O2 Delivery Room Air Room Air Room Air Room Air O2 Flow Rate 2.0 Intake and Output 09/28/19 09/28/19 09/29/19 15:00 23:00 07:00 Intake Total 200 ml 350 ml 300 ml Output Total 250 ml Balance 200 ml 350 ml 50 ml Nutrition Consultation Dietary Evaluation: Recommendations by RD: Dietary education by RD, Increase Calorie Intake, Protein supplementation Comments: REC advance to soft diet/cardiac w/Ensure TID Expected Outcomes/Goals: to meet >75% est nutr needs - met at times, goal ongoing Malnutrition Findings: Food and Nutrition Intake (Sev: <50% est energy req 5days Weight Status: Overweight ELLIS JETT MD Sep 29, 2019 07:24
[2019-09-29] MEDS: ELECTROLYTE (ICU) PROTOCOL. MC SCH (08:29)
[2019-09-29] MEDS: DOCUSATE SODIUM 100 MG CAPSULE. PO SCH ×2 (09:00→21:33)
[2019-09-29] MEDS: POLYETHYLENE GLYCOL 3350 17 GM PACKET. PO SCH (09:00)
[2019-09-29] MEDS: LACTOBACILLUS RHAMNOSUS GG 1 CAPSULE. PO SCH ×2 (10:10→21:33)
[2019-09-29] MEDS: DOXYCYCLINE HYCLATE 100 MG TABLET PO SCH ×2 (10:10→21:33)
[2019-09-29] MEDS: PANTOPRAZOLE 40 MG TABLET.DR. PO SCH (10:10)
--- NOTE | 2019-09-29 10:44 | PDOC ---
Infectious Disease Note Subjective: Subjective c/o some scrotal swelling and pain after moving about this morning no foot pain No fevers last 24 hours Vital Signs: Vital Signs Vital Signs Date Time Temp Pulse Resp B/P (MAP) Pulse Ox O2 Delivery O2 Flow Rate FiO2 09/29/19 03:06 98.5 96 20 170/67 (101) 97 Room Air 98.5 09/28/19 20:00 2.0 Physical Exam: PHYSICAL EXAM GENERAL: Sitting on the side of the bed, alert, in NAD HEENT: Oral mucosa moist. Dentures NECK: Supple, no JVD. LUNGS: Clear bilaterally. No wheezing. HEART: S1, S2. No gallops or murmurs. ABDOMEN: Distended, soft, bowel sounds present, nontender EXTREMITIES: No edema, dry skin. Right foot has mild swelling, no redness, no decrease in range of motion at any of the joints. GENITOURINARY: Scrotal swelling, redness NEUROLOGIC: Alert and oriented x 3, grossly nonfocal. Medications: Inpatient Meds: Current Medications Medications (Trade) Dose Ordered Sig/Eliza Start Time Stop Time Status Last Admin Dose Admin Acetaminophen (Tylenol) 650 mg PRN Q4HRS PRN 09/21/19 19:15 UNV Albuterol Sulfate (Ventolin Neb Soln) 2.5 mg PRN Q4HRS PRN 09/21/19 19:15 Bisacodyl (Dulcolax Supp) 10 mg 1X ONCE 09/27/19 12:45 09/27/19 12:46 DC Bisacodyl (Dulcolax Tab) 5 mg PRN DAILY PRN 09/27/19 10:15 Ceftriaxone Sodium (Rocephin) 2 gm Q24H 09/27/19 15:00 09/28/19 15:29 2 GM Docusate Sodium (Colace) 100 mg PRN BID PRN 09/21/19 19:15 Doxycycline Hyclate (Vibra-Tab) 100 mg BID 09/27/19 21:00 09/29/19 10:10 100 MG Doxycycline Hyclate 100 mg/ Dextrose 100 ml @ 50 mls/hr Q12HR 09/27/19 13:00 09/27/19 14:25 DC Famotidine (Pepcid Vial) 20 mg BID 09/21/19 21:00 Cancel Famotidine (Pepcid) 20 mg BID 09/21/19 21:00 09/21/19 18:59 DC Hydromorphone HCl (Dilaudid) 0.2 mg PRN Q1HR PRN 09/21/19 19:00 09/25/19 15:18 DC 09/25/19 09:36 0.2 MG Info (Icu Electrolyte Protocol) 1 ea DAILY 09/22/19 09:00 09/22/19 09:00 1 EA Lactobacillus Rhamnosus (Culturelle) 1 cap BID 09/22/19 21:00 09/29/19 10:10 1 CAP Lidocaine HCl (Lidocaine Pf 2% Vial) 5 ml STK-MED ONCE 09/23/19 14:13 09/23/19 14:14 DC Lorazepam (Ativan Inj) 0.5 mg PRN Q6HRS PRN 09/21/19 19:00 09/25/19 20:00 0.5 MG Lorazepam (Ativan) 0.5 mg PRN Q4HRS PRN 09/21/19 19:15 Ondansetron HCl (Zofran) 4 mg PRN Q4HRS PRN 09/21/19 19:15 Pantoprazole Sodium (PROTONIX VIAL for IV PUSH) 40 mg 1X ONCE 09/21/19 15:45 09/21/19 15:50 DC 09/21/19 16:29 40 MG Pantoprazole Sodium (Protonix) 40 mg DAILYAC 09/23/19 14:45 09/29/19 10:10 40 MG Pantoprazole Sodium 80 mg/ Sodium Chloride 100 ml @ 10 mls/hr Q10H 09/21/19 19:00 09/23/19 14:34 DC 09/23/19 05:11 10 MLS/HR Piperacillin Sod/ Tazobactam Sod 3.375 gm/Sodium Chloride 50 ml @ 100 mls/hr Q6HRS 09/22/19 00:00 UNV Polyethylene Glycol (miraLAX PACKET) 17 gm PRN DAILY PRN 09/27/19 10:15 Potassium Chloride (Klor-Con) 40 meq 1X ONCE 09/27/19 13:00 09/27/19 13:01 DC 09/27/19 16:37 40 MEQ Prochlorperazine Edisylate (Compazine) 5 mg PRN Q6HRS PRN 09/21/19 19:00 Propofol 20 ml @ As Directed STK-MED ONCE 09/23/19 14:11 09/23/19 14:12 DC Ringer's Solution 1,000 ml @ 75 mls/hr 1X ONCE 09/23/19 07:30 09/23/19 20:49 DC Sodium Chloride (Normal Saline Flush) 3 ml QSHIFT PRN 09/21/19 19:15 UNV Zinc Acetate/ Diphenhydramine (Benadryl Topical) 1 ancelmo PRN Q6HRS PRN 09/23/19 13:00 Objective: Assessment: Scrotal swelling, appears less likely from cellulitis.improved Low-grade fevers, etiology unclear, could be noninfectious.resolved Right foot pain, likely noninfectious.resolved Ascites, status post paracentesis with rbc 3000, wbc 500. No ascitic fluid cultures available. Gastric ulcer, duodenal ulcer, status post biopsy. Anemia, status post blood transfusion. Questionable cirrhosis. Hypertension. History of remote ETOH use. Diarrhea, C. diff neg stool ob positive Plan: Plan of Care Continue doxycycline and ceftriaxone. add micafungin Elevate scrotum. f/u uc urine, gonorrhea and chlamydia pending d/w ALPHONSO Callahan MD Sep 29, 2019 10:44
[2019-09-29 11:37] VITALS: BP 131/68
[2019-09-29] MEDS: MICAFUNGIN 100 MG in IV DEXTROSE 5% 100ML 100 ML IV SCH (13:45)
[2019-09-29 15:11] VITALS: BP 146/61
[2019-09-29] MEDS: cefTRIAXone IV Push 2 GM VIAL. IVP SCH (15:42)
[2019-09-29 19:58] VITALS: BP 155/78
[2019-09-29 23:19] VITALS: BP 166/78
[2019-09-30] MEDS: IV NORMAL SALINE 1000ML BAG 1,000 ML IV SCH ×2 (03:03→17:29)
[2019-09-30 03:06] VITALS: BP 157/77
[2019-09-30 05:09] LABS: BASO % 1 % (0-3); EOS # 0.2 x10^3/uL (0.0-0.7); EOS % 5 % (0-3); HEMATOCRIT 22.1 % (39.0-53.0); HEMOGLOBIN 7.3 g/dL (13.0-17.5); LYMPH % 37 % (24-48); MEAN CORPUSCULAR HEMOGLOBIN 31 pg (25-35); MEAN CORPUSCULAR HGB CONC 33 g/dL (31-37); MEAN CORPUSCULAR VOLUME 94 fL (79-100); MONO # 0.6 x10^3/uL (0.0-1.1); MONO % 11 % (0-9); NEUT # 2.5 x10^3/uL (1.8-7.7); NEUT % 47 % (31-73); PLATELET COUNT 394 x10^3/uL (140-400); RED BLOOD COUNT 2.34 x10^6/uL (4.30-5.70); RED CELL DISTRIBUTION WIDTH 23.7 % (11.5-14.5); WHITE BLOOD COUNT 5.3 x10^3/uL (4.0-11.0)
[2019-09-30 05:30] LABS: CALCIUM 7.2 mg/dL (8.5-10.1); CREATININE 0.7 mg/dL (0.7-1.3); GFR 111.2; POTASSIUM 3.6 mmol/L (3.5-5.1)
[2019-09-30 07:40] VITALS: BP 156/75
[2019-09-30] MEDS: LACTOBACILLUS RHAMNOSUS GG 1 CAPSULE. PO SCH ×2 (08:52→20:05)
[2019-09-30] MEDS: PANTOPRAZOLE 40 MG TABLET.DR. PO SCH (08:52)
[2019-09-30] MEDS: DOXYCYCLINE HYCLATE 100 MG TABLET PO SCH ×2 (08:52→20:05)
[2019-09-30] MEDS: DOCUSATE SODIUM 100 MG CAPSULE. PO SCH ×2 (08:57→20:04)
[2019-09-30] MEDS: ELECTROLYTE (ICU) PROTOCOL. MC SCH (08:57)
[2019-09-30] MEDS: POLYETHYLENE GLYCOL 3350 17 GM PACKET. PO SCH (08:58)
[2019-09-30] MEDS ORDERED: IRON SUCROSE COMPLEX 200 MG in IV NORMAL SALINE 100ML 100 ML IV ONE (09:00)
--- NOTE | 2019-09-30 09:28 | PDOC ---
PROGRESS NOTES Chief Complaint Chief Complaint A/P: Fatigue, dyspnea severe debility, weakness of trunk Macrocytic anemia, +Hemoccult Mildly elevated troponin (resolved), elevated BNP, lactic acidosis (resolved), elevated BUN Abnormal CT Recent c scope hemorrhoidal polyps, sessile Acute precip drop hgb SEVERE PROTEIN-CALORIC MALNUTRITION Only a small amount of ascites is identified by ultrasound. Only a few cc of fluid could be safely aspirated. Samples were sent for culture. consider ischemic evaluation as an outpatient scrotal edema likely sec to severe hypo-albuminemia History of remote ETOH use. 30 MIN PT EXAM, CHART REVIEW, > 50% OF TIME SPENT WITH EXAM, CHART REVIEW, PT CARE COORDINATION History of Present Illness History of Present Illness Mr Davila is a 73yo M Improved Hg S/p transfusions. EGD 09/23 Acid suppressive therapy for 2 months with interval EGD to confirm healing. 09/24 states he feels too weak to go home today 09/26 gait still unsteady 09/28 HOLD D/C DUE TO SCROTAL SWELLING He has worse scrotal edema today. Still very weak, mildly short of breath. No abdominal pain. 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 Dentures NECK: Supple, no JVD. LUNGS: Clear bilaterally. No wheezing. HEART: S1, S2. No gallops or murmurs. ABDOMEN: Distended, soft, bowel sounds present, nontender EXTREMITIES: No edema, dry skin. Right foot has mild swelling, no redness, no decrease in range of motion at any of the joints. GENITOURINARY: Scrotal swelling, redness NEUROLOGIC: Alert and oriented x 3, grossly nonfocal. General: Alert, Oriented X3, Cooperative, No acute distress Heart: Regular rate, Normal S1, Normal S2, No murmurs Lungs: Clear Abdomen: Normal bowel sounds, Soft, No tenderness Extremities: No clubbing, No cyanosis, No edema Skin: No rashes, No breakdown, No significant lesion Labs LABS Laboratory Tests Test 09/30/19 03:20 White Blood Count 5.3 x10^3/uL (4.0-11.0) Red Blood Count 2.34 x10^6/uL (4.30-5.70) Hemoglobin 7.3 g/dL (13.0-17.5) Hematocrit 22.1 % (39.0-53.0) Mean Corpuscular Volume 94 fL (79-100) Mean Corpuscular Hemoglobin 31 pg (25-35) Mean Corpuscular Hemoglobin Concent 33 g/dL (31-37) Red Cell Distribution Width 23.7 % (11.5-14.5) Platelet Count 394 x10^3/uL (140-400) Neutrophils (%) (Auto) 47 % (31-73) Lymphocytes (%) (Auto) 37 % (24-48) Monocytes (%) (Auto) 11 % (0-9) Eosinophils (%) (Auto) 5 % (0-3) Basophils (%) (Auto) 1 % (0-3) Neutrophils # (Auto) 2.5 x10^3/uL (1.8-7.7) Lymphocytes # (Auto) 2.0 x10^3/uL (1.0-4.8) Monocytes # (Auto) 0.6 x10^3/uL (0.0-1.1) Eosinophils # (Auto) 0.2 x10^3/uL (0.0-0.7) Basophils # (Auto) 0.0 x10^3/uL (0.0-0.2) Sodium Level 140 mmol/L (136-145) Potassium Level 3.6 mmol/L (3.5-5.1) Chloride Level 108 mmol/L (98-107) Carbon Dioxide Level 25 mmol/L (21-32) Anion Gap 7 (6-14) Blood Urea Nitrogen 9 mg/dL (8-26) Creatinine 0.7 mg/dL (0.7-1.3) Estimated GFR (Cockcroft-Gault) 111.2 Glucose Level 88 mg/dL (70-99) Calcium Level 7.2 mg/dL (8.5-10.1) Iron Level 17 ug/dL (65-175) Total Iron Binding Capacity 83 ug/dL (250-450) Iron Saturation 20 % (15-34) Assessment and Plan Assessmemt and Plan Problems Medical Problems: (1) Anemia Status: Acute (2) Elevated lactic acid level Status: Acute (3) Elevated troponin Status: Acute (4) GI bleeding Status: Acute (5) Hyperkalemia Status: Acute (6) Renal insufficiency Status: Acute Comment Review of Relevant I have reviewed the following items helen (where applicable) has been applied. Labs Laboratory Tests Test 09/30/19 03:20 White Blood Count 5.3 x10^3/uL (4.0-11.0) Red Blood Count 2.34 x10^6/uL (4.30-5.70) Hemoglobin 7.3 g/dL (13.0-17.5) Hematocrit 22.1 % (39.0-53.0) Mean Corpuscular Volume 94 fL (79-100) Mean Corpuscular Hemoglobin 31 pg (25-35) Mean Corpuscular Hemoglobin Concent 33 g/dL (31-37) Red Cell Distribution Width 23.7 % (11.5-14.5) Platelet Count 394 x10^3/uL (140-400) Neutrophils (%) (Auto) 47 % (31-73) Lymphocytes (%) (Auto) 37 % (24-48) Monocytes (%) (Auto) 11 % (0-9) Eosinophils (%) (Auto) 5 % (0-3) Basophils (%) (Auto) 1 % (0-3) Neutrophils # (Auto) 2.5 x10^3/uL (1.8-7.7) Lymphocytes # (Auto) 2.0 x10^3/uL (1.0-4.8) Monocytes # (Auto) 0.6 x10^3/uL (0.0-1.1) Eosinophils # (Auto) 0.2 x10^3/uL (0.0-0.7) Basophils # (Auto) 0.0 x10^3/uL (0.0-0.2) Sodium Level 140 mmol/L (136-145) Potassium Level 3.6 mmol/L (3.5-5.1) Chloride Level 108 mmol/L (98-107) Carbon Dioxide Level 25 mmol/L (21-32) Anion Gap 7 (6-14) Blood Urea Nitrogen 9 mg/dL (8-26) Creatinine 0.7 mg/dL (0.7-1.3) Estimated GFR (Cockcroft-Gault) 111.2 Glucose Level 88 mg/dL (70-99) Calcium Level 7.2 mg/dL (8.5-10.1) Iron Level 17 ug/dL (65-175) Total Iron Binding Capacity 83 ug/dL (250-450) Iron Saturation 20 % (15-34) Laboratory Tests Test 09/30/19 03:20 White Blood Count 5.3 x10^3/uL (4.0-11.0) Red Blood Count 2.34 x10^6/uL (4.30-5.70) Hemoglobin 7.3 g/dL (13.0-17.5) Hematocrit 22.1 % (39.0-53.0) Mean Corpuscular Volume 94 fL (79-100) Mean Corpuscular Hemoglobin 31 pg (25-35) Mean Corpuscular Hemoglobin Concent 33 g/dL (31-37) Red Cell Distribution Width 23.7 % (11.5-14.5) Platelet Count 394 x10^3/uL (140-400) Neutrophils (%) (Auto) 47 % (31-73) Lymphocytes (%) (Auto) 37 % (24-48) Monocytes (%) (Auto) 11 % (0-9) Eosinophils (%) (Auto) 5 % (0-3) Basophils (%) (Auto) 1 % (0-3) Neutrophils # (Auto) 2.5 x10^3/uL (1.8-7.7) Lymphocytes # (Auto) 2.0 x10^3/uL (1.0-4.8) Monocytes # (Auto) 0.6 x10^3/uL (0.0-1.1) Eosinophils # (Auto) 0.2 x10^3/uL (0.0-0.7) Basophils # (Auto) 0.0 x10^3/uL (0.0-0.2) Sodium Level 140 mmol/L (136-145) Potassium Level 3.6 mmol/L (3.5-5.1) Chloride Level 108 mmol/L (98-107) Carbon Dioxide Level 25 mmol/L (21-32) Anion Gap 7 (6-14) Blood Urea Nitrogen 9 mg/dL (8-26) Creatinine 0.7 mg/dL (0.7-1.3) Estimated GFR (Cockcroft-Gault) 111.2 Glucose Level 88 mg/dL (70-99) Calcium Level 7.2 mg/dL (8.5-10.1) Iron Level 17 ug/dL (65-175) Total Iron Binding Capacity 83 ug/dL (250-450) Iron Saturation 20 % (15-34) Microbiology 09/21/19 Blood Culture - Final, Complete NO GROWTH AFTER 5 DAYS Medications Current Medications Sodium Chloride 1,000 ml @ 1,000 mls/hr Q1H IV Last administered on 09/21/19at 16:28; Start 09/21/19 at 15:43; Stop 09/21/19 at 16:42; Status DC Pantoprazole Sodium (PROTONIX VIAL for IV PUSH) 40 mg 1X ONCE IVP Last administered on 09/21/19at 16:29; Start 09/21/19 at 15:45; Stop 09/21/19 at 15:50; Status DC Sodium Chloride 1,000 ml @ 125 mls/hr Q8H IV Last administered on 09/22/19at 02:52; Start 09/21/19 at 17:14; Stop 09/22/19 at 17:13; Status DC Pantoprazole Sodium 80 mg/ Sodium Chloride 100 ml @ 10 mls/hr Q10H IV Last administered on 09/21/19at 17:42; Start 09/21/19 at 17:15; Stop 09/21/19 at 19 :00; Status DC Acetaminophen (Tylenol) 650 mg PRN Q6HRS PRN PO Headaches, Temp > 101.5' Last administered on 09/28/19at 08:23; Start 09/21/19 at 19:00 Lorazepam (Ativan Inj) 0.5 mg PRN Q6HRS PRN IV ANXIETY / AGITATION Last administered on 09/25/19at 20:00; Start 09/21/19 at 19:00 Ondansetron HCl (Zofran) 4 mg PRN Q6HRS PRN IV NAUSEA/VOMITING; Start 09/21/19 at 19:00; Status Cancel Prochlorperazine Edisylate (Compazine) 5 mg PRN Q6HRS PRN IV NAUSEA/VOMITING, 2ND CHOICE; Start 09/21/19 at 19:00 Famotidine (Pepcid) 20 mg BID PO ; Start 09/21/19 at 21:00; Stop 09/21/19 at 18:59; Status DC Famotidine (Pepcid Vial) 20 mg BID IVP ; Start 09/21/19 at 21:00; Status Cancel Info (Icu Electrolyte Protocol) 1 ea DAILY MC Last administered on 09/22/19at 09:00; Start 09/22/19 at 09:00 Sodium Chloride (Normal Saline Flush) 3 ml QSHIFT PRN IV AFTER MEDS AND BLOOD DRAWS; Start 09/21/19 at 19:00 Sodium Chloride 1,000 ml @ 75 mls/hr [id number] IV Last administered on 09/30/19at 03:03; Start 09/21/19 at 18:53 Hydromorphone HCl (Dilaudid) 0.2 mg PRN Q1HR PRN IV PAIN Last administered on 09/25/19at 09:36; Start 09/21/19 at 19:00; Stop 09/25/19 at 15:18; Status DC Docusate Sodium (Colace) 100 mg BID PO Last administered on 09/29/19at 21:33; Start 09/21/19 at 21:00 Pantoprazole Sodium 80 mg/ Sodium Chloride 100 ml @ 10 mls/hr Q10H IV Last administered on 09/23/19at 05:11; Start 09/21/19 at 19:00; Stop 09/23/19 at 14:34; Status DC Piperacillin Sod/ Tazobactam Sod 3.375 gm/Sodium Chloride 50 ml @ 100 mls/hr Q6HRS IV Last administered on 09/24/19at 12:49; Start 09/21/19 at 19:30; Stop 09/24/19 at 14:21; Status DC Sodium Chloride (Normal Saline Flush) 3 ml QSHIFT PRN IV AFTER MEDS AND BLOOD DRAWS; Start 09/21/19 at 19:15; Status UNV Ondansetron HCl (Zofran) 4 mg PRN Q4HRS PRN IV NAUSEA/VOMITING, 1ST CHOICE; Start 09/21/19 at 19:15 Acetaminophen (Tylenol) 650 mg PRN Q4HRS PRN PO TEMP OVER 100.4F OR MILD PAIN; Start 09/21/19 at 19:15; Status UNV Docusate Sodium (Colace) 100 mg PRN BID PRN PO CONSTIPATION; Start 09/21/19 at 19:15 Albuterol Sulfate (Ventolin Neb Soln) 2.5 mg PRN Q4HRS PRN NEB SHORTNESS OF BREATH; Start 09/21/19 at 19:15 Lorazepam (Ativan) 0.5 mg PRN Q4HRS PRN PO ANXIETY / AGITATION; Start 09/21/19 at 19:15 Piperacillin Sod/ Tazobactam Sod 3.375 gm/Sodium Chloride 50 ml @ 100 mls/hr Q6HRS IV ; Start 09/22/19 at 00:00; Status UNV Ringer's Solution 1,000 ml @ 50 mls/hr Q20H IV Last administered on 09/23/19at 14:00; Start 09/23/19 at 07:00; Stop 09/23/19 at 18:59; Status DC Lactobacillus Rhamnosus (Culturelle) 1 cap BID PO Last administered on 09/30/19at 08:52; Start 09/22/19 at 21:00 Ringer's Solution 1,000 ml @ 75 mls/hr 1X ONCE IV ; Start 09/23/19 at 07:30; Stop 09/23/19 at 20:49; Status DC Zinc Acetate/ Diphenhydramine (Benadryl Topical) 1 ancelmo PRN Q6HRS PRN TP ITCHING; Start 09/23/19 at 13:00 Propofol 20 ml @ As Directed STK-MED ONCE IV ; Start 09/23/19 at 14:11; Stop 09/23/19 at 14:12; Status DC Lidocaine HCl (Lidocaine Pf 2% Vial) 5 ml STK-MED ONCE .ROUTE ; Start 09/23/19 at 14:13; Stop 09/23/19 at 14:14; Status DC Pantoprazole Sodium (Protonix) 40 mg DAILYAC PO Last administered on 09/30/19at 08:52; Start 09/23/19 at 14:45 Potassium Chloride (Klor-Con) 40 meq 1X ONCE PO Last administered on 09/26/19at 17:12; Start 09/26/19 at 16:45; Stop 09/26/19 at 16:46; Status DC Polyethylene Glycol (miraLAX PACKET) 17 gm DAILY PO Last administered on 09/27/19at 11:34; Start 09/27/19 at 11:00 Polyethylene Glycol (miraLAX PACKET) 17 gm PRN DAILY PRN PO CONSTIPATION, 1st CHOICE; Start 09/27/19 at 10:15 Bisacodyl (Dulcolax Tab) 5 mg PRN DAILY PRN PO CONSTIPATION, 2nd CHOICE; Start 09/27/19 at 10:15 Bisacodyl (Dulcolax Supp) 10 mg 1X ONCE [place] ; Start 09/27/19 at 12:45; Stop 09/27/19 at 12:46; Status DC Potassium Chloride (Klor-Con) 40 meq 1X ONCE PO Last administered on 09/27/19at 16:37; Start 09/27/19 at 13:00; Stop 09/27/19 at 13:01; Status DC Doxycycline Hyclate 100 mg/ Dextrose 100 ml @ 50 mls/hr Q12HR IV ; Start 09/27/19 at 13:00; Stop 09/27/19 at 14:25; Status DC Doxycycline Hyclate (Vibra-Tab) 100 mg BID PO Last administered on 09/30/19at 08:52; Start 09/27/19 at 21:00 Ceftriaxone Sodium (Rocephin) 2 gm Q24H IVP Last administered on 09/29/19at 15:42; Start 09/27/19 at 15:00 Micafungin Sodium 100 mg/Dextrose 100 ml @ 100 mls/hr Q24H IV Last administered on 09/29/19at 13:45; Start 09/29/19 at 13:00 Iron Sucrose 200 mg/Sodium Chloride 110 ml @ 55 mls/hr 1X ONCE IV Last administered on 09/30/19at 09:01; Start 09/30/19 at 09:00; Stop 09/30/19 at 10:59 Active Scripts Active Multi-Vitamin Daily (Multivitamin) 1 Each Tablet 1 Tab PO DAILY 30 Days Vitamin D (Cholecalciferol (Vitamin D3)) 2,000 Unit Capsule 1 Cap PO DAILY B Complex (Vitamin B Complex) 1 Each Tablet 1 Tab PO DAILY 30 Days Midodrine Hcl 2.5 Mg Tablet 2.5 Mg PO DAILY Aspirin Ec (Aspirin) 81 Mg Tablet.dr 81 Mg PO DAILYWBKFT Hydrocodone-Acetamin 5-325 mg (Hydrocodone/Acetaminophen) 1 Each Tablet 1 Tab PO PRN BID PRN Vitals/I & O Vital Sign - Last 24 Hours 09/29/19 09/29/19 09/29/19 09/29/19 11:37 15:11 19:58 20:00 Temp 98.6 98.2 98.7 98.6 98.2 98.7 Pulse 98 99 99 Resp 18 18 18 B/P (MAP) 131/68 (89) 146/61 (89) 155/78 (103) Pulse Ox 97 99 97 O2 Delivery Room Air Room Air Room Air Room Air O2 Flow Rate 2.0 09/29/19 09/30/19 09/30/19 23:19 03:06 07:40 Temp 99.2 98.7 98.4 99.2 98.7 98.4 Pulse 98 92 117 Resp 16 18 18 B/P (MAP) 166/78 (107) 157/77 (103) 156/75 (102) Pulse Ox 94 96 97 O2 Delivery Room Air Room Air Room Air Intake and Output 09/29/19 09/29/19 09/30/19 15:00 23:00 07:00 Intake Total 220 ml 220 ml 120 ml Output Total 350 ml Balance 220 ml 220 ml -230 ml Nutrition Consultation Dietary Evaluation: Recommendations by RD: Dietary education by RD, Increase Calorie Intake, Protein supplementation Comments: REC advance to soft diet/cardiac w/Ensure TID Expected Outcomes/Goals: to meet >75% est nutr needs - met at times, goal ongoing Malnutrition Findings: Food and Nutrition Intake (Sev: <50% est energy req 5days Weight Status: Overweight BESSY ARNOLD MD Sep 30, 2019 09:28
[2019-09-30] MEDS ORDERED: ZINC OXIDE 20% TOPICAL OINTMENT 28GM TUBE. TP PRN (10:00)
[2019-09-30 11:34] VITALS: BP 144/81
--- NOTE | 2019-09-30 11:40 | PDOC ---
Infectious Disease Note Subjective: Subjective c/o some scrotal swelling and pain , skin over the scrotal area is peeling no foot pain No fevers last 24 hours Vital Signs: Vital Signs Vital Signs Date Time Temp Pulse Resp B/P (MAP) Pulse Ox O2 Delivery O2 Flow Rate FiO2 09/30/19 11:34 98.6 108 18 144/81 (102) 97 Room Air 98.6 09/30/19 08:00 2.0 Physical Exam: PHYSICAL EXAM GENERAL: Sitting on the side of the bed, alert, in NAD HEENT: Oral mucosa moist. Dentures NECK: Supple, no JVD. LUNGS: Clear bilaterally. No wheezing. HEART: S1, S2. No gallops or murmurs. ABDOMEN: Distended, soft, bowel sounds present, nontender EXTREMITIES: No edema, dry skin. Right foot has mild swelling, no redness, no decrease in range of motion at any of the joints. GENITOURINARY: Scrotal swelling, redness NEUROLOGIC: Alert and oriented x 3, grossly nonfocal. Medications: Inpatient Meds: Current Medications Medications (Trade) Dose Ordered Sig/Eliza Start Time Stop Time Status Last Admin Dose Admin Acetaminophen (Tylenol) 650 mg PRN Q4HRS PRN 09/21/19 19:15 UNV Albuterol Sulfate (Ventolin Neb Soln) 2.5 mg PRN Q4HRS PRN 09/21/19 19:15 Bisacodyl (Dulcolax Supp) 10 mg 1X ONCE 09/27/19 12:45 09/27/19 12:46 DC Bisacodyl (Dulcolax Tab) 5 mg PRN DAILY PRN 09/27/19 10:15 Ceftriaxone Sodium (Rocephin) 2 gm Q24H 09/27/19 15:00 09/29/19 15:42 2 GM Docusate Sodium (Colace) 100 mg PRN BID PRN 09/21/19 19:15 Doxycycline Hyclate (Vibra-Tab) 100 mg BID 09/27/19 21:00 09/30/19 08:52 100 MG Doxycycline Hyclate 100 mg/ Dextrose 100 ml @ 50 mls/hr Q12HR 09/27/19 13:00 09/27/19 14:25 DC Famotidine (Pepcid Vial) 20 mg BID 09/21/19 21:00 Cancel Famotidine (Pepcid) 20 mg BID 09/21/19 21:00 09/21/19 18:59 DC Hydromorphone HCl (Dilaudid) 0.2 mg PRN Q1HR PRN 09/21/19 19:00 09/25/19 15:18 DC 09/25/19 09:36 0.2 MG Info ([facility] Electrolyte Protocol) 1 ea DAILY 09/22/19 09:00 09/22/19 09:00 1 EA Iron Sucrose 200 mg/Sodium Chloride 110 ml @ 55 mls/hr 1X ONCE 09/30/19 09:00 09/30/19 10:59 DC 09/30/19 09:01 55 MLS/HR Lactobacillus Rhamnosus (Culturelle) 1 cap BID 09/22/19 21:00 09/30/19 08:52 1 CAP Lidocaine HCl (Lidocaine Pf 2% Vial) 5 ml STK-MED ONCE 09/23/19 14:13 09/23/19 14:14 DC Lorazepam (Ativan Inj) 0.5 mg PRN Q6HRS PRN 09/21/19 19:00 09/25/19 20:00 0.5 MG Lorazepam (Ativan) 0.5 mg PRN Q4HRS PRN 09/21/19 19:15 Micafungin Sodium 100 mg/Dextrose 100 ml @ 100 mls/hr Q24H 09/29/19 13:00 09/29/19 13:45 100 MLS/HR Ondansetron HCl (Zofran) 4 mg PRN Q4HRS PRN 09/21/19 19:15 Pantoprazole Sodium (PROTONIX VIAL for IV PUSH) 40 mg 1X ONCE 09/21/19 15:45 09/21/19 15:50 DC 09/21/19 16:29 40 MG Pantoprazole Sodium (Protonix) 40 mg DAILYAC 09/23/19 14:45 09/30/19 08:52 40 MG Pantoprazole Sodium 80 mg/ Sodium Chloride 100 ml @ 10 mls/hr Q10H 09/21/19 19:00 09/23/19 14:34 DC 09/23/19 05:11 10 MLS/HR Piperacillin Sod/ Tazobactam Sod 3.375 gm/Sodium Chloride 50 ml @ 100 mls/hr Q6HRS 09/22/19 00:00 UNV Polyethylene Glycol (miraLAX PACKET) 17 gm PRN DAILY PRN 09/27/19 10:15 Potassium Chloride (Klor-Con) 40 meq 1X ONCE 09/27/19 13:00 09/27/19 13:01 DC 09/27/19 16:37 40 MEQ Prochlorperazine Edisylate (Compazine) 5 mg PRN Q6HRS PRN 09/21/19 19:00 Propofol 20 ml @ As Directed STK-MED ONCE 09/23/19 14:11 09/23/19 14:12 DC Ringer's Solution 1,000 ml @ 75 mls/hr 1X ONCE 09/23/19 07:30 09/23/19 20:49 DC Sodium Chloride (Normal Saline Flush) 3 ml QSHIFT PRN 09/21/19 19:15 UNV Zinc Acetate/ Diphenhydramine (Benadryl Topical) 1 ancelmo PRN Q6HRS PRN 09/23/19 13:00 Zinc Oxide (Zinc Oxide 20% Topical) 1 ancelmo BID PRN 09/30/19 10:00 09/30/19 10:14 1 ANCELMO Labs: Lab Laboratory Tests Test 09/30/19 03:20 White Blood Count 5.3 x10^3/uL (4.0-11.0) Red Blood Count 2.34 x10^6/uL (4.30-5.70) Hemoglobin 7.3 g/dL (13.0-17.5) Hematocrit 22.1 % (39.0-53.0) Mean Corpuscular Volume 94 fL (79-100) Mean Corpuscular Hemoglobin 31 pg (25-35) Mean Corpuscular Hemoglobin Concent 33 g/dL (31-37) Red Cell Distribution Width 23.7 % (11.5-14.5) Platelet Count 394 x10^3/uL (140-400) Neutrophils (%) (Auto) 47 % (31-73) Lymphocytes (%) (Auto) 37 % (24-48) Monocytes (%) (Auto) 11 % (0-9) Eosinophils (%) (Auto) 5 % (0-3) Basophils (%) (Auto) 1 % (0-3) Neutrophils # (Auto) 2.5 x10^3/uL (1.8-7.7) Lymphocytes # (Auto) 2.0 x10^3/uL (1.0-4.8) Monocytes # (Auto) 0.6 x10^3/uL (0.0-1.1) Eosinophils # (Auto) 0.2 x10^3/uL (0.0-0.7) Basophils # (Auto) 0.0 x10^3/uL (0.0-0.2) Sodium Level 140 mmol/L (136-145) Potassium Level 3.6 mmol/L (3.5-5.1) Chloride Level 108 mmol/L (98-107) Carbon Dioxide Level 25 mmol/L (21-32) Anion Gap 7 (6-14) Blood Urea Nitrogen 9 mg/dL (8-26) Creatinine 0.7 mg/dL (0.7-1.3) Estimated GFR (Cockcroft-Gault) 111.2 Glucose Level 88 mg/dL (70-99) Calcium Level 7.2 mg/dL (8.5-10.1) Iron Level 17 ug/dL (65-175) Total Iron Binding Capacity 83 ug/dL (250-450) Iron Saturation 20 % (15-34) Objective: Assessment: Scrotal swelling, appears less likely from cellulitis.improved Low-grade fevers, etiology unclear, could be noninfectious.resolved Right foot pain, likely noninfectious.resolved Ascites, status post paracentesis with rbc 3000, wbc 500. No ascitic fluid cultures available. Gastric ulcer, duodenal ulcer, status post biopsy. Anemia, status post blood transfusion. Questionable cirrhosis. Hypertension. History of remote ETOH use. Diarrhea, C. diff neg stool ob positive Plan: Plan of Care Continue doxycycline and ceftriaxone. cont micafungin Elevate scrotum. f/u uc urine, gonorrhea and chlamydia pending d/w ALPHONSO Callahan MD Sep 30, 2019 11:40
[2019-09-30] MEDS: MICAFUNGIN 100 MG in IV DEXTROSE 5% 100ML 100 ML IV SCH (12:58)
--- NOTE | 2019-09-30 14:27 | PDOC ---
G I PROGRESS NOTE Reason for Follow-up GI bleed Subjective Fatigue persists Physical Exam Lungs decreased BS CV S1 S2 ABD _BS, soft, nontender Review of Relevant I have reviewed the following items helen (where applicable) has been applied. Labs Laboratory Tests Test 09/30/19 03:20 White Blood Count 5.3 x10^3/uL (4.0-11.0) Red Blood Count 2.34 x10^6/uL (4.30-5.70) Hemoglobin 7.3 g/dL (13.0-17.5) Hematocrit 22.1 % (39.0-53.0) Mean Corpuscular Volume 94 fL (79-100) Mean Corpuscular Hemoglobin 31 pg (25-35) Mean Corpuscular Hemoglobin Concent 33 g/dL (31-37) Red Cell Distribution Width 23.7 % (11.5-14.5) Platelet Count 394 x10^3/uL (140-400) Neutrophils (%) (Auto) 47 % (31-73) Lymphocytes (%) (Auto) 37 % (24-48) Monocytes (%) (Auto) 11 % (0-9) Eosinophils (%) (Auto) 5 % (0-3) Basophils (%) (Auto) 1 % (0-3) Neutrophils # (Auto) 2.5 x10^3/uL (1.8-7.7) Lymphocytes # (Auto) 2.0 x10^3/uL (1.0-4.8) Monocytes # (Auto) 0.6 x10^3/uL (0.0-1.1) Eosinophils # (Auto) 0.2 x10^3/uL (0.0-0.7) Basophils # (Auto) 0.0 x10^3/uL (0.0-0.2) Sodium Level 140 mmol/L (136-145) Potassium Level 3.6 mmol/L (3.5-5.1) Chloride Level 108 mmol/L (98-107) Carbon Dioxide Level 25 mmol/L (21-32) Anion Gap 7 (6-14) Blood Urea Nitrogen 9 mg/dL (8-26) Creatinine 0.7 mg/dL (0.7-1.3) Estimated GFR (Cockcroft-Gault) 111.2 Glucose Level 88 mg/dL (70-99) Calcium Level 7.2 mg/dL (8.5-10.1) Iron Level 17 ug/dL (65-175) Total Iron Binding Capacity 83 ug/dL (250-450) Iron Saturation 20 % (15-34) Laboratory Tests Test 09/30/19 03:20 White Blood Count 5.3 x10^3/uL (4.0-11.0) Red Blood Count 2.34 x10^6/uL (4.30-5.70) Hemoglobin 7.3 g/dL (13.0-17.5) Hematocrit 22.1 % (39.0-53.0) Mean Corpuscular Volume 94 fL (79-100) Mean Corpuscular Hemoglobin 31 pg (25-35) Mean Corpuscular Hemoglobin Concent 33 g/dL (31-37) Red Cell Distribution Width 23.7 % (11.5-14.5) Platelet Count 394 x10^3/uL (140-400) Neutrophils (%) (Auto) 47 % (31-73) Lymphocytes (%) (Auto) 37 % (24-48) Monocytes (%) (Auto) 11 % (0-9) Eosinophils (%) (Auto) 5 % (0-3) Basophils (%) (Auto) 1 % (0-3) Neutrophils # (Auto) 2.5 x10^3/uL (1.8-7.7) Lymphocytes # (Auto) 2.0 x10^3/uL (1.0-4.8) Monocytes # (Auto) 0.6 x10^3/uL (0.0-1.1) Eosinophils # (Auto) 0.2 x10^3/uL (0.0-0.7) Basophils # (Auto) 0.0 x10^3/uL (0.0-0.2) Sodium Level 140 mmol/L (136-145) Potassium Level 3.6 mmol/L (3.5-5.1) Chloride Level 108 mmol/L (98-107) Carbon Dioxide Level 25 mmol/L (21-32) Anion Gap 7 (6-14) Blood Urea Nitrogen 9 mg/dL (8-26) Creatinine 0.7 mg/dL (0.7-1.3) Estimated GFR (Cockcroft-Gault) 111.2 Glucose Level 88 mg/dL (70-99) Calcium Level 7.2 mg/dL (8.5-10.1) Iron Level 17 ug/dL (65-175) Total Iron Binding Capacity 83 ug/dL (250-450) Iron Saturation 20 % (15-34) Microbiology 09/27/19 Urine Culture - Final, Complete 09/27/19 Urine Culture Result 1 (FELA) - Final, Complete 09/21/19 Blood Culture - Final, Complete NO GROWTH AFTER 5 DAYS Medications Current Medications Sodium Chloride 1,000 ml @ 1,000 mls/hr Q1H IV Last administered on 09/21/19at 16:28; Start 09/21/19 at 15:43; Stop 09/21/19 at 16:42; Status DC Pantoprazole Sodium (PROTONIX VIAL for IV PUSH) 40 mg 1X ONCE IVP Last administered on 09/21/19at 16:29; Start 09/21/19 at 15:45; Stop 09/21/19 at 15:50; Status DC Sodium Chloride 1,000 ml @ 125 mls/hr Q8H IV Last administered on 09/22/19at 02:52; Start 09/21/19 at 17:14; Stop 09/22/19 at 17:13; Status DC Pantoprazole Sodium 80 mg/ Sodium Chloride 100 ml @ 10 mls/hr Q10H IV Last administered on 09/21/19at 17:42; Start 09/21/19 at 17:15; Stop 09/21/19 at 19:00; Status DC Acetaminophen (Tylenol) 650 mg PRN Q6HRS PRN PO Headaches, Temp > 101.5' Last administered on 09/28/19at 08:23; Start 09/21/19 at 19:00 Lorazepam (Ativan Inj) 0.5 mg PRN Q6HRS PRN IV ANXIETY / AGITATION Last administered on 09/25/19at 20:00; Start 09/21/19 at 19:00 Ondansetron HCl (Zofran) 4 mg PRN Q6HRS PRN IV NAUSEA/VOMITING; Start 09/21/19 at 19:00; Status Cancel Prochlorperazine Edisylate (Compazine) 5 mg PRN Q6HRS PRN IV NAUSEA/VOMITING, 2ND CHOICE; Start 09/21/19 at 19:00 Famotidine (Pepcid) 20 mg BID PO ; Start 09/21/19 at 21:00; Stop 09/21/19 at 18:59; Status DC Famotidine (Pepcid Vial) 20 mg BID IVP ; Start 09/21/19 at 21:00; Status Cancel Info (Icu Electrolyte Protocol) 1 ea DAILY MC Last administered on 09/22/19at 09:00; Start 09/22/19 at 09:00 Sodium Chloride (Normal Saline Flush) 3 ml QSHIFT PRN IV AFTER MEDS AND BLOOD DRAWS; Start 09/21/19 at 19:00 Sodium Chloride 1,000 ml @ 75 mls/hr [id number] IV Last administered on 09/30/19at 03:03; Start 09/21/19 at 18:53 Hydromorphone HCl (Dilaudid) 0.2 mg PRN Q1HR PRN IV PAIN Last administered on 09/25/19at 09:36; Start 09/21/19 at 19:00; Stop 09/25/19 at 15:18; Status DC Docusate Sodium (Colace) 100 mg BID PO Last administered on 09/29/19at 21:33; Start 09/21/19 at 21:00 Pantoprazole Sodium 80 mg/ Sodium Chloride 100 ml @ 10 mls/hr Q10H IV Last administered on 09/23/19at 05:11; Start 09/21/19 at 19:00; Stop 09/23/19 at 14:34; Status DC Piperacillin Sod/ Tazobactam Sod 3.375 gm/Sodium Chloride 50 ml @ 100 mls/hr Q6HRS IV Last administered on 09/24/19at 12:49; Start 09/21/19 at 19:30; Stop 09/24/19 at 14:21; Status DC Sodium Chloride (Normal Saline Flush) 3 ml QSHIFT PRN IV AFTER MEDS AND BLOOD DRAWS; Start 09/21/19 at 19:15; Status UNV Ondansetron HCl (Zofran) 4 mg PRN Q4HRS PRN IV NAUSEA/VOMITING, 1ST CHOICE; Start 09/21/19 at 19:15 Acetaminophen (Tylenol) 650 mg PRN Q4HRS PRN PO TEMP OVER 100.4F OR MILD PAIN; Start 09/21/19 at 19:15; Status UNV Docusate Sodium (Colace) 100 mg PRN BID PRN PO HARD STOOLS; Start 09/21/19 at 19:15 Albuterol Sulfate (Ventolin Neb Soln) 2.5 mg PRN Q4HRS PRN NEB SHORTNESS OF BREATH; Start 09/21/19 at 19:15 Lorazepam (Ativan) 0.5 mg PRN Q4HRS PRN PO ANXIETY / AGITATION; Start 09/21/19 at 19:15 Piperacillin Sod/ Tazobactam Sod 3.375 gm/Sodium Chloride 50 ml @ 100 mls/hr Q6HRS IV ; Start 09/22/19 at 00:00; Status UNV Ringer's Solution 1,000 ml @ 50 mls/hr Q20H IV Last administered on 09/23/19at 14:00; Start 09/23/19 at 07:00; Stop 09/23/19 at 18:59; Status DC Lactobacillus Rhamnosus (Culturelle) 1 cap BID PO Last administered on 09/30/19at 08:52; Start 09/22/19 at 21:00 Ringer's Solution 1,000 ml @ 75 mls/hr 1X ONCE IV ; Start 09/23/19 at 07:30; Stop 09/23/19 at 20:49; Status DC Zinc Acetate/ Diphenhydramine (Benadryl Topical) 1 ancelmo PRN Q6HRS PRN TP ITCH ING; Start 09/23/19 at 13:00 Propofol 20 ml @ As Directed STK-MED ONCE IV ; Start 09/23/19 at 14:11; Stop 09/23/19 at 14:12; Status DC Lidocaine HCl (Lidocaine Pf 2% Vial) 5 ml STK-MED ONCE .ROUTE ; Start 09/23/19 at 14:13; Stop 09/23/19 at 14:14; Status DC Pantoprazole Sodium (Protonix) 40 mg DAILYAC PO Last administered on 09/30/19at 08:52; Start 09/23/19 at 14:45 Potassium Chloride (Klor-Con) 40 meq 1X ONCE PO Last administered on 09/26/19at 17:12; Start 09/26/19 at 16:45; Stop 09/26/19 at 16:46; Status DC Polyethylene Glycol (miraLAX PACKET) 17 gm DAILY PO Last administered on 09/27/19at 11:34; Start 09/27/19 at 11:00 Polyethylene Glycol (miraLAX PACKET) 17 gm PRN DAILY PRN PO CONSTIPATION, 1st CHOICE; Start 09/27/19 at 10:15 Bisacodyl (Dulcolax Tab) 5 mg PRN DAILY PRN PO CONSTIPATION, 2nd CHOICE; Start 09/27/19 at 10:15 Bisacodyl (Dulcolax Supp) 10 mg 1X ONCE LA ; Start 09/27/19 at 12:45; Stop 09/27/19 at 12:46; Status DC Potassium Chloride (Klor-Con) 40 meq 1X ONCE PO Last administered on 09/27/19at 16:37; Start 09/27/19 at 13:00; Stop 09/27/19 at 13:01; Status DC Doxycycline Hyclate 100 mg/ Dextrose 100 ml @ 50 mls/hr Q12HR IV ; Start 09/27/19 at 13:00; Stop 09/27/19 at 14:25; Status DC Doxycycline Hyclate (Vibra-Tab) 100 mg BID PO Last administered on 09/30/19at 08:52; Start 09/27/19 at 21:00 Ceftriaxone Sodium (Rocephin) 2 gm Q24H IVP Last administered on 09/29/19at 15:42; Start 09/27/19 at 15:00 Micafungin Sodium 100 mg/Dextrose 100 ml @ 100 mls/hr Q24H IV Last a dministered on 09/30/19at 12:58; Start 09/29/19 at 13:00 Iron Sucrose 200 mg/Sodium Chloride 110 ml @ 55 mls/hr 1X ONCE IV Last administered on 09/30/19at 09:01; Start 09/30/19 at 09:00; Stop 09/30/19 at 10:59; Status DC Zinc Oxide (Zinc Oxide 20% Topical) 1 ancelmo BID PRN TP SKIN PROTECTION Last administered on 09/30/19at 10:14; Start 09/30/19 at 10:00 Active Scripts Active Multi-Vitamin Daily (Multivitamin) 1 Each Tablet 1 Tab PO DAILY 30 Days Vitamin D (Cholecalciferol (Vitamin D3)) 2,000 Unit Capsule 1 Cap PO DAILY B Complex (Vitamin B Complex) 1 Each Tablet 1 Tab PO DAILY 30 Days Midodrine Hcl 2.5 Mg Tablet 2.5 Mg PO DAILY Aspirin Ec (Aspirin) 81 Mg Tablet.dr 81 Mg PO DAILYWBKFT Hydrocodone-Acetamin 5-325 mg (Hydrocodone/Acetaminophen) 1 Each Tablet 1 Tab PO PRN BID PRN Vitals/I & O Vital Sign - Last 24 Hours 09/29/19 09/29/19 09/29/19 09/29/19 15:11 19:58 20:00 23:19 Temp 98.2 98.7 99.2 98.2 98.7 99.2 Pulse 99 99 98 Resp 18 18 16 B/P (MAP) 146/61 (89) 155/78 (103) 166/78 (107) Pulse Ox 99 97 94 O2 Delivery Room Air Room Air Room Air Room Air O2 Flow Rate 2.0 09/30/19 09/30/19 09/30/19 09/30/19 03:06 07:40 08:00 11:34 Temp 98.7 98.4 98.6 98.7 98.4 98.6 Pulse 92 117 108 Resp 18 18 18 B/P (MAP) 157/77 (103) 156/75 (102) 144/81 (102) Pulse Ox 96 97 97 O2 Delivery Room Air Room Air Room Air Room Air O2 Flow Rate 2.0 Intake and Output 09/29/19 09/29/19 09/30/19 15:00 23:00 07:00 Intake Total 220 ml 220 ml 120 ml Output Total 350 ml Balance 220 ml 220 ml -230 ml Problem List Problems Medical Problems: (1) Anemia Status: Acute (2) Elevated lactic acid level Status: Acute (3) Elevated troponin Status: Acute (4) GI bleeding Status: Acute (5) Hyperkalemia Status: Acute (6) Renal insufficiency Status: Acute Assessment Anemia- with gastric ulcers, on PPI therapy, follow serial CBCs, transfusion may be needed if Hg continues to drop, CPM CHELLE BERNARD MD Sep 30, 2019 14:27
[2019-09-30 15:15] VITALS: BP 151/68
[2019-09-30] MEDS: cefTRIAXone IV Push 2 GM VIAL. IVP SCH (15:20)
[2019-09-30 19:23] VITALS: BP 173/56
[2019-09-30 23:25] VITALS: BP 154/69
[2019-10-01 03:00] VITALS: BP 174/60
[2019-10-01] MEDS: IV NORMAL SALINE 1000ML BAG 1,000 ML IV SCH (05:17)
[2019-10-01 07:11] VITALS: BP 170/70
[2019-10-01] MEDS: ELECTROLYTE (ICU) PROTOCOL. MC SCH (07:43)
[2019-10-01] MEDS: DOXYCYCLINE HYCLATE 100 MG TABLET PO SCH (08:44)
[2019-10-01] MEDS: LACTOBACILLUS RHAMNOSUS GG 1 CAPSULE. PO SCH (08:45)
[2019-10-01] MEDS: PANTOPRAZOLE 40 MG TABLET.DR. PO SCH (08:45)
[2019-10-01] MEDS: DOCUSATE SODIUM 100 MG CAPSULE. PO SCH (08:45)
[2019-10-01] MEDS: POLYETHYLENE GLYCOL 3350 17 GM PACKET. PO SCH (08:45)
--- NOTE | 2019-10-01 09:04 | PDOC ---
PROGRESS NOTES Chief Complaint Chief Complaint A/P: Fatigue, dyspnea severe debility, weakness of trunk Macrocytic anemia, +Hemoccult Mildly elevated troponin (resolved), elevated BNP, lactic acidosis (resolved), elevated BUN Abnormal CT Recent c scope hemorrhoidal polyps, sessile Acute precip drop hgb SEVERE PROTEIN-CALORIC MALNUTRITION Only a small amount of ascites is identified by ultrasound. Only a few cc of fluid could be safely aspirated. Samples were sent for culture. consider ischemic evaluation as an outpatient scrotal edema likely sec to severe hypo-albuminemia History of remote ETOH use 30 MIN PT EXAM, CHART REVIEW, > 50% OF TIME SPENT WITH EXAM, CHART REVIEW, PT CARE COORDINATION History of Present Illness History of Present Illness Mr Davila is a 73yo M Improved Hg S/p transfusions. EGD 09/23 Acid suppressive therapy for 2 months with interval EGD to confirm healing. 09/24 states he feels too weak to go home today 09/26 gait still unsteady 09/28 HOLD D/C DUE TO SCROTAL SWELLING 09/30: He has worse scrotal edema today. Still very weak, mildly short of breath. No abdominal pain. Scrotal edema improved this morning. He is anxious to leave. Hb pending. Had 2 normal BM overnight. Changed to PO fluconazole and doxycycline for 7 days on d/c per ID. PLAN: monitor melena PPi IV vs PO depending on diet IVF depending on diet Dw telephone advice nurse snf bed PP ON HOLD DUE TO SCROTAL INFECTION Discharge Recommendations * Half-Way Unit Discharge Recommendation - DME * Rolling Walker needed * in order to complete ADLs * and ambulation safely Vitals Vitals Vital Signs Date Time Temp Pulse Resp B/P (MAP) Pulse Ox O2 Delivery O2 Flow Rate FiO2 10/01/19 07:11 98.4 91 19 170/70 (103) 97 Room Air 98.4 09/30/19 08:00 2.0 Physical Exam Physical Exam GENERAL: Sitting on the side of the bed, alert, in NAD HEENT: Oral mucosa moist. Dentures NECK: Supple, no JVD. LUNGS: Clear bilaterally. No wheezing. HEART: S1, S2. No gallops or murmurs. ABDOMEN: Distended, soft, bowel sounds present, nontender EXTREMITIES: No edema, dry skin. Right foot has mild swelling, no redness, no decrease in range of motion at any of the joints. GENITOURINARY: Scrotal swelling, redness NEUROLOGIC: Alert and oriented x 3, grossly nonfocal. General: Alert, Oriented X3, Cooperative, No acute distress Heart: Regular rate, Normal S1, Normal S2, No murmurs Lungs: Clear Abdomen: Normal bowel sounds, Soft, No tenderness Extremities: No clubbing, No cyanosis, No edema Skin: No rashes, No breakdown, No significant lesion Assessment and Plan Assessmemt and Plan Problems Medical Problems: (1) Anemia Status: Acute (2) Elevated lactic acid level Status: Acute (3) Elevated troponin Status: Acute (4) GI bleeding Status: Acute (5) Hyperkalemia Status: Acute (6) Renal insufficiency Status: Acute Comment Review of Relevant I have reviewed the following items helen (where applicable) has been applied. Labs Laboratory Tests Test 09/30/19 03:20 White Blood Count 5.3 x10^3/uL (4.0-11.0) Red Blood Count 2.34 x10^6/uL (4.30-5.70) Hemoglobin 7.3 g/dL (13.0-17.5) Hematocrit 22.1 % (39.0-53.0) Mean Corpuscular Volume 94 fL (79-100) Mean Corpuscular Hemoglobin 31 pg (25-35) Mean Corpuscular Hemoglobin Concent 33 g/dL (31-37) Red Cell Distribution Width 23.7 % (11.5-14.5) Platelet Count 394 x10^3/uL (140-400) Neutrophils (%) (Auto) 47 % (31-73) Lymphocytes (%) (Auto) 37 % (24-48) Monocytes (%) (Auto) 11 % (0-9) Eosinophils (%) (Auto) 5 % (0-3) Basophils (%) (Auto) 1 % (0-3) Neutrophils # (Auto) 2.5 x10^3/uL (1.8-7.7) Lymphocytes # (Auto) 2.0 x10^3/uL (1.0-4.8) Monocytes # (Auto) 0.6 x10^3/uL (0.0-1.1) Eosinophils # (Auto) 0.2 x10^3/uL (0.0-0.7) Basophils # (Auto) 0.0 x10^3/uL (0.0-0.2) Sodium Level 140 mmol/L (136-145) Potassium Level 3.6 mmol/L (3.5-5.1) Chloride Level 108 mmol/L (98-107) Carbon Dioxide Level 25 mmol/L (21-32) Anion Gap 7 (6-14) Blood Urea Nitrogen 9 mg/dL (8-26) Creatinine 0.7 mg/dL (0.7-1.3) Estimated GFR (Cockcroft-Gault) 111.2 Glucose Level 88 mg/dL (70-99) Calcium Level 7.2 mg/dL (8.5-10.1) Iron Level 17 ug/dL (65-175) Total Iron Binding Capacity 83 ug/dL (250-450) Iron Saturation 20 % (15-34) Microbiology 09/27/19 Urine Culture - Final, Complete 09/27/19 Urine Culture Result 1 (FELA) - Final, Complete 09/21/19 Blood Culture - Final, Complete NO GROWTH AFTER 5 DAYS Medications Current Medications Sodium Chloride 1,000 ml @ 1,000 mls/hr Q1H IV Last administered on 09/21/19at 16:28; Start 09/21/19 at 15:43; Stop 09/21/19 at 16:42; Status DC Pantoprazole Sodium (PROTONIX VIAL for IV PUSH) 40 mg 1X ONCE IVP Last administered on 09/21/19at 16:29; Start 09/21/19 at 15:45; Stop 09/21/19 at 15:50; Status DC Sodium Chloride 1,000 ml @ 125 mls/hr Q8H IV Last administered on 09/22/19at 02:52; Start 09/21/19 at 17:14; Stop 09/22/19 at 17:13; Status DC Pantoprazole Sodium 80 mg/ Sodium Chloride 100 ml @ 10 mls/hr Q10H IV Last administered on 09/21/19at 17:42; Start 09/21/19 at 17:15; Stop 09/21/19 at 19:00; Status DC Acetaminophen (Tylenol) 650 mg PRN Q6HRS PRN PO Headaches, Temp > 101.5' Last administered on 09/28/19at 08:23; Start 09/21/19 at 19:00 Lorazepam (Ativan Inj) 0.5 mg PRN Q6HRS PRN IV ANXIETY / AGITATION Last administered on 09/25/19at 20:00; Start 09/21/19 at 19:00 Ondansetron HCl (Zofran) 4 mg PRN Q6HRS PRN IV NAUSEA/VOMITING; Start 09/21/19 at 19:00; Status Cancel Prochlorperazine Edisylate (Compazine) 5 mg PRN Q6HRS PRN IV NAUSEA/VOMITING, 2ND CHOICE; Start 09/21/19 at 19:00 Famotidine (Pepcid) 20 mg BID PO ; Start 09/21/19 at 21:00; Stop 09/21/19 at 18:59; Status DC Famotidine (Pepcid Vial) 20 mg BID IVP ; Start 09/21/19 at 21:00; Status Cancel Info (Icu Electrolyte Protocol) 1 ea DAILY MC Last administered on 09/22/19at 09:00; Start 09/22/19 at 09:00 Sodium Chloride (Normal Saline Flush) 3 ml QSHIFT PRN IV AFTER MEDS AND BLOOD DRAWS; Start 09/21/19 at 19:00 Sodium Chloride 1,000 ml @ 75 mls/hr [id number] IV Last administered on 10/01/19at 05:17; Start 09/21/19 at 18:53 Hydromorphone HCl (Dilaudid) 0.2 mg PRN Q1HR PRN IV PAIN Last administered on 09/25/19at 09:36; Start 09/21/19 at 19:00; Stop 09/25/19 at 15:18; Status DC Docusate Sodium (Colace) 100 mg BID PO Last administered on 09/29/19at 21:33; Start 09/21/19 at 21:00 Pantoprazole Sodium 80 mg/ Sodium Chloride 100 ml @ 10 mls/hr Q10H IV Last administered on 09/23/19at 05:11; Start 09/21/19 at 19:00; Stop 09/23/19 at 14:34; Status DC Piperacillin Sod/ Tazobactam Sod 3.375 gm/Sodium Chloride 50 ml @ 100 mls/hr Q6HRS IV Last administered on 09/24/19at 12:49; Start 09/21/19 at 19:30; Stop 09/24/19 at 14:21; Status DC Sodium Chloride (Normal Saline Flush) 3 ml QSHIFT PRN IV AFTER MEDS AND BLOOD DRAWS; Start 09/21/19 at 19:15; Status UNV Ondansetron HCl (Zofran) 4 mg PRN Q4HRS PRN IV NAUSEA/VOMITING, 1ST CHOICE; Start 09/21/19 at 19:15 Acetaminophen (Tylenol) 650 mg PRN Q4HRS PRN PO TEMP OVER 100.4F OR MILD PAIN; Start 09/21/19 at 19:15; Status UNV Docusate Sodium (Colace) 100 mg PRN BID PRN PO HARD STOOLS; Start 09/21/19 at 19:15 Albuterol Sulfate (Ventolin Neb Soln) 2.5 mg PRN Q4HRS PRN NEB SHORTNESS OF BREATH; Start 09/21/19 at 19:15 Lorazepam (Ativan) 0.5 mg PRN Q4HRS PRN PO ANXIETY / AGITATION; Start 09/21/19 at 19:15 Piperacillin Sod/ Tazobactam Sod 3.375 gm/Sodium Chloride 50 ml @ 100 mls/hr Q6HRS IV ; Start 09/22/19 at 00:00; Status UNV Ringer's Solution 1,000 ml @ 50 mls/hr Q20H IV Last administered on 09/23/19at 14:00; Start 09/23/19 at 07:00; Stop 09/23/19 at 18:59; Status DC Lactobacillus Rhamnosus (Culturelle) 1 cap BID PO Last administered on 10/01/19at 08:45; Start 09/22/19 at 21:00 Ringer's Solution 1,000 ml @ 75 mls/hr 1X ONCE IV ; Start 09/23/19 at 07:30; Stop 09/23/19 at 20:49; Status DC Zinc Acetate/ Diphenhydramine (Benadryl Topical) 1 ancelmo PRN Q6HRS PRN TP ITCHING; Start 09/23/19 at 13:00 Propofol 20 ml @ As Directed STK-MED ONCE IV ; Start 09/23/19 at 14:11; Stop 09/23/19 at 14:12; Status DC Lidocaine HCl (Lidocaine Pf 2% Vial) 5 ml STK-MED ONCE .ROUTE ; Start 09/23/19 at 14:13; Stop 09/23/19 at 14:14; Status DC Pantoprazole Sodium (Protonix) 40 mg DAILYAC PO Last administered on 10/01/19at 08:45; Start 09/23/19 at 14:45 Potassium Chloride (Klor-Con) 40 meq 1X ONCE PO Last administered on 09/26/19at 17:12; Start 09/26/19 at 16:45; Stop 09/26/19 at 16:46; Status DC Polyethylene Glycol (miraLAX PACKET) 17 gm DAILY PO Last administered on 09/27/19at 11:34; Start 09/27/19 at 11:00 Polyethylene Glycol (miraLAX PACKET) 17 gm PRN DAILY PRN PO CONSTIPATION, 1st CHOICE; Start 09/27/19 at 10:15 Bisacodyl (Dulcolax Tab) 5 mg PRN DAILY PRN PO CONSTIPATION, 2nd CHOICE; Start 09/27/19 at 10:15 Bisacodyl (Dulcolax Supp) 10 mg 1X ONCE AR ; Start 09/27/19 at 12:45; Stop 09/27/19 at 12:46; Status DC Potassium Chloride (Klor-Con) 40 meq 1X ONCE PO Last administered on 09/27/19at 16:37; Start 09/27/19 at 13:00; Stop 09/27/19 at 13:01; Status DC Doxycycline Hyclate 100 mg/ Dextrose 100 ml @ 50 mls/hr Q12HR IV ; Start 09/27/19 at 13:00; Stop 09/27/19 at 14:25; Status DC Doxycycline Hyclate (Vibra-Tab) 100 mg BID PO Last administered on 10/01/19at 08:44; Start 09/27/19 at 21:00 Ceftriaxone Sodium (Rocephin) 2 gm Q24H IVP Last administered on 09/30/19at 15:20; Start 09/27/19 at 15:00 Micafungin Sodium 100 mg/Dextrose 100 ml @ 100 mls/hr Q24H IV Last administered on 09/30/19at 12:58; Start 09/29/19 at 13:00 Iron Sucrose 200 mg/Sodium Chloride 110 ml @ 55 mls/hr 1X ONCE IV Last administered on 09/30/19at 09:01; Start 09/30/19 at 09:00; Stop 09/30/19 at 10:59; Status DC Zinc Oxide (Zinc Oxide 20% Topical) 1 ancelmo BID PRN TP SKIN PROTECTION Last adm inistered on 09/30/19at 10:14; Start 09/30/19 at 10:00 Active Scripts Active Multi-Vitamin Daily (Multivitamin) 1 Each Tablet 1 Tab PO DAILY 30 Days Vitamin D (Cholecalciferol (Vitamin D3)) 2,000 Unit Capsule 1 Cap PO DAILY B Complex (Vitamin B Complex) 1 Each Tablet 1 Tab PO DAILY 30 Days Midodrine Hcl 2.5 Mg Tablet 2.5 Mg PO DAILY Aspirin Ec (Aspirin) 81 Mg Tablet. 81 Mg PO DAILYWBKFT Hydrocodone-Acetamin 5-325 mg (Hydrocodone/Acetaminophen) 1 Each Tablet 1 Tab PO PRN BID PRN Vitals/I & O Vital Sign - Last 24 Hours 09/30/19 09/30/19 09/30/19 09/30/19 11:34 15:15 19:23 20:00 Temp 98.6 98.6 98.9 98.6 98.6 98.9 Pulse 108 100 98 Resp 18 18 18 B/P (MAP) 144/81 (102) 151/68 (95) 173/56 (95) Pulse Ox 97 98 97 O2 Delivery Room Air Room Air Room Air Room Air 09/30/19 10/01/19 10/01/19 23:25 03:00 07:11 Temp 98.3 98.5 98.4 98.3 98.5 98.4 Pulse 93 95 91 Resp 20 20 19 B/P (MAP) 154/69 (97) 174/60 (98) 170/70 (103) Pulse Ox 95 95 97 O2 Delivery Room Air Room Air Room Air Intake and Output 09/30/19 09/30/19 10/01/19 15:00 23:00 07:00 Intake Total 180 ml 0 ml 900 ml Output Total 50 ml Balance 180 ml 0 ml 850 ml Nutrition Consultation Dietary Evaluation: Recommendations by RD: Dietary education by RD, Increase Calorie Intake, Protein supplementation Comments: REC advance to soft diet/cardiac w/Ensure TID Expected Outcomes/Goals: to meet >75% est nutr needs - met at times, goal ongoing Malnutrition Findings: Food and Nutrition Intake (Sev: <50% est energy req 5days Weight Status: Overweight BESSY ARNOLD MD Oct 01, 2019 09:04
--- NOTE | 2019-10-01 10:06 | PDOC ---
Infectious Disease Note Subjective: Subjective Pt says doing ok scrotal swelling goes up and down no abdo pain no foot pain No fevers /N/V/D Vital Signs: Vital Signs Vital Signs Date Time Temp Pulse Resp B/P (MAP) Pulse Ox O2 Delivery O2 Flow Rate FiO2 10/01/19 08:00 Room Air 10/01/19 07:11 98.4 91 19 170/70 (103) 97 98.4 09/30/19 08:00 2.0 Physical Exam: PHYSICAL EXAM GENERAL: Sitting on the side of the bed, alert, in NAD HEENT: Oral mucosa moist. Dentures NECK: Supple, no JVD. LUNGS: Clear bilaterally. No wheezing. HEART: S1, S2. No gallops or murmurs. ABDOMEN: Distended, soft, bowel sounds present, nontender EXTREMITIES: No edema, dry skin. Right foot has mild swelling, no redness, no decrease in range of motion at any of the joints. GENITOURINARY: Scrotal swelling, redness NEUROLOGIC: Alert and oriented x 3, grossly nonfocal. Medications: Inpatient Meds: Current Medications Medications (Trade) Dose Ordered Sig/Eliza Start Time Stop Time Status Last Admin Dose Admin Acetaminophen (Tylenol) 650 mg PRN Q4HRS PRN 09/21/19 19:15 UNV Albuterol Sulfate (Ventolin Neb Soln) 2.5 mg PRN Q4HRS PRN 09/21/19 19:15 Bisacodyl (Dulcolax Supp) 10 mg 1X ONCE 09/27/19 12:45 09/27/19 12:46 DC Bisacodyl (Dulcolax Tab) 5 mg PRN DAILY PRN 09/27/19 10:15 Ceftriaxone Sodium (Rocephin) 2 gm Q24H 09/27/19 15:00 09/30/19 15:20 2 GM Docusate Sodium (Colace) 100 mg PRN BID PRN 09/21/19 19:15 Doxycycline Hyclate (Vibra-Tab) 100 mg BID 09/27/19 21:00 10/01/19 08:44 100 MG Doxycycline Hyclate 100 mg/ Dextrose 100 ml @ 50 mls/hr Q12HR 09/27/19 13:00 09/27/19 14:25 DC Famotidine (Pepcid Vial) 20 mg BID 09/21/19 21:00 Cancel Famotidine (Pepcid) 20 mg BID 09/21/19 21:00 09/21/19 18:59 DC Hydromorphone HCl (Dilaudid) 0.2 mg PRN Q1HR PRN 09/21/19 19:00 09/25/19 15:18 DC 09/25/19 09:36 0.2 MG Info (Icu Electrolyte Protocol) 1 ea DAILY 09/22/19 09:00 09/22/19 09:00 1 EA Iron Sucrose 200 mg/Sodium Chloride 110 ml @ 55 mls/hr 1X ONCE 09/30/19 09:00 09/30/19 10:59 DC 09/30/19 09:01 55 MLS/HR Lactobacillus Rhamnosus (Culturelle) 1 cap BID 09/22/19 21:00 10/01/19 08:45 1 CAP Lidocaine HCl (Lidocaine Pf 2% Vial) 5 ml STK-MED ONCE 09/23/19 14:13 09/23/19 14:14 DC Lorazepam (Ativan Inj) 0.5 mg PRN Q6HRS PRN 09/21/19 19:00 09/25/19 20:00 0.5 MG Lorazepam (Ativan) 0.5 mg PRN Q4HRS PRN 09/21/19 19:15 Micafungin Sodium 100 mg/Dextrose 100 ml @ 100 mls/hr Q24H 09/29/19 13:00 09/30/19 12:58 100 MLS/HR Ondansetron HCl (Zofran) 4 mg PRN Q4HRS PRN 09/21/19 19:15 Pantoprazole Sodium (PROTONIX VIAL for IV PUSH) 40 mg 1X ONCE 09/21/19 15:45 09/21/19 15:50 DC 09/21/19 16:29 40 MG Pantoprazole Sodium (Protonix) 40 mg DAILYAC 09/23/19 14:45 10/01/19 08:45 40 MG Pantoprazole Sodium 80 mg/ Sodium Chloride 100 ml @ 10 mls/hr Q10H 09/21/19 19:00 09/23/19 14:34 DC 09/23/19 05:11 10 MLS/HR Piperacillin Sod/ Tazobactam Sod 3.375 gm/Sodium Chloride 50 ml @ 100 mls/hr Q6HRS 09/22/19 00:00 UNV Polyethylene Glycol (miraLAX PACKET) 17 gm PRN DAILY PRN 09/27/19 10:15 Potassium Chloride (Klor-Con) 40 meq 1X ONCE 09/27/19 13:00 09/27/19 13:01 DC 09/27/19 16:37 40 MEQ Prochlorperazine Edisylate (Compazine) 5 mg PRN Q6HRS PRN 09/21/19 19:00 Propofol 20 ml @ As Directed STK-MED ONCE 09/23/19 14:11 09/23/19 14:12 DC Ringer's Solution 1,000 ml @ 75 mls/hr 1X ONCE 09/23/19 07:30 09/23/19 20:49 DC Sodium Chloride (Normal Saline Flush) 3 ml QSHIFT PRN 09/21/19 19:15 UNV Zinc Acetate/ Diphenhydramine (Benadryl Topical) 1 ancelmo PRN Q6HRS PRN 09/23/19 13:00 Zinc Oxide (Zinc Oxide 20% Topical) 1 ancelmo BID PRN 09/30/19 10:00 09/30/19 10:14 1 ANCELMO Objective: Assessment: Scrotal swelling, improving though slowly Low-grade fevers, .resolved Right foot pain, likely noninfectious.resolved Ascites, status post paracentesis with rbc 3000, wbc 500. No ascitic fluid cultures available. Gastric ulcer, duodenal ulcer, status post biopsy. Anemia, status post blood transfusion. Questionable cirrhosis. Hypertension. History of remote ETOH use. Diarrhea, C. diff neg stool ob positive Plan: Plan of Care Continue doxycycline for total 7 days DC micafungin and ceftriaxone on dc today to rehab fluconazole 100 mg po qd for 7 days Elevate scrotum. d/w ALPHONSO Callahan MD Oct 01, 2019 10:06
--- NOTE | 2019-10-01 10:17 | PDOC ---
Subjective: Subjective: Eating without issue. Stooling twice daily - "might be too much." No bleeding. Objective: Objective: D/w nurse - no GI concerns, awaiting recheck of Hgb today, ?DC to [facility] Vital Signs: Vital Signs Date Time Temp Pulse Resp B/P (MAP) Pulse Ox O2 Delivery O2 Flow Rate FiO2 10/01/19 08:00 Room Air 10/01/19 07:11 98.4 91 19 170/70 (103) 97 98.4 09/30/19 08:00 2.0 Labs: Material submitted: . stomach - GASTRIC ANTRAL ULCER BX Clinical history: . Melena, anemia Diagnosis: Gastric biopsy "gastric antral ulcer biopsy": - Mild to moderate chronic reactive gastropathy with mild foveolar hyperplasia. - There is no evidence of acute cryptitis, granulomas, adenomatous change, acute ulcers, acute erosions or malignancy. - The immunoperoxidase stain for Helicobacter pylori is negative. Imaging: Abd US 09/27 IMPRESSION: Moderate ascites. Foot X-Ray 09/27 IMPRESSION: No acute osseous finding. PE: GEN: NAD - therapy present, helping him get cleaning up - sitting on edge of bed w/ wet wipes LUNGS: room air NEURO/PSYCH: A & O 3 A/P: , DU Macrocytic anemia - drop yesterday w/o obvious bleeding ?cirrhosis - s/p paracentesis (minimal ascites at that time - now moderate on interval imaging as above) Scrotal edema -- Awaiting recheck of Hgb. Continue PPI. EGD in ~2 months, colonoscopy as some point in 2019. On Miralax for recent constipation - can back off as needed. No NSAIDs. DC per primary. EVI PERERA Oct 01, 2019 10:17
[2019-10-01 11:20] VITALS: BP 170/74
[2019-10-01] MEDS ORDERED: DOCU-153 PO (11:25)
[2019-10-01] MEDS ORDERED: ZINC56.7 TP (11:25)
[2019-10-01] MEDS ORDERED: POLY17PO28 PO (11:25)
[2019-10-01] MEDS ORDERED: ACET325T9 PO (11:25)
[2019-10-01] MEDS ORDERED: HYDR-2759 PO (11:25)
[2019-10-01] MEDS ORDERED: PANT40TA77 PO (11:25)
[2019-10-01] MEDS ORDERED: DOXY100T PO (11:25)
[2019-10-01] MEDS ORDERED: LACT1CAP19 PO (11:25)
[2019-10-01] MEDS ORDERED: FLUC100T4 PO (11:25)
--- NOTE | 2019-10-01 11:27 | SNU/HH DC ---
DISCHARGE ORDERS DISCHARGE INFORMATION: DISCHARGE DATE: Oct 01, 2019 FINAL DIAGNOSIS Problems Medical Problems: (1) Anemia Status: Acute (2) Elevated lactic acid level Status: Acute (3) Elevated troponin Status: Acute (4) GI bleeding Status: Acute (5) Hyperkalemia Status: Acute (6) Renal insufficiency Status: Acute CONDITION ON DISCHARGE: Stable CODE STATUS: Code Status: DNR/DNI CUSTODIAL: SNF STAY <30 DAYS: Yes POST DISCHARGE ORDERS: ACTIVITY ORDERS: Activity as tolerated WEIGHT BEARING STATUS: No restrictions, As tolerated, Partial weight bearing DIET AFTER DISCHARGE: Regular WOUND/INCISION CARE: Change dressing OTHER ORDERS: take extra time to transition, has drops in BP CHECKS AFTER DISCHARGE: CHECKS AFTER DISCHARGE: Check blood press - daily, Check your Temp as needed FOLLOW-UP: LAB ORDERS FOR FOLLOW-UP: BMP, LFT 10/04/19 TREATMENT/EQUIPMENT ORDERS: Physical Therapy For: Evalulation/Treatment Occupational Therapy For: Evaluation/Treatment DISCHARGE MEDICATIONS: Home Meds Active Scripts Fluconazole (FLUCONAZOLE) 100 Mg Tablet, 1 TAB PO DAILY for Cellulitis for 7 Days, #7 TAB Prov:BESSY ARNOLD MD 10/01/19 Zinc Oxide (ZINC OXIDE) 56.7 Gm Oint...g., 1 BOBBY TP BID PRN for SKIN PROTECTION for 30 Days, #1 MISC Prov:BESSY ARNOLD MD 10/01/19 Lactobacillus Rhamnosus Gg (CULTURELLE) 1 Each Cap.sprink, 1 CAP PO BID for Diarrhea for 14 Days, #28 CAP Prov:BESSY ARNOLD MD 10/01/19 Pantoprazole Sodium (PANTOPRAZOLE SODIUM ) 40 Mg Tablet.dr, 40 MG PO DAILYAC for PUD for 30 Days, #30 TAB.SR Prov:BESSY ARNOLD MD 10/01/19 Docusate Sodium (DOK) 100 Mg Capsule, 100 MG PO BID for Constipation for 30 Days, #60 CAP Prov:BESSY ARNOLD MD 10/01/19 Polyethylene Glycol 3350 (POLYETHYLENE GLYCOL 3350) 17 Gm Powd.pack, 17 GM PO DAILY for Constipation for 30 Days, #30 PKT Prov:BESSY ARNOLD MD 10/01/19 Acetaminophen (TYLENOL) 325 Mg Tablet, 650 MG PO PRN Q6HRS PRN for Headaches, Temp > 101.5' for 30 Days, #120 TAB Prov:BESSY ARNOLD MD 10/01/19 Doxycycline Hyclate (DOXYCYCLINE HYCLATE) 100 Mg Tablet, 100 MG PO BID for Cellulitis for 7 Days, #14 TAB Prov:BESSY ARNOLD MD 10/01/19 Hydrocodone/Acetaminophen (Hydrocodone-Acetamin 5-325 mg) 1 Each Tablet, 1 TAB PO PRN BID PRN for PAIN for 6 Days, #12 TAB Prov:BESSY ARNOLD MD 10/01/19 Multivitamin (MULTI-VITAMIN DAILY) 1 Each Tablet, 1 TAB PO DAILY for anemia for 30 Days, #30 TAB 0 Refills Prov:BECKA MENDES MD 08/07/19 Cholecalciferol (Vitamin D3) (VITAMIN D) 2,000 Unit Capsule, 1 CAP PO DAILY for vitamin def. , #30 CAP 3 Refills Prov:BECKA MENDES MD 08/07/19 Vitamin B Complex (B COMPLEX) 1 Each Tablet, 1 TAB PO DAILY for macrocytic anemia for 30 Days, #30 TAB 0 Refills Prov:BECKA MENDES MD 08/07/19 Midodrine Hcl (MIDODRINE HCL) 2.5 Mg Tablet, 2.5 MG PO DAILY for hypotension, #30 TAB Prov:BECKA MENDES MD 08/07/19 Aspirin (ASPIRIN EC) 81 Mg Tablet.dr, 81 MG PO DAILYWBKFT for cardiac, #100 T AB.SR Prov:BECKA MENDES MD 08/07/19 BESSY ARNOLD MD Oct 01, 2019 11:27
--- NOTE | 2019-10-01 11:32 | PDOC3 ---
Discharge Summary Visit Information Date of Admission: Sep 21, 2019 Date of Discharge: Oct 01, 2019 Admitting Diagnosis: Anemia Final Diagnosis Problems Medical Problems: (1) Anemia Status: Acute (2) Elevated lactic acid level Status: Acute (3) Elevated troponin Status: Acute (4) GI bleeding Status: Acute (5) Hyperkalemia Status: Acute (6) Renal insufficiency Status: Acute Brief Hospital Course Allergies Allergies Coded Allergies Type Severity Reaction Last Updated Verified No Known Drug Allergies 09/23/19 No Vital Signs Vital Signs Date Time Temp Pulse Resp B/P (MAP) Pulse Ox O2 Delivery O2 Flow Rate FiO2 10/01/19 11:20 98.7 95 19 170/74 (106) 97 Room Air 98.7 09/30/19 08:00 2.0 Lab Results Laboratory Tests Test 09/30/19 03:20 White Blood Count 5.3 x10^3/uL (4.0-11.0) Red Blood Count 2.34 x10^6/uL (4.30-5.70) Hemoglobin 7.3 g/dL (13.0-17.5) Hematocrit 22.1 % (39.0-53.0) Mean Corpuscular Volume 94 fL (79-100) Mean Corpuscular Hemoglobin 31 pg (25-35) Mean Corpuscular Hemoglobin Concent 33 g/dL (31-37) Red Cell Distribution Width 23.7 % (11.5-14.5) Platelet Count 394 x10^3/uL (140-400) Neutrophils (%) (Auto) 47 % (31-73) Lymphocytes (%) (Auto) 37 % (24-48) Monocytes (%) (Auto) 11 % (0-9) Eosinophils (%) (Auto) 5 % (0-3) Basophils (%) (Auto) 1 % (0-3) Neutrophils # (Auto) 2.5 x10^3/uL (1.8-7.7) Lymphocytes # (Auto) 2.0 x10^3/uL (1.0-4.8) Monocytes # (Auto) 0.6 x10^3/uL (0.0-1.1) Eosinophils # (Auto) 0.2 x10^3/uL (0.0-0.7) Basophils # (Auto) 0.0 x10^3/uL (0.0-0.2) Sodium Level 140 mmol/L (136-145) Potassium Level 3.6 mmol/L (3.5-5.1) Chloride Level 108 mmol/L (98-107) Carbon Dioxide Level 25 mmol/L (21-32) Anion Gap 7 (6-14) Blood Urea Nitrogen 9 mg/dL (8-26) Creatinine 0.7 mg/dL (0.7-1.3) Estimated GFR (Cockcroft-Gault) 111.2 Glucose Level 88 mg/dL (70-99) Calcium Level 7.2 mg/dL (8.5-10.1) Iron Level 17 ug/dL (65-175) Total Iron Binding Capacity 83 ug/dL (250-450) Iron Saturation 20 % (15-34) Brief Hospital Course Mr Davila is a 73yo M Improved Hg S/p transfusions. EGD 09/23 with PUD, negative for h. pylori. Acid suppressive therapy for 2 months with interval EGD to confirm healing. Consults: GI, ID, cardiology 09/24 states he feels too weak to go home today 09/26 gait still unsteady 09/28 HOLD D/C DUE TO SCROTAL SWELLING 09/30: He has worse scrotal edema today. Still very weak, mildly short of breath. No abdominal pain. Scrotal edema improved this morning. He is anxious to leave. Hb pending. Had 2 normal BM overnight. Changed to PO fluconazole and doxycycline for 7 days on d/c per ID. Problem list Fatigue, dyspnea severe debility, weakness of trunk Macrocytic anemia, +Hemoccult Mildly elevated troponin (resolved), elevated BNP, lactic acidosis (resolved), elevated BUN Abnormal CT Recent c scope hemorrhoidal polyps, sessile Acute precip drop hgb SEVERE PROTEIN-CALORIC MALNUTRITION Only a small amount of ascites is identified by ultrasound. Only a few cc of fluid could be safely aspirated. Samples were sent for culture. consider ischemic evaluation as an outpatient scrotal edema likely sec to severe hypo-albuminemia History of remote ETOH use Greater than 30 MIN PT EXAM, CHART REVIEW, > 50% OF TIME SPENT WITH EXAM, CHART REVIEW, PT CARE COORDINATION SNF * Rolling Walker needed * in order to complete ADLs * and ambulation safely Discharge Information Condition at Discharge: Improved Follow Up: Weeks (1) Disposition/Orders: D/C to Another Facility ([facility]) Scheduled Aspirin (Aspirin Ec) 81 Mg Tablet., 81 MG PO DAILYWBK for cardiac, #100 Prescribed by: BECKA MENDES on 08/07/191122 Last Action: Reviewed on 09/22/19620 by JOSEPH MARSHALL RN Cholecalciferol (Vitamin D3) (Vitamin D) 2,000 Unit Capsule, 1 CAP PO DAILY for vitamin def. , #30 Ref 3 Prescribed by: BECKA MENDES on 08/07/191128 Last Action: Reviewed on 09/22/19620 by JOSEPH MARSHALL RN Docusate Sodium (Dok) 100 Mg Capsule, 100 MG PO BID for Constipation for 30 Days, #60 Prescribed by: BESSY ARNOLD MD on 10/01/191124 Doxycycline Hyclate (Doxycycline Hyclate) 100 Mg Tablet, 100 MG PO BID for Cellulitis for 7 Days, #14 Prescribed by: BESSY ARNOLD MD on 10/01/191124 Fluconazole (Fluconazole) 100 Mg Tablet, 1 TAB PO DAILY for Cellulitis for 7 Days, #7 Prescribed by: BESSY ARNOLD MD on 10/01/191124 Lactobacillus Rhamnosus Gg (Culturelle) 1 Each Cap.sprink, 1 CAP PO BID for Diarrhea for 14 Days, #28 Prescribed by: BESSY ARNOLD MD on 10/01/191124 Midodrine Hcl (Midodrine Hcl) 2.5 Mg Tablet, 2.5 MG PO DAILY for hypotension, #30 Prescribed by: BECKA MENDES on 08/07/191122 Multivitamin (Multi-Vitamin Daily) 1 Each Tablet, 1 TAB PO DAILY for anemia for 30 Days, #30 Ref 0 Prescribed by: BECKA MENDES on 08/07/191128 Last Action: Reviewed on 09/22/19620 by JOSEPH MARSHALL RN Pantoprazole Sodium (Pantoprazole Sodium ) 40 Mg Tablet.dr, 40 MG PO DAILYAC for PUD for 30 Days, #30 Prescribed by: BESSY ARNOLD MD on 10/01/191124 Polyethylene Glycol 3350 (Polyethylene Glycol 3350) 17 Gm Powd.pack, 17 GM PO DAILY for Constipation for 30 Days, #30 Prescribed by: BESSY ARNOLD MD on 12/27/19 1125 Vitamin B Complex (B Complex) 1 Each Tablet, 1 TAB PO DAILY for macrocytic anemia for 30 Days, #30 Ref 0 Prescribed by: BECKA MENDES on 08/07/19 1129 Last Action: Reviewed on 09/22/19620 by JOSEPH MARSHALL, RN Scheduled PRN Acetaminophen (Tylenol) 325 Mg Tablet, 650 MG PO PRN Q6HRS PRN for Headaches, Temp > 101.5' for 30 Days, #120 Prescribed by: BESSY ARNOLD MD on 10/01/19 1125 Hydrocodone/Acetaminophen (Hydrocodone-Acetamin 5-325 mg) 1 Each Tablet, 1 TAB PO PRN BID PRN for PAIN for 6 Days, #12 Prescribed by: BESSY ARNOLD MD on 10/01/19 1125 Zinc Oxide (Zinc Oxide) 56.7 Gm Oint...g., 1 BOBBY TP BID PRN for SKIN PROTECTION for 30 Days, #1 Prescribed by: BESSY ARNOLD MD on 10/01/19 1125 BESSY ARNOLD MD Oct 01, 2019 11:32
--- NOTE | 2019-10-01 12:54 | NUR ---
Discharge Note: KIRSTEN FUNK Discharge instructions and discharge home medications reviewed with Other facility and a copy given. All questions have been answered and understanding verbalized. The following instructions and handouts were given: Gi bleed Discontinued lines and drains: Peripheral IV intact. Patient discharged to Rehab Facility with Ambulance Personnel via Wheelchair
[2019-10-01 13:49] LABS: BASO # 0.1 x10^3/uL (0.0-0.2); BASO % 2 % (0-3); EOS # 0.2 x10^3/uL (0.0-0.7); EOS % 3 % (0-3); HEMATOCRIT 25.7 % (39.0-53.0); HEMOGLOBIN 8.3 g/dL (13.0-17.5); LYMPH # 1.7 x10^3/uL (1.0-4.8); LYMPH % 25 % (24-48); MEAN CORPUSCULAR HEMOGLOBIN 31 pg (25-35); MEAN CORPUSCULAR HGB CONC 32 g/dL (31-37); MEAN CORPUSCULAR VOLUME 96 fL (79-100); MONO # 0.8 x10^3/uL (0.0-1.1); MONO % 11 % (0-9); NEUT % 59 % (31-73); PLATELET COUNT 493 x10^3/uL (140-400); RED BLOOD COUNT 2.68 x10^6/uL (4.30-5.70); RED CELL DISTRIBUTION WIDTH 23.2 % (11.5-14.5); WHITE BLOOD COUNT 6.8 x10^3/uL (4.0-11.0)
--- NOTE | 2019-10-01 14:04 | NUR ---
Orders faxed to [facility] and pt will transport at 1300 via central transport.
== END 2019-10-01 14:31 | DRG 377 ==
LOC: ER 15:28 → ED HOLD 17:00 → 6 SOUTH 20:02
PROVIDERS: ADMIT Family Medicine; ATTEND Family Medicine
PROC: 30233N1 Transfusion of Nonautologous Red Blood Cells into Peripheral Vein, Percutaneous Approach (ICD-10-PCS; 2019-09-21)
PROC: 0W9G3ZZ Drainage of Peritoneal Cavity, Percutaneous Approach (ICD-10-PCS; 2019-09-23)
PROC: 0DB68ZX Excision of Stomach, Via Natural or Artificial Opening Endoscopic, Diagnostic (ICD-10-PCS; principal; 2019-09-23 14:00)
DX: K26.4 Chronic or unspecified duodenal ulcer with hemorrhage (principal); E43 Unspecified severe protein-calorie malnutrition; E87.2 Acidosis; J90 Pleural effusion, not elsewhere classified; R18.8 Other ascites; D62 Acute posthemorrhagic anemia; I24.8 Other forms of acute ischemic heart disease; E87.5 Hyperkalemia; K74.60 Unspecified cirrhosis of liver; D53.9 Nutritional anemia, unspecified; Z66 Do not resuscitate; I73.9 Peripheral vascular disease, unspecified; N50.89 Other specified disorders of the male genital organs; I10 Essential (primary) hypertension; J44.9 Chronic obstructive pulmonary disease, unspecified; K59.00 Constipation, unspecified; Z87.891 Personal history of nicotine dependence; Z82.49 Family history of ischemic heart disease and other diseases of the circulatory system; Z68.27 Body mass index [BMI] 27.0-27.9, adult
CPT/HCPCS: 36415; 36430; 43239; 49083; 71045; 73620; 74176; 76705; 76870; 80048; 80053; 80061; 81001; 82140; 82150; 82274; 82550; 82607; 82945; 83540; 83550; 83605; 83615; 83690; 83880; 84145; 84157; 84439; 84443; 84481; 84484; 84550; 85025; 85027; 85610; 85730; 86850; 86900; 86901; 86920; 87040; 87086; 87491; 87493; 87591; 88305; 88342; 89050; 93005; 93306; 96361; 96365; 96366; 96375; C1892; C9113; J0696; J1170; J1756; J2001; J2060; J2248; J2543; J2704; J7030; J7120; P9016; 97110; 97116; 97530; 97535; 99291-25; G0378